=== PATIENT | female | born 1965 | race Caucasian/White ===

== ENCOUNTER → 2016-03-13 | Outpatient (CLI) | payer OTHER ==
[~2016-03-13] MED LIST: AMIT25TA PO; BUTR10DI2 TD; BUTR5DIS2 TD; CLOB-49 EX; CLOT1CRE71 TOP; CYCL5TA PO; DIFL200T PO; DULO30CA PO; GABA-283 PO; GABA300C3 PO; HYDR-3565 PO; HYDR1TAB97 PO; LACT20EL PO; LINZ290C PO; LYRI75CA PO; MIRA3350 PO; MS C15TA2 PO; OMEP40CA2 PO; OXYC15TA76 PO; OXYC1TAB15 PO; PANT40TA2 PO; ROBA750T4 PO; ROPI0.25 PO; ROPI1TAB PO; SOMA350T PO; SUMA100T2 PO; TERB1CRE8 TD; TERB250T57 PO; TOPA100T8 PO; TOPA25TA10 PO; TRAM50TA2 PO; TRAZ150T14 PO; TYLE500T78 PO; VICO7.5T11 PO; VITA1CAP25 PO; [UNRECOGNIZED DRUG - OTHER] TOP
[2016-03-13 10:22] LABS: BASO % 0.6 % (0.0-1.0); EOS # 0.2 K/mm3 (0.0-0.50); EOS % 2.8 % (0.0-3.0); LARGE UNSTAINED CELL # 0.1 K/mm3 (0.0-0.4); LARGE UNSTAINED CELL % 1.3 % (0.0-4.0); LYMPH # 0.9 K/mm3 (1.5-4.5); LYMPH % 17.7 % (24.0-44.0); MEAN CORPUSCULAR HEMOGLOBIN 32.6 pg (27.0-33.0); MEAN CORPUSCULAR VOLUME 95.8 fl (80.0-96.0); MONO # 0.2 K/mm3 (0.0-0.8); MONO % 3.6 % (0.0-5.0); NEUTROPHILS % 74.1 % (36.0-66.0); PLATELET COUNT, AUTOMATED 212 k/mm3 (150-450); RED CELL DISTRIBUTION WIDTH 12.3 % (11.5-14.5); WHITE BLOOD COUNT 5.3 K/mm3 (4.0-10.0)
[2016-03-13 10:44] LABS: ALBUMIN 3.7 GM/DL (3.2-5.2); PERCENT SATURATION 31.3 % (13.2-37.4)
== END ==
LOC: M LAB 09:32
PROVIDERS: ATTEND Orthopaedic Surgery
DX: D64.9 Anemia, unspecified (principal); Z01.818 Encounter for other preprocedural examination

== ENCOUNTER → 2016-03-13 | Outpatient (CLI) | payer OTHER ==
[2016-03-13 10:23] LABS: BASO % 0.4 % (0.0-1.0); EOS # 0.1 K/mm3 (0.0-0.50); EOS % 2.3 % (0.0-3.0); MEAN CORPUSCULAR HEMOGLOBIN 32.7 pg (27.0-33.0); MEAN CORPUSCULAR HGB CONC 34.1 g/dl (32.0-36.5); MEAN CORPUSCULAR VOLUME 95.9 fl (80.0-96.0); MONO # 0.2 K/mm3 (0.0-0.8); MONO % 3.7 % (0.0-5.0); NEUTROPHILS # 3.9 K/mm3 (1.8-7.7); NEUTROPHILS % 72.7 % (36.0-66.0); RED CELL DISTRIBUTION WIDTH 12.3 % (11.5-14.5); WHITE BLOOD COUNT 5.4 K/mm3 (4.0-10.0)
[2016-03-13 10:29] LABS: INR 0.89
--- NOTE | 2016-03-13 10:41 | REP ---
Chest x-ray: Two views. History: Preop testing. Comparison chest x-rays from July 15, 2015. Findings: There is a levoconvex scoliotic curve in the thoracolumbar junction of the spine and there is straightening of the normal thoracic kyphosis. These findings are unchanged. No other bony abnormality is seen. Lungs are well inflated and clear. Heart size is felt to be normal. Pulmonary vasculature is not increased. Pleural angles are sharp. Impression: Thoracolumbar roto scoliotic curve. Otherwise no active disease. Signed by Chris Win MD 03/13/2016 10:32 A
[2016-03-13 10:42] LABS: ALBUMIN 3.7 GM/DL (3.2-5.2); ALBUMIN/GLOBULIN RATIO 1.42 (1.00-1.93); ALKALINE PHOSPHATASE 85 U/L (45-117); ALT/SGPT 16 U/L (12-78); ANION GAP 10 MEQ/L (8-16); AST/SGOT 9 U/L (15-37); BILIRUBIN,TOTAL 0.2 MG/DL (0.2-1.0); BLOOD UREA NITROGEN 12 MG/DL (7-18); CALCIUM LEVEL 8.9 MG/DL (8.5-10.1); CARBON DIOXIDE LEVEL 24 MEQ/L (21-32); CHLORIDE LEVEL 113 MEQ/L (98-107); CREATININE FOR GFR 0.76 MG/DL (0.55-1.02); GLOMERULAR FILTRATION RATE > 60.0 (>51); GLUCOSE, FASTING 94 MG/DL (70-105); SODIUM LEVEL 147 MEQ/L (136-145); TOTAL PROTEIN 6.3 GM/DL (6.4-8.2)
--- NOTE | 2016-03-14 09:16 | ECGEPIP ---
Stationary ECG Study [facility] Test Date: 2016-03-13 Pat Name: NNAMDI ANAND Department: Room: - Gender: F Mobile Marketing Specialist: JEAN : 1965 Requested By: Theresa Borges Order Number: [id number] Reading MD: Orion Hope Measurements Intervals [place] Rate: 62 P: 49 VT: 181 QRS: 83 QRSD: 100 T: 9 QT: 408 QTc: 415 Interpretive Statements SINUS RHYTHM Nonspecific T wave abnormality No significant change when compared to prior tracing of 07-15-15 Electronically Signed On 03-14-2016 9:16:34 EST by Orion Hope
== END ==
LOC: M LAB 09:35
PROVIDERS: ATTEND Nurse Practitioner Adult Health
DX: Z01.818 Encounter for other preprocedural examination (principal)

== ENCOUNTER → 2016-04-02 | Outpatient (REF) | payer OTHER ==
[~2016-04-02] MED LIST changes: -HYDR-3565 PO; +HYDR-3713 PO; +HYDR-3719 PO; -HYDR1TAB97 PO
== END ==
LOC: M LAB REF 16:58
PROVIDERS: ATTEND Physician Assistant Medical
DX: J06.9 Acute upper respiratory infection, unspecified (principal)

== ENCOUNTER → 2016-04-04 | Outpatient (CLI) | payer OTHER ==
--- NOTE | 2016-04-04 23:35 | ECWPNPC ---
PATIENT NAME: NNAMDI ANAND : 1965 GENDER: FEMALE VISIT DATE: 04/04/2016 DISCHARGE DATE: 04/04/16 1333 VISIT LOCKED DATE TIME: PHYSICIAN: NINA ESQUIVEL RESOURCE: NINA ESQUIVEL REASON FOR APPOINTMENT 1. BACK HISTORY OF PRESENT ILLNESS HISTORY OF PRESENT ILLNESS: HERE FOR F/U. WILL BE HAVING RIGHT HIP SURGERY ON RATING PAIN VAS 8/10. WORSE AREA OF PAIN IS LOW BACK. PAIN IS AGGREVATED BY WALKING. RELIEVED BY LAYING DOWN AND PROPPING W PILLOWS.CURRENT PAIN MEDICATION:ROBAXIN 750MG TID,[id number] DAILY,CELEBREX 200MG BID AND OXYCODONE 15MG Q8H PRN MDD3 .FINDS MEDICATION HELPFUL AT REDUCING PAIN AND KEEPING HER SOMEWHAT FUNCTIONAL.DOES HAVE NAUSEA THAT IS RELIEVED WITH ANTI NAUSEA MEDICATION. HAVING SEVERE RIGHT NECK PAIN.FOLLOWING AUDIOLOGY FOR LEFT VESTIBULAR NERVE DYSFUNCTION. PAIN THE PATIENT DESCRIBES THE PAIN... THE PATIENT DESCRIBES THE PAIN... THE PATIENT DESCRIBES THE PAIN... FALL RISK SCREENING: SCREENING :NO FALLS IN THE PAST YEAR CURRENT MEDICATIONS TAKING ZOFRAN 4 MG TABLET 3 TABLETS ORALLY PRE MEDICATION TAKING VITAMIN D3 09953 UNIT CAPSULE ORALLY EVERY 2 WEEKS TAKING ROPINIROLE HCL 1 MG TABLET ORALLY AT BEDTIME TAKING SUMATRIPTAN SUCCINATE 100 MG TABLET 1 TABLET NEEDED ONE TIME ORALLY DIRECTED TAKING TOPIRAMATE 100 MG TABLET 1 TABLET ORALLY TWICE A DAY TAKING LINZESS 290 MCG CAPSULE 1 CAPSULE ORALLY ONCE A DAY TAKING PANTOPRAZOLE SODIUM 40 MG TABLET DELAYED RELEASE 1 TABLET ORALLY TWICE A DAY TAKING SIMVASTATIN 20 MG TABLET 1 TABLET IN THE EVENING ORALLY IN EVENING TAKING CELEBREX 200 MG CAPSULE 1 CAPSULE ORALLY BID TAKING TERBINAFINE HCL 250 MG TABLET 1 TABLET ORALLY ONCE A DAY TAKING METHOCARBAMOL 750 MG TABLET 1 TABLET ORALLY TID PRN TAKING CYMBALTA 60 MG CAPSULE DELAYED RELEASE PARTICLES 1 CAPSULE ORALLY DAILY TAKING GABAPENTIN 600 MG TABLET 1 TABLET ORALLY THREE TIMES A DAY TAKING OXYCODONE HCL 15 MG TABLET 1 TABLET ORALLY EVERY 8 HRS PRN PAIN MDD=3 NOT-TAKING TRIAMCINOLONE ACETONIDE 0.1 % CREAM 1 APPLICATION TO AFFECTED AREA EXTERNALLY TWICE A DAY, NOTES: 12/05/151999 NOT-TAKING VALIUM 10 MG TABLET 1 ORALLY 1 TAB 1HR PRE PROC. MDD1 NOT-TAKING MELATONIN 5 MG TABLET 1 TABLET AT BEDTIME NEEDED WITH FOOD ORALLY ONCE A DAY NOT-TAKING CYCLOBENZAPRINE HCL 5 MG TABLET 1 TABLET ORALLY 2 TIMES A DAY NEEDED NOT-TAKING MELOXICAM 15 MG TABLET 1 TABLET ORALLY ONCE A DAY UNKNOWN GABAPENTIN 300 600 MG TABLET 1 TAB(S) ORAL THREE TIMES A DAY MEDICATION LIST REVIEWED AND RECONCILED WITH THE PATIENT PAST MEDICAL HISTORY ACID REFLUX IBS PINCHED NERVES IN BACK SCOLIOSIS ARTHRITIS DDD ENDOMETRIOSIS CONGENITAL RIGHT HIP ABNORMALITY ALLERGIES NAPROXEN SODIUM: TONGUE SWELLS/FACE SWELLING: ALLERGY ASPIRIN: SORES IN MOUTH: ALLERGY ADHESIVE TAPE/BANDAIDS: BLISTERS: ALLERGY TEGADERM: SKIN BECOMES RAW, REDNESS, HEAT: ALLERGY SOCIAL HISTORY GENERAL: TOBACCO USE ARE YOU A:NONSMOKER LEARNING BARRIERS / SPECIAL NEEDS ORIENTED TO PLAN OF CARE: PATIENT, PAIN MANAGEMENT PATIENT, ORIENTED TO PLAN OF CARE: PATIENT, PAIN MANAGEMENT PATIENT. NEW PATIENT PAIN DIARY TODAY'S VISITNOTES FROM 0-10, WHAT LEVEL IS YOUR PAIN TODAY?0 PAIN CLINIC PFS, CLERGY, PUBLIC HEALTH REFERRALS PFS REFERRAL NEEDED?NO CLERGY REFERRAL NEEDED?NO PUBLIC HEALTH REFERRAL NEEDED?NO WAS THE PROVIDER NOTIFIED OF ANY PERTINENT INFO?NO PFS REFERRAL NEEDED?NO CLERGY REFERRAL NEEDED?NO PUBLIC HEALTH REFERRAL NEEDED?NO WAS THE PROVIDER NOTIFIED OF ANY PERTINENT INFO?NO REVIEW OF SYSTEMS CONSTITUTIONAL: ANY CHANGE IN YOUR MEDICAL CONDITION? NO . CHILLS NO . FEVER NO . INFECTION: DO YOU HAVE NEW INFECTIONS? NO . DO YOU HAVE HISTORY OF MRSA? NO . MUSCULOSKELETAL: ANY NEW PATTERNS OF PAIN OR NUMBNESS? NO . GASTROENTEROLOGY: ANY NEW CHANGE IN BOWEL CONTROL? NO . GENITOURINARY: ANY NEW CHANGE IN BLADDER CONTROL? NO . IS THERE A CHANCE YOU COULD BE ? NO . HEMATOLOGY/LYMPH: DO YOU TAKE ANY BLOOD THINNERS? (FOR EXAMPLE- COUMADIN, PLAVIX, AGGRENOX, PLATEL, PRADAXA, OR XARELTO) NO . WHEN WAS YOUR LAST DOSE? DATE: TIME: . NEUROLOGY: HAVE YOU FALLEN IN THE PAST 6 MONTHS? YES FELL 3 DAYS AGO ON STEPS.RECOVERED . ANY NEW EXTREMITY NUMBNESS OR WEAKNESS? NO . CARDIOLOGY: DO YOU HAVE A PACEMAKER OR DEFIBRILLATOR? NO . RESPIRATORY: HAVE YOU BEEN SICK IN THE PAST WEEK? NO . FEVER NO . FLU LIKE SYMPTOMS? NO . COUGH NO . INTEGUMENTARY: DO YOU HAVE ANY RASHES OR OPEN SORES? NO . ALLERGIC/IMMUNO: ARE YOU ALLERGIC TO SHELLFISH OR IV DYE? NO . ANY NEW ALLERGIES? NO . PSYCHIATRIC: DO YOU HAVE THOUGHTS OF HURTING YOURSELF OR SOMEONE ELSE? NO . ARE YOU ABUSED, NEGLECTED, OR IN AN UNSAFE ENVIRONMENT? NO . ENDOCRINOLOGY: ARE YOU DIABETIC? NO . OTHER: DO YOU NEED ANY PRESCRIPTIONS? DULOXETINE 60 MG AND WILL NEED OXY ON THE . IF YES, PLEASE LIST: ____ . ANY NEW PROBLEMS WITH YOUR MEDICATIONS? NO . WHEN DID YOU LAST EAT? ____ . WHEN DID YOU LAST DRINK? ____ . WHAT DID YOU LAST DRINK? ____ . NAME OF PERSON DRIVING YOU HOME? ____ . DO YOU HAVE ANY OTHER QUESTIONS OR CONCERNS NO . REVIEWED BY: PROVIDER: NINA BANEGAS . VITAL SIGNS WT 163 LBS, HT 61 IN, BMI 30.80 INDEX, BP 127/63 MM HG, HR 82 /MIN, RR 18 /MIN, TEMP 98.2 F, OXYGEN SAT % 97, SAFE IN ENV? (Y/N) Y, REVIEWED BY: KG. EXAMINATION GENERAL EXAMINATION: LUNGS:LUNG SOUNDS ARE CLEAR. HEART:HEART RATE REGULAR. MUSCULOSKELETAL:*, MUSCLE STRENGTH TESTING 5/5 LEFT AND 3/5RIGHT, PALPATION: POSITIVE FOR PAIN OVER L/S SPINE. POSITIVE FOR PAIN OVER L/S PARSPINALS.SPECIFIC POINT TENDERNESS OVER SIJ AREA BILAT.TRIGGER POINT ELICITED IN LUMBAR PARASPINALS.PAIN IN THIS AREA IS AGGREVATED BY BOTH FLEXION AND EXTENSION OF SPINE.. DIAGNOSTIC: . ASSESSMENTS RIGHT HIP PAIN - M25.551 (PRIMARY) CHRONIC BILATERAL LOW BACK PAIN WITH RIGHT-SIDED SCIATICA - M54.41 CHRONIC PRESCRIPTION OPIATE USE - Z79.899 MYOFASCIAL PAIN - M79.1 TREATMENT RIGHT HIP PAIN CONTINUE METHOCARBAMOL TABLET, 750 MG, 1 TABLET, ORALLY, TID PRN REFILL CYMBALTA CAPSULE DELAYED RELEASE PARTICLES, 60 MG, 1 CAPSULE, ORALLY, DAILY, 30 DAY(S), 30 CAPSULE, REFILLS 5 CONTINUE GABAPENTIN TABLET, 600 MG, 1 TABLET, ORALLY, THREE TIMES A DAY CONTINUE OXYCODONE HCL TABLET, 15 MG, 1 TABLET, ORALLY, EVERY 8 HRS PRN PAIN MDD=3 PROCEDURE CODES FA211 ESTABILISHED PATIENT [facility] CHARGE FOLLOW UP 2 MONTHS ELECTRONICALLY SIGNED BY BASSAM SANTANA ON 04/04/2016 AT 11:08 AM EST DISCLAIMER : THIS IS A VISIT SUMMARY EXTRACTED FROM THE [employer] CHART. IT IS NOT A COPY OF THE [employer] PROGRESS NOTE. MARIKA
== END ==
LOC: M PAIN 09:20
PROVIDERS: ATTEND Nurse Practitioner Family
DX: M25.551 Pain in right hip (principal); M54.41 Lumbago with sciatica, right side; M79.1 Myalgia; G89.29 Other chronic pain; Z79.891 Long term (current) use of opiate analgesic; Z79.899 Other long term (current) drug therapy

== ENCOUNTER → 2016-04-25 | Outpatient (REF) | payer OTHER ==
[2016-04-25 20:41] LABS: INR 1.12
== END ==
LOC: M LABDRWAD 20:09
PROVIDERS: ATTEND Orthopaedic Surgery
DX: Z79.01 Long term (current) use of anticoagulants (principal); M25.559 Pain in unspecified hip; M16.11 Unilateral primary osteoarthritis, right hip

== ENCOUNTER → 2016-05-01 | Outpatient (CLI) | payer OTHER ==
[2016-05-01 20:27] LABS: INR 0.99
== END ==
LOC: M ADAMS 15:51
PROVIDERS: ATTEND Orthopaedic Surgery
DX: Z79.01 Long term (current) use of anticoagulants (principal); M24.151 Other articular cartilage disorders, right hip; M16.11 Unilateral primary osteoarthritis, right hip

== ENCOUNTER → 2016-05-04 | Outpatient (REF) | payer OTHER ==
[2016-05-04 20:19] LABS: CALCIUM OXALATE CRYSTALS MODERATE
== END ==
LOC: M LABDRWAD 19:27
PROVIDERS: ATTEND Physician Assistant Surgical
DX: Z79.899 Other long term (current) drug therapy (principal); Z48.89 Encounter for other specified surgical aftercare; M24.132 Other articular cartilage disorders, left wrist; M25.559 Pain in unspecified hip; M24.151 Other articular cartilage disorders, right hip

== ENCOUNTER → 2016-05-23 | Outpatient (CLI) | payer OTHER ==
--- NOTE | 2016-05-23 13:01 | REP ---
LUMBAR SPINE, SEVEN VIEWS: HISTORY: Spondylosis. COMPARISON: 09/25/2014. There is no acute fracture. The intervertebral discs are decreased in height consistent with disc degeneration. Osteophytes are present on T12-L2. There is narrowing of the right L3-4 through L5-S1 and left L5-S1 facet joints. There are 2 mm of retrolisthesis of L1 on 2 and L3 on 4. This is unchanged with flexion and extension. There is scoliosis convex to the left. IMPRESSION: Degenerative change as described above. Signed by Pradeep Peck MD 05/23/2016 01:04 P
--- NOTE | 2016-05-23 13:05 | REP ---
CERVICAL SPINE, SEVEN VIEWS: HISTORY: Spondylosis. COMPARISON: 09/25/2014 There is no acute fracture. The C5-6 and C6-7 intervertebral discs are decreased in height consistent with disc degeneration. Osteophytes are present on C5 through C7. There is narrowing of the C5 neural foramina secondary to uncinate process hypertrophy. There are 2 mm of anterior subluxation of C4 on C5 with flexion. There are 2 mm of retrolisthesis of C4 on C5 with extension. IMPRESSION: Degenerative change, as described above. Signed by Pradeep Peck MD 05/23/2016 01:36 P
== END ==
LOC: M RAD 11:08
PROVIDERS: ATTEND Neurological Surgery
DX: M47.892 Other spondylosis, cervical region (principal); M47.896 Other spondylosis, lumbar region

== ENCOUNTER → 2016-06-02 | Outpatient (CLI) | payer OTHER ==
[~2016-06-02] MED LIST changes: +GABA-282 PO; -GABA300C3 PO
--- NOTE | 2016-06-03 01:43 | ECWPNPC ---
PATIENT NAME: NNAMDI ANAND : 1965 GENDER: FEMALE VISIT DATE: 06/02/2016 DISCHARGE DATE: 06/02/16 1146 VISIT LOCKED DATE TIME: PHYSICIAN: NINA ESQUIVEL RESOURCE: NINA ESQUIVEL REASON FOR APPOINTMENT 1. BACK HISTORY OF PRESENT ILLNESS HISTORY OF PRESENT ILLNESS: HERE FOR F/U. HAD RIGHT HIP SURGERY ON .WAS DOING WELL UNTIL ONE MONTH AGO.NOW HAVING INCREASED PAIN IN RIGHT HIP AND IS BEING EVALUATED FOR POSSIBLE INFECTION RIGHT HIP. WILL BE HAVING ULTRASOUND RIGHT HIP TODAY.FOLLOWING WITH DR. HUTSON FOR NECK AND LOW BACK.COMPLAINING OF INCREASE IN LBP LATELY.RATING PAIN VAS 8/10. WORSE AREA OF PAIN IS LOW BACK. PAIN IS AGGREVATED BY WALKING. RELIEVED BY LAYING DOWN AND PROPPING W PILLOWS.CURRENT PAIN MEDICATION:ROBAXIN 750MG TID,[id number] DAILY,CELEBREX 200MG BID AND OXYCODONE 15MG Q8H PRN MDD3 .DOESNT FEEL MEDICATION IS HELPING PAIN.DOES HAVE NAUSEA THAT IS RELIEVED WITH ANTI NAUSEA MEDICATION. HAVING SEVERE RIGHT NECK PAIN.FOLLOWING AUDIOLOGY FOR LEFT VESTIBULAR NERVE DYSFUNCTION. PAIN THE PATIENT DESCRIBES THE PAIN... THE PATIENT DESCRIBES THE PAIN... THE PATIENT DESCRIBES THE PAIN... THE PATIENT DESCRIBES THE PAIN... FALL RISK SCREENING: SCREENING :NO FALLS IN THE PAST YEAR CURRENT MEDICATIONS TAKING ZOFRAN 4 MG TABLET 3 TABLETS ORALLY PRE MEDICATION TAKING VITAMIN D3 61007 UNIT CAPSULE ORALLY EVERY 2 WEEKS TAKING ROPINIROLE HCL 1 MG TABLET ORALLY AT BEDTIME TAKING SUMATRIPTAN SUCCINATE 100 MG TABLET 1 TABLET NEEDED ONE TIME ORALLY DIRECTED TAKING TOPIRAMATE 100 MG TABLET 1 TABLET ORALLY TWICE A DAY TAKING LINZESS 290 MCG CAPSULE 1 CAPSULE ORALLY ONCE A DAY TAKING PANTOPRAZOLE SODIUM 40 MG TABLET DELAYED RELEASE 1 TABLET ORALLY TWICE A DAY TAKING SIMVASTATIN 20 MG TABLET 1 TABLET IN THE EVENING ORALLY IN EVENING TAKING TERBINAFINE HCL 250 MG TABLET 1 TABLET ORALLY ONCE A DAY TAKING METHOCARBAMOL 750 MG TABLET 1 TABLET ORALLY TID PRN TAKING CYMBALTA 60 MG CAPSULE DELAYED RELEASE PARTICLES 1 CAPSULE ORALLY DAILY TAKING GABAPENTIN 600 MG TABLET 1 TABLET ORALLY THREE TIMES A DAY TAKING OXYCODONE HCL 15 MG TABLET 1 TABLET ORALLY EVERY 8 HRS PRN PAIN MDD=3 TAKING DOXYCYCLINE MONOHYDRATE 100 MG CAPSULE 1 CAPSULE ORALLY BID X 10 DAYS NOT-TAKING TRIAMCINOLONE ACETONIDE 0.1 % CREAM 1 APPLICATION TO AFFECTED AREA EXTERNALLY TWICE A DAY, NOTES: 12/05/151999 NOT-TAKING VALIUM 10 MG TABLET 1 ORALLY 1 TAB 1HR PRE PROC. MDD1 NOT-TAKING MELATONIN 5 MG TABLET 1 TABLET AT BEDTIME NEEDED WITH FOOD ORALLY ONCE A DAY NOT-TAKING CYCLOBENZAPRINE HCL 5 MG TABLET 1 TABLET ORALLY 2 TIMES A DAY NEEDED NOT-TAKING MELOXICAM 15 MG TABLET 1 TABLET ORALLY ONCE A DAY DISCONTINUED CELEBREX 200 MG CAPSULE 1 CAPSULE ORALLY BID UNKNOWN GABAPENTIN 300 600 MG TABLET 1 TAB(S) ORAL THREE TIMES A DAY MEDICATION LIST REVIEWED AND RECONCILED WITH THE PATIENT PAST MEDICAL HISTORY ACID REFLUX IBS PINCHED NERVES IN BACK SCOLIOSIS ARTHRITIS DDD ENDOMETRIOSIS CONGENITAL RIGHT HIP ABNORMALITY ALLERGIES NAPROXEN SODIUM: TONGUE SWELLS/FACE SWELLING: ALLERGY ASPIRIN: SORES IN MOUTH: ALLERGY ADHESIVE TAPE/BANDAIDS: BLISTERS: ALLERGY TEGADERM: SKIN BECOMES RAW, REDNESS, HEAT: ALLERGY SURGICAL HISTORY WRIST SURGERY RIGHT.TORN LIGAMENT 2004 BILATERAL SALPINGO SURGERY DUE TO DEFECT 1989 SURGERY LEFT WRIST 2016 RIGHT HIP SURGERY 2015 RIGHT FOOT SURGERY- NERVE RELEASE 09/27/15 TOTAL RIGHT HIP 04/05/2016 SOCIAL HISTORY GENERAL: PAIN CLINIC PFS, CLERGY, PUBLIC HEALTH REFERRALS CLERGY REFERRAL NEEDED?NO WAS THE PROVIDER NOTIFIED OF ANY PERTINENT INFO?NO PFS REFERRAL NEEDED?NO PUBLIC HEALTH REFERRAL NEEDED?NO PATIENT: ____. HOSPITALIZATION/MAJOR DIAGNOSTIC PROCEDURE SURGERY RELATED REVIEW OF SYSTEMS CONSTITUTIONAL: ANY CHANGE IN YOUR MEDICAL CONDITION? YES[facility] HAVING INCREASED PAIN IN IT AND STARTED ON DOXYCYCLINE AND IS HAVING US OF THIS AFTER APPOINTMENT TODAY. SEEING DR LANGSTON FOR BALANCE ISSUES AND WILL BE STARTING PT FOR THIS AFTER HIP PT IS DONE . CHILLS NO . FEVER NO . INFECTION: DO YOU HAVE NEW INFECTIONS? NO . DO YOU HAVE HISTORY OF MRSA? NO . MUSCULOSKELETAL: ANY NEW PATTERNS OF PAIN OR NUMBNESS? YES, PAIN RIGHT HIP(POST TOTAL HIP) THAT HAS GOTTEN WORSE OVER THE PAST MONTH . GASTROENTEROLOGY: ANY NEW CHANGE IN BOWEL CONTROL? NO . GENITOURINARY: ANY NEW CHANGE IN BLADDER CONTROL? NO . IS THERE A CHANCE YOU COULD BE ? NO . HEMATOLOGY/LYMPH: DO YOU TAKE ANY BLOOD THINNERS? (FOR EXAMPLE- COUMADIN, PLAVIX, AGGRENOX, PLATEL, PRADAXA, OR XARELTO) NO . WHEN WAS YOUR LAST DOSE? DATE: TIME: . NEUROLOGY: HAVE YOU FALLEN IN THE PAST 6 MONTHS? YES, HAS FALLEN SEVERAL TIMES. THIS IS SOMEWHAT DUE TO BALANCE ISSUES . ANY NEW EXTREMITY NUMBNESS OR WEAKNESS? NO . CARDIOLOGY: DO YOU HAVE A PACEMAKER OR DEFIBRILLATOR? NO . RESPIRATORY: HAVE YOU BEEN SICK IN THE PAST WEEK? NO . FEVER NO . FLU LIKE SYMPTOMS? NO . COUGH NO . INTEGUMENTARY: DO YOU HAVE ANY RASHES OR OPEN SORES? NO . ALLERGIC/IMMUNO: ARE YOU ALLERGIC TO SHELLFISH OR IV DYE? NO . ANY NEW ALLERGIES? NO . PSYCHIATRIC: DO YOU HAVE THOUGHTS OF HURTING YOURSELF OR SOMEONE ELSE? NO . ARE YOU ABUSED, NEGLECTED, OR IN AN UNSAFE ENVIRONMENT? NO . ENDOCRINOLOGY: ARE YOU DIABETIC? NO . OTHER: DO YOU NEED ANY PRESCRIPTIONS? NO . IF YES, PLEASE LIST: ____ . ANY NEW PROBLEMS WITH YOUR MEDICATIONS? NO . WHEN DID YOU LAST EAT? ____ . WHEN DID YOU LAST DRINK? ____ . WHAT DID YOU LAST DRINK? ____ . NAME OF PERSON DRIVING YOU HOME? ____ . DO YOU HAVE ANY OTHER QUESTIONS OR CONCERNS YES, WOULD LIKE TO DISCUSS HER MEDS. SAW DR HUTSON APPROX 2 WEEKS AGO AND GOT INJECTIONS IN HEAD, NECK AND BACK. HAD CERVICAL AND LUMBAR MRI WITH XRAYS OF THESE AREAS DONE APPROX. 1 WEEK AGO. . REVIEWED BY: PROVIDER: NINA BANEGAS . VITAL SIGNS WT 166 LBS, HT 61 IN, BMI 31.36 INDEX, BP 135/69 MM HG, HR 74 /MIN, RR 18 /MIN, TEMP 99.3 F, OXYGEN SAT % 92%, NA INITIALS AW 10:51, REVIEWED BY: AD. EXAMINATION GENERAL EXAMINATION: LUNGS:LUNG SOUNDS ARE CLEAR. HEART:HEART RATE REGULAR. MUSCULOSKELETAL:*, MUSCLE STRENGTH TESTING 5/5 LEFT AND 3/5RIGHT, PALPATION: POSITIVE FOR PAIN OVER L/S SPINE. POSITIVE FOR PAIN OVER L/S PARSPINALS.SPECIFIC POINT TENDERNESS OVER SIJ AREA BILAT.TRIGGER POINT ELICITED IN LUMBAR PARASPINALS.PAIN IN THIS AREA IS AGGREVATED BY BOTH FLEXION AND EXTENSION OF SPINE.. DIAGNOSTIC: . ASSESSMENTS RIGHT HIP PAIN - M25.551 (PRIMARY) LUMBAGO WITH SCIATICA, UNSPECIFIED SIDE - M54.40 CERVICALGIA - M54.2 CHRONIC PRESCRIPTION OPIATE USE - Z79.891 TREATMENT RIGHT HIP PAIN CONTINUE CYMBALTA CAPSULE DELAYED RELEASE PARTICLES, 60 MG, 1 CAPSULE, ORALLY, DAILY CONTINUE GABAPENTIN TABLET, 600 MG, 1 TABLET, ORALLY, THREE TIMES A DAY REFILL OXYCODONE HCL TABLET, 15 MG, 1 TABLET, ORALLY, EVERY 8 HRS PRN PAIN MDD=3, 30 DAY(S), 90, REFILLS 0 START MS CONTIN TABLET EXTENDED RELEASE, 15 MG, 1 TABLET, ORALLY, EVERY 12 HRS MDD2, 30 DAY(S), 60, REFILLS 0 NOTES: ISTOP REGISTRY REVIEWED AND DEMNOSTRATES COMPLLIANCE. BRINGS IN MEDICATIONS WHICH IS APPROPRIATE FOR WHAT WAS DISPENSED. RECENT URINE TOXICOLOGY REVIEWED. NO UNAUTHORIZED MEDICATIONS. NO ILLICIT SUBSTANCES AND PRESCRIBED MEDICATIONS WERE PRESENT. , RISKS AND BENEFITS OF NARCOTIC/OPIOD MEDICATIONS WERE REVIEWED WITH PATIENT - THIS INCLUDES BUT IS NOT LIMITED TO RISK OF DEPENDANCE/DEVELOPMENT OF ADDICTION, MOOD DISTURBANCE AND DEPRESSION, OSTEOPOROSIS, HORMONAL AND LABIDAL CHANGES, RESPIRATORY DEPRESSION AND . PATIENT IS ADVISED NOT TO DRIVE WHILE ON THESE MEDICATIONS.URINE FOR TOX. TODAY. PREVENTIVE MEDICINE PAIN CLINIC TEACHING: MEDICATIONS PRINTED INFORMATION ON MS CONTIN GIVEN TO AND REVIEWED WITH PATIENT AND SHE VERBALIZED UNDERSTANDING.. PROCEDURE CODES FA211 ESTABILISHED PATIENT [facility] CHARGE DISPOSITION & COMMUNICATION FOLLOW UP 2 WEEKS ELECTRONICALLY SIGNED BY BASSAM SANTANA ON 06/02/2016 AT 04:00 PM EDT DISCLAIMER : THIS IS A VISIT SUMMARY EXTRACTED FROM THE [employer] CHART. IT IS NOT A COPY OF THE [employer] PROGRESS NOTE. MTDD
== END | disposition home or self-care (01) ==
LOC: M PAIN 10:20
PROVIDERS: ATTEND Nurse Practitioner Family
DX: Z09 Encounter for follow-up examination after completed treatment for conditions other than malignant neoplasm (principal); G89.29 Other chronic pain; M25.551 Pain in right hip; M54.40 Lumbago with sciatica, unspecified side; M54.2 Cervicalgia; K21.9 Gastro-esophageal reflux disease without esophagitis; K58.9 Irritable bowel syndrome, unspecified; N80.9 Endometriosis, unspecified; Z79.899 Other long term (current) drug therapy; Z88.8 Allergy status to other drugs, medicaments and biological substances; L23.1 Allergic contact dermatitis due to adhesives

== ENCOUNTER → 2016-06-02 | Outpatient (CLI) | payer OTHER ==
[~2016-06-02] MED LIST changes: -GABA-282 PO; +GABA300C3 PO
--- NOTE | 2016-06-02 14:24 | REP ---
SOFT-TISSUE ULTRASOUND, RIGHT HIP: 06/02/2016. Clinical history: Swelling and pain distal end of the right hip incision. Status post right total hip replacement 04/05/2016. Scanning at the site of the hip incision shows the incision extending into the soft tissues with adjacent edema but no fluid collection or abscess identified there. In the anterior region there is some fluid noted anterior to the femoral head at the level of the joint. This certainly could be joint effusion or a periarticular fluid collection. That fluid measures 2.5 x 0.7 x 0.6 cm. Impression: 1. There is no evidence of seroma or abscess at the level of the incision over the hip but anterior to the hip is a curvilinear fluid collection adjacent to the joint and either representing hip joint effusion or periarticular fluid collection at 2.5 x 0.7 x 0.6 cm diameter. Correlation with laboratory values, clinical examination and in conjunction with consultation with her orthopedic surgeon recommended. These three component factors will determine need for potential fluid sampling/aspiration procedure. Signed by Gustavo Pryor MD 06/02/2016 08:13 P
== END ==
LOC: M RAD 11:55
PROVIDERS: ATTEND Nurse Practitioner Adult Health
DX: T85.79XA Infection and inflammatory reaction due to other internal prosthetic devices, implants and grafts, initial encounter (principal); Z96.641 Presence of right artificial hip joint

== ENCOUNTER → 2016-07-19 | Outpatient (REF) | payer OTHER ==
[~2016-07-19] MED LIST changes: +GABA-282 PO; -GABA300C3 PO
== END ==
LOC: M LABDRWAD 12:14
PROVIDERS: ATTEND Physician Assistant Surgical
DX: M25.559 Pain in unspecified hip (principal); Z96.641 Presence of right artificial hip joint

== ENCOUNTER → 2016-07-26 | Outpatient (CLI) | payer OTHER ==
--- NOTE | 2016-08-17 01:55 | ECWPNPC ---
PATIENT NAME: NNAMDI ANAND : 1965 GENDER: FEMALE VISIT DATE: 07/26/2016 DISCHARGE DATE: 07/26/16 1201 VISIT LOCKED DATE TIME: PHYSICIAN: NINA ESQUIVEL RESOURCE: NINA ESQUIVEL REASON FOR APPOINTMENT 1. MEDS HISTORY OF PRESENT ILLNESS HISTORY OF PRESENT ILLNESS: HERE FOR F/U. HAD RIGHT HIP SURGERY ON .WAS DOING WELL UNTIL 3 MONTH AGO.NOW HAVING INCREASED PAIN IN RIGHT HIP AND IS BEING TREATED FOR FLUID POCKETS RIGHT HIP. WILL BE HAVING ULTRASOUND RIGHT HIP TODAY.FOLLOWING WITH DR. HUTSON FOR NECK AND LOW BACK.COMPLAINING OF RIGHT KNEE PAIN AND BRUISING LATELY.RATING PAIN VAS 8/10. WORSE AREA OF PAIN IS LOW BACK. PAIN IS AGGREVATED BY WALKING. RELIEVED BY LAYING DOWN AND PROPPING W PILLOWS.CURRENT PAIN MEDICATION:ROBAXIN 750MG TID,[id number] DAILY,CELEBREX 200MG BID AND OXYCODONE 15MG Q8H PRN MDD3 .DOESNT FEEL MEDICATION IS HELPING PAIN.DOES HAVE NAUSEA THAT IS RELIEVED WITH ANTI NAUSEA MEDICATION. HAVING SEVERE RIGHT NECK PAIN.FOLLOWING AUDIOLOGY FOR LEFT VESTIBULAR NERVE DYSFUNCTION. PAIN THE PATIENT DESCRIBES THE PAIN... THE PATIENT DESCRIBES THE PAIN... THE PATIENT DESCRIBES THE PAIN... THE PATIENT DESCRIBES THE PAIN... THE PATIENT DESCRIBES THE PAIN... FALL RISK SCREENING: SCREENING :NO FALLS IN THE PAST YEAR CURRENT MEDICATIONS TAKING ZOFRAN 4 MG TABLET 3 TABLETS ORALLY PRE MEDICATION TAKING VITAMIN D3 96731 UNIT CAPSULE ORALLY EVERY 2 WEEKS TAKING ROPINIROLE HCL 1 MG TABLET ORALLY AT BEDTIME TAKING SUMATRIPTAN SUCCINATE 100 MG TABLET 1 TABLET NEEDED ONE TIME ORALLY DIRECTED TAKING TOPIRAMATE 100 MG TABLET 1 TABLET ORALLY TWICE A DAY TAKING LINZESS 290 MCG CAPSULE 1 CAPSULE ORALLY ONCE A DAY TAKING PANTOPRAZOLE SODIUM 40 MG TABLET DELAYED RELEASE 1 TABLET ORALLY TWICE A DAY TAKING SIMVASTATIN 20 MG TABLET 1 TABLET IN THE EVENING ORALLY IN EVENING TAKING TERBINAFINE HCL 250 MG TABLET 1 TABLET ORALLY ONCE A DAY TAKING METHOCARBAMOL 750 MG TABLET 1 TABLET ORALLY TID PRN TAKING DOXYCYCLINE MONOHYDRATE 100 MG CAPSULE 1 CAPSULE ORALLY BID X 10 DAYS TAKING CYMBALTA 60 MG CAPSULE DELAYED RELEASE PARTICLES 1 CAPSULE ORALLY DAILY TAKING GABAPENTIN 600 MG TABLET 1 TABLET ORALLY THREE TIMES A DAY TAKING MS CONTIN 15 MG TABLET EXTENDED RELEASE 1 TABLET ORALLY EVERY 12 HRS MDD2 TAKING OXYCODONE HCL 15 MG TABLET 1 TABLET ORALLY EVERY 8 HRS PRN PAIN MDD=3 NOT-TAKING TRIAMCINOLONE ACETONIDE 0.1 % CREAM 1 APPLICATION TO AFFECTED AREA EXTERNALLY TWICE A DAY, NOTES: 12/05/151999 NOT-TAKING VALIUM 10 MG TABLET 1 ORALLY 1 TAB 1HR PRE PROC. MDD1 NOT-TAKING MELATONIN 5 MG TABLET 1 TABLET AT BEDTIME NEEDED WITH FOOD ORALLY ONCE A DAY NOT-TAKING CYCLOBENZAPRINE HCL 5 MG TABLET 1 TABLET ORALLY 2 TIMES A DAY NEEDED NOT-TAKING MELOXICAM 15 MG TABLET 1 TABLET ORALLY ONCE A DAY UNKNOWN GABAPENTIN 300 600 MG TABLET 1 TAB(S) ORAL THREE TIMES A DAY MEDICATION LIST REVIEWED AND RECONCILED WITH THE PATIENT PAST MEDICAL HISTORY ACID REFLUX IBS PINCHED NERVES IN BACK SCOLIOSIS ARTHRITIS DDD ENDOMETRIOSIS CONGENITAL RIGHT HIP ABNORMALITY ALLERGIES NAPROXEN SODIUM: TONGUE SWELLS/FACE SWELLING: ALLERGY ASPIRIN: SORES IN MOUTH: ALLERGY ADHESIVE TAPE/BANDAIDS: BLISTERS: ALLERGY TEGADERM: SKIN BECOMES RAW, REDNESS, HEAT: ALLERGY SURGICAL HISTORY WRIST SURGERY RIGHT.TORN LIGAMENT 2004 BILATERAL SALPINGO SURGERY DUE TO DEFECT 1989 SURGERY LEFT WRIST 2016 RIGHT HIP SURGERY 2016 RIGHT FOOT SURGERY- NERVE RELEASE 09/27/15 TOTAL RIGHT HIP 04/05/2016 HOSPITALIZATION/MAJOR DIAGNOSTIC PROCEDURE SURGERY RELATED REVIEW OF SYSTEMS CONSTITUTIONAL: ANY CHANGE IN YOUR MEDICAL CONDITION? NO. PT STATES HER PAIN IS SOMEWHAT CONTROLLED WITH REGIMEN. PT RATES BACK PAIN 7.5/10. PT STATES SHE NEVER STARTED MS CONTIN THE INSURANCE WOULD NOT COVER. . CHILLS NO . FEVER NO . INFECTION: DO YOU HAVE NEW INFECTIONS? NO . DO YOU HAVE HISTORY OF MRSA? NO . MUSCULOSKELETAL: ANY NEW PATTERNS OF PAIN OR NUMBNESS? YES. PT STATES SHE HAD RIGHT HIP SURGERY 04/2016. PT STATES HIP SURGERY DID NOT HELP SO MUCH, LOTS OF PROBLEMS POST OP. . GASTROENTEROLOGY: ANY NEW CHANGE IN BOWEL CONTROL? NO . GENITOURINARY: ANY NEW CHANGE IN BLADDER CONTROL? NO . IS THERE A CHANCE YOU COULD BE ? NO . HEMATOLOGY/LYMPH: DO YOU TAKE ANY BLOOD THINNERS? (FOR EXAMPLE- COUMADIN, PLAVIX, AGGRENOX, PLATEL, PRADAXA, OR XARELTO) NO . WHEN WAS YOUR LAST DOSE? DATE: TIME: . NEUROLOGY: HAVE YOU FALLEN IN THE PAST 6 MONTHS? YES. PT REPORTS FREQUENT FALLS FOR LOSS OF BALANCE. PT DENIES MAJOR INJURIES POST FALLING, PT TX'S MINOR INJURIES WITH ICE PACKS.&NBSP;. ANY NEW EXTREMITY NUMBNESS OR WEAKNESS? &NBSP;&NBSP; NO&NBSP;. CARDIOLOGY: DO YOU HAVE A PACEMAKER OR DEFIBRILLATOR? NO . RESPIRATORY: HAVE YOU BEEN SICK IN THE PAST WEEK? NO . FEVER NO . FLU LIKE SYMPTOMS? NO . COUGH NO . INTEGUMENTARY: DO YOU HAVE ANY RASHES OR OPEN SORES? NO . ALLERGIC/IMMUNO: ARE YOU ALLERGIC TO SHELLFISH OR IV DYE? NO . ANY NEW ALLERGIES? NO . PSYCHIATRIC: DO YOU HAVE THOUGHTS OF HURTING YOURSELF OR SOMEONE ELSE? NO . ARE YOU ABUSED, NEGLECTED, OR IN AN UNSAFE ENVIRONMENT? NO . ENDOCRINOLOGY: ARE YOU DIABETIC? NO . OTHER: DO YOU NEED ANY PRESCRIPTIONS? YES, GABAPENTIN, METHOCARBIMOL, OXY, . IF YES, PLEASE LIST: ____ . ANY NEW PROBLEMS WITH YOUR MEDICATIONS? NO . WHEN DID YOU LAST EAT? ____ . WHEN DID YOU LAST DRINK? ____ . WHAT DID YOU LAST DRINK? ____ . NAME OF PERSON DRIVING YOU HOME? ____ . DO YOU HAVE ANY OTHER QUESTIONS OR CONCERNS NO . REVIEWED BY: PROVIDER: NINA BANEGAS . VITAL SIGNS WT 168.0 LBS, HT 61 IN, BMI 31.74 INDEX, BP 132/66 MM HG, HR 93 /MIN, RR 16 /MIN, TEMP 99.2 F, OXYGEN SAT % 98%, SAFE IN ENV? (Y/N) Y, NA INITIALS TL 1128, REVIEWED BY: EM. EXAMINATION GENERAL EXAMINATION: LUNGS:LUNG SOUNDS ARE CLEAR. HEART:HEART RATE REGULAR. MUSCULOSKELETAL:*, MUSCLE STRENGTH TESTING 5/5 LEFT AND 3/5RIGHT, PALPATION: POSITIVE FOR PAIN OVER L/S SPINE. POSITIVE FOR PAIN OVER L/S PARSPINALS.SPECIFIC POINT TENDERNESS OVER SIJ AREA BILAT.TRIGGER POINT ELICITED IN LUMBAR PARASPINALS.PAIN IN THIS AREA IS AGGREVATED BY BOTH FLEXION AND EXTENSION OF SPINE.. DIAGNOSTIC: . ASSESSMENTS RIGHT HIP PAIN - M25.551 (PRIMARY) LUMBAGO WITH SCIATICA, UNSPECIFIED SIDE - M54.40 CERVICALGIA - M54.2 CHRONIC PRESCRIPTION OPIATE USE - Z79.891 TREATMENT RIGHT HIP PAIN START AMITRIPTYLINE HCL TABLET, 50 MG, 1 TABLET, ORALLY, ONCE A DAY, 30 DAY(S), 30, REFILLS 1 CONTINUE CYMBALTA CAPSULE DELAYED RELEASE PARTICLES, 60 MG, 1 CAPSULE, ORALLY, DAILY REFILL METHOCARBAMOL TABLET, 750 MG, 1 TABLET, ORALLY, TID PRN, 30 DAY(S), 90, REFILLS 2 REFILL OXYCODONE HCL TABLET, 15 MG, 1 TABLET, ORALLY, EVERY 8 HRS PRN PAIN MDD=3, 30 DAY(S), 90, REFILLS 0 CONTINUE GABAPENTIN TABLET, 600 MG, 1 TABLET, ORALLY, THREE TIMES A DAY PROCEDURE CODES FA211 ESTABILISHED PATIENT [facility] CHARGE DISPOSITION & COMMUNICATION FOLLOW UP 2 MONTHS ELECTRONICALLY SIGNED BY BASSAM SANTANA ON 08/16/2016 AT 01:56 PM EDT DISCLAIMER : THIS IS A VISIT SUMMARY EXTRACTED FROM THE [employer] CHART. IT IS NOT A COPY OF THE [employer] PROGRESS NOTE. MTDD
== END ==
LOC: M PAIN 11:00
PROVIDERS: ATTEND Nurse Practitioner Family
DX: M25.551 Pain in right hip (principal); M54.40 Lumbago with sciatica, unspecified side; M54.2 Cervicalgia; M79.1 Myalgia; Z79.891 Long term (current) use of opiate analgesic; Z79.899 Other long term (current) drug therapy; Z88.6 Allergy status to analgesic agent; Z88.8 Allergy status to other drugs, medicaments and biological substances; Z91.048 Other nonmedicinal substance allergy status

== ENCOUNTER → 2016-09-11 | Outpatient (REF) | payer OTHER ==
[~2016-09-11] MED LIST changes: +BUTR10DI TD; -BUTR10DI2 TD; +BUTR5DIS TD; -BUTR5DIS2 TD; -MS C15TA2 PO; +MS C15TA8 PO; +TERB1CRE12 TD; -TERB1CRE8 TD; +TERB250T12 PO; -TERB250T57 PO; +TOPA100T12 PO; -TOPA100T8 PO; +TOPA1TAB PO; -TOPA25TA10 PO; -TRAZ150T14 PO; +TRAZ1TAB14 PO
[2016-09-11 21:57] LABS: BASO % 0.9 % (0.0-1.0); EOS # 0.1 K/mm3 (0.0-0.50); LARGE UNSTAINED CELL # 0.1 K/mm3 (0.0-0.4); LARGE UNSTAINED CELL % 2.3 % (0.0-4.0); LYMPH # 1.5 K/mm3 (1.5-4.5); LYMPH % 23.4 % (24.0-44.0); MEAN CORPUSCULAR HEMOGLOBIN 33.1 pg (27.0-33.0); MEAN CORPUSCULAR HGB CONC 33.8 g/dl (32.0-36.5); MEAN CORPUSCULAR VOLUME 97.7 fl (80.0-96.0); MONO # 0.4 K/mm3 (0.0-0.8); MONO % 6.2 % (0.0-5.0); NEUTROPHILS # 3.8 K/mm3 (1.8-7.7); NEUTROPHILS % 65.2 % (36.0-66.0); PLATELET COUNT, AUTOMATED 251 k/mm3 (150-450); RED CELL DISTRIBUTION WIDTH 12.6 % (11.5-14.5); WHITE BLOOD COUNT 5.8 K/mm3 (4.0-10.0)
[2016-09-11 22:15] LABS: ALBUMIN 3.7 GM/DL (3.2-5.2); ALBUMIN/GLOBULIN RATIO 1.23 (1.00-1.93); ALKALINE PHOSPHATASE 84 U/L (45-117); ALT/SGPT 25 U/L (12-78); ANION GAP 4 MEQ/L (8-16); AST/SGOT 13 U/L (15-37); BILIRUBIN,TOTAL 0.3 MG/DL (0.2-1.0); BLOOD UREA NITROGEN 10 MG/DL (7-18); CALCIUM LEVEL 8.9 MG/DL (8.5-10.1); CARBON DIOXIDE LEVEL 29 MEQ/L (21-32); CHLORIDE LEVEL 109 MEQ/L (98-107); CHOLESTEROL LEVEL 214 MG/DL (<200); CREATININE FOR GFR 0.76 MG/DL (0.55-1.02); GLOMERULAR FILTRATION RATE > 60.0 (>51); GLUCOSE, FASTING 97 MG/DL (70-105); SODIUM LEVEL 142 MEQ/L (136-145); TOTAL PROTEIN 6.7 GM/DL (6.4-8.2); TRIGLYCERIDES LEVEL 94 MG/DL (<150)
[2016-09-15 00:06] LABS: Lyme Disease IgG Ab 18 kDa Ban Absent (.); Lyme Disease IgG Ab 23 kDa Ban Absent (.); Lyme Disease IgG Ab 28 kDa Ban Absent (.); Lyme Disease IgG Ab 30 kDa Ban Absent (.); Lyme Disease IgG Ab 39 kDa Ban Absent (.); Lyme Disease IgG Ab 41 kDa Ban Present (.); Lyme Disease IgG Ab 45 kDa Ban Absent (.); Lyme Disease IgG Ab 58 kDa Ban Absent (.); Lyme Disease IgG Ab 66 kDa Ban Absent (.); Lyme Disease IgG Ab 93 kDa Ban Absent (.); Lyme Disease IgG West Blot Int Negative (.); Lyme Disease IgG/IgM Antibodie <0.91 ISR (0.00-0.90); Lyme Disease IgM Ab 23 kDa Ban Present (.); Lyme Disease IgM Ab 39 kDa Ban Absent (.); Lyme Disease IgM Ab 41 kDa Ban Present (.); Lyme Disease IgM Ab Quantitati 1.13 index (0.00-0.79); Lyme Disease IgM West Blot Int Positive (.)
== END ==
LOC: M LABDRWAD 21:06
PROVIDERS: ATTEND Nurse Practitioner Adult Health
DX: L03.90 Cellulitis, unspecified (principal); Z79.899 Other long term (current) drug therapy; E55.9 Vitamin D deficiency, unspecified; E78.4 Other hyperlipidemia; R59.9 Enlarged lymph nodes, unspecified; D64.9 Anemia, unspecified; S30.860D Insect bite (nonvenomous) of lower back and pelvis, subsequent encounter

== ENCOUNTER → 2016-09-25 | Outpatient (CLI) | payer OTHER ==
--- NOTE | 2016-10-18 01:57 | ECWPNPC ---
PATIENT NAME: NNAMDI ANAND : 1965 GENDER: FEMALE VISIT DATE: 09/25/2016 DISCHARGE DATE: 09/25/16 1134 VISIT LOCKED DATE TIME: PHYSICIAN: NINA ESQUIVEL RESOURCE: NINA ESQUIVEL REASON FOR APPOINTMENT 1. FOLLOWUP HISTORY OF PRESENT ILLNESS HISTORY OF PRESENT ILLNESS: HERE FOR F/U. HAD RIGHT HIP SURGERY FIVE MONTHS AGO.WAS DOING WELL UNTIL 3 MONTH AGO.WAS TREATED FOR FLUID POCKETS RIGHT HIP. FOLLOWING WITH DR. HUTSON FOR NECK AND LOW BACK.COMPLAINING OF RIGHT KNEE PAIN AND BRUISING LATELY.RATING PAIN VAS 8/10. 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 PAIN IS AGGREVATED BY WALKING. RELIEVED BY LAYING DOWN AND PROPPING W PILLOWS.CURRENT PAIN MEDICATION:ROBAXIN 750MG TID,[id number] DAILY,CELEBREX 200MG BID AND OXYCODONE 15MG Q8H PRN MDD3 .DOESNT FEEL MEDICATION IS HELPING PAIN.DOES HAVE NAUSEA THAT IS RELIEVED WITH ANTI NAUSEA MEDICATION. HAVING SEVERE RIGHT NECK PAIN.FOLLOWING AUDIOLOGY FOR LEFT VESTIBULAR NERVE DYSFUNCTION. PAIN THE PATIENT DESCRIBES THE PAIN... THE PATIENT DESCRIBES THE PAIN... THE PATIENT DESCRIBES THE PAIN... THE PATIENT DESCRIBES THE PAIN... THE PATIENT DESCRIBES THE PAIN... THE PATIENT DESCRIBES THE PAIN... FALL RISK SCREENING: SCREENING :NO FALLS IN THE PAST YEAR CURRENT MEDICATIONS TAKING ZOFRAN 4 MG TABLET 3 TABLETS ORALLY PRE MEDICATION TAKING ROPINIROLE HCL 1 MG TABLET ORALLY AT BEDTIME TAKING SUMATRIPTAN SUCCINATE 100 MG TABLET 1 TABLET NEEDED ONE TIME ORALLY DIRECTED TAKING TOPIRAMATE 100 MG TABLET 1 TABLET ORALLY TWICE A DAY TAKING LINZESS 290 MCG CAPSULE 1 CAPSULE ORALLY ONCE A DAY TAKING PANTOPRAZOLE SODIUM 40 MG TABLET DELAYED RELEASE 1 TABLET ORALLY TWICE A DAY TAKING SIMVASTATIN 20 MG TABLET 1 TABLET IN THE EVENING ORALLY IN EVENING TAKING DOXYCYCLINE MONOHYDRATE 100 MG CAPSULE 1 CAPSULE ORALLY BID X 10 DAYS TAKING AMITRIPTYLINE HCL 50 MG TABLET 1 TABLET ORALLY ONCE A DAY TAKING CYMBALTA 60 MG CAPSULE DELAYED RELEASE PARTICLES 1 CAPSULE ORALLY DAILY TAKING METHOCARBAMOL 750 MG TABLET 1 TABLET ORALLY TID PRN TAKING GABAPENTIN 600 MG TABLET 1 TABLET ORALLY THREE TIMES A DAY TAKING OXYCODONE HCL 15 MG TABLET 1 TABLET ORALLY EVERY 8 HRS PRN PAIN MDD=3 NOT-TAKING VITAMIN D3 60010 UNIT CAPSULE ORALLY EVERY 2 WEEKS NOT-TAKING TERBINAFINE HCL 250 MG TABLET 1 TABLET ORALLY ONCE A DAY NOT-TAKING MS CONTIN 15 MG TABLET EXTENDED RELEASE 1 TABLET ORALLY EVERY 12 HRS MDD2 NOT-TAKING TRIAMCINOLONE ACETONIDE 0.1 % CREAM 1 APPLICATION TO AFFECTED AREA EXTERNALLY TWICE A DAY, NOTES: 12/05/151999 NOT-TAKING VALIUM 10 MG TABLET 1 ORALLY 1 TAB 1HR PRE PROC. MDD1 NOT-TAKING MELATONIN 5 MG TABLET 1 TABLET AT BEDTIME NEEDED WITH FOOD ORALLY ONCE A DAY NOT-TAKING CYCLOBENZAPRINE HCL 5 MG TABLET 1 TABLET ORALLY 2 TIMES A DAY NEEDED NOT-TAKING MELOXICAM 15 MG TABLET 1 TABLET ORALLY ONCE A DAY UNKNOWN GABAPENTIN 300 600 MG TABLET 1 TAB(S) ORAL THREE TIMES A DAY MEDICATION LIST REVIEWED AND RECONCILED WITH THE PATIENT PAST MEDICAL HISTORY ACID REFLUX IBS PINCHED NERVES IN BACK SCOLIOSIS ARTHRITIS DDD ENDOMETRIOSIS CONGENITAL RIGHT HIP ABNORMALITY ALLERGIES NAPROXEN SODIUM: TONGUE SWELLS/FACE SWELLING: ALLERGY ASPIRIN: SORES IN MOUTH: ALLERGY ADHESIVE TAPE/BANDAIDS: BLISTERS: ALLERGY TEGADERM: SKIN BECOMES RAW, REDNESS, HEAT: ALLERGY SOCIAL HISTORY GENERAL: PAIN CLINIC PFS, CLERGY, PUBLIC HEALTH REFERRALS PFS REFERRAL NEEDED?NO CLERGY REFERRAL NEEDED?NO PUBLIC HEALTH REFERRAL NEEDED?NO WAS THE PROVIDER NOTIFIED OF ANY PERTINENT INFO?NO HAS THE PATIENT BEEN EDUCATED REGARDING HIS/HER PLAN OF CARE?YES HAS THE PATIENT BEEN EDUCATED REGARDING PAIN, THE RISK FOR PAIN, THE IMPORTANCE OF EFFECTIVE PAIN MANAGEMENT, AND THE PAIN ASSESSMENT PROCESS?YES PATIENT: ____. REVIEW OF SYSTEMS REVIEWED BY: PROVIDER: NINA BANEGAS . CONSTITUTIONAL: ANY CHANGE IN YOUR MEDICAL CONDITION? YES, BEEN TO [facility] AND HAD MRI OF RIGHT KNEE AND SURGERY ON RIGHT HIP 11/02/16. TESTED POSITIVE FOR LYME'S DISEASE.&NBSP;. CHILLS &NBSP;&NBSP; NO&NBSP;. FEVER &NBSP;&NBSP; NO&NBSP;. INFECTION: DO YOU HAVE NEW INFECTIONS? NO . DO YOU HAVE HISTORY OF MRSA? NO . MUSCULOSKELETAL: ANY NEW PATTERNS OF PAIN OR NUMBNESS? YES, PAIN IN RIGHT UNDERARM AND UNDER RIGHT ARM AND HAND . GASTROENTEROLOGY: ANY NEW CHANGE IN BOWEL CONTROL? NO . GENITOURINARY: ANY NEW CHANGE IN BLADDER CONTROL? NO . IS THERE A CHANCE YOU COULD BE ? NO . HEMATOLOGY/LYMPH: DO YOU TAKE ANY BLOOD THINNERS? (FOR EXAMPLE- COUMADIN, PLAVIX, AGGRENOX, PLATEL, PRADAXA, OR XARELTO) NO . WHEN WAS YOUR LAST DOSE? DATE: TIME: . NEUROLOGY: HAVE YOU FALLEN IN THE PAST 6 MONTHS? YES . ANY NEW EXTREMITY NUMBNESS OR WEAKNESS? NO . CARDIOLOGY: DO YOU HAVE A PACEMAKER OR DEFIBRILLATOR? NO . RESPIRATORY: HAVE YOU BEEN SICK IN THE PAST WEEK? NO . FEVER NO . FLU LIKE SYMPTOMS? NO . COUGH NO . INTEGUMENTARY: DO YOU HAVE ANY RASHES OR OPEN SORES? YES, LEFT FOOT . ALLERGIC/IMMUNO: ARE YOU ALLERGIC TO SHELLFISH OR IV DYE? NO . ANY NEW ALLERGIES? NO . PSYCHIATRIC: DO YOU HAVE THOUGHTS OF HURTING YOURSELF OR SOMEONE ELSE? NO . ARE YOU ABUSED, NEGLECTED, OR IN AN UNSAFE ENVIRONMENT? NO . ENDOCRINOLOGY: ARE YOU DIABETIC? NO . OTHER: DO YOU NEED ANY PRESCRIPTIONS? YES . IF YES, PLEASE LIST: AMITRITYLINE, OXYCODONE, CYMBALTA . ANY NEW PROBLEMS WITH YOUR MEDICATIONS? NO . WHEN DID YOU LAST EAT? ____ . WHEN DID YOU LAST DRINK? ____ . WHAT DID YOU LAST DRINK? ____ . NAME OF PERSON DRIVING YOU HOME? ____ . DO YOU HAVE ANY OTHER QUESTIONS OR CONCERNS YES, PAIN IN NECK AND RIGTH ARM, UNDER RIGHT ARM, MAKES RIGHT HAND HURT, RIGHT KNEE PAIN, RIGHT HIP PAIN . VITAL SIGNS WT 164.6 LBS, HT 61 IN, BMI 31.10 INDEX, BP 135/78 MM HG, HR 80 /MIN, RR 16 /MIN, TEMP 97.2 F, OXYGEN SAT % 99%, NA INITIALS SC 10:44, REVIEWED BY: CS. EXAMINATION GENERAL EXAMINATION: LUNGS:LUNG SOUNDS ARE CLEAR. HEART:HEART RATE REGULAR. MUSCULOSKELETAL:*, MUSCLE STRENGTH TESTING 5/5 LEFT AND 3/5RIGHT, PALPATION: POSITIVE FOR PAIN OVER L/S SPINE. POSITIVE FOR PAIN OVER L/S PARSPINALS.SPECIFIC POINT TENDERNESS OVER SIJ AREA BILAT.TRIGGER POINT ELICITED IN LUMBAR PARASPINALS.PAIN IN THIS AREA IS AGGREVATED BY BOTH FLEXION AND EXTENSION OF SPINE.. DIAGNOSTIC: . ASSESSMENTS RIGHT HIP PAIN - M25.551 (PRIMARY) LUMBAGO WITH SCIATICA, UNSPECIFIED SIDE - M54.40 CERVICALGIA - M54.2 CHRONIC PRESCRIPTION OPIATE USE - Z79.891 TREATMENT RIGHT HIP PAIN CONTINUE AMITRIPTYLINE HCL TABLET, 50 MG, 1 TABLET, ORALLY, ONCE A DAY, 30 DAY(S), 30 TABLET, REFILLS 2 CONTINUE CYMBALTA CAPSULE DELAYED RELEASE PARTICLES, 60 MG, 1 CAPSULE, ORALLY, DAILY, 30 DAY(S), 30 CAPSULE, REFILLS 2 CONTINUE METHOCARBAMOL TABLET, 750 MG, 1 TABLET, ORALLY, TID PRN CONTINUE GABAPENTIN TABLET, 600 MG, 1 TABLET, ORALLY, THREE TIMES A DAY CONTINUE OXYCODONE HCL TABLET, 15 MG, 1 TABLET, ORALLY, EVERY 8 HRS PRN PAIN MDD=3, 30 DAY(S), 90, REFILLS 0 PROCEDURE CODES FA211 ESTABILISHED PATIENT [facility] CHARGE DISPOSITION & COMMUNICATION FOLLOW UP 2 MONTHS ELECTRONICALLY SIGNED BY BASSAM SANTANA ON 10/17/2016 AT 11:19 AM EDT DISCLAIMER : THIS IS A VISIT SUMMARY EXTRACTED FROM THE [employer] CHART. IT IS NOT A COPY OF THE [employer] PROGRESS NOTE. MTDD
== END ==
LOC: M PAIN 10:20
PROVIDERS: ATTEND Nurse Practitioner Family
DX: G89.29 Other chronic pain (principal); M25.551 Pain in right hip; M54.40 Lumbago with sciatica, unspecified side; M54.2 Cervicalgia; K21.9 Gastro-esophageal reflux disease without esophagitis; M19.90 Unspecified osteoarthritis, unspecified site; Z88.8 Allergy status to other drugs, medicaments and biological substances; Z88.6 Allergy status to analgesic agent; L23.1 Allergic contact dermatitis due to adhesives; Z79.891 Long term (current) use of opiate analgesic; Z79.899 Other long term (current) drug therapy

== ENCOUNTER → 2016-11-27 | Outpatient (CLI) | payer OTHER ==
--- NOTE | 2016-11-28 02:22 | ECWPNPC ---
PATIENT NAME: NNAMDI ANAND : 1965 GENDER: FEMALE VISIT DATE: 11/27/2016 DISCHARGE DATE: 11/27/16 1141 VISIT LOCKED DATE TIME: PHYSICIAN: NINA ESQUIVEL RESOURCE: NINA ESQUIVEL REASON FOR APPOINTMENT 1. FOLLOWUP HISTORY OF PRESENT ILLNESS HISTORY OF PRESENT ILLNESS: HERE FOR F/U AND MANAGEMENT OF CHRONIC LOW BACK PAIN,RIGHT HIP PAIN AND GENERALIZED BODY PAIN.HAD RIGHT HIP REVISION IN SEPTEMBER.SUFFERING FROM SEVERE HEADACHE OF WHICH SHE SAYS ARE DAILY.FOLLOWING WITH DR. Nguyễn/[facility].THEY ARE PLANNING CERVICAL SURGERY.CURRENTLY USING OXYCODONE 15MG Q8H,GABAPENTIN 600MG TID,AND AMITRIPTYLINE 50MG AT HS.REPORTS SHE IS NOT SLEEPING.SHE IS VERY RESTLESS AND COMPLAINING OF HEADACHE.RATING PAIN VAS8/10.HAD A DISCUSSION REGARDING OPIOD INDUCED HYPERALGESIA.SHE IS FEELING THAT OXYCODONE IS HELPFUL BUT DOESNT FEEL GABAPENTIN OR AMITRIPTYLINE ARE HELPFUL AND HAVE MADE THINGS WORSE.COMPLAINING OF INCREASED FATIGUE.ALSO DISCUSSED BEHAVIORAL HEALTH DUE TO HER HIGH ANXIETY AND PAIN LEVEL. PAIN THE PATIENT DESCRIBES THE PAIN... FALL RISK SCREENING: SCREENING :NO FALLS IN THE PAST YEAR CURRENT MEDICATIONS TAKING ROPINIROLE HCL 1 MG TABLET ORALLY AT BEDTIME TAKING SUMATRIPTAN SUCCINATE 100 MG TABLET 1 TABLET NEEDED ONE TIME ORALLY DIRECTED TAKING TOPIRAMATE 100 MG TABLET 1 TABLET ORALLY TWICE A DAY TAKING LINZESS 290 MCG CAPSULE 1 CAPSULE ORALLY ONCE A DAY TAKING PANTOPRAZOLE SODIUM 40 MG TABLET DELAYED RELEASE 1 TABLET ORALLY TWICE A DAY TAKING SIMVASTATIN 20 MG TABLET 1 TABLET IN THE EVENING ORALLY IN EVENING TAKING CYMBALTA 60 MG CAPSULE DELAYED RELEASE PARTICLES 1 CAPSULE ORALLY DAILY TAKING AMITRIPTYLINE HCL 50 MG TABLET 1 TABLET ORALLY ONCE A DAY TAKING OXYCODONE HCL 15 MG TABLET 1 TABLET ORALLY EVERY 8 HRS PRN PAIN MDD=3 TAKING GABAPENTIN 600 MG TABLET 1 TABLET ORALLY THREE TIMES A DAY TAKING METHOCARBAMOL 750 MG TABLET 1 TABLET ORALLY TID PRN NOT-TAKING ZOFRAN 4 MG TABLET 3 TABLETS ORALLY PRE MEDICATION NOT-TAKING DOXYCYCLINE MONOHYDRATE 100 MG CAPSULE 1 CAPSULE ORALLY BID X 10 DAYS NOT-TAKING VITAMIN D3 96052 UNIT CAPSULE ORALLY EVERY 2 WEEKS NOT-TAKING TERBINAFINE HCL 250 MG TABLET 1 TABLET ORALLY ONCE A DAY NOT-TAKING MS CONTIN 15 MG TABLET EXTENDED RELEASE 1 TABLET ORALLY EVERY 12 HRS MDD2 NOT-TAKING TRIAMCINOLONE ACETONIDE 0.1 % CREAM 1 APPLICATION TO AFFECTED AREA EXTERNALLY TWICE A DAY, NOTES: 12/05/151999 NOT-TAKING VALIUM 10 MG TABLET 1 ORALLY 1 TAB 1HR PRE PROC. MDD1 NOT-TAKING MELATONIN 5 MG TABLET 1 TABLET AT BEDTIME NEEDED WITH FOOD ORALLY ONCE A DAY NOT-TAKING CYCLOBENZAPRINE HCL 5 MG TABLET 1 TABLET ORALLY 2 TIMES A DAY NEEDED NOT-TAKING MELOXICAM 15 MG TABLET 1 TABLET ORALLY ONCE A DAY UNKNOWN GABAPENTIN 300 600 MG TABLET 1 TAB(S) ORAL THREE TIMES A DAY MEDICATION LIST REVIEWED AND RECONCILED WITH THE PATIENT PAST MEDICAL HISTORY ACID REFLUX IBS PINCHED NERVES IN BACK SCOLIOSIS ARTHRITIS DDD ENDOMETRIOSIS CONGENITAL RIGHT HIP ABNORMALITY ALLERGIES NAPROXEN SODIUM: TONGUE SWELLS/FACE SWELLING: ALLERGY ASPIRIN: SORES IN MOUTH: ALLERGY ADHESIVE TAPE/BANDAIDS: BLISTERS: ALLERGY TEGADERM: SKIN BECOMES RAW, REDNESS, HEAT: ALLERGY REVIEW OF SYSTEMS REVIEWED BY: PROVIDER: NINA BANEGAS . CONSTITUTIONAL: ANY CHANGE IN YOUR MEDICAL CONDITION? NO . CHILLS NO . FEVER NO . INFECTION: DO YOU HAVE NEW INFECTIONS? NO . DO YOU HAVE HISTORY OF MRSA? NO . MUSCULOSKELETAL: ANY NEW PATTERNS OF PAIN OR NUMBNESS? YES RIGHT HIP AREA IS NEW AND INCREASED...MORE AT NIGHT . GASTROENTEROLOGY: ANY NEW CHANGE IN BOWEL CONTROL? NO . GENITOURINARY: ANY NEW CHANGE IN BLADDER CONTROL? NO . IS THERE A CHANCE YOU COULD BE ? NO . HEMATOLOGY/LYMPH: DO YOU TAKE ANY BLOOD THINNERS? (FOR EXAMPLE- COUMADIN, PLAVIX, AGGRENOX, PLATEL, PRADAXA, OR XARELTO) NO . WHEN WAS YOUR LAST DOSE? DATE: TIME: . NEUROLOGY: HAVE YOU FALLEN IN THE PAST 6 MONTHS? NO . ANY NEW EXTREMITY NUMBNESS OR WEAKNESS? NO . CARDIOLOGY: DO YOU HAVE A PACEMAKER OR DEFIBRILLATOR? NO . RESPIRATORY: HAVE YOU BEEN SICK IN THE PAST WEEK? NO . FEVER NO . FLU LIKE SYMPTOMS? NO . COUGH NO . INTEGUMENTARY: DO YOU HAVE ANY RASHES OR OPEN SORES? NO . ALLERGIC/IMMUNO: ARE YOU ALLERGIC TO SHELLFISH OR IV DYE? NO . ANY NEW ALLERGIES? NO . PSYCHIATRIC: DO YOU HAVE THOUGHTS OF HURTING YOURSELF OR SOMEONE ELSE? NO . ARE YOU ABUSED, NEGLECTED, OR IN AN UNSAFE ENVIRONMENT? NO . ENDOCRINOLOGY: ARE YOU DIABETIC? NO . OTHER: DO YOU NEED ANY PRESCRIPTIONS? YES . IF YES, PLEASE LIST: ____OXY 15 MG DULOXETINE, AMITRIPTYLINE . ANY NEW PROBLEMS WITH YOUR MEDICATIONS? NO . WHEN DID YOU LAST EAT? ____ . WHEN DID YOU LAST DRINK? ____ . WHAT DID YOU LAST DRINK? ____ . NAME OF PERSON DRIVING YOU HOME? ____ . DO YOU HAVE ANY OTHER QUESTIONS OR CONCERNS NO . VITAL SIGNS WT 167.4 LBS, HT 61 IN, BMI 31.63 INDEX, BP 153/83 MM HG, HR 102 /MIN, RR 18 /MIN, TEMP 98.1 F, OXYGEN SAT % 95%, NA INITIALS SC 10:59, REVIEWED BY: KG. EXAMINATION GENERAL EXAMINATION: LUNGS:LUNG SOUNDS ARE CLEAR. HEART:HEART RATE REGULAR. MUSCULOSKELETAL:*, MUSCLE STRENGTH TESTING 5/5 LEFT AND 3/5RIGHT, PALPATION: POSITIVE FOR PAIN OVER L/S SPINE. POSITIVE FOR PAIN OVER L/S PARSPINALS.SPECIFIC POINT TENDERNESS OVER SIJ AREA BILAT.TRIGGER POINT ELICITED IN LUMBAR PARASPINALS.PAIN IN THIS AREA IS AGGREVATED BY BOTH FLEXION AND EXTENSION OF SPINE.. DIAGNOSTIC: . ASSESSMENTS RIGHT HIP PAIN - M25.551 (PRIMARY) CHRONIC PRESCRIPTION OPIATE USE - Z79.891 PAIN SYNDROME, CHRONIC - G89.4 TREATMENT RIGHT HIP PAIN CONTINUE CYMBALTA CAPSULE DELAYED RELEASE PARTICLES, 60 MG, 1 CAPSULE, ORALLY, DAILY STOP AMITRIPTYLINE HCL TABLET, 50 MG, 1 TABLET, ORALLY, ONCE A DAY CONTINUE OXYCODONE HCL TABLET, 15 MG, 1 TABLET, ORALLY, EVERY 8 HRS PRN PAIN MDD=3, 30 DAY(S), 90, REFILLS 0 REFILL GABAPENTIN CAPSULE, 300 MG, 1 TABLET, ORALLY, THREE TIMES A DAY, 10 DAYS, 30 TABLET, REFILLS 0 CONTINUE METHOCARBAMOL TABLET, 750 MG, 1 TABLET, ORALLY, TID PRN START LYRICA CAPSULE, 100 MG, 1 CAPSULE, ORALLY, TWICE A DAY MDD2, 30 DAY(S), 60, REFILLS 2 NOTES: ISTOP REGISTRY REVIEWED [id number] AND DEMNOSTRATES COMPLLIANCE. BRINGS IN MEDICATIONS WHICH IS APPROPRIATE FOR WHAT WAS DISPENSED. RECENT URINE TOXICOLOGY REVIEWED. NO UNAUTHORIZED MEDICATIONS. NO ILLICIT SUBSTANCES AND PRESCRIBED MEDICATIONS WERE PRESENT. , RISKS AND BENEFITS OF NARCOTIC/OPIOD MEDICATIONS WERE REVIEWED WITH PATIENT - THIS INCLUDES BUT IS NOT LIMITED TO RISK OF DEPENDANCE/DEVELOPMENT OF ADDICTION, MOOD DISTURBANCE AND DEPRESSION, OSTEOPOROSIS, HORMONAL AND LABIDAL CHANGES, RESPIRATORY DEPRESSION AND . PATIENT IS ADVISED NOT TO DRIVE WHILE ON THESE MEDICATIONS. PROCEDURE CODES FA211 ESTABILISHED PATIENT [facility] CHARGE DISPOSITION & COMMUNICATION FOLLOW UP 4 WEEKS ELECTRONICALLY SIGNED BY BASSAM SANTANA ON 11/27/2016 AT 01:54 PM EDT DISCLAIMER : THIS IS A VISIT SUMMARY EXTRACTED FROM THE [employer] CHART. IT IS NOT A COPY OF THE [employer] PROGRESS NOTE. MARIKA
== END ==
LOC: M PAIN 10:45
PROVIDERS: ATTEND Nurse Practitioner Family
DX: M25.551 Pain in right hip (principal); G89.4 Chronic pain syndrome; M54.5 Low back pain; Z79.891 Long term (current) use of opiate analgesic; Z79.899 Other long term (current) drug therapy; Z88.6 Allergy status to analgesic agent; Z91.09 Other allergy status, other than to drugs and biological substances; Z88.8 Allergy status to other drugs, medicaments and biological substances

== ENCOUNTER → 2016-12-25 | Outpatient (CLI) | payer OTHER ==
--- NOTE | 2017-01-18 01:23 | ECWPNPC ---
PATIENT NAME: NNAMDI ANAND : 1965 GENDER: FEMALE VISIT DATE: 12/25/2016 DISCHARGE DATE: 12/25/16 1252 VISIT LOCKED DATE TIME: PHYSICIAN: NINA ESQUIVEL RESOURCE: NINA ESQUIVEL REASON FOR APPOINTMENT 1. NEW BODY PART, NECK HISTORY OF PRESENT ILLNESS HISTORY OF PRESENT ILLNESS: HERE FOR CONSULT ON NEW BODY PART PAIN.REFERRED BY FOR CHRONIC NECK PAIN.NECK PAIN BEGAN OVER TEN YEARS AGO.DENIES PRECIPITATING EVENT.RATING PAIN VAS 8/10.DESCRIBES PAIN SEVERE SHOOTING PAIN RIGHT OCCIPITAL AND RIGHT UPPER BACK REGION.PAIN IS AGGREVTED BY MOVEMENT OF HEAD.CONTINUES WITH CHRONIC RIGHT LOW BACK AND HIP PAIN.SUFFERS FROM GENERALIZED BODY PAIN.IS WEEPY DURING VISIT.RECENT IN FAMILY. PAIN THE PATIENT DESCRIBES THE PAIN... FALL RISK SCREENING: SCREENING :NO FALLS IN THE PAST YEAR CURRENT MEDICATIONS TAKING ZOFRAN 4 MG TABLET 3 TABLETS ORALLY PRE MEDICATION TAKING VITAMIN D3 71168 UNIT CAPSULE ORALLY EVERY 2 WEEKS TAKING MELOXICAM 15 MG TABLET 1 TABLET ORALLY ONCE A DAY TAKING MIRTAZAPINE 30 MG TABLET 1 TABLET AT BEDTIME ORALLY ONCE A DAY TAKING ROPINIROLE HCL 1 MG TABLET ORALLY AT BEDTIME TAKING SUMATRIPTAN SUCCINATE 100 MG TABLET 1 TABLET NEEDED ONE TIME ORALLY DIRECTED TAKING TOPIRAMATE 100 MG TABLET 1 TABLET ORALLY TWICE A DAY TAKING LINZESS 290 MCG CAPSULE 1 CAPSULE ORALLY ONCE A DAY TAKING PANTOPRAZOLE SODIUM 40 MG TABLET DELAYED RELEASE 1 TABLET ORALLY TWICE A DAY TAKING SIMVASTATIN 20 MG TABLET 1 TABLET IN THE EVENING ORALLY IN EVENING TAKING CYMBALTA 60 MG CAPSULE DELAYED RELEASE PARTICLES 1 CAPSULE ORALLY DAILY TAKING OXYCODONE HCL 15 MG TABLET 1 TABLET ORALLY EVERY 8 HRS PRN PAIN MDD=3 TAKING METHOCARBAMOL 750 MG TABLET 1 TABLET ORALLY TID PRN NOT-TAKING DOXYCYCLINE MONOHYDRATE 100 MG CAPSULE 1 CAPSULE ORALLY BID X 10 DAYS NOT-TAKING TERBINAFINE HCL 250 MG TABLET 1 TABLET ORALLY ONCE A DAY NOT-TAKING MS CONTIN 15 MG TABLET EXTENDED RELEASE 1 TABLET ORALLY EVERY 12 HRS MDD2 NOT-TAKING TRIAMCINOLONE ACETONIDE 0.1 % CREAM 1 APPLICATION TO AFFECTED AREA EXTERNALLY TWICE A DAY, NOTES: 12/05/151999 NOT-TAKING VALIUM 10 MG TABLET 1 ORALLY 1 TAB 1HR PRE PROC. MDD1 NOT-TAKING MELATONIN 5 MG TABLET 1 TABLET AT BEDTIME NEEDED WITH FOOD ORALLY ONCE A DAY NOT-TAKING CYCLOBENZAPRINE HCL 5 MG TABLET 1 TABLET ORALLY 2 TIMES A DAY NEEDED NOT-TAKING GABAPENTIN 300 MG CAPSULE 1 TABLET ORALLY THREE TIMES A DAY UNKNOWN LYRICA 100 MG CAPSULE 1 CAPSULE ORALLY TWICE A DAY MDD2 UNKNOWN GABAPENTIN 300 600 MG TABLET 1 TAB(S) ORAL THREE TIMES A DAY MEDICATION LIST REVIEWED AND RECONCILED WITH THE PATIENT PAST MEDICAL HISTORY ACID REFLUX IBS PINCHED NERVES IN BACK SCOLIOSIS ARTHRITIS DDD ENDOMETRIOSIS CONGENITAL RIGHT HIP ABNORMALITY ALLERGIES NAPROXEN SODIUM: TONGUE SWELLS/FACE SWELLING: ALLERGY ASPIRIN: SORES IN MOUTH: ALLERGY ADHESIVE TAPE/BANDAIDS: BLISTERS: ALLERGY TEGADERM: SKIN BECOMES RAW, REDNESS, HEAT: ALLERGY PEPTO BISMAL: VOMITING SURGICAL HISTORY WRIST SURGERY RIGHT.TORN LIGAMENT 2004 BILATERAL SALPINGO SURGERY DUE TO DEFECT 1989 SURGERY LEFT WRIST 2015 RIGHT HIP SURGERY 2015 RIGHT FOOT SURGERY- NERVE RELEASE 09/27/15 TOTAL RIGHT HIP 04/05/2016 FALLOPIAN TUBE RECONSTRUCTION 1994 FAMILY HISTORY FATHER: , DIAGNOSED WITH DIABETES, HEART DISEASE MOTHER: , DIAGNOSED WITH DIABETES, HEART DISEASE SOCIAL HISTORY GENERAL: TOBACCO USE ARE YOU A:CURRENT SMOKER ARE YOU INTERESTED IN QUITTING?NOT READY TO QUIT COUNSELED THE PATIENT ON SMOKING EFFECTS, EDUCATION [id number]/23/2017 HOW MANY CIGARETTES A DAY DO YOU SMOKE?6-10 HOW OFTEN DO YOU SMOKE CIGARETTES?EVERY DAY PATIENT COUNSELED ON THE DANGERS OF TOBACCO USE AND URGED TO QUIT:12/25/2016 ALCOHOL SCREENING POINTS0 INTERPRETATIONNEGATIVE CAFFEINE CAFFEINE USE?NO LATTER DAY [id number] NONE NO BAHAI BELIEFS THAT WOULD IMPACT HEALTH CARE. LEARNING BARRIERS / SPECIAL NEEDS BARRIERS TO LEARNING?NO HEARING IMPAIRED?YES :HEARING AIDES VISION IMPAIRED?YES :CORRECTIVE LENSES COGNITIVELY IMPAIRED?NO READINESS TO LEARN?YES LEARNING PREFERENCES?NO LEARNING CAPABILITIES PRESENT?YES SPECIAL DEVICES?YES :[facility] PFS, CLERGY, PUBLIC HEALTH REFERRALS PFS REFERRAL NEEDED?NO CLERGY REFERRAL NEEDED?NO PUBLIC HEALTH REFERRAL NEEDED?NO WAS THE PROVIDER NOTIFIED OF ANY PERTINENT INFO?NO HAS THE PATIENT BEEN EDUCATED REGARDING HIS/HER PLAN OF CARE?YES HAS THE PATIENT BEEN EDUCATED REGARDING PAIN, THE RISK FOR PAIN, THE IMPORTANCE OF EFFECTIVE PAIN MANAGEMENT, AND THE PAIN ASSESSMENT PROCESS?YES PATIENT: ____. ADVANCE DIRECTIVES HEALTH CARE PROXY?NO WOULD YOU LIKE MORE INFORMATION?NO LIVING WILL?NO WOULD YOU LIKE MORE INFORMATION?NO HOSPITALIZATION/MAJOR DIAGNOSTIC PROCEDURE SURGERY RELATED REVIEW OF SYSTEMS REVIEWED BY: PROVIDER: NINA BANEGAS . CONSTITUTIONAL: ANY CHANGE IN YOUR MEDICAL CONDITION? JAN 24 HAVING NECK OR WHICH WILL HELP HER RIGHT ARM . CHILLS NO . FEVER NO . INFECTION: DO YOU HAVE NEW INFECTIONS? NO . DO YOU HAVE HISTORY OF MRSA? NO . MUSCULOSKELETAL: ANY NEW PATTERNS OF PAIN OR NUMBNESS? NECK . GASTROENTEROLOGY: ANY NEW CHANGE IN BOWEL CONTROL? NO . GENITOURINARY: ANY NEW CHANGE IN BLADDER CONTROL? NO . IS THERE A CHANCE YOU COULD BE ? NO . HEMATOLOGY/LYMPH: DO YOU TAKE ANY BLOOD THINNERS? (FOR EXAMPLE- COUMADIN, PLAVIX, AGGRENOX, PLATEL, PRADAXA, OR XARELTO) NO . WHEN WAS YOUR LAST DOSE? DATE: TIME: . NEUROLOGY: HAVE YOU FALLEN IN THE PAST 6 MONTHS? YES WITH IN PAST WEEK / BRUISE ON LEFT KNEE . ANY NEW EXTREMITY NUMBNESS OR WEAKNESS? NECK IMPINGING ON RIGHT ARM NERVE/ SURGERY PLANNED . CARDIOLOGY: DO YOU HAVE A PACEMAKER OR DEFIBRILLATOR? NO . RESPIRATORY: HAVE YOU BEEN SICK IN THE PAST WEEK? NO . FEVER NO . FLU LIKE SYMPTOMS? NO . COUGH NO . INTEGUMENTARY: DO YOU HAVE ANY RASHES OR OPEN SORES? NO . ALLERGIC/IMMUNO: ARE YOU ALLERGIC TO SHELLFISH OR IV DYE? NO . ANY NEW ALLERGIES? NO . PSYCHIATRIC: DO YOU HAVE THOUGHTS OF HURTING YOURSELF OR SOMEONE ELSE? NO . ARE YOU ABUSED, NEGLECTED, OR IN AN UNSAFE ENVIRONMENT? NO . ENDOCRINOLOGY: ARE YOU DIABETIC? NO . OTHER: DO YOU NEED ANY PRESCRIPTIONS? YES . IF YES, PLEASE LIST: METHOCARBIMAL, CYMBALTA, OXYCODONE . ANY NEW PROBLEMS WITH YOUR MEDICATIONS? NO . WHEN DID YOU LAST EAT? ____ . WHEN DID YOU LAST DRINK? ____ . WHAT DID YOU LAST DRINK? ____ . NAME OF PERSON DRIVING YOU HOME? ____ . DO YOU HAVE ANY OTHER QUESTIONS OR CONCERNS NO . VITAL SIGNS WT 164.2 LBS, HT 61 IN, BMI 31.02 INDEX, BP 156/75 MM HG, HR 85 /MIN, RR 18 /MIN, TEMP 99.4 F, OXYGEN SAT % 100%, NA INITIALS AW 1144, REVIEWED BY: NL. EXAMINATION GENERAL EXAMINATION: GENERAL APPEARANCE:WEEPY,DEPRESSED . PSYCHALERT , ORIENTED X 3 . NECK:SPECIFIC POINT TENDERNESS OVER RIGHT OCCIPITAL NERVE ROUTE.TRIGGER POINTS NOTED OVER RIGHT TRAPEZIUS . LUNGS:LUNG BETH ARE CLEAR TO AUSCULTATION BILATERALLY. GOOD MOVEMENT OF AIR . HEART:S1, S2 IN A REGULAR RATE AND RHYTHM. NO SIGNIFICANT MURMURS, RUBS OR GALLOPS NOTED . DIAGNOSTIC TESTS REVIEWEDMRI CERVICAL [id number]. 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 BRINGS IN MEDICATIONS WHICH IS APPROPRIATE FOR WHAT WAS DISPENSED. RECENT URINE TOXICOLOGY REVIEWED. NO UNAUTHORIZED MEDICATIONS. NO ILLICIT SUBSTANCES AND PRESCRIBED MEDICATIONS WERE PRESENT. [id number], RISKS AND BENEFITS OF NARCOTIC/OPIOD MEDICATIONS WERE REVIEWED WITH PATIENT - THIS INCLUDES BUT IS NOT LIMITED TO RISK OF DEPENDANCE/DEVELOPMENT OF ADDICTION, MOOD DISTURBANCE AND DEPRESSION, OSTEOPOROSIS, HORMONAL AND LABIDAL CHANGES, RESPIRATORY DEPRESSION AND . PATIENT IS ADVISED NOT TO DRIVE WHILE ON THESE MEDICATIONS,TRIGGER POINT INJECTION MATERIAL WAS PRINTED. PREVENTIVE MEDICINE DISCUSSED TPI PRE PROCEDURE CARE WITH UNDERSTANDING EXPRESSED BY PT. PROCEDURE CODES FA211 ESTABILISHED PATIENT [facility] CHARGE DISPOSITION & COMMUNICATION FOLLOW UP 2WK POST (REASON: TPI RIGHT NECK) ELECTRONICALLY SIGNED BY BASSAM SANTANA ON 01/17/2017 AT 05:24 PM EST DISCLAIMER : THIS IS A VISIT SUMMARY EXTRACTED FROM THE [employer] CHART. IT IS NOT A COPY OF THE [employer] PROGRESS NOTE. MARIKA
== END ==
LOC: M PAIN 10:30
PROVIDERS: ATTEND Nurse Practitioner Family
DX: M47.22 Other spondylosis with radiculopathy, cervical region (principal); M79.1 Myalgia; G89.29 Other chronic pain; F17.210 Nicotine dependence, cigarettes, uncomplicated; Z79.891 Long term (current) use of opiate analgesic; Z79.899 Other long term (current) drug therapy; Z88.6 Allergy status to analgesic agent; Z88.2 Allergy status to sulfonamides; Z91.048 Other nonmedicinal substance allergy status

== ENCOUNTER → 2017-01-09 | Outpatient (CLI) | payer OTHER ==
[~2017-01-09] MED LIST changes: +BUPIVACAINE HCL 0.25% 10 ML VIAL As Ordered ONE; +BUPIVACAINE HCL 0.25% 30 ML VIAL As Ordered ONE; +TRIAMCINOLONE ACETONIDE SUSP 40 MG/ML VIAL (J3301) As Ordered ONE
--- NOTE | 2017-01-14 23:46 | ECWPNPC ---
PATIENT NAME: NNAMDI ANAND : 1965 GENDER: FEMALE VISIT DATE: 01/09/2017 DISCHARGE DATE: 01/09/17 1546 VISIT LOCKED DATE TIME: PHYSICIAN: DAYLIN MINER RESOURCE: DAYLIN MINER REASON FOR APPOINTMENT 1. NECK HISTORY OF PRESENT ILLNESS HISTORY OF PRESENT ILLNESS: PAIN THE PATIENT DESCRIBES THE PAIN... FALL RISK SCREENING: SCREENING :NO FALLS IN THE PAST YEAR CURRENT MEDICATIONS TAKING ZOFRAN 4 MG TABLET 3 TABLETS ORALLY PRE MEDICATION, NOTES: 01/08/17 TAKING MIRTAZAPINE 30 MG TABLET 1 TABLET AT BEDTIME ORALLY ONCE A DAY, NOTES: 01/08/17 TAKING ROPINIROLE HCL 1 MG TABLET ORALLY AT BEDTIME, NOTES: 01/08/17 TAKING SUMATRIPTAN SUCCINATE 100 MG TABLET 1 TABLET NEEDED ONE TIME ORALLY DIRECTED, NOTES: 01/08/17 TAKING TOPIRAMATE 100 MG TABLET 1 TABLET ORALLY TWICE A DAY, NOTES: 01/08/17 TAKING LINZESS 290 MCG CAPSULE 1 CAPSULE ORALLY ONCE A DAY, NOTES: 01/08/17 TAKING PANTOPRAZOLE SODIUM 40 MG TABLET DELAYED RELEASE 1 TABLET ORALLY TWICE A DAY, NOTES: 01/08/17 TAKING SIMVASTATIN 20 MG TABLET 1 TABLET IN THE EVENING ORALLY IN EVENING, NOTES: 01/08/17 TAKING MELOXICAM 15 MG TABLET 1 TABLET ORALLY ONCE A DAY, NOTES: 01/08/17 TAKING CYMBALTA 60 MG CAPSULE DELAYED RELEASE PARTICLES 1 CAPSULE ORALLY DAILY, NOTES: 01/08/17 TAKING OXYCODONE HCL 15 MG TABLET 1 TABLET ORALLY EVERY 8 HRS PRN PAIN MDD=3, NOTES: 01/08/17 TAKING METHOCARBAMOL 750 MG TABLET 1 TABLET ORALLY TID PRN, NOTES: 01/08/17 NOT-TAKING VITAMIN D3 27297 UNIT CAPSULE ORALLY EVERY 2 WEEKS NOT-TAKING DOXYCYCLINE MONOHYDRATE 100 MG CAPSULE 1 CAPSULE ORALLY BID X 10 DAYS NOT-TAKING TERBINAFINE HCL 250 MG TABLET 1 TABLET ORALLY ONCE A DAY NOT-TAKING MS CONTIN 15 MG TABLET EXTENDED RELEASE 1 TABLET ORALLY EVERY 12 HRS MDD2 NOT-TAKING TRIAMCINOLONE ACETONIDE 0.1 % CREAM 1 APPLICATION TO AFFECTED AREA EXTERNALLY TWICE A DAY, NOTES: 12/05/151999 NOT-TAKING VALIUM 10 MG TABLET 1 ORALLY 1 TAB 1HR PRE PROC. MDD1 NOT-TAKING MELATONIN 5 MG TABLET 1 TABLET AT BEDTIME NEEDED WITH FOOD ORALLY ONCE A DAY NOT-TAKING CYCLOBENZAPRINE HCL 5 MG TABLET 1 TABLET ORALLY 2 TIMES A DAY NEEDED NOT-TAKING GABAPENTIN 300 MG CAPSULE 1 TABLET ORALLY THREE TIMES A DAY NOT-TAKING LYRICA 100 MG CAPSULE 1 CAPSULE ORALLY TWICE A DAY MDD2 NOT-TAKING GABAPENTIN 300 600 MG TABLET 1 TAB(S) ORAL THREE TIMES A DAY MEDICATION LIST REVIEWED AND RECONCILED WITH THE PATIENT PAST MEDICAL HISTORY ACID REFLUX IBS PINCHED NERVES IN BACK SCOLIOSIS ARTHRITIS DDD ENDOMETRIOSIS CONGENITAL RIGHT HIP ABNORMALITY ALLERGIES NAPROXEN SODIUM: TONGUE SWELLS/FACE SWELLING: ALLERGY ASPIRIN: SORES IN MOUTH: ALLERGY ADHESIVE TAPE/BANDAIDS: BLISTERS: ALLERGY TEGADERM: SKIN BECOMES RAW, REDNESS, HEAT: ALLERGY PEPTO BISMAL: VOMITING SURGICAL HISTORY WRIST SURGERY RIGHT.TORN LIGAMENT 2004 BILATERAL SALPINGO SURGERY DUE TO DEFECT 1989 SURGERY LEFT WRIST 2016 RIGHT HIP SURGERY 2015 RIGHT FOOT SURGERY- NERVE RELEASE 09/27/15 TOTAL RIGHT HIP 04/05/2016 FALLOPIAN TUBE RECONSTRUCTION 1994 SOCIAL HISTORY GENERAL: TOBACCO USE ARE YOU A:CURRENT SMOKER ARE YOU INTERESTED IN QUITTING?NOT READY TO QUIT COUNSELED THE PATIENT ON SMOKING EFFECTS, EDUCATION [id number]/07/2017 HOW MANY CIGARETTES A DAY DO YOU SMOKE?6-10 HOW OFTEN DO YOU SMOKE CIGARETTES?EVERY DAY PATIENT COUNSELED ON THE DANGERS OF TOBACCO USE AND URGED TO QUIT:01/09/2017 LUNG CANCER SCREENING SMOKING STATUS:CURRENT SMOKER ALCOHOL SCREENING POINTS0 INTERPRETATIONNEGATIVE CAFFEINE CAFFEINE USE?NO MARITAL STATUS: .. YARSANI [id number] NONE NO ROMAN CATHOLIC BELIEFS THAT WOULD IMPACT HEALTH CARE. LANGUAGE LANGUAGES SPOKEN:CHILEAN LEARNING BARRIERS / SPECIAL NEEDS BARRIERS TO LEARNING?NO HEARING IMPAIRED?YES :HEARING AIDES VISION IMPAIRED?YES :CORRECTIVE LENSES COGNITIVELY IMPAIRED?NO READINESS TO LEARN?YES LEARNING PREFERENCES?NO LEARNING CAPABILITIES PRESENT?YES SPECIAL DEVICES?YES :[facility] PFS, CLERGY, PUBLIC HEALTH REFERRALS PFS REFERRAL NEEDED?NO CLERGY REFERRAL NEEDED?NO PUBLIC HEALTH REFERRAL NEEDED?NO WAS THE PROVIDER NOTIFIED OF ANY PERTINENT INFO?NO HAS THE PATIENT BEEN EDUCATED REGARDING HIS/HER PLAN OF CARE?YES HAS THE PATIENT BEEN EDUCATED REGARDING PAIN, THE RISK FOR PAIN, THE IMPORTANCE OF EFFECTIVE PAIN MANAGEMENT, AND THE PAIN ASSESSMENT PROCESS?YES PATIENT: ____. ADVANCE DIRECTIVES HEALTH CARE PROXY?NO WOULD YOU LIKE MORE INFORMATION?NO LIVING WILL?NO WOULD YOU LIKE MORE INFORMATION?NO HOSPITALIZATION/MAJOR DIAGNOSTIC PROCEDURE SURGERY RELATED REVIEW OF SYSTEMS REVIEWED BY: PROVIDER: . CONSTITUTIONAL: ANY CHANGE IN YOUR MEDICAL CONDITION? NO . CHILLS NO . FEVER NO . INFECTION: DO YOU HAVE NEW INFECTIONS? NO . DO YOU HAVE HISTORY OF MRSA? NO . MUSCULOSKELETAL: ANY NEW PATTERNS OF PAIN OR NUMBNESS? NO . GASTROENTEROLOGY: ANY NEW CHANGE IN BOWEL CONTROL? NO . GENITOURINARY: ANY NEW CHANGE IN BLADDER CONTROL? NO . IS THERE A CHANCE YOU COULD BE ? NO . HEMATOLOGY/LYMPH: DO YOU TAKE ANY BLOOD THINNERS? (FOR EXAMPLE- COUMADIN, PLAVIX, AGGRENOX, PLATEL, PRADAXA, OR XARELTO) NO . WHEN WAS YOUR LAST DOSE? DATE: TIME: . NEUROLOGY: HAVE YOU FALLEN IN THE PAST 6 MONTHS? YES . ANY NEW EXTREMITY NUMBNESS OR WEAKNESS? NO . CARDIOLOGY: DO YOU HAVE A PACEMAKER OR DEFIBRILLATOR? NO . RESPIRATORY: HAVE YOU BEEN SICK IN THE PAST WEEK? NO . FEVER NO . FLU LIKE SYMPTOMS? NO . COUGH NO . INTEGUMENTARY: DO YOU HAVE ANY RASHES OR OPEN SORES? NO . ALLERGIC/IMMUNO: ARE YOU ALLERGIC TO SHELLFISH OR IV DYE? NO . ANY NEW ALLERGIES? NO . PSYCHIATRIC: DO YOU HAVE THOUGHTS OF HURTING YOURSELF OR SOMEONE ELSE? NO . ARE YOU ABUSED, NEGLECTED, OR IN AN UNSAFE ENVIRONMENT? NO . ENDOCRINOLOGY: ARE YOU DIABETIC? NO . OTHER: DO YOU NEED ANY PRESCRIPTIONS? NO . IF YES, PLEASE LIST: ____ . ANY NEW PROBLEMS WITH YOUR MEDICATIONS? NO . WHEN DID YOU LAST EAT? 01/08/17 1900 . WHEN DID YOU LAST DRINK? 01/09/17 0800 . WHAT DID YOU LAST DRINK? WATER . NAME OF PERSON DRIVING YOU HOME? LINDA TRAYLOR . DO YOU HAVE ANY OTHER QUESTIONS OR CONCERNS NO . VITAL SIGNS WT 163 LBS, HT 61 IN, BMI 30.80 INDEX, BP 110/64 MM HG, HR 68 /MIN, RR 16 /MIN, TEMP 98.2 F, OXYGEN SAT % 97%, NA INITIALS SC 14:04. ASSESSMENTS MYALGIA - M79.1 (PRIMARY) PROCEDURES PN TRIGGER POINT INJECTION WITH STEROIDS PRE PROCEDURE DIAGNOSIS 1. MYALGIA 2. PAIN AT BILATERAL NECK AREA AND BILATERAL SHOULDER AREA POST PROCEDURE DIAGNOSIS 1. MYALGIA 2. PAIN AT BILATERAL NECK AREA AND BILATERAL SHOULDER AREA PROCEDURE TRIGGER POINT INJECTION AT BILATERAL NECK AREA AND BILATERAL SHOULDER AREA SURGEON DR. DAYLIN MINER ESCALATOR OPERATOR NONE ANESTHESIA LOCAL PRE PROCEDURE NOTE THE PATIENT HAS A HISTORY OF CHRONIC PAIN AT THE RIGHT AND LEFT NECK AREA AND RIGHT AND LEFT SHOULDER AREA. I EVALUATE THE PATIENT AND REVIEWED THE CHART. THERE IS EVIDENCE OF BANDS OF TISSUE WITH RESTRICTION OF MOVEMENT AND PRESENCE OF TRIGGER POINT AT THE AFFECTED AREA. I WENT OVER THE RISKS, ALTERNATIVES, AND BENEFITS ASSOCIATED WITH THIS PROCEDURE. THE PATIENT WOULD LIKE TO PROCEED AND GIVE CONSENT TO PERFORMED THE PROCEDURE. THE PATIENT DENIES UNEXPLAINABLE WEIGHT LOSS, FEVER, CHILLS, OR NEW CHANGES IN URINARY OR BOWEL CONTROL DESCRIPTION OF PROCEDURE THE PATIENT WAS BROUGHT TO THE PROCEDURE ROOM AND PLACED IN THE SITTING POSITION. THE AREA WAS CLEANED WITH ALCOHOL. THE PROCEDURE WAS DONE USING ASEPTIC STERILE TECHNIQUE. I CHECKED LATERALITY AND THE LEVEL WHERE THE PROCEDURE WAS GOING TO BE PERFORMED WITH THE PATIENT AND THE SUPPORTING STAFF AT THE MOMENT OF THE TIME OUT IN THE PROCEDURE ROOM. USING A 25-GAUGE NEEDLE, TRIGGER POINTS WERE INJECTED AT THE RIGHT AND LEFT NECK AREA AND RIGHT AND LEFT SHOULDER AREA WITH A TOTAL OF 40 ML OF BUPIVACAINE 0.25% AND KENALOG 40 MG. THERE WAS NO EVIDENCE OF BLOOD, PARESTHESIA OR CEREBROSPINAL FLUID DURING THE PROCEDURE. THE PATIENT WAS SENT TO THE RECOVERY ROOM. THE PATIENT WAS MOVING THE EXTREMITIES AND DOING WELL. THERE WAS NO COMPLICATION DURING THE PROCEDURE POST PROCEDURE NOTE THE PATIENT WILL BE SEEN IN A FOLLOW UP IN THE NEXT FEW WEEKS. INSTRUCTIONS WERE GIVEN, QUESTIONS WERE ANSWERED, AND THE PATIENT EXPRESSED UNDERSTANDING AND AGREES WITH THE PLAN. I, LENNY SALCEDO, DOCUMENTED THE ABOVE INFORMATION ACTING A SCRIBE FOR DR. MINER. I HAVE REVIEWED THE ABOVE DOCUMENT, WRITTEN BY LENNY CANTU AND I VERIFY THAT IT IS ACCURATE PROCEDURE CODES 55759 INJECT TRIGGER POINTS 3/> DISPOSITION & COMMUNICATION FOLLOW UP 3 WEEKS ELECTRONICALLY SIGNED BY DAYLIN MINER MD ON 01/14/2017 AT 08:41 PM EST DISCLAIMER : THIS IS A VISIT SUMMARY EXTRACTED FROM THE [employer] CHART. IT IS NOT A COPY OF THE [employer] PROGRESS NOTE. MARIKA
== END ==
LOC: M PAIN 13:45
PROVIDERS: ATTEND Anesthesiology
DX: G89.29 Other chronic pain (principal); M54.2 Cervicalgia; M25.511 Pain in right shoulder; M25.512 Pain in left shoulder; M79.1 Myalgia; F17.210 Nicotine dependence, cigarettes, uncomplicated; Z88.6 Allergy status to analgesic agent; L23.1 Allergic contact dermatitis due to adhesives; Z88.8 Allergy status to other drugs, medicaments and biological substances; Z79.891 Long term (current) use of opiate analgesic; Z79.899 Other long term (current) drug therapy
CPT/HCPCS: 20553; J3301

== ENCOUNTER → 2017-01-31 | Outpatient (CLI) | payer OTHER ==
[~2017-01-31] MED LIST changes: -BUPIVACAINE HCL 0.25% 10 ML VIAL As Ordered ONE; -BUPIVACAINE HCL 0.25% 30 ML VIAL As Ordered ONE; -TRIAMCINOLONE ACETONIDE SUSP 40 MG/ML VIAL (J3301) As Ordered ONE
--- NOTE | 2017-02-10 01:10 | ECWPNPC ---
PATIENT NAME: NNAMDI ANAND : 1965 GENDER: FEMALE VISIT DATE: 01/31/2017 DISCHARGE DATE: 01/31/17 0942 VISIT LOCKED DATE TIME: PHYSICIAN: NINA ESQUIVEL RESOURCE: NINA ESQUIVEL REASON FOR APPOINTMENT 1. POST PROCEDURE HISTORY OF PRESENT ILLNESS GENERAL: HERE FOR POST PROCEDURE F/U.HAD TPI NECK ON 01-09-17.REPORTS SIGNIFICANT REUCTION IN MID SCAPULAR PAIN SINCE INJECTION THAT CONTINUES TODAY.CHIEF AREA OF PAIN IS NECK AND RIGHT ARM.C/O HEADACHE TODAY.HAS FALLEN RECENTLY AT HOME AND THIS AGGREVATED LOW BACK PAIN.RATING PAIN VAS 6/10. HISTORY OF PRESENT ILLNESS: PAIN THE PATIENT DESCRIBES THE PAIN... FALL RISK SCREENING: SCREENING :NO FALLS IN THE PAST YEAR CURRENT MEDICATIONS TAKING ZOFRAN 4 MG TABLET 3 TABLETS ORALLY PRE MEDICATION TAKING MIRTAZAPINE 30 MG TABLET 1 TABLET AT BEDTIME ORALLY ONCE A DAY TAKING ROPINIROLE HCL 1 MG TABLET ORALLY AT BEDTIME TAKING SUMATRIPTAN SUCCINATE 100 MG TABLET 1 TABLET NEEDED ONE TIME ORALLY DIRECTED TAKING TOPIRAMATE 100 MG TABLET 1 TABLET ORALLY TWICE A DAY TAKING LINZESS 290 MCG CAPSULE 1 CAPSULE ORALLY ONCE A DAY TAKING PANTOPRAZOLE SODIUM 40 MG TABLET DELAYED RELEASE 1 TABLET ORALLY TWICE A DAY TAKING SIMVASTATIN 20 MG TABLET 1 TABLET IN THE EVENING ORALLY IN EVENING TAKING CYMBALTA 60 MG CAPSULE DELAYED RELEASE PARTICLES 1 CAPSULE ORALLY DAILY TAKING METHOCARBAMOL 750 MG TABLET 1 TABLET ORALLY TID PRN TAKING OXYCODONE HCL 15 MG TABLET 1 TABLET ORALLY EVERY 8 HRS PRN PAIN MDD=3 NOT-TAKING TRIAMCINOLONE ACETONIDE 0.1 % CREAM 1 APPLICATION TO AFFECTED AREA EXTERNALLY TWICE A DAY, NOTES: 12/05/151999 DISCONTINUED MELOXICAM 15 MG TABLET 1 TABLET ORALLY ONCE A DAY DISCONTINUED VITAMIN D3 29837 UNIT CAPSULE ORALLY EVERY 2 WEEKS DISCONTINUED DOXYCYCLINE MONOHYDRATE 100 MG CAPSULE 1 CAPSULE ORALLY BID X 10 DAYS DISCONTINUED TERBINAFINE HCL 250 MG TABLET 1 TABLET ORALLY ONCE A DAY DISCONTINUED MS CONTIN 15 MG TABLET EXTENDED RELEASE 1 TABLET ORALLY EVERY 12 HRS MDD2 DISCONTINUED VALIUM 10 MG TABLET 1 ORALLY 1 TAB 1HR PRE PROC. MDD1 DISCONTINUED MELATONIN 5 MG TABLET 1 TABLET AT BEDTIME NEEDED WITH FOOD ORALLY ONCE A DAY DISCONTINUED CYCLOBENZAPRINE HCL 5 MG TABLET 1 TABLET ORALLY 2 TIMES A DAY NEEDED DISCONTINUED GABAPENTIN 300 MG CAPSULE 1 TABLET ORALLY THREE TIMES A DAY DISCONTINUED LYRICA 100 MG CAPSULE 1 CAPSULE ORALLY TWICE A DAY MDD2 DISCONTINUED GABAPENTIN 300 600 MG TABLET 1 TAB(S) ORAL THREE TIMES A DAY MEDICATION LIST REVIEWED AND RECONCILED WITH THE PATIENT PAST MEDICAL HISTORY ACID REFLUX IBS PINCHED NERVES IN BACK SCOLIOSIS ARTHRITIS DDD ENDOMETRIOSIS CONGENITAL RIGHT HIP ABNORMALITY ALLERGIES NAPROXEN SODIUM: TONGUE SWELLS/FACE SWELLING: ALLERGY ASPIRIN: SORES IN MOUTH: ALLERGY ADHESIVE TAPE/BANDAIDS: BLISTERS: ALLERGY TEGADERM: SKIN BECOMES RAW, REDNESS, HEAT: ALLERGY PEPTO BISMAL: VOMITING SOCIAL HISTORY GENERAL: TOBACCO USE ARE YOU A:CURRENT SMOKER ARE YOU INTERESTED IN QUITTING?NOT READY TO QUIT COUNSELED THE PATIENT ON SMOKING EFFECTS, EDUCATION [id number]/07/2017 HOW MANY CIGARETTES A DAY DO YOU SMOKE?6-10 HOW OFTEN DO YOU SMOKE CIGARETTES?EVERY DAY PATIENT COUNSELED ON THE DANGERS OF TOBACCO USE AND URGED TO QUIT:01/09/2017 LUNG CANCER SCREENING SMOKING STATUS:CURRENT SMOKER ALCOHOL SCREENING DID YOU HAVE A DRINK CONTAINING ALCOHOL IN THE PAST YEAR?NO POINTS0 INTERPRETATIONNEGATIVE CAFFEINE CAFFEINE USE?NO MARITAL STATUS: .. RASTAFARIAN [id number] NONE NO CONGREGATIONAL BELIEFS THAT WOULD IMPACT HEALTH CARE. LANGUAGE LANGUAGES SPOKEN:HUNGARIAN LEARNING BARRIERS / SPECIAL NEEDS BARRIERS TO LEARNING?NO HEARING IMPAIRED?YES :HEARING AIDES VISION IMPAIRED?YES :CORRECTIVE LENSES COGNITIVELY IMPAIRED?NO READINESS TO LEARN?YES LEARNING PREFERENCES?NO LEARNING CAPABILITIES PRESENT?YES SPECIAL DEVICES?YES :[facility] PFS, CLERGY, PUBLIC HEALTH REFERRALS PFS REFERRAL NEEDED?NO CLERGY REFERRAL NEEDED?NO PUBLIC HEALTH REFERRAL NEEDED?NO WAS THE PROVIDER NOTIFIED OF ANY PERTINENT INFO?NO HAS THE PATIENT BEEN EDUCATED REGARDING HIS/HER PLAN OF CARE?YES HAS THE PATIENT BEEN EDUCATED REGARDING PAIN, THE RISK FOR PAIN, THE IMPORTANCE OF EFFECTIVE PAIN MANAGEMENT, AND THE PAIN ASSESSMENT PROCESS?YES PATIENT: ____. ADVANCE DIRECTIVES HEALTH CARE PROXY?NO WOULD YOU LIKE MORE INFORMATION?NO LIVING WILL?NO WOULD YOU LIKE MORE INFORMATION?NO REVIEW OF SYSTEMS REVIEWED BY: PROVIDER: NINA BANEGAS . CONSTITUTIONAL: ANY CHANGE IN YOUR MEDICAL CONDITION? NO . CHILLS NO . FEVER NO . INFECTION: DO YOU HAVE NEW INFECTIONS? NO . DO YOU HAVE HISTORY OF MRSA? NO . MUSCULOSKELETAL: ANY NEW PATTERNS OF PAIN OR NUMBNESS? NO . GASTROENTEROLOGY: ANY NEW CHANGE IN BOWEL CONTROL? NO . GENITOURINARY: ANY NEW CHANGE IN BLADDER CONTROL? NO . IS THERE A CHANCE YOU COULD BE ? NO . HEMATOLOGY/LYMPH: DO YOU TAKE ANY BLOOD THINNERS? (FOR EXAMPLE- COUMADIN, PLAVIX, AGGRENOX, PLATEL, PRADAXA, OR XARELTO) NO . WHEN WAS YOUR LAST DOSE? DATE: TIME: . NEUROLOGY: HAVE YOU FALLEN IN THE PAST 6 MONTHS? YES A WEEK AGO . ANY NEW EXTREMITY NUMBNESS OR WEAKNESS? NO . CARDIOLOGY: DO YOU HAVE A PACEMAKER OR DEFIBRILLATOR? NO . RESPIRATORY: HAVE YOU BEEN SICK IN THE PAST WEEK? NO . FEVER NO . FLU LIKE SYMPTOMS? NO . COUGH NO . INTEGUMENTARY: DO YOU HAVE ANY RASHES OR OPEN SORES? NO . ALLERGIC/IMMUNO: ARE YOU ALLERGIC TO SHELLFISH OR IV DYE? NO . ANY NEW ALLERGIES? NO . PSYCHIATRIC: DO YOU HAVE THOUGHTS OF HURTING YOURSELF OR SOMEONE ELSE? NO . ARE YOU ABUSED, NEGLECTED, OR IN AN UNSAFE ENVIRONMENT? NO . ENDOCRINOLOGY: ARE YOU DIABETIC? NO . OTHER: DO YOU NEED ANY PRESCRIPTIONS? NO . IF YES, PLEASE LIST: ____ . ANY NEW PROBLEMS WITH YOUR MEDICATIONS? NO . WHEN DID YOU LAST EAT? ____ . WHEN DID YOU LAST DRINK? ____ . WHAT DID YOU LAST DRINK? ____ . NAME OF PERSON DRIVING YOU HOME? ____ . DO YOU HAVE ANY OTHER QUESTIONS OR CONCERNS NO . VITAL SIGNS WT 161.2 LBS, HT 61 IN, BMI 30.46 INDEX, BP 127/70 MM HG, HR 72 /MIN, RR 16 /MIN, TEMP 98.2 F, OXYGEN SAT % 100%, NA INITIALS VT 09:08, REVIEWED BY: ONDINA. EXAMINATION GENERAL EXAMINATION: GENERAL APPEARANCE:WEEPY,DEPRESSED . PSYCHALERT , ORIENTED X 3 . NECK:SPECIFIC POINT TENDERNESS OVER RIGHT OCCIPITAL NERVE ROUTE.TRIGGER POINTS NOTED OVER RIGHT TRAPEZIUS . LUNGS:LUNG BETH ARE CLEAR TO AUSCULTATION BILATERALLY. GOOD MOVEMENT OF AIR . HEART:S1, S2 IN A REGULAR RATE AND RHYTHM. NO SIGNIFICANT MURMURS, RUBS OR GALLOPS NOTED . BACK:MULTIPLE AREAS OF TENDER SPOTS UPPER AND LOWER TORSO BILAT. INDICATIVE OF FIBROMYALGIA. DIAGNOSTIC TESTS REVIEWEDMRI CERVICAL [id number]-REVIEWED . 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 PREVENTIVE MEDICINE PAIN CLINIC TEACHING: PROCEDURE TEACHING REVIEWED CERVICAL EPIDURAL PROCEDURE. PROCEDURE CODES FA211 ESTABILISHED PATIENT [facility] CHARGE DISPOSITION & COMMUNICATION FOLLOW UP 2WK POST (REASON: GUERA C4/5) ELECTRONICALLY SIGNED BY BASSAM SANTANA ON 02/09/2017 AT 05:04 PM EST DISCLAIMER : THIS IS A VISIT SUMMARY EXTRACTED FROM THE [employer] CHART. IT IS NOT A COPY OF THE [employer] PROGRESS NOTE. MTDD
== END ==
LOC: M PAIN 08:45
PROVIDERS: ATTEND Nurse Practitioner Family
DX: M47.22 Other spondylosis with radiculopathy, cervical region (principal); M79.7 Fibromyalgia; Z79.899 Other long term (current) drug therapy; Z79.891 Long term (current) use of opiate analgesic; Z88.6 Allergy status to analgesic agent; Z88.8 Allergy status to other drugs, medicaments and biological substances; Z91.048 Other nonmedicinal substance allergy status

== ENCOUNTER → 2017-03-14 | Outpatient (CLI) | payer OTHER ==
[~2017-03-14] MED LIST changes: -AMIT25TA PO; -BUTR10DI TD; -BUTR5DIS TD; -CLOB-49 EX; -CLOT1CRE71 TOP; -CYCL5TA PO; -DIFL200T PO; -DULO30CA PO; -GABA-282 PO; -GABA-283 PO; -HYDR-3713 PO; -HYDR-3719 PO; +ISOVUE-M 300 61% 15ML VIAL (Q9967) As Ordered; -LACT20EL PO; +LIDOCAINE 1% SDV INJ 30 ML VIAL As Ordered; -LINZ290C PO; -LYRI75CA PO; -MIRA3350 PO; -MS C15TA8 PO; -OMEP40CA2 PO; -OXYC15TA76 PO; -OXYC1TAB15 PO; -PANT40TA2 PO; -ROBA750T4 PO; -ROPI0.25 PO; -ROPI1TAB PO; -SOMA350T PO; -SUMA100T2 PO; -TERB1CRE12 TD; -TERB250T12 PO; -TOPA100T12 PO; -TOPA1TAB PO; -TRAM50TA2 PO; -TRAZ1TAB14 PO; -TYLE500T78 PO; -VICO7.5T11 PO; -VITA1CAP25 PO; -[UNRECOGNIZED DRUG - OTHER] TOP; +diazePAM 5 MG TAB As Ordered; +methylPREDNISolone SUSP 40 MG/ML (DEPO-medrol) VIAL (J1030) As Ordered; +oxyCODONE 5MG TAB As Ordered
== END ==
LOC: M PAIN 11:30
DX: G89.29 Other chronic pain (principal); M50.13 Cervical disc disorder with radiculopathy, cervicothoracic region; K21.9 Gastro-esophageal reflux disease without esophagitis; M41.9 Scoliosis, unspecified; M19.90 Unspecified osteoarthritis, unspecified site; Z88.8 Allergy status to other drugs, medicaments and biological substances; Z88.6 Allergy status to analgesic agent; Z91.048 Other nonmedicinal substance allergy status; Z79.891 Long term (current) use of opiate analgesic; Z79.899 Other long term (current) drug therapy
CPT/HCPCS: J1030

== ENCOUNTER → 2017-04-04 | Outpatient (CLI) | payer OTHER | LOC: M PAIN 11:30 | DX: M53.3 Sacrococcygeal disorders, not elsewhere classified (principal); K21.9 Gastro-esophageal reflux disease without esophagitis; M41.9 Scoliosis, unspecified; M19.90 Unspecified osteoarthritis, unspecified site; Q65.89 Other specified congenital deformities of hip; F17.210 Nicotine dependence, cigarettes, uncomplicated; Z79.899 Other long term (current) drug therapy; Z88.6 Allergy status to analgesic agent; Z88.8 Allergy status to other drugs, medicaments and biological substances; Z91.048 Other nonmedicinal substance allergy status | CPT/HCPCS: G0463 ==

== ENCOUNTER → 2017-04-23 | Outpatient (CLI) | payer OTHER ==
[~2017-04-23] MED LIST changes: +BUPIVACAINE HCL 0.25% 30 ML VIAL As Ordered; +TRIAMCINOLONE ACETONIDE SUSP 40 MG/ML VIAL (J3301) As Ordered; -diazePAM 5 MG TAB As Ordered; -methylPREDNISolone SUSP 40 MG/ML (DEPO-medrol) VIAL (J1030) As Ordered
== END ==
LOC: M PAIN 11:15
DX: G89.29 Other chronic pain (principal); M46.1 Sacroiliitis, not elsewhere classified; M53.88 Other specified dorsopathies, sacral and sacrococcygeal region; K21.9 Gastro-esophageal reflux disease without esophagitis; M41.9 Scoliosis, unspecified; Q65.89 Other specified congenital deformities of hip; F17.210 Nicotine dependence, cigarettes, uncomplicated; Z79.891 Long term (current) use of opiate analgesic; Z79.899 Other long term (current) drug therapy; Z88.6 Allergy status to analgesic agent; Z88.8 Allergy status to other drugs, medicaments and biological substances; Z91.09 Other allergy status, other than to drugs and biological substances
CPT/HCPCS: J3301

== ENCOUNTER → 2017-04-26 | Outpatient (REF) | payer OTHER ==
[2017-04-26 12:48] LABS: BASO % 0.2 % (0.0-1.0); EOS % 0.2 % (0.0-3.0); HEMATOCRIT 41.6 % (36.0-47.0); HEMOGLOBIN 14.3 g/dl (12.0-16.0); IMMATURE GRANULOCYTE % 0.3 % (0-3.0); LYMPH # 1.1 10^3/uL (1.5-4.5); LYMPH % 17.2 % (24.0-44.0); MEAN CORPUSCULAR HEMOGLOBIN 31.6 pg (27.0-33.0); MEAN CORPUSCULAR HGB CONC 34.4 g/dl (32.0-36.5); MONO # 0.5 10^3/uL (0.0-0.8); NEUTROPHILS # 4.7 10^3/uL (1.8-7.7); NEUTROPHILS % 74.1 % (36.0-66.0); PLATELET COUNT, AUTOMATED 239 10^3/uL (150-450); RED BLOOD COUNT 4.52 10^6/uL (4.00-5.40); RED CELL DISTRIBUTION WIDTH 12.4 % (11.5-14.5); WHITE BLOOD COUNT 6.4 10^3/uL (4.0-10.0)
[2017-04-26 13:05] LABS: TOTAL 25(OH) VITAMIN D 24.7 NG/ML (30.0-100.0)
[2017-04-26 13:10] LABS: ALBUMIN 4.1 GM/DL (3.2-5.2); ALBUMIN/GLOBULIN RATIO 1.41 (1.00-1.93); ALKALINE PHOSPHATASE 83 U/L (45-117); ALT/SGPT 21 U/L (12-78); ANION GAP 9 MEQ/L (8-16); AST/SGOT 10 U/L (7-37); BILIRUBIN,TOTAL 0.4 MG/DL (0.2-1.0); BLOOD UREA NITROGEN 13 MG/DL (7-18); CALCIUM LEVEL 9.1 MG/DL (8.5-10.1); CARBON DIOXIDE LEVEL 26 MEQ/L (21-32); CHLORIDE LEVEL 108 MEQ/L (98-107); CHOLESTEROL LEVEL 214 MG/DL (<200); CHOLESTEROL RISK RATIO 3.754 (<5); CREATININE FOR GFR 0.78 MG/DL (0.55-1.30); FREE T4 0.78 NG/DL (0.76-1.46); GLOMERULAR FILTRATION RATE > 60.0 (>51); GLUCOSE, FASTING 107 MG/DL (70-100); HDL CHOLESTEROL 57 MG/DL (>40); LDL CHOLESTEROL 134.2 MG/DL (<100); NON-HDL-C 157 MG/DL; POTASSIUM SERUM 3.8 MEQ/L (3.5-5.1); SODIUM LEVEL 143 MEQ/L (136-145); THYROID STIMULATING HORMONE 0.865 uIU/ML (0.358-3.740); TRIGLYCERIDES LEVEL 114 MG/DL (<150)
[2017-04-26 13:14] LABS: ESTIMATED AVERAGE GLUCOSE 114 MG/DL (60-110); HEMOGLOBIN A1c 5.6 %
== END ==
LOC: M LABDRWAD 12:19
DX: D64.9 Anemia, unspecified (principal); M10.9 Gout, unspecified; E78.5 Hyperlipidemia, unspecified; E55.9 Vitamin D deficiency, unspecified
CPT/HCPCS: 84443

== ENCOUNTER → 2017-05-01 | Outpatient (CLI) | payer OTHER | LOC: M WHC 09:50 | DX: M81.0 Age-related osteoporosis without current pathological fracture (principal); M85.9 Disorder of bone density and structure, unspecified | CPT/HCPCS: 77080 ==

== ENCOUNTER → 2017-05-01 | Outpatient (CLI) | payer OTHER | LOC: M RAD 13:48 | DX: N60.01 Solitary cyst of right breast (principal); N63.0 Unspecified lump in unspecified breast | CPT/HCPCS: 77066 ==

== ENCOUNTER → 2017-05-07 | Outpatient (CLI) | payer OTHER | LOC: M PAIN 10:15 | DX: M53.3 Sacrococcygeal disorders, not elsewhere classified (principal); M47.27 Other spondylosis with radiculopathy, lumbosacral region; F17.210 Nicotine dependence, cigarettes, uncomplicated; Z79.891 Long term (current) use of opiate analgesic; Z79.899 Other long term (current) drug therapy; Z88.8 Allergy status to other drugs, medicaments and biological substances; Z91.048 Other nonmedicinal substance allergy status | CPT/HCPCS: G0463 ==

== ENCOUNTER → 2017-05-08 | Outpatient (CLI) | payer OTHER | LOC: M RAD 09:29 | DX: K31.84 Gastroparesis (principal) ==

== ENCOUNTER 2017-05-18 10:09 | Day surgery (SDC) | payer OTHER ==
[2017-05-18] MEDS: NS 1,000 ML IV (10:00)
[2017-05-18] MEDS ORDERED: PROPOFOL 200 MG/20 ML VIAL As Ordered (11:29)
[2017-05-18] MEDS ORDERED: LIDOCAINE 2% INJ 100 MG/5 ML SYRINGE As Ordered ×4 (11:29→11:30)
[2017-05-18] MEDS ORDERED: fentaNYL 100 MCG/2 ML INJECTION (J3010) As Ordered (11:29)
== END 2017-05-18 12:38 | disposition home or self-care (01) ==
LOC: M OPP 10:09
DX: R12 Heartburn (principal); M54.9 Dorsalgia, unspecified; F17.210 Nicotine dependence, cigarettes, uncomplicated; F32.9 Major depressive disorder, single episode, unspecified; F41.9 Anxiety disorder, unspecified; M79.7 Fibromyalgia; Z86.19 Personal history of other infectious and parasitic diseases; R06.83 Snoring; K58.9 Irritable bowel syndrome, unspecified; M48.061 Spinal stenosis, lumbar region without neurogenic claudication; M41.9 Scoliosis, unspecified; R01.1 Cardiac murmur, unspecified; K44.9 Diaphragmatic hernia without obstruction or gangrene; Z78.0 Asymptomatic menopausal state; Z79.899 Other long term (current) drug therapy; Z80.3 Family history of malignant neoplasm of breast; Z80.41 Family history of malignant neoplasm of ovary; Z83.3 Family history of diabetes mellitus; Z82.49 Family history of ischemic heart disease and other diseases of the circulatory system; Z91.048 Other nonmedicinal substance allergy status; Z88.8 Allergy status to other drugs, medicaments and biological substances
CPT/HCPCS: 43235

== ENCOUNTER → 2017-05-24 | Outpatient (CLI) | payer OTHER ==
[~2017-05-24] MED LIST changes: -TRIAMCINOLONE ACETONIDE SUSP 40 MG/ML VIAL (J3301) As Ordered; -oxyCODONE 5MG TAB As Ordered
== END ==
LOC: M PAIN 09:00
DX: G89.29 Other chronic pain (principal); M47.816 Spondylosis without myelopathy or radiculopathy, lumbar region; M47.817 Spondylosis without myelopathy or radiculopathy, lumbosacral region; K21.9 Gastro-esophageal reflux disease without esophagitis; Z79.891 Long term (current) use of opiate analgesic; Z79.899 Other long term (current) drug therapy; Z88.8 Allergy status to other drugs, medicaments and biological substances; Z91.048 Other nonmedicinal substance allergy status
CPT/HCPCS: Q9967

== ENCOUNTER → 2017-06-07 | Outpatient (CLI) | payer OTHER | LOC: M PAIN 09:45 | DX: G89.29 Other chronic pain (principal); M53.3 Sacrococcygeal disorders, not elsewhere classified; M47.27 Other spondylosis with radiculopathy, lumbosacral region; K21.9 Gastro-esophageal reflux disease without esophagitis; K58.9 Irritable bowel syndrome, unspecified; F17.210 Nicotine dependence, cigarettes, uncomplicated; M41.9 Scoliosis, unspecified; Z88.6 Allergy status to analgesic agent; Z79.891 Long term (current) use of opiate analgesic; Z79.899 Other long term (current) drug therapy; Z96.641 Presence of right artificial hip joint; Z88.8 Allergy status to other drugs, medicaments and biological substances; Z91.048 Other nonmedicinal substance allergy status | CPT/HCPCS: G0463 ==

== ENCOUNTER → 2017-06-25 | Outpatient (CLI) | payer OTHER ==
[~2017-06-25] MED LIST changes: +TRIAMCINOLONE ACETONIDE SUSP 40 MG/ML VIAL (J3301) As Ordered
== END ==
LOC: M PAIN 10:00
DX: G89.29 Other chronic pain (principal); M46.1 Sacroiliitis, not elsewhere classified; K21.9 Gastro-esophageal reflux disease without esophagitis; K58.9 Irritable bowel syndrome, unspecified; M41.9 Scoliosis, unspecified; F17.210 Nicotine dependence, cigarettes, uncomplicated; Z96.641 Presence of right artificial hip joint; Z79.891 Long term (current) use of opiate analgesic; Z79.899 Other long term (current) drug therapy; Z88.6 Allergy status to analgesic agent; Z88.8 Allergy status to other drugs, medicaments and biological substances; Z91.048 Other nonmedicinal substance allergy status
CPT/HCPCS: J3301

== ENCOUNTER → 2017-08-27 | Outpatient (REF) | payer OTHER ==
[2017-08-27 19:44] LABS: BASO % 0.6 % (0.0-1.0); EOS # 0.1 10^3/uL (0.0-0.50); EOS % 2.4 % (0.0-3.0); HEMATOCRIT 41.1 % (36.0-47.0); IMMATURE GRANULOCYTE % 0.2 % (0-3.0); LYMPH # 1.2 10^3/uL (1.5-4.5); MEAN CORPUSCULAR HEMOGLOBIN 33.3 pg (27.0-33.0); MEAN CORPUSCULAR HGB CONC 34.1 g/dl (32.0-36.5); MEAN CORPUSCULAR VOLUME 97.6 fl (80.0-96.0); MONO # 0.4 10^3/uL (0.0-0.8); MONO % 6.9 % (0.0-5.0); NEUTROPHILS # 3.7 10^3/uL (1.8-7.7); NEUTROPHILS % 67.9 % (36.0-66.0); PLATELET COUNT, AUTOMATED 247 10^3/uL (150-450); RED BLOOD COUNT 4.21 10^6/uL (4.00-5.40); RED CELL DISTRIBUTION WIDTH 12.9 % (11.5-14.5); WHITE BLOOD COUNT 5.4 10^3/uL (4.0-10.0)
[2017-08-27 20:01] LABS: ESTIMATED AVERAGE GLUCOSE 111 MG/DL (60-110); HEMOGLOBIN A1c 5.5 %; TOTAL 25(OH) VITAMIN D 23.6 NG/ML (30.0-100.0)
[2017-08-27 20:08] LABS: ALBUMIN 3.9 GM/DL (3.2-5.2); ALBUMIN/GLOBULIN RATIO 1.26 (1.00-1.93); ALKALINE PHOSPHATASE 83 U/L (45-117); ALT/SGPT 19 U/L (12-78); ANION GAP 8 MEQ/L (8-16); AST/SGOT 13 U/L (7-37); BILIRUBIN,TOTAL 0.4 MG/DL (0.2-1.0); BLOOD UREA NITROGEN 10 MG/DL (7-18); CALCIUM LEVEL 8.6 MG/DL (8.5-10.1); CARBON DIOXIDE LEVEL 28 MEQ/L (21-32); CHLORIDE LEVEL 108 MEQ/L (98-107); CHOLESTEROL LEVEL 188 MG/DL (<200); CHOLESTEROL RISK RATIO 3.298 (<5); CREATININE FOR GFR 0.72 MG/DL (0.55-1.30); FREE T4 0.84 NG/DL (0.76-1.46); GLOMERULAR FILTRATION RATE > 60.0 (>51); GLUCOSE, FASTING 96 MG/DL (70-100); HDL CHOLESTEROL 57 MG/DL (>40); LDL CHOLESTEROL 109.8 MG/DL (<100); NON-HDL-C 131 MG/DL; SODIUM LEVEL 144 MEQ/L (136-145); TRIGLYCERIDES LEVEL 106 MG/DL (<150)
== END ==
LOC: M LABDRWAD 19:18
DX: E55.9 Vitamin D deficiency, unspecified (principal); Z79.899 Other long term (current) drug therapy; E78.4 Other hyperlipidemia; D64.9 Anemia, unspecified

== ENCOUNTER 2017-08-30 11:53 | Emergency (ER) | payer OTHER ==
[2017-08-30] MEDS: ACETAMINOPHEN 325 MG TAB PO (13:04)
== END 2017-08-30 14:19 | disposition home or self-care (01) ==
LOC: M ED 11:53
DX: S80.12XA Contusion of left lower leg, initial encounter (principal); S40.022A Contusion of left upper arm, initial encounter; S40.812A Abrasion of left upper arm, initial encounter; S80.812A Abrasion, left lower leg, initial encounter; W10.9XXA Fall (on) (from) unspecified stairs and steps, initial encounter; Y92.099 Unspecified place in other non-institutional residence as the place of occurrence of the external cause; Y93.9 Activity, unspecified; Y99.9 Unspecified external cause status; K21.9 Gastro-esophageal reflux disease without esophagitis; K52.9 Noninfective gastroenteritis and colitis, unspecified; G89.29 Other chronic pain; M54.9 Dorsalgia, unspecified; Z72.0 Tobacco use; Z79.899 Other long term (current) drug therapy; Z88.5 Allergy status to narcotic agent; Z88.8 Allergy status to other drugs, medicaments and biological substances; Z91.89 Other specified personal risk factors, not elsewhere classified
CPT/HCPCS: 73030

== ENCOUNTER → 2017-08-30 | Outpatient (CLI) | payer OTHER | LOC: M PAIN 10:45 | DX: M53.3 Sacrococcygeal disorders, not elsewhere classified (principal); R52 Pain, unspecified; M19.90 Unspecified osteoarthritis, unspecified site; Q65.9 Congenital deformity of hip, unspecified; F17.210 Nicotine dependence, cigarettes, uncomplicated; Z79.891 Long term (current) use of opiate analgesic; Z79.899 Other long term (current) drug therapy; Z88.6 Allergy status to analgesic agent; Z88.8 Allergy status to other drugs, medicaments and biological substances; Z91.09 Other allergy status, other than to drugs and biological substances; Z91.018 Allergy to other foods; Z96.641 Presence of right artificial hip joint | CPT/HCPCS: G0463 ==

== ENCOUNTER → 2017-09-13 | Outpatient (CLI) | payer OTHER | LOC: M PAIN 11:30 | DX: G89.29 Other chronic pain (principal); M79.1 Myalgia; M25.551 Pain in right hip; Z79.891 Long term (current) use of opiate analgesic; K21.9 Gastro-esophageal reflux disease without esophagitis; K58.9 Irritable bowel syndrome, unspecified; M41.9 Scoliosis, unspecified; M19.90 Unspecified osteoarthritis, unspecified site; F17.210 Nicotine dependence, cigarettes, uncomplicated; Z79.899 Other long term (current) drug therapy; Z96.641 Presence of right artificial hip joint; Z88.6 Allergy status to analgesic agent; Z91.048 Other nonmedicinal substance allergy status; Z91.018 Allergy to other foods | CPT/HCPCS: G0463 ==

== ENCOUNTER → 2017-09-24 | Outpatient (CLI) | payer OTHER | LOC: M RAD 09:58 | DX: M75.02 Adhesive capsulitis of left shoulder (principal); M19.012 Primary osteoarthritis, left shoulder | CPT/HCPCS: 73221 ==

== ENCOUNTER → 2017-10-05 | Outpatient (CLI) | payer OTHER ==
[~2017-10-05] MED LIST changes: +BUPIVACAINE HCL 0.25% 10 ML VIAL As Ordered; -ISOVUE-M 300 61% 15ML VIAL (Q9967) As Ordered; -LIDOCAINE 1% SDV INJ 30 ML VIAL As Ordered
== END ==
LOC: M PAIN 09:15
DX: G89.29 Other chronic pain (principal); M79.1 Myalgia; M54.2 Cervicalgia; M54.6 Pain in thoracic spine; F17.210 Nicotine dependence, cigarettes, uncomplicated; Z79.891 Long term (current) use of opiate analgesic; Z79.899 Other long term (current) drug therapy; Z88.6 Allergy status to analgesic agent; Z88.8 Allergy status to other drugs, medicaments and biological substances; Z91.09 Other allergy status, other than to drugs and biological substances; Z91.018 Allergy to other foods; Z96.641 Presence of right artificial hip joint
CPT/HCPCS: J3301

== ENCOUNTER → 2017-12-24 | Outpatient (CLI) | payer OTHER | LOC: M PAIN 10:30 | DX: G57.02 Lesion of sciatic nerve, left lower limb (principal); M79.18 Myalgia, other site; M19.90 Unspecified osteoarthritis, unspecified site; F17.210 Nicotine dependence, cigarettes, uncomplicated; Z79.899 Other long term (current) drug therapy; Z88.6 Allergy status to analgesic agent; Z88.8 Allergy status to other drugs, medicaments and biological substances; Z91.09 Other allergy status, other than to drugs and biological substances; Z91.018 Allergy to other foods | CPT/HCPCS: G0463 ==

== ENCOUNTER → 2018-03-19 | Outpatient (CLI) | payer OTHER ==
[~2018-03-19] MED LIST changes: +AMIT25TA PO; -BUPIVACAINE HCL 0.25% 10 ML VIAL As Ordered; -BUPIVACAINE HCL 0.25% 30 ML VIAL As Ordered; +BUPIVACAINE HCL 0.25% 30 ML VIAL As Ordered ONE; +BUTR10DI TD; +BUTR5DIS TD; +CLOB-49 EX; +CLOT1CRE71 TOP; +CYCL5TA PO; +DIFL200T PO; +DULO1CAP3 PO; +DULO30CA PO; +GABA-843 PO; +GABA-845 PO; +HYDR-3713 PO; +HYDR-3719 PO; +ISOVUE-M 300 61% 15ML VIAL (Q9967) As Ordered ONE; +LACT20EL PO; +LIDOCAINE 1% SDV INJ 30 ML VIAL As Ordered ONE; +LINZ290C PO; +LYRI200C PO; +LYRI75CA PO; +MIRA3350 PO; +MS C15TA8 PO; +OMEP40CA2 PO; +OXYC15TA76 PO; +OXYC1TAB15 PO; +PANT40TA3 PO; +PREV1CAP PO; +RALO1TAB PO; +ROBA750T4 PO; +ROPI0.253 PO; +ROPI1TAB PO; +RULOSUS PO; +SIMV40TA2 PO; +SOMA350T PO; +SUMA100T2 PO; +TERB1CRE12 TD; +TERB250T12 PO; +TIZA-208 PO; +TOPA100T12 PO; +TOPA1TAB PO; +TRAM50TA2 PO; +TRAZ1TAB14 PO; -TRIAMCINOLONE ACETONIDE SUSP 40 MG/ML VIAL (J3301) As Ordered; +TRIAMCINOLONE ACETONIDE SUSP 40 MG/ML VIAL (J3301) As Ordered ONE; +TYLE500T78 PO; +VICO7.5T11 PO; +VITA1CAP25 PO; +[UNRECOGNIZED DRUG - OTHER] TOP; +oxyCODONE 5MG TAB As Ordered ONE
--- NOTE | 2018-03-19 15:42 | REP ---
SI joint series: Six views: History: Bilateral SI joint injection for pain. 17 seconds of fluoroscopy time is reported. Findings: A sequence of six last image hold fluoroscopically obtained spot radiographs of the SI joints document various needle positions and contrast injections associated with injection procedure. Electronically Signed by Chris Win MD 03/19/2018 06:14 P
--- NOTE | 2018-04-02 01:35 | ECWPNPC ---
PATIENT NAME: NNAMDI ANAND : 1965 GENDER: FEMALE VISIT DATE: 03/19/2018 DISCHARGE DATE: 03/19/18 1256 VISIT LOCKED DATE TIME: PHYSICIAN: DAYLIN MINER MD RESOURCE: DAYLIN MINER MD REASON FOR APPOINTMENT 1. BILAT. SIJ HISTORY OF PRESENT ILLNESS HISTORY OF PRESENT ILLNESS: PAIN THE PATIENT DESCRIBES THE PAIN... FALL RISK SCREENING: SCREENING :NO FALLS IN THE PAST YEAR CURRENT MEDICATIONS TAKING ZOFRAN 4 MG TABLET 3 TABLETS ORALLY PRE MEDICATION, NOTES: 03/18 1999 TAKING ROPINIROLE HCL 1 MG TABLET ORALLY AT BEDTIME, NOTES: 03/18 2099 TAKING SUMATRIPTAN SUCCINATE 100 MG TABLET 1 TABLET NEEDED ONE TIME ORALLY DIRECTED, NOTES: 03/17 TAKING TOPIRAMATE 100 MG TABLET 1 TABLET ORALLY TWICE A DAY, NOTES: 03/18 2099 TAKING LINZESS 290 MCG CAPSULE 1 CAPSULE ORALLY ONCE A DAY, NOTES: 03/18 2099 TAKING DEXILANT 60 MG CAPSULE DELAYED RELEASE 1 CAPSULE ORALLY ONCE A DAY, NOTES: 03/19 0600 TAKING RALOXIFENE HCL 60 MG TABLET 1 TABLET ORALLY ONCE A DAY, NOTES: 03/18 2099 TAKING SIMVASTATIN 40 MG TABLET 1 TABLET IN THE EVENING ORALLY IN EVENING, NOTES: 03/18 2099 TAKING LYRICA 200 MG CAPSULE 1 CAPSULE ORALLY Q8H MDD3, NOTES: 03/18 2099 TAKING TIZANIDINE HCL 4 MG TABLET 1 TABLET NEEDED ORALLY THREE TIMES A DAY, NOTES: 03/18 2099 TAKING OXYCODONE HCL 5 MG TABLET 2 ORALLY Q8H PRN MDD6, NOTES: 03/18 2099 DISCONTINUED CYMBALTA 60 MG CAPSULE DELAYED RELEASE PARTICLES 1 CAPSULE ORALLY DAILY DISCONTINUED BELBUCA 150 MCG FILM 1 FILM TO THE GUM BUCALLY EVERY 12 HRS MDD2 MEDICATION LIST REVIEWED AND RECONCILED WITH THE PATIENT PAST MEDICAL HISTORY ACID REFLUX IBS PINCHED NERVES IN BACK SCOLIOSIS ARTHRITIS DDD ENDOMETRIOSIS CONGENITAL RIGHT HIP ABNORMALITY GASTROPARYSIS ALLERGIES NAPROXEN SODIUM: TONGUE SWELLS/FACE SWELLING: ALLERGY ASPIRIN: SORES IN MOUTH: ALLERGY ADHESIVE TAPE/BANDAIDS: BLISTERS: ALLERGY TEGADERM: SKIN BECOMES RAW, REDNESS, HEAT: ALLERGY PEPTO BISMAL: VOMITING WHEAT: RASH: ALLERGY BELBUCA: VOMITING: SIDE EFFECTS SURGICAL HISTORY WRIST SURGERY RIGHT.TORN LIGAMENT 2004 BILATERAL SALPINGO SURGERY DUE TO DEFECT 1989 SURGERY LEFT WRIST 2016 RIGHT HIP SURGERY X 2 2016, 09/2016 RIGHT FOOT SURGERY- NERVE RELEASE 09/27/15 TOTAL RIGHT HIP 04/05/2016 FALLOPIAN TUBE RECONSTRUCTION 1994 CERVICAL DISCESTOMY WITH HARDWARE 11/06/17 FAMILY HISTORY FATHER: , DIAGNOSED WITH DIABETES, HEART DISEASE MOTHER: , DIAGNOSED WITH DIABETES, HEART DISEASE SOCIAL HISTORY GENERAL: TOBACCO USE ARE YOU A:CURRENT SMOKER ARE YOU INTERESTED IN QUITTING?NOT READY TO QUIT COUNSELED THE PATIENT ON SMOKING EFFECTS, EDUCATION [id number]/15/2019 HOW MANY CIGARETTES A DAY DO YOU SMOKE?6-10 HOW OFTEN DO YOU SMOKE CIGARETTES?EVERY DAY PATIENT COUNSELED ON THE DANGERS OF TOBACCO USE AND URGED TO QUIT:03/19/2018 PT IS CUTTING DOWN TO HAVING A PACK LAST 3 DAYS AND HAS SET GOAL FOR SELF TO CONTINUE THIS POSITVIE BEHAVIOR LUNG CANCER SCREENING SMOKING STATUS:CURRENT SMOKER ALCOHOL SCREENING DID YOU HAVE A DRINK CONTAINING ALCOHOL IN THE PAST YEAR?NO POINTS0 INTERPRETATIONNEGATIVE RECREATIONAL DRUG USE DRUG USE?NO CAFFEINE CAFFEINE USE?NO BUDDHISM [id number] NONE NO CONFUCIANIST BELIEFS THAT WOULD IMPACT HEALTH CARE. LANGUAGE LANGUAGES SPOKEN:PRYDEINIG LEARNING BARRIERS / SPECIAL NEEDS BARRIERS TO LEARNING?NO HEARING IMPAIRED?YES VISION IMPAIRED?YES COGNITIVELY IMPAIRED?NO :HEARING AIDES :CORRECTIVE LENSES READINESS TO LEARN?YES LEARNING PREFERENCES?NO LEARNING CAPABILITIES PRESENT?YES EMOTIONAL BARRIERS?NO SPECIAL DEVICES?YES :CANE, WALKER WELDING MACHINE FEEDER NEEDED?NO DOMESTIC VIOLENCE DO YOU FEEL SAFE IN YOUR ENVIRONMENT?YES MARITAL STATUS: .. PAIN CLINIC PFS, CLERGY, PUBLIC HEALTH REFERRALS PFS REFERRAL NEEDED?NO CLERGY REFERRAL NEEDED?NO PUBLIC HEALTH REFERRAL NEEDED?NO WAS THE PROVIDER NOTIFIED OF ANY PERTINENT INFO? N/A HAS THE PATIENT BEEN EDUCATED REGARDING HIS/HER PLAN OF CARE?YES HAS THE PATIENT BEEN EDUCATED REGARDING PAIN, THE RISK FOR PAIN, THE IMPORTANCE OF EFFECTIVE PAIN MANAGEMENT, AND THE PAIN ASSESSMENT PROCESS?YES ADVANCE DIRECTIVE ADVANCE DIRECTIVE DISCUSSED WITH PATIENT:YES 03/19/18 PT DOES NOT HAVE ANY ADVANCED DIRECRTIVES AND SHE DECLINED INFORMATION ON HCP AT THIS TIME. AD REVIEWED 12/24/17 1106 BV 1150 REVIEWED WITH PT. AD. HOSPITALIZATION/MAJOR DIAGNOSTIC PROCEDURE SURGERY RELATED REVIEW OF SYSTEMS REVIEWED BY: PROVIDER: . CONSTITUTIONAL: ANY CHANGE IN YOUR MEDICAL CONDITION? NO . CHILLS NO . FEVER NO . INFECTION: DO YOU HAVE NEW INFECTIONS? NO . DO YOU HAVE HISTORY OF MRSA? NO . MUSCULOSKELETAL: ANY NEW PATTERNS OF PAIN OR NUMBNESS? NO . GASTROENTEROLOGY: ANY NEW CHANGE IN BOWEL CONTROL? NO . GENITOURINARY: ANY NEW CHANGE IN BLADDER CONTROL? NO . IS THERE A CHANCE YOU COULD BE ? NO . HEMATOLOGY/LYMPH: DO YOU TAKE ANY BLOOD THINNERS? (FOR EXAMPLE- COUMADIN, PLAVIX, AGGRENOX, PLATEL, PRADAXA, OR XARELTO) NO . WHEN WAS YOUR LAST DOSE? DATE: TIME: . NEUROLOGY: HAVE YOU FALLEN IN THE PAST 6 MONTHS? YES, SEVERAL TIMES--NOT SEEN FOR ANY. LAST TIME 02/2018 JUST BRUISES . ANY NEW EXTREMITY NUMBNESS OR WEAKNESS? NO . CARDIOLOGY: DO YOU HAVE A PACEMAKER OR DEFIBRILLATOR? NO . RESPIRATORY: HAVE YOU BEEN SICK IN THE PAST WEEK? NO . FEVER NO . FLU LIKE SYMPTOMS? NO . COUGH NO . INTEGUMENTARY: DO YOU HAVE ANY RASHES OR OPEN SORES? NO . ALLERGIC/IMMUNO: ARE YOU ALLERGIC TO SHELLFISH OR IV DYE? NO . ANY NEW ALLERGIES? NO . PSYCHIATRIC: DO YOU HAVE THOUGHTS OF HURTING YOURSELF OR SOMEONE ELSE? NO . ARE YOU ABUSED, NEGLECTED, OR IN AN UNSAFE ENVIRONMENT? NO . ENDOCRINOLOGY: ARE YOU DIABETIC? NO . OTHER: DO YOU NEED ANY PRESCRIPTIONS? NO . IF YES, PLEASE LIST: ____ . ANY NEW PROBLEMS WITH YOUR MEDICATIONS? NO . WHEN DID YOU LAST EAT? ____ . WHEN DID YOU LAST DRINK? ____ . WHAT DID YOU LAST DRINK? ____ . NAME OF PERSON DRIVING YOU HOME? ____ . DO YOU HAVE ANY OTHER QUESTIONS OR CONCERNS NO PT HAS NOT HAD ANY VACCINES IN THE PAST 30 DAYS. . VITAL SIGNS WT 147.6 LBS, HT 61 IN, BMI 27.89 INDEX, BP 114/66 MM HG, HR 77 /MIN, RR 16 /MIN, TEMP 99.0 F, OXYGEN SAT % 99%, SAFE IN ENV? (Y/N) Y, NA INITIALS MA 11:12, REVIEWED BY: ERMY. ASSESSMENTS SACROILIITIS, NOT ELSEWHERE CLASSIFIED - M46.1 (PRIMARY) PROCEDURES PN SI PRE PROCEDURE DIAGNOSIS SACROILIITIS, SACROILIAC JOINT DYSFUNCTION POST PROCEDURE DIAGNOSIS SACROILIITIS, SACROILIAC JOINT DYSFUNCTION PROCEDURE BILATERAL SACROILIAC JOINT BLOCK SURGEON DR. DAYLIN MINER PANTOGRAPH SETTER NONE ANESTHESIA LOCAL PRE PROCEDURE NOTE PATIENT WITH HISTORY OF CHRONIC LOW BACK PAIN. I EVALUATED THE PATIENT AND REVIEWED THE CHART. I WENT OVER THE RISKS, ALTERNATIVES, AND BENEFITS ASSOCIATED WITH THIS PROCEDURE. THE PATIENT WOULD LIKE TO PROCEED AND GAVE CONSENT TO PERFORM THE PROCEDURE. THE PATIENT DENIES UNEXPLAINABLE WEIGHT LOSS, FEVER, CHILLS, OR NEW CHANGES IN URINARY OR BOWEL CONTROL DESCRIPTION OF PROCEDURE THE PATIENT WAS BROUGHT TO THE PROCEDURE ROOM AND PLACED IN THE PRONE POSITION. THE LUMBOSACRAL AREA WAS CLEANED WITH CHLORAPREP SOLUTION AND DRAPED ASEPTICALLY. THE PROCEDURE WAS DONE UNDER STERILE CONDITIONS. I CHECKED LATERALITY AND THE LEVEL WHERE THE PROCEDURE WAS GOING TO BE PERFORMED WITH THE PATIENT AND THE SUPPORTING STAFF AT THE MOMENT OF THE TIME OUT IN THE PROCEDURE ROOM. UNDER FLUOROSCOPIC GUIDANCE, TARGET POINT WAS SELECTED AT THE LOWER BORDER OF THE RIGHT AND LEFT SACROILIAC JOINT. TARGET POINT WAS SELECTED AFTER MEDIAL ROTATION AND TILT OF THE MAGNIFIER OF THE C-ARM. LIDOCAINE WAS USED TO NUMB THE SKIN AND SUBCUTANEOUS TISSUE BELOW IT. A SPINAL NEEDLE, 22-GAUGE, WAS ADVANCED UNDER FLUOROSCOPIC GUIDANCE AND FOLLOWING PATIENT FEEDBACK UNTIL THE TARGET AREA WAS TOUCHED. THE POSITION OF THE NEEDLE WAS VERIFIED WITH AP AND LATERAL VIEWS. AFTER PROPER POSITION OF THE NEEDLE WAS ACHIEVED, ISOVUE M DYE 30%, 0.25 ML, WAS INJECTED SHOWING SPREAD OF THE DYE. THEN, A SOLUTION OF 20 MG OF KENALOG WAS INJECTED IN RIGHT AND LEFT JOINT WITH 3 ML OF BUPIVACAINE 0.125%. THERE WAS NO EVIDENCE OF BLOOD, PARESTHESIA OR CEREBROSPINAL FLUID DURING THE PROCEDURE. THE PATIENT WAS SENT TO THE RECOVERY ROOM. THE PATIENT WAS MOVING THE EXTREMITIES AND DOING WELL. THERE WAS NO COMPLICATION DURING THE PROCEDURE. FLUOROSCOPY TIME WAS 17 SECONDS POST PROCEDURE NOTE THE PATIENT WILL BE SEEN IN A FOLLOW UP IN THE NEXT FEW WEEKS. INSTRUCTIONS WERE GIVEN, QUESTIONS WERE ANSWERED, AND THE PATIENT EXPRESSED UNDERSTANDING AND AGREED WITH THE PLAN. I, WALDEMAR REEDER, DOCUMENTED THE ABOVE INFORMATION ACTING A SCRIBE FOR DR. MINER. I HAVE REVIEWED THE ABOVE DOCUMENT, WRITTEN BY WALDEMAR NEALIBBen AND I VERIFY THAT IT IS ACCURATE. DIAGNOSTIC IMAGING [facility] FLUORO GUIDANCE (PAIN)[id number] PROCEDURE CODES 6045F RADXPS IN END [id number] PXD [id number] INJECT SACROILIAC JOINT, MODIFIERS: 50 DISPOSITION & COMMUNICATION FOLLOW UP 3 WEEKS ELECTRONICALLY SIGNED BY DAYLIN MNIER MD, MD ON 04/01/2018 AT 01:24 PM EST DISCLAIMER : THIS IS A VISIT SUMMARY EXTRACTED FROM THE [employer] CHART. IT IS NOT A COPY OF THE [employer] PROGRESS NOTE. MARIKA
== END ==
LOC: M PAIN 11:00
PROVIDERS: ATTEND Anesthesiology
DX: M46.1 Sacroiliitis, not elsewhere classified (principal); K21.9 Gastro-esophageal reflux disease without esophagitis; F17.210 Nicotine dependence, cigarettes, uncomplicated; M41.9 Scoliosis, unspecified; M19.90 Unspecified osteoarthritis, unspecified site; K31.84 Gastroparesis; N80.9 Endometriosis, unspecified; K58.9 Irritable bowel syndrome, unspecified; Z96.641 Presence of right artificial hip joint; Z79.899 Other long term (current) drug therapy; Z88.6 Allergy status to analgesic agent; Z88.8 Allergy status to other drugs, medicaments and biological substances; Z91.048 Other nonmedicinal substance allergy status
CPT/HCPCS: 27096; J3301; Q9967

== ENCOUNTER → 2018-07-05 | Outpatient (CLI) | payer OTHER ==
[~2018-07-05] MED LIST changes: -BUPIVACAINE HCL 0.25% 30 ML VIAL As Ordered ONE; -CYCL5TA PO; +CYCL5TAB5 PO; -DULO30CA PO; +DULO30CA9 PO; -ISOVUE-M 300 61% 15ML VIAL (Q9967) As Ordered ONE; +LACT15SO PO; -LACT20EL PO; -LIDOCAINE 1% SDV INJ 30 ML VIAL As Ordered ONE; -TIZA-208 PO; +TIZA4TAB4 PO; -TRIAMCINOLONE ACETONIDE SUSP 40 MG/ML VIAL (J3301) As Ordered ONE; -oxyCODONE 5MG TAB As Ordered ONE
--- NOTE | 2018-07-31 01:31 | ECWPNPC ---
PATIENT NAME: NNAMDI ANAND : 1965 GENDER: FEMALE VISIT DATE: 07/05/2018 DISCHARGE DATE: 07/05/18 1157 VISIT LOCKED DATE TIME: PHYSICIAN: NINA ESQUIVEL RESOURCE: NINA ESQUIVEL REASON FOR APPOINTMENT 1. POST SIJ HISTORY OF PRESENT ILLNESS HISTORY OF PRESENT ILLNESS: HERE FOR POST PROCEDURE F/U.HAD BILAT. SIJ ON 03/19/18.REPORTING APPROXIMATLEY 1 MONTH IMPROVEMENT THEN PAIN GRADUALLY RETURNED TO BASELINE.REPORTING NEW ONSET OF R>L ARM NUMBNESS AND PAIN.REPORTS SLIPPING OF LADDER AND LANDING ON FEET 5 DAYS AGO.RATING PAIN VAS 7/10. PAIN THE PATIENT DESCRIBES THE PAIN... FALL RISK SCREENING: SCREENING :NO FALLS REPORTED IN THE LAST YEAR CURRENT MEDICATIONS TAKING ZOFRAN 4 MG TABLET 3 TABLETS ORALLY PRE MEDICATION TAKING ROPINIROLE HCL 1 MG TABLET ORALLY AT BEDTIME TAKING SUMATRIPTAN SUCCINATE 100 MG TABLET 1 TABLET NEEDED ONE TIME ORALLY DIRECTED TAKING DEXILANT 60 MG CAPSULE DELAYED RELEASE 1 CAPSULE ORALLY ONCE A DAY TAKING RALOXIFENE HCL 60 MG TABLET 1 TABLET ORALLY ONCE A DAY TAKING SIMVASTATIN 40 MG TABLET 1 TABLET IN THE EVENING ORALLY IN EVENING TAKING TIZANIDINE HCL 4 MG TABLET 1 TABLET NEEDED ORALLY THREE TIMES A DAY TAKING LYRICA 200 MG CAPSULE 1 CAPSULE ORALLY Q8H MDD3 TAKING OXYCODONE HCL 5 MG TABLET 2 ORALLY Q8H PRN MDD6 NOT-TAKING TOPIRAMATE 100 MG TABLET 1 TABLET ORALLY TWICE A DAY NOT-TAKING LINZESS 290 MCG CAPSULE 1 CAPSULE ORALLY ONCE A DAY MEDICATION LIST REVIEWED AND RECONCILED WITH THE PATIENT PAST MEDICAL HISTORY ACID REFLUX IBS PINCHED NERVES IN BACK SCOLIOSIS ARTHRITIS DDD ENDOMETRIOSIS CONGENITAL RIGHT HIP ABNORMALITY GASTROPARYSIS ALLERGIES NAPROXEN SODIUM: TONGUE SWELLS/FACE SWELLING - ALLERGY ASPIRIN: SORES IN MOUTH - ALLERGY ADHESIVE TAPE/BANDAIDS: BLISTERS - ALLERGY TEGADERM: SKIN BECOMES RAW, REDNESS, HEAT - ALLERGY PEPTO BISMAL: VOMITING WHEAT: RASH - ALLERGY BELBUCA: VOMITING - SIDE EFFECTS SURGICAL HISTORY WRIST SURGERY RIGHT.TORN LIGAMENT 2004 BILATERAL SALPINGO SURGERY DUE TO DEFECT 1989 SURGERY LEFT WRIST 2015 RIGHT HIP SURGERY X 2 2015, 09/2016 RIGHT FOOT SURGERY- NERVE RELEASE 09/27/15 TOTAL RIGHT HIP 04/05/2016 FALLOPIAN TUBE RECONSTRUCTION 1994 CERVICAL DISCESTOMY WITH HARDWARE 11/06/17 FAMILY HISTORY FATHER: , DIAGNOSED WITH DIABETES, HEART DISEASE MOTHER: , DIABETES, HEART DISEASE SOCIAL HISTORY GENERAL: TOBACCO USE ARE YOU A:FORMER SMOKER HOW LONG HAS IT BEEN SINCE YOU LAST SMOKED?1-3 MONTHS SMOKING CESSATION INFORMATION GIVEN07/05/2018 ADDITIONAL FINDINGS: TOBACCO NON-USERCURRENT NON-SMOKER LANGUAGE LANGUAGES SPOKEN:LIBERIAN DOMESTIC VIOLENCE DO YOU FEEL SAFE IN YOUR ENVIRONMENT?YES RECREATIONAL DRUG USE DRUG USE?NO LEARNING BARRIERS / SPECIAL NEEDS BARRIERS TO LEARNING?NO HEARING IMPAIRED?YES :HEARING AIDES VISION IMPAIRED?YES :CORRECTIVE LENSES COGNITIVELY IMPAIRED?NO READINESS TO LEARN?YES LEARNING PREFERENCES?NO LEARNING CAPABILITIES PRESENT?YES EMOTIONAL BARRIERS?NO SPECIAL DEVICES?YES :CANE, 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 NEEDED?NO LUNG CANCER SCREENING SMOKING STATUS:CURRENT SMOKER PAIN CLINIC PFS, CLERGY, PUBLIC HEALTH REFERRALS PFS REFERRAL NEEDED?NO CLERGY REFERRAL NEEDED?NO PUBLIC HEALTH REFERRAL NEEDED?NO WAS THE PROVIDER NOTIFIED OF ANY PERTINENT INFO?YES N/A HAS THE PATIENT BEEN EDUCATED REGARDING HIS/HER PLAN OF CARE?YES HAS THE PATIENT BEEN EDUCATED REGARDING PAIN, THE RISK FOR PAIN, THE IMPORTANCE OF EFFECTIVE PAIN MANAGEMENT, AND THE PAIN ASSESSMENT PROCESS?YES LATEX QUESTIONNAIRE LATEX ALLERGY : HAVE YOU EVER DEVELOPED ANY TYPE OF REACTION AFTER HANDLING LATEX PRODUCTS SUCH RUBBER GLOVES, CONDOMS, DIAPHRAGMS, BALLOONS, SOCKS, OR UNDERWEAR?NO LATEX ALLERGY : HAVE YOU EVER DEVELOPED ANY TYPE OF REACTION DURING OR AFTER DENTAL APPOINTMENT, VAGINAL/RECTAL EXAMINATION, SURGICAL PROCEDURE, OR ANY OTHER EXPOSURE?NO LATEX RISK : HAVE YOU EVER HAD ANY DIFFICULTY BREATHING OR HIVES AFTER EATING OR HANDLING ANY FRUITS, OR VEGETABLES; SUCH KIWI, BANANAS, STONE FRUITS, OR CHESTNUTSNO LATEX RISK : DO YOU HAVE A PREVIOUS PERSONAL HISTORY OF MORE THAN NINE SURGERIES, SPINA BIFIDA, OR REPEATED CATHERTIZATIONS? NO LATEX RISK : ARE YOU FREQUENTLY EXPOSED TO LATEX PRODUCTS IN YOUR OCCUPATION?NO DATE ASKED : 07/05/2018 CAFFEINE CAFFEINE USE?NO ADVANCE DIRECTIVE ADVANCE DIRECTIVE DISCUSSED WITH PATIENT:YES PT DOES NOT HAVE ANY ADVANCED DIRECRTIVES AND SHE DECLINED INFORMATION ON HCP AT THIS TIME. HOAHAOISM [id number] NONE NO YARSANI BELIEFS THAT WOULD IMPACT HEALTH CARE. MARITAL STATUS: .. ALCOHOL SCREENING DID YOU HAVE A DRINK CONTAINING ALCOHOL IN THE PAST YEAR?NO POINTS0 INTERPRETATIONNEGATIVE REVIEWED 12/24/17 1106 BV 1150 REVIEWED WITH PT. AD. HOSPITALIZATION/MAJOR DIAGNOSTIC PROCEDURE SURGERY RELATED REVIEW OF SYSTEMS REVIEWED BY: PROVIDER: NINA BANEGAS . CONSTITUTIONAL: ANY CHANGE IN YOUR MEDICAL CONDITION? YES, LUMPS IN [place] . CHILLS NO . FEVER NO . INFECTION: DO YOU HAVE NEW INFECTIONS? NO . DO YOU HAVE HISTORY OF MRSA? NO . MUSCULOSKELETAL: ANY NEW PATTERNS OF PAIN OR NUMBNESS? YES . GASTROENTEROLOGY: ANY NEW CHANGE IN BOWEL CONTROL? YES, CONSTIPATION . GENITOURINARY: ANY NEW CHANGE IN BLADDER CONTROL? NO . IS THERE A CHANCE YOU COULD BE ? NO . HEMATOLOGY/LYMPH: DO YOU TAKE ANY BLOOD THINNERS? (FOR EXAMPLE- COUMADIN, PLAVIX, AGGRENOX, PLATEL, PRADAXA, OR XARELTO) NO . WHEN WAS YOUR LAST DOSE? DATE: TIME: . NEUROLOGY: HAVE YOU FALLEN IN THE PAST 12 MONTHS? YES, PT STATES THAT SHE WAS COMING OFF LADDER AND FELL 5 DAYS AGO, LANDED ON FEET BUT FELL IMPACT IN BACK . ANY NEW EXTREMITY NUMBNESS OR WEAKNESS? YES, RIGHT ARM . CARDIOLOGY: DO YOU HAVE A PACEMAKER OR DEFIBRILLATOR? NO . RESPIRATORY: HAVE YOU BEEN SICK IN THE PAST WEEK? NO . FEVER NO . FLU LIKE SYMPTOMS? NO . COUGH NO . INTEGUMENTARY: DO YOU HAVE ANY RASHES OR OPEN SORES? NO . ALLERGIC/IMMUNO: ARE YOU ALLERGIC TO IV DYE? NO . ANY NEW ALLERGIES? NO . PSYCHIATRIC: DO YOU HAVE THOUGHTS OF HURTING YOURSELF OR SOMEONE ELSE? NO . ARE YOU ABUSED, NEGLECTED, OR IN AN UNSAFE ENVIRONMENT? NO . ENDOCRINOLOGY: ARE YOU DIABETIC? NO . OTHER: DO YOU NEED ANY PRESCRIPTIONS? NO . IF YES, PLEASE LIST: ____ . ANY NEW PROBLEMS WITH YOUR MEDICATIONS? NO . WHEN DID YOU LAST EAT? ____ . WHEN DID YOU LAST DRINK? ____ . WHAT DID YOU LAST DRINK? ____ . NAME OF PERSON DRIVING YOU HOME? ____ . DO YOU HAVE ANY OTHER QUESTIONS OR CONCERNS YES, ARM AND FINGERS HURTING . VITAL SIGNS WT 153.6 LBS, HT 61 IN, BMI 29.02 INDEX, BP 143/75 MM HG, HR 59 /MIN, RR 18 /MIN, TEMP 98.5 F, OXYGEN SAT % 99%, SAFE IN ENV? (Y/N) Y, NA INITIALS KS 11:01, REVIEWED BY: YAHAIRA. EXAMINATION GENERAL EXAMINATION: GENERAL APPEARANCE:ANTALGIC GAIT W ASSIST OF WALKER. PSYCHALERT , ORIENTED X 3 . LUNGS:LUNG BETH ARE CLEAR TO AUSCULTATION BILATERALLY. GOOD MOVEMENT OF AIR . HEART:S1, S2 IN A REGULAR RATE AND RHYTHM. NO SIGNIFICANT MURMURS, RUBS OR GALLOPS NOTED . BACK:MULTIPLE AREAS OF TENDER SPOTS UPPER AND LOWER TORSO BILAT. INDICATIVE OF FIBROMYALGIA .SPECIFIC POINT TENDERNESS OVER BILAT. SIJ. LUMBAR SACRAL SPINEMUSCLE STRENGTH TESTING 3/5 RIGHT/5/5 LEFT . DIAGNOSTIC TESTS REVIEWED MRI L/S [id number] . ASSESSMENTS SACROILIITIS - M46.1 (PRIMARY) TREATMENT SACROILIITIS CONTINUE TIZANIDINE HCL TABLET, 4 MG, 1 TABLET NEEDED, ORALLY, THREE TIMES A DAY CONTINUE LYRICA CAPSULE, 200 MG, 1 CAPSULE, ORALLY, Q8H MDD3 CONTINUE OXYCODONE HCL TABLET, 5 MG, 2, ORALLY, Q8H PRN MDD6 [facility] MRI SPINE, L.S. WITHOUT [id number] NOTES: BILAT. SIJ, ISTOP REGISTRY REVIEWED AND DEMONSTRATES COMPLLIANCE. BRINGS IN MEDICATIONS WHICH IS APPROPRIATE FOR WHAT WAS DISPENSED. RECENT URINE TOXICOLOGY REVIEWED. NO UNAUTHORIZED MEDICATIONS. NO ILLICIT SUBSTANCES AND PRESCRIBED MEDICATIONS WERE PRESENT. URINE TOX TODAY, RISKS AND BENEFITS OF NARCOTIC/OPIOD MEDICATIONS WERE REVIEWED WITH PATIENT - THIS INCLUDES BUT IS NOT LIMITED TO RISK OF DEPENDANCE/DEVELOPMENT OF ADDICTION, MOOD DISTURBANCE AND DEPRESSION, OSTEOPOROSIS, HORMONAL AND LABIDAL CHANGES, RESPIRATORY DEPRESSION AND . PATIENT IS ADVISED NOT TO DRIVE OR DRINK ALCOHOL WHILE ON THESE MEDICATIONS. [facility] REASON:NUMBNESS /PAIN RIGHT RING AND MIDDLE FINGER OTHERS [facility] REASON:NUMBNESS /PAIN RIGHT RING AND MIDDLE FINGER PROCEDURE CODES FA211 ESTABILISHED PATIENT [facility] FACILITY CHARGE DISPOSITION & COMMUNICATION FOLLOW UP POST (REASON: BILAT. SIJ) ELECTRONICALLY SIGNED BY BASSAM DOMINGUEZ ON 07/30/2018 AT 08:51 AM EDT DISCLAIMER : THIS IS A VISIT SUMMARY EXTRACTED FROM THE [employer] CHART. IT IS NOT A COPY OF THE [employer] PROGRESS NOTE. MARIKA
== END ==
LOC: M PAIN 10:45
PROVIDERS: ATTEND Nurse Practitioner Family
DX: M46.1 Sacroiliitis, not elsewhere classified (principal); M19.90 Unspecified osteoarthritis, unspecified site; Z87.891 Personal history of nicotine dependence; Z88.5 Allergy status to narcotic agent; Z88.6 Allergy status to analgesic agent; Z88.8 Allergy status to other drugs, medicaments and biological substances; Z91.018 Allergy to other foods; Z91.09 Other allergy status, other than to drugs and biological substances; Z79.891 Long term (current) use of opiate analgesic; Z79.899 Other long term (current) drug therapy

== ENCOUNTER → 2018-09-24 | Outpatient (CLI) | payer MEDICARE ==
[~2018-09-24] MED LIST changes: +BUPIVACAINE HCL 0.25% 30 ML VIAL As Ordered ONE; -DULO1CAP3 PO; +DULO1CAP6 PO; +ISOVUE-M 200 41% 20ML VIAL (Q9966) As Ordered ONE; +LIDOCAINE 1% SDV INJ 30 ML VIAL As Ordered ONE; +ONDANSETRON 4 MG ORAL DISINTEGRATING TAB (Q0162 PER 1MG) As Ordered ONE; +TRIAMCINOLONE ACETONIDE SUSP 40 MG/ML VIAL (J3301) As Ordered ONE; +oxyCODONE 5MG TAB As Ordered ONE
--- NOTE | 2018-09-24 16:51 | REP ---
C-ARM VIEWS SACROILIAC JOINTS: Clinical history: Pain. C-Arm views of bilateral sacroiliac joints performed with six total views obtained. Needle is seen along each sacroiliac joint during injection by Dr. Donovan. 16 seconds fluoroscopy time utilized. Electronically Signed by Eduar Estes MD 09/25/2018 10:08 A
--- NOTE | 2018-10-05 00:51 | ECWPNPC ---
PATIENT NAME: NNAMDI ANAND : 1965 GENDER: FEMALE VISIT DATE: 09/24/2018 DISCHARGE DATE: 09/24/18 1321 VISIT LOCKED DATE TIME: PHYSICIAN: DAYLIN MINER MD RESOURCE: DAYLIN MINER MD REASON FOR APPOINTMENT 1. BILAT. SIJ HISTORY OF PRESENT ILLNESS HISTORY OF PRESENT ILLNESS: PAIN THE PATIENT DESCRIBES THE PAIN... FALL RISK SCREENING: SCREENING :NO FALLS REPORTED IN THE LAST YEAR CURRENT MEDICATIONS TAKING ZOFRAN 4 MG TABLET 3 TABLETS ORALLY PRE MEDICATION, NOTES: 09/23/182099 TAKING ROPINIROLE HCL 1 MG TABLET ORALLY AT BEDTIME, NOTES: 09/23/182099 TAKING SUMATRIPTAN SUCCINATE 100 MG TABLET 1 TABLET NEEDED ONE TIME ORALLY DIRECTED, NOTES: 09/22/181199 TAKING DEXILANT 60 MG CAPSULE DELAYED RELEASE 1 CAPSULE ORALLY ONCE A DAY, NOTES: 09/24/18729 TAKING RALOXIFENE HCL 60 MG TABLET 1 TABLET ORALLY ONCE A DAY, NOTES: 09/23/182099 TAKING SIMVASTATIN 40 MG TABLET 1 TABLET IN THE EVENING ORALLY IN EVENING, NOTES: 09/23/182099 TAKING TIZANIDINE HCL 4 MG TABLET 1 TABLET NEEDED ORALLY THREE TIMES A DAY, NOTES: 09/23/182099 TAKING LYRICA 200 MG CAPSULE 1 CAPSULE ORALLY Q8H MDD3, NOTES: 09/22/182099 TAKING OXYCODONE HCL 5 MG TABLET 2 ORALLY Q8H PRN MDD6, NOTES: 09/22/182099 TAKING DIVALPROEX SODIUM 250 MG TABLET DELAYED RELEASE 1 TABLET ORALLY TWICE A DAY, NOTES: 09/24/18729 TAKING LINZESS 145 MCG CAPSULES 1 CAPSUL P.O. DAILY, NOTES: 09/23/182099 NOT-TAKING TOPIRAMATE 100 MG TABLET 1 TABLET ORALLY TWICE A DAY NOT-TAKING LINZESS 290 MCG CAPSULE 1 CAPSULE ORALLY ONCE A DAY MEDICATION LIST REVIEWED AND RECONCILED WITH THE PATIENT PAST MEDICAL HISTORY ACID REFLUX IBS PINCHED NERVES IN BACK SCOLIOSIS ARTHRITIS DDD ENDOMETRIOSIS CONGENITAL RIGHT HIP ABNORMALITY GASTROPARYSIS ALLERGIES NAPROXEN SODIUM: TONGUE SWELLS/FACE SWELLING - ALLERGY ASPIRIN: SORES IN MOUTH - ALLERGY ADHESIVE TAPE/BANDAIDS: BLISTERS - ALLERGY TEGADERM: SKIN BECOMES RAW, REDNESS, HEAT - ALLERGY PEPTO BISMAL: VOMITING WHEAT: RASH - ALLERGY BELBUCA: VOMITING - SIDE EFFECTS SURGICAL HISTORY WRIST SURGERY RIGHT.TORN LIGAMENT 2005 BILATERAL SALPINGO SURGERY DUE TO DEFECT 1989 SURGERY LEFT WRIST 2016 RIGHT HIP SURGERY X 2 2015, 09/2016 RIGHT FOOT SURGERY- NERVE RELEASE 09/27/15 TOTAL RIGHT HIP 04/05/2016 FALLOPIAN TUBE RECONSTRUCTION 1994 CERVICAL DISCESTOMY WITH HARDWARE 11/06/17 FAMILY HISTORY FATHER: , DIAGNOSED WITH DIABETES, HEART DISEASE MOTHER: , DIABETES, HEART DISEASE SOCIAL HISTORY GENERAL: TOBACCO USE ARE YOU A:FORMER SMOKER HOW LONG HAS IT BEEN SINCE YOU LAST SMOKED?6-12 MONTHS SMOKING CESSATION INFORMATION GIVEN07/05/2018 ADDITIONAL FINDINGS: TOBACCO NON-USERCURRENT NON-SMOKER LANGUAGE LANGUAGES SPOKEN:MONGOLIAN DOMESTIC VIOLENCE DO YOU FEEL SAFE IN YOUR ENVIRONMENT?YES RECREATIONAL DRUG USE DRUG USE?NO LEARNING BARRIERS / SPECIAL NEEDS BARRIERS TO LEARNING?NO HEARING IMPAIRED?YES :HEARING AIDES VISION IMPAIRED?YES :CORRECTIVE LENSES COGNITIVELY IMPAIRED?NO READINESS TO LEARN?YES LEARNING PREFERENCES?NO LEARNING CAPABILITIES PRESENT?YES EMOTIONAL BARRIERS?NO SPECIAL DEVICES?YES :CANE, WALKER MEDICAL RECEPTION NEEDED?NO LUNG CANCER SCREENING SMOKING STATUS:CURRENT SMOKER PAIN CLINIC PFS, CLERGY, PUBLIC HEALTH REFERRALS PFS REFERRAL NEEDED?NO CLERGY REFERRAL NEEDED?NO PUBLIC HEALTH REFERRAL NEEDED?NO WAS THE PROVIDER NOTIFIED OF ANY PERTINENT INFO?YES N/A HAS THE PATIENT BEEN EDUCATED REGARDING HIS/HER PLAN OF CARE?YES HAS THE PATIENT BEEN EDUCATED REGARDING PAIN, THE RISK FOR PAIN, THE IMPORTANCE OF EFFECTIVE PAIN MANAGEMENT, AND THE PAIN ASSESSMENT PROCESS?YES LATEX QUESTIONNAIRE LATEX ALLERGY : HAVE YOU EVER DEVELOPED ANY TYPE OF REACTION AFTER HANDLING LATEX PRODUCTS SUCH RUBBER GLOVES, CONDOMS, DIAPHRAGMS, BALLOONS, SOCKS, OR UNDERWEAR?NO LATEX ALLERGY : HAVE YOU EVER DEVELOPED ANY TYPE OF REACTION DURING OR AFTER DENTAL APPOINTMENT, VAGINAL/RECTAL EXAMINATION, SURGICAL PROCEDURE, OR ANY OTHER EXPOSURE?NO LATEX RISK : HAVE YOU EVER HAD ANY DIFFICULTY BREATHING OR HIVES AFTER EATING OR HANDLING ANY FRUITS, OR VEGETABLES; SUCH KIWI, BANANAS, STONE FRUITS, OR CHESTNUTSNO LATEX RISK : DO YOU HAVE A PREVIOUS PERSONAL HISTORY OF MORE THAN NINE SURGERIES, SPINA BIFIDA, OR REPEATED CATHERIZATIONS? NO LATEX RISK : ARE YOU FREQUENTLY EXPOSED TO LATEX PRODUCTS IN YOUR OCCUPATION?NO DATE ASKED : 07/05/2018 CAFFEINE CAFFEINE USE?NO ADVANCE DIRECTIVE ADVANCE DIRECTIVE DISCUSSED WITH PATIENT:YES PT DOES NOT HAVE ANY ADVANCED DIRECRTIVES AND SHE DECLINED INFORMATION ON HCP AT THIS TIME. GNOSTICISM [id number] NONE NO ALEVISM BELIEFS THAT WOULD IMPACT HEALTH CARE. MARITAL STATUS: .. ALCOHOL SCREENING DID YOU HAVE A DRINK CONTAINING ALCOHOL IN THE PAST YEAR?NO POINTS0 INTERPRETATIONNEGATIVE REVIEWED 12/24/17 1106 BV 1150 REVIEWED WITH PT. ADREVIEWED WITH PT 09/24/18 1155 LAS. HOSPITALIZATION/MAJOR DIAGNOSTIC PROCEDURE SURGERY RELATED REVIEW OF SYSTEMS REVIEWED BY: PROVIDER: . CONSTITUTIONAL: ANY CHANGE IN YOUR MEDICAL CONDITION? PT TO SEE STOMACH SPECIALIST IN (IN [place]) FOR LUMPS . CHILLS NO . FEVER NO . INFECTION: DO YOU HAVE NEW INFECTIONS? NO . DO YOU HAVE HISTORY OF MRSA? NO . MUSCULOSKELETAL: ANY NEW PATTERNS OF PAIN OR NUMBNESS? YES PT REPORTS PINS AND NEEDLES IN LEFT THIGH WHICH IS NEW . GASTROENTEROLOGY: ANY NEW CHANGE IN BOWEL CONTROL? NO . GENITOURINARY: ANY NEW CHANGE IN BLADDER CONTROL? NO . IS THERE A CHANCE YOU COULD BE ? NO . HEMATOLOGY/LYMPH: DO YOU TAKE ANY BLOOD THINNERS? (FOR EXAMPLE- COUMADIN, PLAVIX, AGGRENOX, PLATEL, PRADAXA, OR XARELTO) NO . WHEN WAS YOUR LAST DOSE? DATE: TIME: . NEUROLOGY: HAVE YOU FALLEN IN THE PAST 12 MONTHS? PT REPORTS FREQUENT FALLS . ANY NEW EXTREMITY NUMBNESS OR WEAKNESS? NO . CARDIOLOGY: DO YOU HAVE A PACEMAKER OR DEFIBRILLATOR? NO . RESPIRATORY: HAVE YOU BEEN SICK IN THE PAST WEEK? NO . FEVER NO . FLU LIKE SYMPTOMS? NO . COUGH NO . INTEGUMENTARY: DO YOU HAVE ANY RASHES OR OPEN SORES? NO . ALLERGIC/IMMUNO: ARE YOU ALLERGIC TO IV DYE? NO . ANY NEW ALLERGIES? NO . PSYCHIATRIC: DO YOU HAVE THOUGHTS OF HURTING YOURSELF OR SOMEONE ELSE? NO . ARE YOU ABUSED, NEGLECTED, OR IN AN UNSAFE ENVIRONMENT? NO . ENDOCRINOLOGY: ARE YOU DIABETIC? NO . OTHER: DO YOU NEED ANY PRESCRIPTIONS? NO . IF YES, PLEASE LIST: ____ . ANY NEW PROBLEMS WITH YOUR MEDICATIONS? NO . WHEN DID YOU LAST EAT? ____ . WHEN DID YOU LAST DRINK? ____ . WHAT DID YOU LAST DRINK? ____ . NAME OF PERSON DRIVING YOU HOME? ____ . DO YOU HAVE ANY OTHER QUESTIONS OR CONCERNS NO . VITAL SIGNS WT 156.8 LBS, HT 61 IN, BMI 29.62 INDEX, BP 128/63 MM HG, HR 61 /MIN, RR 18 /MIN, TEMP 97.0 F, OXYGEN SAT % 98%, SAFE IN ENV? (Y/N) YES, NA INITIALS AW 1104, REVIEWED BY: LAS. [place] SACROILIITIS - M46.1 (PRIMARY) TREATMENT SACROILIITIS [facility] FLUORO GUIDANCE (PAIN)[id number] PROCEDURES PN SI PRE PROCEDURE DIAGNOSIS SACROILIITIS, SACROILIAC JOINT DYSFUNCTION POST PROCEDURE DIAGNOSIS SACROILIITIS, SACROILIAC JOINT DYSFUNCTION PROCEDURE BILATERAL SACROILIAC JOINT BLOCK SURGEON DR. DAYLIN MINER TERRAZZO TILE MAKER NONE ANESTHESIA LOCAL PRE PROCEDURE NOTE PATIENT WITH HISTORY OF CHRONIC LOW BACK PAIN. I EVALUATED THE PATIENT AND REVIEWED THE CHART. I WENT OVER THE RISKS, ALTERNATIVES, AND BENEFITS ASSOCIATED WITH THIS PROCEDURE. THE PATIENT WOULD LIKE TO PROCEED AND GAVE CONSENT TO PERFORM THE PROCEDURE. THE PATIENT DENIES UNEXPLAINABLE WEIGHT LOSS, FEVER, CHILLS, OR NEW CHANGES IN URINARY OR BOWEL CONTROL DESCRIPTION OF PROCEDURE THE PATIENT WAS BROUGHT TO THE PROCEDURE ROOM AND PLACED IN THE PRONE POSITION. THE LUMBOSACRAL AREA WAS CLEANED WITH CHLORAPREP SOLUTION AND DRAPED ASEPTICALLY. THE PROCEDURE WAS DONE UNDER STERILE CONDITIONS. I CHECKED LATERALITY AND THE LEVEL WHERE THE PROCEDURE WAS GOING TO BE PERFORMED WITH THE PATIENT AND THE SUPPORTING STAFF AT THE MOMENT OF THE TIME OUT IN THE PROCEDURE ROOM. UNDER FLUOROSCOPIC GUIDANCE, TARGET POINT WAS SELECTED AT THE LOWER BORDER OF THE RIGHT AND LEFT SACROILIAC JOINT. TARGET POINT WAS SELECTED AFTER MEDIAL ROTATION AND TILT OF THE MAGNIFIER OF THE C-ARM. LIDOCAINE WAS USED TO NUMB THE SKIN AND SUBCUTANEOUS TISSUE BELOW IT. A SPINAL NEEDLE, 22-GAUGE, WAS ADVANCED UNDER FLUOROSCOPIC GUIDANCE AND FOLLOWING PATIENT FEEDBACK UNTIL THE TARGET AREA WAS TOUCHED. THE POSITION OF THE NEEDLE WAS VERIFIED WITH AP AND LATERAL VIEWS. AFTER PROPER POSITION OF THE NEEDLE WAS ACHIEVED, ISOVUE M-200 DYE WAS INJECTED SHOWING SPREAD OF THE DYE. THEN, A SOLUTION OF 30 MG OF KENALOG WAS INJECTED IN RIGHT AND LEFT JOINT WITH 3 ML OF BUPIVACAINE 0.125%. THERE WAS NO EVIDENCE OF BLOOD, PARESTHESIA OR CEREBROSPINAL FLUID DURING THE PROCEDURE. THE PATIENT WAS SENT TO THE RECOVERY ROOM. THE PATIENT WAS MOVING THE EXTREMITIES AND DOING WELL. THERE WAS NO COMPLICATION DURING THE PROCEDURE. FLUOROSCOPY TIME WAS 16 SECONDS POST PROCEDURE NOTE THE PATIENT WILL BE SEEN IN A FOLLOW UP IN THE NEXT FEW WEEKS. INSTRUCTIONS WERE GIVEN, QUESTIONS WERE ANSWERED, AND THE PATIENT EXPRESSED UNDERSTANDING AND AGREED WITH THE PLAN. I, WALDEMAR REEDER, DOCUMENTED THE ABOVE INFORMATION ACTING A SCRIBE FOR DR. MINER. I HAVE REVIEWED THE ABOVE DOCUMENT, WRITTEN BY WALDEMAR NEALIBBen AND I VERIFY THAT IT IS ACCURATE. PROCEDURE CODES 6045F RADXPS IN END [id number] PXD [id number] INJECT SACROILIAC JOINT, MODIFIERS: 50 DISPOSITION & COMMUNICATION FOLLOW UP 3 WEEKS ELECTRONICALLY SIGNED BY DAYLIN MINER MD, MD ON 10/04/2018 AT 01:25 PM EDT DISCLAIMER : THIS IS A VISIT SUMMARY EXTRACTED FROM THE [employer] CHART. IT IS NOT A COPY OF THE [employer] PROGRESS NOTE. MTDD
== END ==
LOC: M PAIN 10:45
PROVIDERS: ATTEND Anesthesiology
DX: M46.1 Sacroiliitis, not elsewhere classified (principal); K21.9 Gastro-esophageal reflux disease without esophagitis; K58.9 Irritable bowel syndrome, unspecified; M41.9 Scoliosis, unspecified; K31.84 Gastroparesis; Z96.641 Presence of right artificial hip joint; Z87.891 Personal history of nicotine dependence; Z79.891 Long term (current) use of opiate analgesic; Z79.899 Other long term (current) drug therapy; Z88.6 Allergy status to analgesic agent; Z88.8 Allergy status to other drugs, medicaments and biological substances; Z91.048 Other nonmedicinal substance allergy status
CPT/HCPCS: G0260; J3301; Q0162; Q9966

== ENCOUNTER → 2018-11-05 | Outpatient (CLI) | payer MEDICARE ==
[~2018-11-05] MED LIST changes: -BUPIVACAINE HCL 0.25% 30 ML VIAL As Ordered ONE; -ISOVUE-M 200 41% 20ML VIAL (Q9966) As Ordered ONE; -LIDOCAINE 1% SDV INJ 30 ML VIAL As Ordered ONE; -ONDANSETRON 4 MG ORAL DISINTEGRATING TAB (Q0162 PER 1MG) As Ordered ONE; -TRIAMCINOLONE ACETONIDE SUSP 40 MG/ML VIAL (J3301) As Ordered ONE; -VICO7.5T11 PO; +VICO7.5T12 PO; -oxyCODONE 5MG TAB As Ordered ONE
--- NOTE | 2018-11-21 01:50 | ECWPNPC ---
PATIENT NAME: NNAMDI ANAND : 1965 GENDER: FEMALE VISIT DATE: 11/05/2018 DISCHARGE DATE: 11/05/18 1115 VISIT LOCKED DATE TIME: PHYSICIAN: NINA ESQUIVEL RESOURCE: NINA ESQUIVEL REASON FOR APPOINTMENT 1. POST SIJ HISTORY OF PRESENT ILLNESS HISTORY OF PRESENT ILLNESS: HERE FOR F/UOF CHRONIC LBP AND GENERALIZED JOINT PAIN.RATING PAIN VAS 7/10.CHIEF AREA OF PAIN IS RIGHT LOW BACK AND RIGHT HIP.REPORTS POPPING NOISE WITH ANY MOVEMENT OVER RIGHT HIP.HAS RIGHT LEG BEE STING LIKE PAIN.REVIEWED MRI AND DISCUSSED TREATMENT OPTIONS. PAIN THE PATIENT DESCRIBES THE PAIN... FALL RISK SCREENING: SCREENING :NO FALLS REPORTED IN THE LAST YEAR CURRENT MEDICATIONS TAKING ZOFRAN 4 MG TABLET 3 TABLETS ORALLY PRE MEDICATION, NOTES: 09/23/182099 TAKING ROPINIROLE HCL 1 MG TABLET ORALLY AT BEDTIME, NOTES: 09/23/182099 TAKING SUMATRIPTAN SUCCINATE 100 MG TABLET 1 TABLET NEEDED ONE TIME ORALLY DIRECTED, NOTES: 09/22/181199 TAKING DEXILANT 60 MG CAPSULE DELAYED RELEASE 1 CAPSULE ORALLY ONCE A DAY, NOTES: 09/24/18729 TAKING RALOXIFENE HCL 60 MG TABLET 1 TABLET ORALLY ONCE A DAY, NOTES: 09/23/182099 TAKING SIMVASTATIN 40 MG TABLET 1 TABLET IN THE EVENING ORALLY IN EVENING, NOTES: 09/23/182099 TAKING DIVALPROEX SODIUM 250 MG TABLET DELAYED RELEASE 1 TABLET ORALLY TWICE A DAY, NOTES: 09/24/18729 TAKING LINZESS 145 MCG CAPSULES 1 CAPSUL P.O. DAILY, NOTES: 09/23/182099 TAKING TIZANIDINE HCL 4 MG TABLET 1 TABLET NEEDED ORALLY THREE TIMES A DAY, NOTES: 09/23/182099 TAKING LYRICA 200 MG CAPSULE 1 CAPSULE ORALLY Q8H MDD3, NOTES: 09/22/182099 TAKING OXYCODONE HCL 5 MG TABLET 2 ORALLY Q8H PRN MDD6, NOTES: 09/22/182099 UNKNOWN TOPIRAMATE 100 MG TABLET 1 TABLET ORALLY TWICE A DAY UNKNOWN LINZESS 290 MCG CAPSULE 1 CAPSULE ORALLY ONCE A DAY MEDICATION LIST REVIEWED AND RECONCILED WITH THE PATIENT PAST MEDICAL HISTORY ACID REFLUX IBS PINCHED NERVES IN BACK SCOLIOSIS ARTHRITIS DDD ENDOMETRIOSIS CONGENITAL RIGHT HIP ABNORMALITY GASTROPARYSIS ALLERGIES NAPROXEN SODIUM: TONGUE SWELLS/FACE SWELLING - ALLERGY ASPIRIN: SORES IN MOUTH - ALLERGY ADHESIVE TAPE/BANDAIDS: BLISTERS - ALLERGY TEGADERM: SKIN BECOMES RAW, REDNESS, HEAT - ALLERGY PEPTO BISMAL: VOMITING WHEAT: RASH - ALLERGY BELBUCA: VOMITING - SIDE EFFECTS SURGICAL HISTORY WRIST SURGERY RIGHT.TORN LIGAMENT 2005 BILATERAL SALPINGO SURGERY DUE TO DEFECT 1989 SURGERY LEFT WRIST 2015 RIGHT HIP SURGERY X 2 2015, 09/2016 RIGHT FOOT SURGERY- NERVE RELEASE 09/27/15 TOTAL RIGHT HIP 04/05/2016 FALLOPIAN TUBE RECONSTRUCTION 1994 CERVICAL DISCESTOMY WITH HARDWARE 11/06/17 FAMILY HISTORY FATHER: , DIAGNOSED WITH DIABETES, UNSPECIFIED HEART DISEASE MOTHER: , DIABETES, UNSPECIFIED HEART DISEASE SOCIAL HISTORY GENERAL: TOBACCO USE ARE YOU A:FORMER SMOKER HOW LONG HAS IT BEEN SINCE YOU LAST SMOKED?6-12 MONTHS ADDITIONAL FINDINGS: TOBACCO NON-USERCURRENT NON-SMOKER SMOKING CESSATION INFORMATION GIVEN07/05/2018 LANGUAGE LANGUAGES SPOKEN:DANISH DOMESTIC VIOLENCE DO YOU FEEL SAFE IN YOUR ENVIRONMENT?YES RECREATIONAL DRUG USE DRUG USE?NO LEARNING BARRIERS / SPECIAL NEEDS BARRIERS TO LEARNING?NO HEARING IMPAIRED?YES VISION IMPAIRED?YES COGNITIVELY IMPAIRED?NO :HEARING AIDES :CORRECTIVE LENSES READINESS TO LEARN?YES LEARNING PREFERENCES?NO LEARNING CAPABILITIES PRESENT?YES EMOTIONAL BARRIERS?NO SPECIAL DEVICES?YES :CANE, WALKER 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 NEEDED?NO LUNG CANCER SCREENING SMOKING STATUS:CURRENT SMOKER PAIN CLINIC PFS, CLERGY, PUBLIC HEALTH REFERRALS PFS REFERRAL NEEDED?NO CLERGY REFERRAL NEEDED?NO PUBLIC HEALTH REFERRAL NEEDED?NO WAS THE PROVIDER NOTIFIED OF ANY PERTINENT INFO?YES N/A HAS THE PATIENT BEEN EDUCATED REGARDING HIS/HER PLAN OF CARE?YES HAS THE PATIENT BEEN EDUCATED REGARDING PAIN, THE RISK FOR PAIN, THE IMPORTANCE OF EFFECTIVE PAIN MANAGEMENT, AND THE PAIN ASSESSMENT PROCESS?YES LATEX QUESTIONNAIRE LATEX ALLERGY : HAVE YOU EVER DEVELOPED ANY TYPE OF REACTION AFTER HANDLING LATEX PRODUCTS SUCH RUBBER GLOVES, CONDOMS, DIAPHRAGMS, BALLOONS, SOCKS, OR UNDERWEAR?NO LATEX ALLERGY : HAVE YOU EVER DEVELOPED ANY TYPE OF REACTION DURING OR AFTER DENTAL APPOINTMENT, VAGINAL/RECTAL EXAMINATION, SURGICAL PROCEDURE, OR ANY OTHER EXPOSURE?NO DATE ASKED : 07/05/2018 LATEX RISK : HAVE YOU EVER HAD ANY DIFFICULTY BREATHING OR HIVES AFTER EATING OR HANDLING ANY FRUITS, OR VEGETABLES; SUCH KIWI, BANANAS, STONE FRUITS, OR CHESTNUTSNO LATEX RISK : DO YOU HAVE A PREVIOUS PERSONAL HISTORY OF MORE THAN NINE SURGERIES, SPINA BIFIDA, OR REPEATED CATHERIZATIONS? NO LATEX RISK : ARE YOU FREQUENTLY EXPOSED TO LATEX PRODUCTS IN YOUR OCCUPATION?NO CAFFEINE CAFFEINE USE?NO ADVANCE DIRECTIVE ADVANCE DIRECTIVE DISCUSSED WITH PATIENT:YES PT DOES NOT HAVE ANY ADVANCED DIRECRTIVES AND SHE DECLINED INFORMATION ON HCP AT THIS TIME. YAZIDISM [id number] NONE NO SABIANISM BELIEFS THAT WOULD IMPACT HEALTH CARE. MARITAL STATUS: .. ALCOHOL SCREENING DID YOU HAVE A DRINK CONTAINING ALCOHOL IN THE PAST YEAR?NO POINTS0 INTERPRETATIONNEGATIVE REVIEWED 12/24/17 1106 BV 1150 REVIEWED WITH PT. ADREVIEWED WITH PT 09/24/18 1155 LAS. HOSPITALIZATION/MAJOR DIAGNOSTIC PROCEDURE SURGERY RELATED REVIEW OF SYSTEMS REVIEWED BY: PROVIDER: NINA BANEGAS . CONSTITUTIONAL: ANY CHANGE IN YOUR MEDICAL CONDITION? NO . CHILLS NO . FEVER NO . INFECTION: DO YOU HAVE NEW INFECTIONS? NO . DO YOU HAVE HISTORY OF MRSA? NO . MUSCULOSKELETAL: ANY NEW PATTERNS OF PAIN OR NUMBNESS? INCREASED DOWN RIGHT LEG . GASTROENTEROLOGY: ANY NEW CHANGE IN BOWEL CONTROL? NO . GENITOURINARY: ANY NEW CHANGE IN BLADDER CONTROL? NO . IS THERE A CHANCE YOU COULD BE ? NO . HEMATOLOGY/LYMPH: DO YOU TAKE ANY BLOOD THINNERS? (FOR EXAMPLE- COUMADIN, PLAVIX, AGGRENOX, PLATEL, PRADAXA, OR XARELTO) NO . WHEN WAS YOUR LAST DOSE? DATE: TIME: . NEUROLOGY: HAVE YOU FALLEN IN THE PAST 12 MONTHS? NO . ANY NEW EXTREMITY NUMBNESS OR WEAKNESS? NO . CARDIOLOGY: DO YOU HAVE A PACEMAKER OR DEFIBRILLATOR? NO . RESPIRATORY: HAVE YOU BEEN SICK IN THE PAST WEEK? NO . FEVER NO . FLU LIKE SYMPTOMS? NO . COUGH NO . INTEGUMENTARY: DO YOU HAVE ANY RASHES OR OPEN SORES? NO . ALLERGIC/IMMUNO: ARE YOU ALLERGIC TO IV DYE? NO . ANY NEW ALLERGIES? NO . PSYCHIATRIC: DO YOU HAVE THOUGHTS OF HURTING YOURSELF OR SOMEONE ELSE? NO . ARE YOU ABUSED, NEGLECTED, OR IN AN UNSAFE ENVIRONMENT? NO . ENDOCRINOLOGY: ARE YOU DIABETIC? NO . OTHER: DO YOU NEED ANY PRESCRIPTIONS? NO . IF YES, PLEASE LIST: ____ . ANY NEW PROBLEMS WITH YOUR MEDICATIONS? NO . WHEN DID YOU LAST EAT? ____ . WHEN DID YOU LAST DRINK? ____ . WHAT DID YOU LAST DRINK? ____ . NAME OF PERSON DRIVING YOU HOME? ____ . DO YOU HAVE ANY OTHER QUESTIONS OR CONCERNS NO . VITAL SIGNS WT 161 LBS, HT 61 IN, BMI 30.42 INDEX, BP 119/58 MM HG, HR 63 /MIN, RR 18 /MIN, TEMP 97.2 F, OXYGEN SAT % 98%, NA INITIALS SC 10:44, REVIEWED BY: KG. EXAMINATION GENERAL EXAMINATION: GENERALANTALGIC GAIT W ASSIST OF WALKER. PSYCHALERT , ORIENTED X 3 . LUNGS:LUNG BETH ARE CLEAR TO AUSCULTATION BILATERALLY. GOOD MOVEMENT OF AIR . HEART:S1, S2 IN A REGULAR RATE AND RHYTHM. NO SIGNIFICANT MURMURS, RUBS OR GALLOPS NOTED . BACK:MULTIPLE AREAS OF TENDER SPOTS UPPER AND LOWER TORSO BILAT. INDICATIVE OF FIBROMYALGIA .SPECIFIC POINT TENDERNESS OVER RIGHT TROCHANTERIC BURSAL AREA AND RIGHT LUMBAR FACET/SIJ REGION. LUMBAR SACRAL SPINEMUSCLE STRENGTH TESTING 3/5 RIGHT/5/5 LEFT . DIAGNOSTIC TESTS REVIEWED MRI L/S [id number] . ASSESSMENTS TROCHANTERIC BURSITIS OF RIGHT HIP - M70.61 (PRIMARY) TREATMENT TROCHANTERIC BURSITIS OF RIGHT HIP NOTES: RIGHT TROCHANTERIC BURSAL INJECTION . PROCEDURE CODES FA211 ESTABILISHED PATIENT [facility] CHARGE DISPOSITION & COMMUNICATION FOLLOW UP POST (REASON: RIGHT TROCHANTERIC BURSAL INJECTION) ELECTRONICALLY SIGNED BY BASSAM DOMINGUEZ ON 11/19/2018 AT 03:38 PM EDT DISCLAIMER : THIS IS A VISIT SUMMARY EXTRACTED FROM THE [facility] CHART. IT IS NOT A COPY OF THE [facility] PROGRESS NOTE. MARIKA
== END ==
LOC: M PAIN 10:15
PROVIDERS: ATTEND Nurse Practitioner Family
DX: M70.61 Trochanteric bursitis, right hip (principal); G89.29 Other chronic pain; M19.90 Unspecified osteoarthritis, unspecified site; Z96.641 Presence of right artificial hip joint; Z87.891 Personal history of nicotine dependence; Z88.5 Allergy status to narcotic agent; Z88.6 Allergy status to analgesic agent; Z91.018 Allergy to other foods; Z91.09 Other allergy status, other than to drugs and biological substances; Z79.891 Long term (current) use of opiate analgesic; Z79.899 Other long term (current) drug therapy

== ENCOUNTER → 2018-12-11 | Outpatient (CLI) | payer MEDICARE, MEDICAID ==
[~2018-12-11] MED LIST changes: +BUPIVACAINE HCL 0.25% 30 ML VIAL As Ordered ONE; +ISOVUE-M 300 61% 15ML VIAL (Q9967) As Ordered ONE; +LIDOCAINE 1% SDV INJ 30 ML VIAL As Ordered ONE; -OMEP40CA2 PO; +OMEP40CA97 PO; +TRIAMCINOLONE ACETONIDE SUSP 40 MG/ML VIAL (J3301) As Ordered ONE
--- NOTE | 2018-12-17 11:10 | REP ---
C-ARM VIEWS RIGHT HIP: CLINICAL HISTORY: Pain. Multiple C-arm views of the right hip region performed during injection of greater trochanter region of proximal right femur by Dr. Donovan. Total hip prosthesis is noted. Needle is seen overlying the region of the proximal right femur. 11 seconds fluoroscopy time utilized. Electronically Signed by Eduar Estes MD 12/24/2018 05:25 P
--- NOTE | 2018-12-25 01:19 | ECWPNPC ---
PATIENT NAME: NNAMDI ANAND : 1965 GENDER: FEMALE VISIT DATE: 12/11/2018 DISCHARGE DATE: 12/11/18 1251 VISIT LOCKED DATE TIME: PHYSICIAN: DAYLIN MINER MD RESOURCE: DAYLIN MINER MD REASON FOR APPOINTMENT 1. RIGHT TROCHANTERIC BURSAL INJECTION HISTORY OF PRESENT ILLNESS HISTORY OF PRESENT ILLNESS: PAIN THE PATIENT DESCRIBES THE PAIN... FALL RISK SCREENING: SCREENING :NO FALLS REPORTED IN THE LAST YEAR CURRENT MEDICATIONS TAKING ZOFRAN 4 MG TABLET 3 TABLETS ORALLY PRE MEDICATION, NOTES: 12/11 1999 TAKING ROPINIROLE HCL 1 MG TABLET ORALLY AT BEDTIME, NOTES: 12/11 1999 TAKING SUMATRIPTAN SUCCINATE 100 MG TABLET 1 TABLET NEEDED ONE TIME ORALLY DIRECTED, NOTES: 12/11 1199 TAKING DEXILANT 60 MG CAPSULE DELAYED RELEASE 1 CAPSULE ORALLY ONCE A DAY, NOTES: 12/10 829 TAKING RALOXIFENE HCL 60 MG TABLET 1 TABLET ORALLY ONCE A DAY, NOTES: 12/10 1929 TAKING SIMVASTATIN 40 MG TABLET 1 TABLET IN THE EVENING ORALLY IN EVENING, NOTES: 12/10 2029 TAKING DIVALPROEX SODIUM 250 MG TABLET DELAYED RELEASE 1 TABLET ORALLY TWICE A DAY, NOTES: 12/10 1929 TAKING TIZANIDINE HCL 4 MG TABLET 1 TABLET NEEDED ORALLY THREE TIMES A DAY, NOTES: 12/10 2029 TAKING LYRICA 200 MG CAPSULE 1 CAPSULE ORALLY Q8H MDD3, NOTES: 12/10 2029 TAKING OXYCODONE HCL 5 MG TABLET 2 ORALLY Q8H PRN MDD6, NOTES: 2029 TAKING LINZESS 290 MCG CAPSULE 1 CAPSULE ORALLY ONCE A DAY, NOTES: 12/10 829 NOT-TAKING TOPIRAMATE 100 MG TABLET 1 TABLET ORALLY TWICE A DAY DISCONTINUED LINZESS 145 MCG CAPSULES 1 CAPSUL P.O. DAILY MEDICATION LIST REVIEWED AND RECONCILED WITH THE PATIENT PAST MEDICAL HISTORY ACID REFLUX IBS PINCHED NERVES IN BACK SCOLIOSIS ARTHRITIS DDD ENDOMETRIOSIS CONGENITAL RIGHT HIP ABNORMALITY GASTROPARYSIS 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 PAIN ALLERGIES NAPROXEN SODIUM: TONGUE SWELLS/FACE SWELLING - ALLERGY ASPIRIN: SORES IN MOUTH - ALLERGY ADHESIVE TAPE/BANDAIDS: BLISTERS - ALLERGY TEGADERM: SKIN BECOMES RAW, REDNESS, HEAT - ALLERGY PEPTO BISMAL: VOMITING WHEAT: RASH - ALLERGY BELBUCA: VOMITING - SIDE EFFECTS SURGICAL HISTORY WRIST SURGERY RIGHT.TORN LIGAMENT 2005 BILATERAL SALPINGO SURGERY DUE TO DEFECT 1989 SURGERY LEFT WRIST 2016 RIGHT HIP SURGERY X 3 2015, 04/2016,09/2016 RIGHT FOOT SURGERY- NERVE RELEASE 09/27/15 TOTAL RIGHT HIP 04/05/2016 FALLOPIAN TUBE RECONSTRUCTION 1994 CERVICAL DISCESTOMY WITH HARDWARE 11/06/17 FAMILY HISTORY FATHER: , DIAGNOSED WITH UNSPECIFIED HEART DISEASE, DIABETES MOTHER: , DIABETES, UNSPECIFIED HEART DISEASE SOCIAL HISTORY GENERAL: TOBACCO USE ARE YOU A:FORMER SMOKER HOW LONG HAS IT BEEN SINCE YOU LAST SMOKED?6-12 MONTHS ADDITIONAL FINDINGS: TOBACCO NON-USERCURRENT NON-SMOKER SMOKING CESSATION INFORMATION GIVEN07/05/2018 LANGUAGE LANGUAGES SPOKEN:YI DOMESTIC VIOLENCE DO YOU FEEL SAFE IN YOUR ENVIRONMENT?YES RECREATIONAL DRUG USE DRUG USE?NO LEARNING BARRIERS / SPECIAL NEEDS BARRIERS TO LEARNING?NO HEARING IMPAIRED?YES :HEARING AIDES VISION IMPAIRED?YES :CORRECTIVE LENSES COGNITIVELY IMPAIRED?NO READINESS TO LEARN?YES LEARNING PREFERENCES?NO LEARNING CAPABILITIES PRESENT?YES EMOTIONAL BARRIERS?NO SPECIAL DEVICES?YES :CANE, WALKER 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 N/A HAS THE PATIENT BEEN EDUCATED REGARDING HIS/HER PLAN OF CARE?YES HAS THE PATIENT BEEN EDUCATED REGARDING PAIN, THE RISK FOR PAIN, THE IMPORTANCE OF EFFECTIVE PAIN MANAGEMENT, AND THE PAIN ASSESSMENT PROCESS?YES LATEX QUESTIONNAIRE LATEX ALLERGY : HAVE YOU EVER DEVELOPED ANY TYPE OF REACTION AFTER HANDLING LATEX PRODUCTS SUCH RUBBER GLOVES, CONDOMS, DIAPHRAGMS, BALLOONS, SOCKS, OR UNDERWEAR?NO LATEX ALLERGY : HAVE YOU EVER DEVELOPED ANY TYPE OF REACTION DURING OR AFTER DENTAL APPOINTMENT, VAGINAL/RECTAL EXAMINATION, SURGICAL PROCEDURE, OR ANY OTHER EXPOSURE?NO LATEX RISK : HAVE YOU EVER HAD ANY DIFFICULTY BREATHING OR HIVES AFTER EATING OR HANDLING ANY FRUITS, OR VEGETABLES; SUCH KIWI, BANANAS, STONE FRUITS, OR CHESTNUTSNO LATEX RISK : DO YOU HAVE A PREVIOUS PERSONAL HISTORY OF MORE THAN NINE SURGERIES, SPINA BIFIDA, OR REPEATED CATHERIZATIONS? YES - PLEASE INDICATE : > 9 SURGERIES LATEX RISK : ARE YOU FREQUENTLY EXPOSED TO LATEX PRODUCTS IN YOUR OCCUPATION?NO DATE ASKED : 12/11/2018 CAFFEINE CAFFEINE USE?NO ADVANCE DIRECTIVE ADVANCE DIRECTIVE DISCUSSED WITH PATIENT:YES 12/11/18 PT DOES NOT HAVE ANY ADVANCED DIRECRTIVES AND SHE DECLINED INFORMATION ON HCP AT THIS TIME. AD ORTHODOX [id number] NONE NO MORMONISM BELIEFS THAT WOULD IMPACT HEALTH CARE. MARITAL STATUS: .. ALCOHOL SCREENING DID YOU HAVE A DRINK CONTAINING ALCOHOL IN THE PAST YEAR?NO POINTS0 INTERPRETATIONNEGATIVE REVIEWED 12/24/17 1106 BV 1150 REVIEWED WITH PT. ADREVIEWED WITH PT 09/24/18 1155 LAS. HOSPITALIZATION/MAJOR DIAGNOSTIC PROCEDURE SURGERY RELATED REVIEW OF SYSTEMS REVIEWED BY: PROVIDER: . CONSTITUTIONAL: ANY CHANGE IN YOUR MEDICAL CONDITION? NO . CHILLS NO . FEVER NO . INFECTION: DO YOU HAVE NEW INFECTIONS? NO . DO YOU HAVE HISTORY OF MRSA? NO . MUSCULOSKELETAL: ANY NEW PATTERNS OF PAIN OR NUMBNESS? YES, WHEN SHE LIES DOWN FLAT HER CALF MUSCLES HURT ON BOTH SIDES . GASTROENTEROLOGY: ANY NEW CHANGE IN BOWEL CONTROL? NO . GENITOURINARY: ANY NEW CHANGE IN BLADDER CONTROL? NO . IS THERE A CHANCE YOU COULD BE ? NO . HEMATOLOGY/LYMPH: DO YOU TAKE ANY BLOOD THINNERS? (FOR EXAMPLE- COUMADIN, PLAVIX, AGGRENOX, PLATEL, PRADAXA, OR XARELTO) NO . WHEN WAS YOUR LAST DOSE? DATE: TIME: . NEUROLOGY: HAVE YOU FALLEN IN THE PAST 12 MONTHS? YES, STATES SHE FALLS OFTEN NO MAJOR INJURY, JUST BRUISES . ANY NEW EXTREMITY NUMBNESS OR WEAKNESS? NO . CARDIOLOGY: DO YOU HAVE A PACEMAKER OR DEFIBRILLATOR? NO . RESPIRATORY: HAVE YOU BEEN SICK IN THE PAST WEEK? NO . FEVER NO . FLU LIKE SYMPTOMS? NO . COUGH NO . INTEGUMENTARY: DO YOU HAVE ANY RASHES OR OPEN SORES? YES, POISON ASHLY ALL OVER- AWARE, OKAY TO PROCEED . ALLERGIC/IMMUNO: ARE YOU ALLERGIC TO IV DYE? NO . ANY NEW ALLERGIES? NO . PSYCHIATRIC: DO YOU HAVE THOUGHTS OF HURTING YOURSELF OR SOMEONE ELSE? NO . ARE YOU ABUSED, NEGLECTED, OR IN AN UNSAFE ENVIRONMENT? NO . ENDOCRINOLOGY: ARE YOU DIABETIC? NO . OTHER: DO YOU NEED ANY PRESCRIPTIONS? NO . IF YES, PLEASE LIST: ____ . ANY NEW PROBLEMS WITH YOUR MEDICATIONS? NO . WHEN DID YOU LAST EAT? 12/10 2029 . WHEN DID YOU LAST DRINK? 12/10 2099 . WHAT DID YOU LAST DRINK? DIET FRESCA . NAME OF PERSON DRIVING YOU HOME? LINDA B. . DO YOU HAVE ANY OTHER QUESTIONS OR CONCERNS NO . VITAL SIGNS WT 160.0 LBS, HT 61 IN, BMI 30.23 INDEX, BP 140/67 MM HG, HR 73 /MIN, RR 18 /MIN, TEMP 98.7 F, OXYGEN SAT % 94%, SAFE IN ENV? (Y/N) Y, NA INITIALS AW 1011, REVIEWED BY: AD. ASSESSMENTS TROCHANTERIC BURSITIS, RIGHT HIP - M70.61 (PRIMARY) RIGHT HIP PAIN - M25.551 TREATMENT RIGHT HIP PAIN [facility] FLUORO GUIDANCE (PAIN)[id number] PROCEDURES PREPROCEDURE DIAGNOSIS: BURSITIS AT THE RIGHT GREATER TROCHANTER OF THE FEMUR. POSTPROCEDURE DIAGNOSIS: BURSITIS AT THE RIGHT GREATER TROCHANTER OF THE FEMUR. PROCEDURE: INJECTION AT THE BURSA OF THE RIGHT GREATER TROCHANTER OF THE FEMUR UNDER FLUOROSCOPIC GUIDANCE. SURGEON: DR. DAYLIN MINER PLANT UTILITIES ENGINEER: NONEANESTHESIA: LOCAL. PREOPERATIVE NOTE: THE PATIENT HAS A HISTORY OF RIGHT HIP PAIN. I EVALUATED THE PATIENT AND REVIEWED THE CHART. WE BOTH AGREE ON INJECTING OVER THE BURSA OF THE RIGHT GREATER TROCHANTER OF THE FEMUR. I WENT THROUGH THE RISKS, ALTERNATIVES, AND BENEFITS ASSOCIATED WITH THIS PROCEDURE. THE PATIENT WOULD LIKE TO PROCEED AND GIVE CONSENT TO PERFORMED THE PROCEDURE. THE PATIENT DENIES UNEXPLAINABLE WEIGHT LOSS, FEVERS, CHILLS, OR CHANGES IN HIS URINARY OR BOWEL CONTROL. DESCRIPTION OF PROCEDURE: AFTER CONSENT WAS TAKEN, THE PATIENT WAS BROUGHT TO THE PROCEDURE ROOM AND PLACED IN THE LEFT LATERAL DECUBITUS POSITION. THE RIGHT HIP AREA WAS CLEANED WITH CHLORAPREP SOLUTION AND DRAPED ASEPTICALLY. THE PROCEDURE WAS DONE UNDER STERILE CONDITIONS. I CHECKED LATERALITY WITH THE PATIENT AND THE STAFF IN THE PROCEDURE ROOM AT THE MOMENT OF THE TIME OUT. UNDER FLUOROSCOPIC GUIDANCE, TARGET WAS SELECTED AT THE RIGHT GREATER TROCHANTER OF THE FEMUR. LIDOCAINE WAS USED TO NUMB THE SKIN AND THE SUBCUTANEOUS TISSUE BELOW IT. SPINAL NEEDLE, 22-GAUGE WAS ADVANCED UNDER FLUOROSCOPIC GUIDANCE AND FOLLOWING PATIENT FEEDBACK UNTIL THE TARGET WAS TOUCHED. POSITION OF THE NEEDLE WAS VERIFIED WITH AP AND LATERAL VIEWS. AFTER PROPER POSITION OF THE NEEDLE WAS ACHIEVED, ISOVUE M DYE, 30%, 0.25 ML WAS INJECTED SHOWING ADEQUATE SPREAD OF THE DYE. THEN A SOLUTION OF 20 ML OF BUPIVACAINE 0.25% AND KENALOG 40 MG WAS INJECTED. THERE WAS NO EVIDENCE OF BLOOD, PARESTHESIA, OR CEREBROSPINAL FLUID. THE PATIENT WAS SENT TO THE RECOVERY ROOM. THE PATIENT WAS MOVING THE EXTREMITIES AND DOING WELL. THERE WERE NO COMPLICATIONS DURING THE PROCEDURE. FLUOROSCOPIC TIME WAS 11 SECONDS.POSTOPERATIVE NOTE: I DISCUSSED ALTERNATIVES WITH THE PATIENT. WE WILL SEE THE PATIENT BACK IN SEVERAL WEEKS FOR REEVALUATION OF THE CASE. I AM LOOKING FOR LONG-LASTING PAIN RELIEF WITH THIS INTERVENTION. FURTHER RECOMMENDATIONS WILL BE DONE DEPENDING ON HOW THE PATIENT DOES. THERE WERE NO COMPLICATIONS. I, AARON HOLLIS, DOCUMENTED THE ABOVE INFORMATION ACTING A SCRIBE FOR DR. MINER. I HAVE REVIEWED THE ABOVE DOCUMENT, WRITTEN BY AARON HOLLIS SCRIBBen AND I VERIFY THAT IT IS ACCURATE. PROCEDURE CODES 6045F RADXPS IN END [id number] PXD [id number] DRAIN/INJ JOINT/BURSA W/O US, MODIFIERS: RT [id number] NEEDLE LOCALIZATION BY XRAY, MODIFIERS: 26 DISPOSITION & COMMUNICATION FOLLOW UP 3 WEEKS ELECTRONICALLY SIGNED BY DAYLIN MINER MD, MD ON 12/24/2018 AT 05:37 PM EDT DISCLAIMER : THIS IS A VISIT SUMMARY EXTRACTED FROM THE [facility] CHART. IT IS NOT A COPY OF THE [facility] PROGRESS NOTE. MARIKA
== END ==
LOC: M PAIN 09:45
PROVIDERS: ATTEND Anesthesiology
DX: M70.61 Trochanteric bursitis, right hip (principal); M25.551 Pain in right hip; K21.9 Gastro-esophageal reflux disease without esophagitis; K58.9 Irritable bowel syndrome, unspecified; M47.12 Other spondylosis with myelopathy, cervical region; M41.9 Scoliosis, unspecified; M19.90 Unspecified osteoarthritis, unspecified site; K31.84 Gastroparesis; Q74.2 Other congenital malformations of lower limb(s), including pelvic girdle; Z96.641 Presence of right artificial hip joint; N80.9 Endometriosis, unspecified; Z87.891 Personal history of nicotine dependence; Z79.891 Long term (current) use of opiate analgesic; Z79.899 Other long term (current) drug therapy; Z88.6 Allergy status to analgesic agent; Z88.8 Allergy status to other drugs, medicaments and biological substances; Z91.048 Other nonmedicinal substance allergy status; Z91.018 Allergy to other foods
CPT/HCPCS: 20610; 77002; J3301; Q9967

== ENCOUNTER → 2018-12-24 | Outpatient (CLI) | payer MEDICARE, MEDICAID ==
[~2018-12-24] MED LIST changes: -BUPIVACAINE HCL 0.25% 30 ML VIAL As Ordered ONE; -ISOVUE-M 300 61% 15ML VIAL (Q9967) As Ordered ONE; -LIDOCAINE 1% SDV INJ 30 ML VIAL As Ordered ONE; -TRIAMCINOLONE ACETONIDE SUSP 40 MG/ML VIAL (J3301) As Ordered ONE
--- NOTE | 2019-01-07 02:36 | ECWPNPC ---
PATIENT NAME: NNAMDI ANAND : 1965 GENDER: FEMALE VISIT DATE: 12/24/2018 DISCHARGE DATE: 12/24/18 1212 VISIT LOCKED DATE TIME: PHYSICIAN: NINA ESQUIVEL RESOURCE: NINA ESQUIVEL REASON FOR APPOINTMENT 1. POST PROC HISTORY OF PRESENT ILLNESS HISTORY OF PRESENT ILLNESS: HERE FOR POST PROCEDURE F/U.HAD RIGHT GREATER TROCHANTERIC BURSAL INJECTION ON 12/11/18.SHE IS PLEASED WITH RESULTS WITH LESS INTENSE PAIN SINCE PROCEDURE.CHIEF AREA OF PAIN IS LEFT THORACIC AND SCAPULAR PAIN.THIS IS AGGREVATED WITH WALKING.RATING UPPER BACK /THORACIC PAIN 10/10.PAIN IS AGGREVATED IN THIS REGION WITH USE OF ARMS. PAIN THE PATIENT DESCRIBES THE PAIN... FALL RISK SCREENING: SCREENING :NO FALLS REPORTED IN THE LAST YEAR CURRENT MEDICATIONS TAKING ZOFRAN 4 MG TABLET 3 TABLETS ORALLY PRE MEDICATION TAKING ROPINIROLE HCL 1 MG TABLET ORALLY AT BEDTIME TAKING SUMATRIPTAN SUCCINATE 100 MG TABLET 1 TABLET NEEDED ONE TIME ORALLY DIRECTED TAKING DEXILANT 60 MG CAPSULE DELAYED RELEASE 1 CAPSULE ORALLY ONCE A DAY TAKING RALOXIFENE HCL 60 MG TABLET 1 TABLET ORALLY ONCE A DAY TAKING SIMVASTATIN 40 MG TABLET 1 TABLET IN THE EVENING ORALLY IN EVENING TAKING DIVALPROEX SODIUM 250 MG TABLET DELAYED RELEASE 1 TABLET ORALLY TWICE A DAY TAKING TIZANIDINE HCL 4 MG TABLET 1 TABLET NEEDED ORALLY THREE TIMES A DAY TAKING LYRICA 200 MG CAPSULE 1 CAPSULE ORALLY Q8H MDD3 TAKING OXYCODONE HCL 5 MG TABLET 2 ORALLY Q8H PRN MDD6 TAKING LINZESS 290 MCG CAPSULE 1 CAPSULE ORALLY ONCE A DAY NOT-TAKING TOPIRAMATE 100 MG TABLET 1 TABLET ORALLY TWICE A DAY MEDICATION LIST REVIEWED AND RECONCILED WITH THE PATIENT PAST MEDICAL HISTORY ACID REFLUX IBS PINCHED NERVES IN BACK SCOLIOSIS ARTHRITIS DDD ENDOMETRIOSIS CONGENITAL RIGHT HIP ABNORMALITY GASTROPARYSIS 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 PAIN ALLERGIES NAPROXEN SODIUM: TONGUE SWELLS/FACE SWELLING - ALLERGY ASPIRIN: SORES IN MOUTH - ALLERGY ADHESIVE TAPE/BANDAIDS: BLISTERS - ALLERGY TEGADERM: SKIN BECOMES RAW, REDNESS, HEAT - ALLERGY PEPTO BISMAL: VOMITING WHEAT: RASH - ALLERGY BELBUCA: VOMITING - SIDE EFFECTS SURGICAL HISTORY WRIST SURGERY RIGHT.TORN LIGAMENT 2004 BILATERAL SALPINGO SURGERY DUE TO DEFECT 1990 SURGERY LEFT WRIST 2016 RIGHT HIP SURGERY X 3 2015, 04/2016,09/2016 RIGHT FOOT SURGERY- NERVE RELEASE 09/27/15 TOTAL RIGHT HIP 04/05/2016 FALLOPIAN TUBE RECONSTRUCTION 1994 CERVICAL DISCESTOMY WITH HARDWARE 11/06/17 FAMILY HISTORY FATHER: , DIAGNOSED WITH DIABETES, UNSPECIFIED HEART DISEASE MOTHER: , DIABETES, UNSPECIFIED HEART DISEASE SOCIAL HISTORY GENERAL: TOBACCO USE ARE YOU A:FORMER SMOKER HOW LONG HAS IT BEEN SINCE YOU LAST SMOKED?6-12 MONTHS SMOKING CESSATION INFORMATION GIVEN07/05/2018 ADDITIONAL FINDINGS: TOBACCO NON-USERCURRENT NON-SMOKER LANGUAGE LANGUAGES SPOKEN:MOZAMBICAN DOMESTIC VIOLENCE DO YOU FEEL SAFE IN YOUR ENVIRONMENT?YES RECREATIONAL DRUG USE DRUG USE?NO LEARNING BARRIERS / SPECIAL NEEDS BARRIERS TO LEARNING?NO HEARING IMPAIRED?YES VISION IMPAIRED?YES COGNITIVELY IMPAIRED?NO :HEARING AIDES :CORRECTIVE LENSES READINESS TO LEARN?YES LEARNING PREFERENCES?NO LEARNING CAPABILITIES PRESENT?YES EMOTIONAL BARRIERS?NO SPECIAL DEVICES?YES :CANE, WALKER KEY HOLDER NEEDED?NO LUNG CANCER SCREENING SMOKING STATUS:FORMER SMOKER PAIN CLINIC PFS, CLERGY, PUBLIC HEALTH REFERRALS PFS REFERRAL NEEDED?NO CLERGY REFERRAL NEEDED?NO PUBLIC HEALTH REFERRAL NEEDED?NO WAS THE PROVIDER NOTIFIED OF ANY PERTINENT INFO? N/A HAS THE PATIENT BEEN EDUCATED REGARDING HIS/HER PLAN OF CARE?YES HAS THE PATIENT BEEN EDUCATED REGARDING PAIN, THE RISK FOR PAIN, THE IMPORTANCE OF EFFECTIVE PAIN MANAGEMENT, AND THE PAIN ASSESSMENT PROCESS?YES LATEX QUESTIONNAIRE LATEX ALLERGY : HAVE YOU EVER DEVELOPED ANY TYPE OF REACTION AFTER HANDLING LATEX PRODUCTS SUCH RUBBER GLOVES, CONDOMS, DIAPHRAGMS, BALLOONS, SOCKS, OR UNDERWEAR?NO LATEX ALLERGY : HAVE YOU EVER DEVELOPED ANY TYPE OF REACTION DURING OR AFTER DENTAL APPOINTMENT, VAGINAL/RECTAL EXAMINATION, SURGICAL PROCEDURE, OR ANY OTHER EXPOSURE?NO LATEX RISK : HAVE YOU EVER HAD ANY DIFFICULTY BREATHING OR HIVES AFTER EATING OR HANDLING ANY FRUITS, OR VEGETABLES; SUCH KIWI, BANANAS, STONE FRUITS, OR CHESTNUTSNO LATEX RISK : DO YOU HAVE A PREVIOUS PERSONAL HISTORY OF MORE THAN NINE SURGERIES, SPINA BIFIDA, OR REPEATED CATHERIZATIONS? YES - PLEASE INDICATE : > 9 SURGERIES LATEX RISK : ARE YOU FREQUENTLY EXPOSED TO LATEX PRODUCTS IN YOUR OCCUPATION?NO DATE ASKED : 12/11/2018 CAFFEINE CAFFEINE USE?NO ADVANCE DIRECTIVE ADVANCE DIRECTIVE DISCUSSED WITH PATIENT:YES 12/24/18 PT DOES NOT HAVE ANY ADVANCED DIRECRTIVES AND SHE DECLINED INFORMATION ON HCP AT THIS TIME. ILAN EPISCOPALIAN [id number] NONE NO MOSQUE BELIEFS THAT WOULD IMPACT HEALTH CARE. MARITAL STATUS: .. ALCOHOL SCREENING DID YOU HAVE A DRINK CONTAINING ALCOHOL IN THE PAST YEAR?NO POINTS0 INTERPRETATIONNEGATIVE REVIEWED 12/24/17 1106 BV 1150 REVIEWED WITH PT. ADREVIEWED WITH PT 09/24/18 1155 LASREVIEWED WITH PATIENT 12/24/18 1133 JS. HOSPITALIZATION/MAJOR DIAGNOSTIC PROCEDURE SURGERY RELATED REVIEW OF SYSTEMS REVIEWED BY: PROVIDER: NINA BANEGAS . CONSTITUTIONAL: ANY CHANGE IN YOUR MEDICAL CONDITION? NO . CHILLS NO . FEVER NO . INFECTION: DO YOU HAVE NEW INFECTIONS? NO . DO YOU HAVE HISTORY OF MRSA? NO . MUSCULOSKELETAL: ANY NEW PATTERNS OF PAIN OR NUMBNESS? YES, NEW PAIN TO BILATERAL CALVES, FEET, AND BUTTOCKS FOR THE PAST FEW MONTHS . GASTROENTEROLOGY: ANY NEW CHANGE IN BOWEL CONTROL? NO . GENITOURINARY: ANY NEW CHANGE IN BLADDER CONTROL? NO . IS THERE A CHANCE YOU COULD BE ? NO . HEMATOLOGY/LYMPH: DO YOU TAKE ANY BLOOD THINNERS? (FOR EXAMPLE- COUMADIN, PLAVIX, AGGRENOX, PLATEL, PRADAXA, OR XARELTO) NO . WHEN WAS YOUR LAST DOSE? DATE: TIME: . NEUROLOGY: HAVE YOU FALLEN IN THE PAST 12 MONTHS? YES, STATES FALL YESTERDAY OFF OF STEP LADDER ONTO A TABLE. STATES NO INJURIES AND DID NOT HIT HER HEAD. NO ED VISIT, NO IMAGING . ANY NEW EXTREMITY NUMBNESS OR WEAKNESS? YES, WORSENING WEAKNESS TO RIGHT LEG . CARDIOLOGY: DO YOU HAVE A PACEMAKER OR DEFIBRILLATOR? NO . RESPIRATORY: HAVE YOU BEEN SICK IN THE PAST WEEK? NO . FEVER NO . FLU LIKE SYMPTOMS? NO . COUGH NO . INTEGUMENTARY: DO YOU HAVE ANY RASHES OR OPEN SORES? NO . ALLERGIC/IMMUNO: ARE YOU ALLERGIC TO IV DYE? NO . ANY NEW ALLERGIES? NO . PSYCHIATRIC: DO YOU HAVE THOUGHTS OF HURTING YOURSELF OR SOMEONE ELSE? NO . ARE YOU ABUSED, NEGLECTED, OR IN AN UNSAFE ENVIRONMENT? NO . ENDOCRINOLOGY: ARE YOU DIABETIC? NO . OTHER: DO YOU NEED ANY PRESCRIPTIONS? NO . IF YES, PLEASE LIST: ____ . ANY NEW PROBLEMS WITH YOUR MEDICATIONS? NO . WHEN DID YOU LAST EAT? ____ . WHEN DID YOU LAST DRINK? ____ . WHAT DID YOU LAST DRINK? ____ . NAME OF PERSON DRIVING YOU HOME? ____ . DO YOU HAVE ANY OTHER QUESTIONS OR CONCERNS YES, WORSENING CALF PAIN - BECOMING MORE INTENSE . VITAL SIGNS WT 165.4 LBS, HT 61 IN, BMI 31.25 INDEX, BP 132/73 MM HG, HR 76 /MIN, RR 18 /MIN, TEMP 98.6 F, OXYGEN SAT % 97%, SAFE IN ENV? (Y/N) YES, NA INITIALS SSC 11:05, REVIEWED BY: ILAN. EXAMINATION GENERAL EXAMINATION: GENERAL AWAKE,ALERT ,PLEAASANT . PSYCH AFFECT NORMAL . LUNGS: LUNG BETH ARE CLEAR TO AUSCULTATION BILATERALLY. GOOD MOVEMENT OF AIR . HEART: S1, S2 IN A REGULAR RATE AND RHYTHM. NO SIGNIFICANT MURMURS, RUBS OR GALLOPS NOTED . THORACIC SPINE TRIGGER POINTS ELICITED OVER LEFT SCAPULAR AND MID THORACIC PARASPINAL. ASSESSMENTS MYALGIA, OTHER SITE - M79.18 (PRIMARY) TROCHANTERIC BURSITIS, RIGHT HIP - M70.61 TREATMENT MYALGIA, OTHER SITE CONTINUE TIZANIDINE HCL TABLET, 4 MG, 1 TABLET NEEDED, ORALLY, THREE TIMES A DAY CONTINUE LYRICA CAPSULE, 200 MG, 1 CAPSULE, ORALLY, Q8H MDD3 REFILL OXYCODONE HCL TABLET, 5 MG, 2, ORALLY, Q8H PRN MDD6, 30 DAY(S), 180, REFILLS 0 NOTES: TPI LEFT MID THORACIC/SCAPULAR, ISTOP REGISTRY REVIEWED AND DEMONSTRATES COMPLLIANCE. BRINGS IN MEDICATIONS WHICH IS APPROPRIATE FOR WHAT WAS DISPENSED. RECENT URINE TOXICOLOGY REVIEWED. NO UNAUTHORIZED MEDICATIONS. NO ILLICIT SUBSTANCES AND PRESCRIBED MEDICATIONS WERE PRESENT. PREVENTIVE MEDICINE PAIN CLINIC TEACHING: PROCEDURE TEACHING REVIEWED INFORMATION ON TRIGGER POINT INJECTIONS WITH PATIENT. ALSO REVIEWED PRE-PROCEDURE INSTRUCTIONS. PATIENT VERBALIZED AN UNDERSTANDING. ROSAURA YU 12/24/2018 12:10:49 PM > . PROCEDURE CODES FA211 ESTABILISHED PATIENT [facility] FACILITY CHARGE DISPOSITION & COMMUNICATION FOLLOW UP POST (REASON: TPI LEFT MID THORACIC/SCAPULAR) ELECTRONICALLY SIGNED BY BASSAM DOMINGUEZ ON 01/06/2019 AT 10:27 AM EST DISCLAIMER : THIS IS A VISIT SUMMARY EXTRACTED FROM THE [employer] CHART. IT IS NOT A COPY OF THE [employer] PROGRESS NOTE. MTDD
== END ==
LOC: M PAIN 11:00
PROVIDERS: ATTEND Nurse Practitioner Family
DX: M79.18 Myalgia, other site (principal); M70.61 Trochanteric bursitis, right hip; K21.9 Gastro-esophageal reflux disease without esophagitis; Z96.641 Presence of right artificial hip joint; Z87.891 Personal history of nicotine dependence; Z88.5 Allergy status to narcotic agent; Z88.6 Allergy status to analgesic agent; Z88.8 Allergy status to other drugs, medicaments and biological substances; Z91.018 Allergy to other foods; Z91.09 Other allergy status, other than to drugs and biological substances; Z79.891 Long term (current) use of opiate analgesic; Z79.899 Other long term (current) drug therapy

== ENCOUNTER → 2018-12-26 | Outpatient (CLI) | payer MEDICARE, MEDICAID ==
[2018-12-26 12:55] LABS: HEMATOCRIT 40.7 % (36.0-47.0); HEMOGLOBIN 13.9 g/dl (12.0-15.5); MEAN CORPUSCULAR HEMOGLOBIN 33.4 pg (27.0-33.0); MEAN CORPUSCULAR HGB CONC 34.2 g/dl (32.0-36.5); MEAN CORPUSCULAR VOLUME 97.8 fl (80.0-96.0); PLATELET COUNT, AUTOMATED 219 10^3/uL (150-450); RED BLOOD COUNT 4.16 10^6/uL (4.00-5.40); WHITE BLOOD COUNT 6.3 10^3/uL (4.0-10.0)
[2018-12-26 13:46] LABS: ERYTHROCYTE SEDIMENTATION RATE 8 mm/hr (0-30)
[2018-12-26 13:55] LABS: ALBUMIN 3.5 GM/DL (3.2-5.2); ALT/SGPT 18 U/L (12-78); BILIRUBIN,TOTAL 0.6 MG/DL (0.2-1.0); BLOOD UREA NITROGEN 14 MG/DL (7-18); C REACTIVE PROTEIN QUANTITATIV < 0.30 MG/DL (0.00-0.30); CALCIUM LEVEL 8.9 MG/DL (8.5-10.1); CARBON DIOXIDE LEVEL 27 MEQ/L (21-32); CHLORIDE LEVEL 110 MEQ/L (98-107); CREATININE FOR GFR 0.72 MG/DL (0.55-1.30); GLOMERULAR FILTRATION RATE > 60.0 (>51); GLUCOSE, FASTING 91 MG/DL (70-100); POTASSIUM SERUM 4.3 MEQ/L (3.5-5.1); SODIUM LEVEL 142 MEQ/L (136-145); TOTAL PROTEIN 6.2 GM/DL (6.4-8.2)
[2018-12-31 00:06] LABS: ANCA-ATYPICAL <1:20 titer (Neg:<1:20); ANTI-SACCHAROMYCES CEREV. IgA <20.0 Units (0.0-24.9); ANTI-SACCHAROMYCES CEREV. IgG <20.0 Units (0.0-24.9); CYTOPLASMIC NEUTROP AB ANCA-C <1:20 titer (Neg:<1:20); ENDOMYSIAL ABY IgA Negative (Negative); PERINUCLEAR AB ANCA-P <1:20 titer (Neg:<1:20); TISSUE TRANSGLUTAMINASE IgA <2 U/mL (0-3); TISSUE TRANSGLUTAMINASE IgG <2 U/mL (0-5)
== END ==
LOC: M LABDRWAD 11:20
PROVIDERS: ATTEND Nurse Practitioner Family
DX: K59.00 Constipation, unspecified (principal); K21.9 Gastro-esophageal reflux disease without esophagitis; K31.84 Gastroparesis

== ENCOUNTER → 2019-02-21 | Outpatient (CLI) | payer MEDICARE, MEDICAID ==
[~2019-02-21] MED LIST changes: +BUPIVACAINE HCL 0.25% 10 ML VIAL As Ordered ONE; +BUPIVACAINE HCL 0.25% 30 ML VIAL As Ordered ONE; -SIMV40TA2 PO; +SIMV40TA20 PO; +TRIAMCINOLONE ACETONIDE SUSP 40 MG/ML VIAL (J3301) As Ordered ONE
--- NOTE | 2019-03-07 03:25 | ECWPNPC ---
PATIENT NAME: NNAMDI ANAND : 1965 GENDER: FEMALE VISIT DATE: 02/21/2019 DISCHARGE DATE: 02/21/19 1116 VISIT LOCKED DATE TIME: PHYSICIAN: DAYLIN MINER MD RESOURCE: DAYLIN MINER MD REASON FOR APPOINTMENT 1. TPI LEFT MID THORACIC/SCAPULAR. HISTORY OF PRESENT ILLNESS HISTORY OF PRESENT ILLNESS: PAIN THE PATIENT DESCRIBES THE PAIN... FALL RISK SCREENING: SCREENING :NO FALLS REPORTED IN THE LAST YEAR CURRENT MEDICATIONS TAKING ZOFRAN 4 MG TABLET 3 TABLETS ORALLY PRE MEDICATION, NOTES: 02/20/192029 TAKING ROPINIROLE HCL 1 MG TABLET ORALLY AT BEDTIME, NOTES: 02/20/192099 TAKING SUMATRIPTAN SUCCINATE 100 MG TABLET 1 TABLET NEEDED ONE TIME ORALLY DIRECTED, NOTES: 02/20/192029 TAKING DEXILANT 60 MG CAPSULE DELAYED RELEASE 1 CAPSULE ORALLY ONCE A DAY, NOTES: 02/20/192029 TAKING RALOXIFENE HCL 60 MG TABLET 1 TABLET ORALLY ONCE A DAY, NOTES: 02/20/192029 TAKING SIMVASTATIN 40 MG TABLET 1 TABLET IN THE EVENING ORALLY IN EVENING, NOTES: 02/20/192029 TAKING DIVALPROEX SODIUM 250 MG TABLET DELAYED RELEASE 1 TABLET ORALLY TWICE A DAY, NOTES: 02/20/192029 TAKING LINZESS 290 MCG CAPSULE 1 CAPSULE ORALLY ONCE A DAY, NOTES: 02/20/192029 TAKING TIZANIDINE HCL 4 MG TABLET 1 TABLET NEEDED ORALLY THREE TIMES A DAY, NOTES: 02/20/192029 TAKING LYRICA 200 MG CAPSULE 1 CAPSULE ORALLY Q8H MDD3, NOTES: 02/20/192029 TAKING OXYCODONE HCL 5 MG TABLET 2 ORALLY Q8H PRN MDD6, NOTES: 02/20/192029 NOT-TAKING TOPIRAMATE 100 MG TABLET 1 TABLET ORALLY TWICE A DAY MEDICATION LIST REVIEWED AND RECONCILED WITH THE PATIENT PAST MEDICAL HISTORY ACID REFLUX IBS PINCHED NERVES IN BACK SCOLIOSIS ARTHRITIS DDD ENDOMETRIOSIS CONGENITAL RIGHT HIP ABNORMALITY GASTROPARYSIS 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 PAIN ALLERGIES NAPROXEN SODIUM: TONGUE SWELLS/FACE SWELLING - ALLERGY ASPIRIN: SORES IN MOUTH - ALLERGY ADHESIVE TAPE/BANDAIDS: BLISTERS - ALLERGY TEGADERM: SKIN BECOMES RAW, REDNESS, HEAT - ALLERGY PEPTO BISMAL: VOMITING WHEAT: RASH - ALLERGY BELBUCA: VOMITING - SIDE EFFECTS SURGICAL HISTORY WRIST SURGERY RIGHT.TORN LIGAMENT 2005 BILATERAL SALPINGO SURGERY DUE TO DEFECT 1989 SURGERY LEFT WRIST 2016 RIGHT HIP SURGERY X 3 2015, 04/2016,09/2016 RIGHT FOOT SURGERY- NERVE RELEASE 09/27/15 TOTAL RIGHT HIP 04/05/2016 FALLOPIAN TUBE RECONSTRUCTION 1994 CERVICAL DISCESTOMY WITH HARDWARE 11/06/17 FAMILY HISTORY FATHER: , DIAGNOSED WITH DIABETES, UNSPECIFIED HEART DISEASE MOTHER: , DIABETES, UNSPECIFIED HEART DISEASE SOCIAL HISTORY GENERAL: TOBACCO USE ARE YOU A:FORMER SMOKER HOW LONG HAS IT BEEN SINCE YOU LAST SMOKED?6-12 MONTHS SMOKING CESSATION INFORMATION GIVEN07/05/2018 ADDITIONAL FINDINGS: TOBACCO NON-USERCURRENT NON-SMOKER LANGUAGE LANGUAGES SPOKEN:ALBANIAN DOMESTIC VIOLENCE DO YOU FEEL SAFE IN YOUR ENVIRONMENT?YES RECREATIONAL DRUG USE DRUG USE?NO LEARNING BARRIERS / SPECIAL NEEDS BARRIERS TO LEARNING?NO HEARING IMPAIRED?YES VISION IMPAIRED?YES COGNITIVELY IMPAIRED?NO :HEARING AIDES :CORRECTIVE LENSES READINESS TO LEARN?YES LEARNING PREFERENCES?NO LEARNING CAPABILITIES PRESENT?YES EMOTIONAL BARRIERS?NO SPECIAL DEVICES?YES :CANE, WALKER ELECTRIC SHAVER MECHANIC NEEDED?NO LUNG CANCER SCREENING SMOKING STATUS:FORMER SMOKER PAIN CLINIC PFS, CLERGY, PUBLIC HEALTH REFERRALS PFS REFERRAL NEEDED?NO CLERGY REFERRAL NEEDED?NO PUBLIC HEALTH REFERRAL NEEDED?NO WAS THE PROVIDER NOTIFIED OF ANY PERTINENT INFO? N/A HAS THE PATIENT BEEN EDUCATED REGARDING HIS/HER PLAN OF CARE?YES HAS THE PATIENT BEEN EDUCATED REGARDING PAIN, THE RISK FOR PAIN, THE IMPORTANCE OF EFFECTIVE PAIN MANAGEMENT, AND THE PAIN ASSESSMENT PROCESS?YES LATEX QUESTIONNAIRE LATEX ALLERGY : HAVE YOU EVER DEVELOPED ANY TYPE OF REACTION AFTER HANDLING LATEX PRODUCTS SUCH RUBBER GLOVES, CONDOMS, DIAPHRAGMS, BALLOONS, SOCKS, OR UNDERWEAR?NO LATEX ALLERGY : HAVE YOU EVER DEVELOPED ANY TYPE OF REACTION DURING OR AFTER DENTAL APPOINTMENT, VAGINAL/RECTAL EXAMINATION, SURGICAL PROCEDURE, OR ANY OTHER EXPOSURE?NO LATEX RISK : HAVE YOU EVER HAD ANY DIFFICULTY BREATHING OR HIVES AFTER EATING OR HANDLING ANY FRUITS, OR VEGETABLES; SUCH KIWI, BANANAS, STONE FRUITS, OR CHESTNUTSNO LATEX RISK : DO YOU HAVE A PREVIOUS PERSONAL HISTORY OF MORE THAN NINE SURGERIES, SPINA BIFIDA, OR REPEATED CATHERIZATIONS? YES - PLEASE INDICATE : > 9 SURGERIES LATEX RISK : ARE YOU FREQUENTLY EXPOSED TO LATEX PRODUCTS IN YOUR OCCUPATION?NO DATE ASKED : 12/11/2018 CAFFEINE CAFFEINE USE?NO ADVANCE DIRECTIVE ADVANCE DIRECTIVE DISCUSSED WITH PATIENT:YES 02/14/19 PT DOES NOT HAVE ANY ADVANCED DIRECRTIVES AND SHE DECLINED INFORMATION ON HCP AT THIS TIME. JS ORTHODOXY [id number] NONE NO CONGREGATION BELIEFS THAT WOULD IMPACT HEALTH CARE. MARITAL STATUS: .. ALCOHOL SCREENING DID YOU HAVE A DRINK CONTAINING ALCOHOL IN THE PAST YEAR?NO POINTS0 INTERPRETATIONNEGATIVE REVIEWED 12/24/17 1106 BV 1150 REVIEWED WITH PT. ADREVIEWED WITH PT 09/24/18 1155 LASREVIEWED WITH PATIENT 12/24/18 1133 JSPRE-SCREENING COMPLETED 02/14/19 1205 JS. HOSPITALIZATION/MAJOR DIAGNOSTIC PROCEDURE SURGERY RELATED REVIEW OF SYSTEMS REVIEWED BY: PROVIDER: . CONSTITUTIONAL: ANY CHANGE IN YOUR MEDICAL CONDITION? NO . CHILLS NO . FEVER NO . INFECTION: DO YOU HAVE NEW INFECTIONS? NO . DO YOU HAVE HISTORY OF MRSA? NO . MUSCULOSKELETAL: ANY NEW PATTERNS OF PAIN OR NUMBNESS? NO . GASTROENTEROLOGY: ANY NEW CHANGE IN BOWEL CONTROL? NO . GENITOURINARY: ANY NEW CHANGE IN BLADDER CONTROL? NO . IS THERE A CHANCE YOU COULD BE ? NO . HEMATOLOGY/LYMPH: DO YOU TAKE ANY BLOOD THINNERS? (FOR EXAMPLE- COUMADIN, PLAVIX, AGGRENOX, PLATEL, PRADAXA, OR XARELTO) NO . WHEN WAS YOUR LAST DOSE? DATE: TIME: . NEUROLOGY: HAVE YOU FALLEN IN THE PAST 12 MONTHS? NO . ANY NEW EXTREMITY NUMBNESS OR WEAKNESS? NO . CARDIOLOGY: DO YOU HAVE A PACEMAKER OR DEFIBRILLATOR? NO . RESPIRATORY: HAVE YOU BEEN SICK IN THE PAST WEEK? NO . FEVER NO . FLU LIKE SYMPTOMS? NO . COUGH NO . INTEGUMENTARY: DO YOU HAVE ANY RASHES OR OPEN SORES? NO . ALLERGIC/IMMUNO: ARE YOU ALLERGIC TO IV DYE? NO . ANY NEW ALLERGIES? NO . PSYCHIATRIC: DO YOU HAVE THOUGHTS OF HURTING YOURSELF OR SOMEONE ELSE? NO . ARE YOU ABUSED, NEGLECTED, OR IN AN UNSAFE ENVIRONMENT? NO . ENDOCRINOLOGY: ARE YOU DIABETIC? NO . OTHER: DO YOU NEED ANY PRESCRIPTIONS? NO . IF YES, PLEASE LIST: ____ . ANY NEW PROBLEMS WITH YOUR MEDICATIONS? NO . WHEN DID YOU LAST EAT? 02/20/192029 . WHEN DID YOU LAST DRINK? 02/20/192199 . WHAT DID YOU LAST DRINK? WATER . NAME OF PERSON DRIVING YOU HOME? LINDA . DO YOU HAVE ANY OTHER QUESTIONS OR CONCERNS NO . VITAL SIGNS WT 166.8 LBS, HT 61 IN, BMI 31.51 INDEX, BP 116/55 MM HG, HR 63 /MIN, RR 18 /MIN, TEMP 96.0 F, OXYGEN SAT % 99%, SAFE IN ENV? (Y/N) YES, NA INITIALS AW 1020, REVIEWED BY: NLJ. ASSESSMENTS MYALGIA, OTHER SITE - M79.18 (PRIMARY) PROCEDURES PN TRIGGER POINT INJECTION WITH STEROIDS PRE PROCEDURE DIAGNOSIS 1. MYALGIA 2. PAIN AT BILATERAL THORACIC AREA. POST PROCEDURE DIAGNOSIS 1. MYALGIA 2. PAIN AT BILATERAL THORACIC AREA. PROCEDURE TRIGGER POINT INJECTION AT RIGHT AND LEFT THORACIC AREA. SURGEON DR. DAYLIN MINER THERMOSTAT MECHANIC NONE ANESTHESIA LOCAL PRE PROCEDURE NOTE THE PATIENT HAS A HISTORY OF CHRONIC PAIN AT THE RIGHT AND LEFT THORACIC AREA. I EVALUATED THE PATIENT AND REVIEWED THE CHART. THERE IS EVIDENCE OF BANDS OF TISSUE WITH RESTRICTION OF MOVEMENT AND PRESENCE OF TRIGGER POINT AT THE AFFECTED AREA. I WENT OVER THE RISKS, ALTERNATIVES, AND BENEFITS ASSOCIATED WITH THIS PROCEDURE. THE PATIENT WOULD LIKE TO PROCEED AND GIVES CONSENT TO PERFORM THE PROCEDURE. THE PATIENT DENIES UNEXPLAINABLE WEIGHT LOSS, FEVER, CHILLS, OR NEW CHANGES IN URINARY OR BOWEL CONTROL DESCRIPTION OF PROCEDURE THE PATIENT WAS BROUGHT TO THE PROCEDURE ROOM AND PLACED IN THE SITTING POSITION. THE AREA WAS CLEANED WITH ALCOHOL. THE PROCEDURE WAS DONE USING ASEPTIC STERILE TECHNIQUE. I CHECKED LATERALITY AND THE LEVEL WHERE THE PROCEDURE WAS GOING TO BE PERFORMED WITH THE PATIENT AND THE SUPPORTING STAFF AT THE MOMENT OF THE TIME OUT IN THE PROCEDURE ROOM. USING A 25-GAUGE NEEDLE, TRIGGER POINTS WERE INJECTED AT THE RIGHT AND LEFT THORACIC AREA WITH A TOTAL OF 40 ML OF BUPIVACAINE 0.25% AND KENALOG 40 MG. THERE WAS NO EVIDENCE OF BLOOD, PARESTHESIA OR CEREBROSPINAL FLUID DURING THE PROCEDURE. THE PATIENT WAS SENT TO THE RECOVERY ROOM. THE PATIENT WAS MOVING THE EXTREMITIES AND DOING WELL. THERE WAS NO COMPLICATION DURING THE PROCEDURE POST PROCEDURE NOTE I AM LOOKING FOR LONG LASTING PAIN RELIEF WITH THIS INJECTION. THE PATIENT WILL BE SEEN IN A FOLLOW UP IN THE NEXT FEW WEEKS. INSTRUCTIONS WERE GIVEN, QUESTIONS WERE ANSWERED, AND THE PATIENT EXPRESSED UNDERSTANDING AND AGREES WITH THE PLAN. I, AARON HOLLIS, DOCUMENTED THE ABOVE INFORMATION ACTING A SCRIBE FOR DR. MINER. I HAVE REVIEWED THE ABOVE DOCUMENT, WRITTEN BY AARON HOLLIS SCRIBBen AND I VERIFY THAT IT IS ACCURATE. PROCEDURE CODES 95308 INJ TRIGGER POINT / MUSCL DISPOSITION & COMMUNICATION FOLLOW UP 3 WEEKS ELECTRONICALLY SIGNED BY DAYLIN MINER MD, MD ON 03/06/2019 AT 01:56 PM EST DISCLAIMER : THIS IS A VISIT SUMMARY EXTRACTED FROM THE [employer] CHART. IT IS NOT A COPY OF THE [employer] PROGRESS NOTE. MARIKA
== END ==
LOC: M PAIN 09:45
PROVIDERS: ATTEND Anesthesiology
DX: M79.18 Myalgia, other site (principal)
CPT/HCPCS: 20552; J3301

== ENCOUNTER → 2019-03-07 | Outpatient (CLI) | payer MEDICARE, MEDICAID ==
[~2019-03-07] MED LIST changes: -BUPIVACAINE HCL 0.25% 10 ML VIAL As Ordered ONE; -BUPIVACAINE HCL 0.25% 30 ML VIAL As Ordered ONE; -TRIAMCINOLONE ACETONIDE SUSP 40 MG/ML VIAL (J3301) As Ordered ONE
--- NOTE | 2019-03-25 05:12 | ECWPNPC ---
PATIENT NAME: NNAMDI ANAND : 1965 GENDER: FEMALE VISIT DATE: 03/07/2019 DISCHARGE DATE: 03/07/19 1214 VISIT LOCKED DATE TIME: PHYSICIAN: NINA ESQUIVEL RESOURCE: NINA ESQUIVEL REASON FOR APPOINTMENT 1. POST TPI HISTORY OF PRESENT ILLNESS HISTORY OF PRESENT ILLNESS: HERE FOR POST PROCEDURE F/U.HAD TPI MID SCAPULAR AREA ON 02/21/19.SHE IS PLEASED WITH RESULTS WITH LESS INTENSE PAIN SINCE PROCEDURE.CHIEF AREA OF PAIN IS LOW BACK L>R.THIS IS AGGREVATED WITH WALKING.RATING UPPER BACK /THORACIC PAIN 10/10.PAIN IS AGGREVATED IN THIS REGION WITH USE OF ARMS. PAIN THE PATIENT DESCRIBES THE PAIN... FALL RISK SCREENING: SCREENING :NO FALLS REPORTED IN THE LAST YEAR CURRENT MEDICATIONS TAKING ZOFRAN 4 MG TABLET 3 TABLETS ORALLY PRE MEDICATION TAKING ROPINIROLE HCL 1 MG TABLET ORALLY AT BEDTIME TAKING SUMATRIPTAN SUCCINATE 100 MG TABLET 1 TABLET NEEDED ONE TIME ORALLY DIRECTED TAKING DEXILANT 60 MG CAPSULE DELAYED RELEASE 1 CAPSULE ORALLY ONCE A DAY TAKING RALOXIFENE HCL 60 MG TABLET 1 TABLET ORALLY ONCE A DAY TAKING SIMVASTATIN 40 MG TABLET 1 TABLET IN THE EVENING ORALLY IN EVENING TAKING DIVALPROEX SODIUM 250 MG TABLET DELAYED RELEASE 1 TABLET ORALLY TWICE A DAY TAKING LINZESS 290 MCG CAPSULE 1 CAPSULE ORALLY ONCE A DAY TAKING TIZANIDINE HCL 4 MG TABLET 1 TABLET NEEDED ORALLY THREE TIMES A DAY TAKING LYRICA 200 MG CAPSULE 1 CAPSULE ORALLY Q8H MDD3 TAKING OXYCODONE HCL 5 MG TABLET 2 ORALLY Q8H PRN MDD6 TAKING VITAMIN D (ERGOCALCIFEROL) 1.25 MG (74949 UT) CAPSULE 1 CAPSULE ORALLY WEEKLY NOT-TAKING TOPIRAMATE 100 MG TABLET 1 TABLET ORALLY TWICE A DAY MEDICATION LIST REVIEWED AND RECONCILED WITH THE PATIENT PAST MEDICAL HISTORY ACID REFLUX IBS PINCHED NERVES IN BACK SCOLIOSIS ARTHRITIS DDD ENDOMETRIOSIS CONGENITAL RIGHT HIP ABNORMALITY GASTROPARYSIS 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 PAIN ALLERGIES NAPROXEN SODIUM: TONGUE SWELLS/FACE SWELLING - ALLERGY ASPIRIN: SORES IN MOUTH - ALLERGY ADHESIVE TAPE/BANDAIDS: BLISTERS - ALLERGY TEGADERM: SKIN BECOMES RAW, REDNESS, HEAT - ALLERGY PEPTO BISMAL: VOMITING WHEAT: RASH - ALLERGY BELBUCA: VOMITING - SIDE EFFECTS SURGICAL HISTORY WRIST SURGERY RIGHT.TORN LIGAMENT 2005 BILATERAL SALPINGO SURGERY DUE TO DEFECT 1989 SURGERY LEFT WRIST 2016 RIGHT HIP SURGERY X 3 2015, 04/2016,09/2016 RIGHT FOOT SURGERY- NERVE RELEASE 09/27/15 TOTAL RIGHT HIP 04/05/2016 FALLOPIAN TUBE RECONSTRUCTION 1994 CERVICAL DISCESTOMY WITH HARDWARE 11/06/17 FAMILY HISTORY FATHER: , DIAGNOSED WITH DIABETES, UNSPECIFIED HEART DISEASE MOTHER: , DIABETES, UNSPECIFIED HEART DISEASE SOCIAL HISTORY GENERAL: TOBACCO USE ARE YOU A:FORMER SMOKER HOW LONG HAS IT BEEN SINCE YOU LAST SMOKED?6-12 MONTHS SMOKING CESSATION INFORMATION GIVEN07/05/2018 ADDITIONAL FINDINGS: TOBACCO NON-USERCURRENT NON-SMOKER LANGUAGE LANGUAGES SPOKEN:BURKINAN DOMESTIC VIOLENCE DO YOU FEEL SAFE IN YOUR ENVIRONMENT?YES RECREATIONAL DRUG USE DRUG USE?NO LEARNING BARRIERS / SPECIAL NEEDS BARRIERS TO LEARNING?NO HEARING IMPAIRED?YES VISION IMPAIRED?YES COGNITIVELY IMPAIRED?NO :HEARING AIDES :CORRECTIVE LENSES READINESS TO LEARN?YES LEARNING PREFERENCES?NO LEARNING CAPABILITIES PRESENT?YES EMOTIONAL BARRIERS?NO SPECIAL DEVICES?YES :CANE, 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 N/A HAS THE PATIENT BEEN EDUCATED REGARDING HIS/HER PLAN OF CARE?YES HAS THE PATIENT BEEN EDUCATED REGARDING PAIN, THE RISK FOR PAIN, THE IMPORTANCE OF EFFECTIVE PAIN MANAGEMENT, AND THE PAIN ASSESSMENT PROCESS?YES LATEX QUESTIONNAIRE LATEX ALLERGY : HAVE YOU EVER DEVELOPED ANY TYPE OF REACTION AFTER HANDLING LATEX PRODUCTS SUCH RUBBER GLOVES, CONDOMS, DIAPHRAGMS, BALLOONS, SOCKS, OR UNDERWEAR?NO LATEX ALLERGY : HAVE YOU EVER DEVELOPED ANY TYPE OF REACTION DURING OR AFTER DENTAL APPOINTMENT, VAGINAL/RECTAL EXAMINATION, SURGICAL PROCEDURE, OR ANY OTHER EXPOSURE?NO LATEX RISK : HAVE YOU EVER HAD ANY DIFFICULTY BREATHING OR HIVES AFTER EATING OR HANDLING ANY FRUITS, OR VEGETABLES; SUCH KIWI, BANANAS, STONE FRUITS, OR CHESTNUTSNO LATEX RISK : DO YOU HAVE A PREVIOUS PERSONAL HISTORY OF MORE THAN NINE SURGERIES, SPINA BIFIDA, OR REPEATED CATHERIZATIONS? YES - PLEASE INDICATE : > 9 SURGERIES LATEX RISK : ARE YOU FREQUENTLY EXPOSED TO LATEX PRODUCTS IN YOUR OCCUPATION?NO DATE ASKED : 12/11/2018 CAFFEINE CAFFEINE USE?NO ADVANCE DIRECTIVE ADVANCE DIRECTIVE DISCUSSED WITH PATIENT:YES 03/07/2019 PT DOES NOT HAVE ANY ADVANCED DIRECRTIVES AND SHE DECLINED INFORMATION ON HCP AT THIS TIME. JS VOODOO [id number] NONE NO HOLINESS BELIEFS THAT WOULD IMPACT HEALTH CARE. MARITAL STATUS: .. ALCOHOL SCREENING DID YOU HAVE A DRINK CONTAINING ALCOHOL IN THE PAST YEAR?NO POINTS0 INTERPRETATIONNEGATIVE REVIEWED 12/24/17 1106 BV/ 1150 REVIEWED WITH PT. ADREVIEWED WITH PT 09/24/18 1155 LASREVIEWED WITH PATIENT 12/24/18 1133 JSPRE-SCREENING COMPLETED 02/14/19 1205 JSREVIEWED WITH PATIENT 03/07/2019 1125 JS. HOSPITALIZATION/MAJOR DIAGNOSTIC PROCEDURE SURGERY RELATED REVIEW OF SYSTEMS REVIEWED BY: PROVIDER: NINA BANEGAS . CONSTITUTIONAL: ANY CHANGE IN YOUR MEDICAL CONDITION? NO . CHILLS NO . FEVER NO . INFECTION: DO YOU HAVE NEW INFECTIONS? NO . DO YOU HAVE HISTORY OF MRSA? NO . MUSCULOSKELETAL: ANY NEW PATTERNS OF PAIN OR NUMBNESS? YES, STATES LEFT LEG VIBRATES - STARTED ABOUT A MONTH AGO . GASTROENTEROLOGY: ANY NEW CHANGE IN BOWEL CONTROL? NO . GENITOURINARY: ANY NEW CHANGE IN BLADDER CONTROL? NO . IS THERE A CHANCE YOU COULD BE ? NO . HEMATOLOGY/LYMPH: DO YOU TAKE ANY BLOOD THINNERS? (FOR EXAMPLE- COUMADIN, PLAVIX, AGGRENOX, PLATEL, PRADAXA, OR XARELTO) NO . WHEN WAS YOUR LAST DOSE? DATE: TIME: . NEUROLOGY: HAVE YOU FALLEN IN THE PAST 12 MONTHS? YES, FELL TRYING TO USE TREADMILL A WEEK AND A HALF AGO, LOST BALANCE. STATES NO MAJOR INJURIES, NO ED VISIT . ANY NEW EXTREMITY NUMBNESS OR WEAKNESS? YES, NUMBNESS AND WEAKNESS TO ALL EXTREMITIES, RIGHT >LEFT . CARDIOLOGY: DO YOU HAVE A PACEMAKER OR DEFIBRILLATOR? NO . RESPIRATORY: HAVE YOU BEEN SICK IN THE PAST WEEK? YES, STATES A COLD - FEELING BETTER NOW . FEVER NO . FLU LIKE SYMPTOMS? NO . COUGH YES . INTEGUMENTARY: DO YOU HAVE ANY RASHES OR OPEN SORES? NO . ALLERGIC/IMMUNO: ARE YOU ALLERGIC TO IV DYE? NO . ANY NEW ALLERGIES? NO . PSYCHIATRIC: DO YOU HAVE THOUGHTS OF HURTING YOURSELF OR SOMEONE ELSE? NO . ARE YOU ABUSED, NEGLECTED, OR IN AN UNSAFE ENVIRONMENT? NO . ENDOCRINOLOGY: ARE YOU DIABETIC? NO . OTHER: DO YOU NEED ANY PRESCRIPTIONS? YES . IF YES, PLEASE LIST: ____LYRICA, OXYCODONE, TIZANIDINE . ANY NEW PROBLEMS WITH YOUR MEDICATIONS? NO . WHEN DID YOU LAST EAT? ____ . WHEN DID YOU LAST DRINK? ____ . WHAT DID YOU LAST DRINK? ____ . NAME OF PERSON DRIVING YOU HOME? ____ . DO YOU HAVE ANY OTHER QUESTIONS OR CONCERNS YES, STATES SOME CONCERNS ABOUT THE VIBRATION IN HER LEFT LEG . VITAL SIGNS WT 162.6 LBS, HT 61 IN, BMI 30.72 INDEX, BP 110/58 MM HG, HR 82 /MIN, RR 18 /MIN, TEMP 98.3 F, OXYGEN SAT % 97%, SAFE IN ENV? (Y/N) YES, NA INITIALS AK 11:22, REVIEWED BY: ILAN. EXAMINATION GENERAL EXAMINATION: GENERALANTALGIC GAIT W ASSIST OF WALKER. PSYCHALERT , ORIENTED X 3 . LUNGS:LUNG BETH ARE CLEAR TO AUSCULTATION BILATERALLY. GOOD MOVEMENT OF AIR . HEART:S1, S2 IN A REGULAR RATE AND RHYTHM. NO SIGNIFICANT MURMURS, RUBS OR GALLOPS NOTED . BACK:MULTIPLE AREAS OF TENDER SPOTS UPPER AND LOWER TORSO BILAT. INDICATIVE OF FIBROMYALGIA .SPECIFIC POINT TENDERNESS OVER BILAT.SIJ REGION. FOR BILAT. SIJ MUSCLE STRENGTH TESTING 3/5 RIGHT/5/5 LEFT . DIAGNOSTIC TESTS REVIEWED MRI L/S [id number] . 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 PREVENTIVE MEDICINE PAIN CLINIC TEACHING: PROCEDURE TEACHING REVIEWED INFORMATION ON SACROILIAC JOINT INJECTION PROCEDURE WITH PATIENT. ALSO REVIEWED PRE-PROCEDURE INSTRUCTIONS. PATIENT VERBALIZED AN UNDERSTANDING. ROSAURA YU 03/07/2019 1:11:10 PM > . PROCEDURE CODES FA211 ESTABILISHED PATIENT [facility] CHARGE DISPOSITION & COMMUNICATION FOLLOW UP POST (REASON: BILAT SIJ) ELECTRONICALLY SIGNED BY BASSAM DOMINGUEZ ON 03/24/2019 AT 01:31 PM EST DISCLAIMER : THIS IS A VISIT SUMMARY EXTRACTED FROM THE [employer] CHART. IT IS NOT A COPY OF THE [employer] PROGRESS NOTE. MARIKA
== END ==
LOC: M PAIN 10:45
PROVIDERS: ATTEND Nurse Practitioner Family
DX: M53.3 Sacrococcygeal disorders, not elsewhere classified (principal)

== ENCOUNTER → 2019-04-09 | Outpatient (CLI) | payer MEDICARE, MEDICAID ==
[~2019-04-09] MED LIST changes: +BUPIVACAINE HCL 0.25% 30 ML VIAL As Ordered ONE; +ISOVUE-M 300 61% 15ML VIAL (Q9967) As Ordered ONE; +LIDOCAINE 1% SDV INJ 30 ML VIAL As Ordered ONE; -ROPI1TAB PO; +ROPI1TAB3 PO; +TRIAMCINOLONE ACETONIDE SUSP 40 MG/ML VIAL (J3301) As Ordered ONE
--- NOTE | 2019-04-09 14:08 | REP ---
Sacroiliac joint series: Five views. History: Injection procedure for pain. 31 seconds of fluoroscopy time is reported. Findings: A sequence of five last image hold fluoroscopically obtained spot radiographs of the SI joints document needle positions associated with SI joint injection procedure. Electronically Signed by Chris Win MD 04/09/2019 02:39 P
--- NOTE | 2019-04-18 04:57 | ECWPNPC ---
PATIENT NAME: NNAMDI ANAND : 1965 GENDER: FEMALE VISIT DATE: 04/09/2019 DISCHARGE DATE: 04/09/19 1237 VISIT LOCKED DATE TIME: PHYSICIAN: DAYLIN MINER MD RESOURCE: DAYLIN MINER MD REASON FOR APPOINTMENT 1. BILAT SIJ HISTORY OF PRESENT ILLNESS HISTORY OF PRESENT ILLNESS: PAIN THE PATIENT DESCRIBES THE PAIN... FALL RISK SCREENING: SCREENING :NO FALLS REPORTED IN THE LAST YEAR CURRENT MEDICATIONS TAKING ZOFRAN 4 MG TABLET 3 TABLETS ORALLY PRE MEDICATION, NOTES: 04/08 2199 TAKING ROPINIROLE HCL 1 MG TABLET ORALLY AT BEDTIME, NOTES: 04/08 2199 TAKING SUMATRIPTAN SUCCINATE 100 MG TABLET 1 TABLET NEEDED ONE TIME ORALLY DIRECTED, NOTES: 04/08 1399 TAKING DEXILANT 60 MG CAPSULE DELAYED RELEASE 1 CAPSULE ORALLY ONCE A DAY, NOTES: 04/08 2199 TAKING RALOXIFENE HCL 60 MG TABLET 1 TABLET ORALLY ONCE A DAY, NOTES: 04/08 2199 TAKING SIMVASTATIN 40 MG TABLET 1 TABLET IN THE EVENING ORALLY IN EVENING, NOTES: 04/08 2199 TAKING DIVALPROEX SODIUM 250 MG TABLET DELAYED RELEASE 1 TABLET ORALLY TWICE A DAY, NOTES: 04/08 2199 TAKING LINZESS 290 MCG CAPSULE 1 CAPSULE ORALLY ONCE A DAY, NOTES: 04/08 2199 TAKING VITAMIN D (ERGOCALCIFEROL) 1.25 MG (76279 UT) CAPSULE 1 CAPSULE ORALLY WEEKLY, NOTES: 04/06 TAKING LYRICA 100 MG CAPSULE 1 CAPSULE ORALLY ONCE A DAY AT BEDTIME, NOTES: 04/08 2199 TAKING TIZANIDINE HCL 4 MG TABLET 1 TABLET NEEDED ORALLY THREE TIMES A DAY, NOTES: 04/08 2199 TAKING LYRICA 200 MG CAPSULE 1 CAPSULE ORALLY BID MDD2, NOTES: 04/08 1400 TAKING OXYCODONE HCL 5 MG TABLET 2 ORALLY Q8H PRN MDD6, NOTES: 04/09 0800 NOT-TAKING TOPIRAMATE 100 MG TABLET 1 TABLET ORALLY TWICE A DAY MEDICATION LIST REVIEWED AND RECONCILED WITH THE PATIENT PAST MEDICAL HISTORY ACID REFLUX IBS PINCHED NERVES IN BACK SCOLIOSIS ARTHRITIS DDD ENDOMETRIOSIS CONGENITAL RIGHT HIP ABNORMALITY GASTROPARYSIS 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 PAIN LOW BACK PAIN HEART MURMUR ALLERGIES NAPROXEN SODIUM: TONGUE SWELLS/FACE SWELLING - ALLERGY ASPIRIN: SORES IN MOUTH - ALLERGY ADHESIVE TAPE/BANDAIDS: BLISTERS - ALLERGY TEGADERM: SKIN BECOMES RAW, REDNESS, HEAT - ALLERGY PEPTO BISMAL: VOMITING WHEAT: RASH - ALLERGY BELBUCA: VOMITING - SIDE EFFECTS SURGICAL HISTORY WRIST SURGERY RIGHT.TORN LIGAMENT 2004 BILATERAL SALPINGO SURGERY DUE TO DEFECT 1989 SURGERY LEFT WRIST 2016 RIGHT HIP SURGERY X 3 2015, 04/2016,09/2016 RIGHT FOOT SURGERY- NERVE RELEASE 09/27/15 TOTAL RIGHT HIP 04/05/2016 FALLOPIAN TUBE RECONSTRUCTION 1994 CERVICAL DISCESTOMY WITH HARDWARE 11/06/17 FAMILY HISTORY FATHER: , DIAGNOSED WITH DIABETES, UNSPECIFIED HEART DISEASE MOTHER: , DIABETES, UNSPECIFIED HEART DISEASE SOCIAL HISTORY GENERAL: TOBACCO USE ARE YOU A:FORMER SMOKER HOW LONG HAS IT BEEN SINCE YOU LAST SMOKED?6-12 MONTHS SMOKING CESSATION INFORMATION GIVEN07/05/2018 ADDITIONAL FINDINGS: TOBACCO NON-USERCURRENT NON-SMOKER LANGUAGE LANGUAGES SPOKEN:KITTITIAN DOMESTIC VIOLENCE DO YOU FEEL SAFE IN YOUR ENVIRONMENT?YES RECREATIONAL DRUG USE DRUG USE?NO LEARNING BARRIERS / SPECIAL NEEDS BARRIERS TO LEARNING?NO HEARING IMPAIRED?YES :HEARING AIDES VISION IMPAIRED?YES :CORRECTIVE LENSES COGNITIVELY IMPAIRED?NO READINESS TO LEARN?YES LEARNING PREFERENCES?NO LEARNING CAPABILITIES PRESENT?YES EMOTIONAL BARRIERS?NO SPECIAL DEVICES?YES :CANE, WALKER BAG BUNDLER NEEDED?NO LUNG CANCER SCREENING SMOKING STATUS:FORMER SMOKER PAIN CLINIC PFS, CLERGY, PUBLIC HEALTH REFERRALS PFS REFERRAL NEEDED?NO CLERGY REFERRAL NEEDED?NO PUBLIC HEALTH REFERRAL NEEDED?NO WAS THE PROVIDER NOTIFIED OF ANY PERTINENT INFO? N/A HAS THE PATIENT BEEN EDUCATED REGARDING HIS/HER PLAN OF CARE?YES HAS THE PATIENT BEEN EDUCATED REGARDING PAIN, THE RISK FOR PAIN, THE IMPORTANCE OF EFFECTIVE PAIN MANAGEMENT, AND THE PAIN ASSESSMENT PROCESS?YES LATEX QUESTIONNAIRE LATEX ALLERGY : HAVE YOU EVER DEVELOPED ANY TYPE OF REACTION AFTER HANDLING LATEX PRODUCTS SUCH RUBBER GLOVES, CONDOMS, DIAPHRAGMS, BALLOONS, SOCKS, OR UNDERWEAR?NO LATEX ALLERGY : HAVE YOU EVER DEVELOPED ANY TYPE OF REACTION DURING OR AFTER DENTAL APPOINTMENT, VAGINAL/RECTAL EXAMINATION, SURGICAL PROCEDURE, OR ANY OTHER EXPOSURE?NO LATEX RISK : HAVE YOU EVER HAD ANY DIFFICULTY BREATHING OR HIVES AFTER EATING OR HANDLING ANY FRUITS, OR VEGETABLES; SUCH KIWI, BANANAS, STONE FRUITS, OR CHESTNUTSNO LATEX RISK : DO YOU HAVE A PREVIOUS PERSONAL HISTORY OF MORE THAN NINE SURGERIES, SPINA BIFIDA, OR REPEATED CATHERIZATIONS? YES - PLEASE INDICATE : > 9 SURGERIES LATEX RISK : ARE YOU FREQUENTLY EXPOSED TO LATEX PRODUCTS IN YOUR OCCUPATION?NO DATE ASKED : 04/09/2019 CAFFEINE CAFFEINE USE?NO ADVANCE DIRECTIVE ADVANCE DIRECTIVE DISCUSSED WITH PATIENT:YES 04/09/2019 PT DOES NOT HAVE ANY ADVANCED DIRECRTIVES AND SHE DECLINED INFORMATION ON HCP AT THIS TIME. AD JAIN [id number] NONE NO ANABAPTISM BELIEFS THAT WOULD IMPACT HEALTH CARE. MARITAL STATUS: .. ALCOHOL SCREENING DID YOU HAVE A DRINK CONTAINING ALCOHOL IN THE PAST YEAR?NO POINTS0 INTERPRETATIONNEGATIVE REVIEWED 12/24/17 1106 BV 1150 REVIEWED WITH PT. ADREVIEWED WITH PT 09/24/18 1155 LASREVIEWED WITH PATIENT 12/24/18 1133 JSPRE-SCREENING COMPLETED 02/14/19 1205 JSREVIEWED WITH PATIENT 03/07/2019 1125 JS. HOSPITALIZATION/MAJOR DIAGNOSTIC PROCEDURE SURGERY RELATED REVIEW OF SYSTEMS REVIEWED BY: PROVIDER: . CONSTITUTIONAL: ANY CHANGE IN YOUR MEDICAL CONDITION? NO . CHILLS NO . FEVER NO . INFECTION: DO YOU HAVE NEW INFECTIONS? NO . DO YOU HAVE HISTORY OF MRSA? NO . MUSCULOSKELETAL: ANY NEW PATTERNS OF PAIN OR NUMBNESS? YES, LEFT HAND FEELS LIKE BUGS ARE CRAWLING IN IT, LEFT LEG HAS A "VIBRATION" IN IT. THESE HAVE BEEN OCCURING FOR THE PAST COUPLE OF MONTHS . GASTROENTEROLOGY: ANY NEW CHANGE IN BOWEL CONTROL? NO . GENITOURINARY: ANY NEW CHANGE IN BLADDER CONTROL? NO . IS THERE A CHANCE YOU COULD BE ? NO . HEMATOLOGY/LYMPH: DO YOU TAKE ANY BLOOD THINNERS? (FOR EXAMPLE- COUMADIN, PLAVIX, AGGRENOX, PLATEL, PRADAXA, OR XARELTO) NO . WHEN WAS YOUR LAST DOSE? DATE: TIME: . NEUROLOGY: HAVE YOU FALLEN IN THE PAST 12 MONTHS? YES, STATES SHE FALLS OFTEN. LEGS JUST GIVE OUT ON HER. NO MAJOR INJURY. . ANY NEW EXTREMITY NUMBNESS OR WEAKNESS? YES, NUMBNESS MORE IN LEFT LEG AND OUTER RIGHT THIGH AND KNEE . CARDIOLOGY: DO YOU HAVE A PACEMAKER OR DEFIBRILLATOR? NO . RESPIRATORY: HAVE YOU BEEN SICK IN THE PAST WEEK? NO . FEVER NO . FLU LIKE SYMPTOMS? NO . COUGH NO . INTEGUMENTARY: DO YOU HAVE ANY RASHES OR OPEN SORES? NO . ALLERGIC/IMMUNO: ARE YOU ALLERGIC TO IV DYE? NO . ANY NEW ALLERGIES? NO . PSYCHIATRIC: DO YOU HAVE THOUGHTS OF HURTING YOURSELF OR SOMEONE ELSE? NO . ARE YOU ABUSED, NEGLECTED, OR IN AN UNSAFE ENVIRONMENT? NO . ENDOCRINOLOGY: ARE YOU DIABETIC? NO . OTHER: DO YOU NEED ANY PRESCRIPTIONS? NO . IF YES, PLEASE LIST: ____ . ANY NEW PROBLEMS WITH YOUR MEDICATIONS? NO . WHEN DID YOU LAST EAT? 04/08 1999 . WHEN DID YOU LAST DRINK? 04/08 2299 . WHAT DID YOU LAST DRINK? WATER . NAME OF PERSON DRIVING YOU HOME? LINDA . DO YOU HAVE ANY OTHER QUESTIONS OR CONCERNS NO PT HAS NOT HAD ANY VACCINES IN THE PAST 30 DAYS . VITAL SIGNS WT 162.0 LBS, HT 61 IN, BMI 30.61 INDEX, BP 139/72 MM HG, HR 64 /MIN, RR 18 /MIN, TEMP 97.0 F, OXYGEN SAT % 98%, SAFE IN ENV? (Y/N) Y, NA INITIALS AW 1021, REVIEWED BY: AD. ASSESSMENTS SACROILIITIS, NOT ELSEWHERE CLASSIFIED - M46.1 (PRIMARY) PROCEDURES PN SI PRE PROCEDURE DIAGNOSIS SACROILIITIS, SACROILIAC JOINT DYSFUNCTION POST PROCEDURE DIAGNOSIS SACROILIITIS, SACROILIAC JOINT DYSFUNCTION PROCEDURE BILATERAL SACROILIAC JOINT BLOCK SURGEON DR. DAYLIN MINER CODING COMPLIANCE AUDITOR NONE ANESTHESIA LOCAL PRE PROCEDURE NOTE PATIENT WITH HISTORY OF CHRONIC LOW BACK PAIN. I EVALUATED THE PATIENT AND REVIEWED THE CHART. I WENT OVER THE RISKS, ALTERNATIVES, AND BENEFITS ASSOCIATED WITH THIS PROCEDURE. THE PATIENT WOULD LIKE TO PROCEED AND GAVE CONSENT TO PERFORM THE PROCEDURE. THE PATIENT DENIES UNEXPLAINABLE WEIGHT LOSS, FEVER, CHILLS, OR NEW CHANGES IN URINARY OR BOWEL CONTROL DESCRIPTION OF PROCEDURE THE PATIENT WAS BROUGHT TO THE PROCEDURE ROOM AND PLACED IN THE PRONE POSITION. THE LUMBOSACRAL AREA WAS CLEANED WITH CHLORAPREP SOLUTION AND DRAPED ASEPTICALLY. THE PROCEDURE WAS DONE UNDER STERILE CONDITIONS. I CHECKED LATERALITY AND THE LEVEL WHERE THE PROCEDURE WAS GOING TO BE PERFORMED WITH THE PATIENT AND THE SUPPORTING STAFF AT THE MOMENT OF THE TIME OUT IN THE PROCEDURE ROOM. UNDER FLUOROSCOPIC GUIDANCE, TARGET POINT WAS SELECTED AT THE LOWER BORDER OF THE RIGHT AND LEFT SACROILIAC JOINT. TARGET POINT WAS SELECTED AFTER MEDIAL ROTATION AND TILT OF THE MAGNIFIER OF THE C-ARM. LIDOCAINE WAS USED TO NUMB THE SKIN AND SUBCUTANEOUS TISSUE BELOW IT. A SPINAL NEEDLE, 22-GAUGE, WAS ADVANCED UNDER FLUOROSCOPIC GUIDANCE AND FOLLOWING PATIENT FEEDBACK UNTIL THE TARGET AREA WAS TOUCHED. THE POSITION OF THE NEEDLE WAS VERIFIED WITH AP AND LATERAL VIEWS. AFTER PROPER POSITION OF THE NEEDLE WAS ACHIEVED, ISOVUE M DYE 30%, 0.25 ML, WAS INJECTED SHOWING SPREAD OF THE DYE. THEN, A SOLUTION OF 30 MG OF KENALOG WAS INJECTED IN RIGHT AND LEFT JOINT WITH 3 ML OF BUPIVACAINE 0.125%. THERE WAS NO EVIDENCE OF BLOOD, PARESTHESIA OR CEREBROSPINAL FLUID DURING THE PROCEDURE. THE PATIENT WAS SENT TO THE RECOVERY ROOM. THE PATIENT WAS MOVING THE EXTREMITIES AND DOING WELL. THERE WAS NO COMPLICATION DURING THE PROCEDURE. FLUOROSCOPY TIME WAS 31 SECONDS POST PROCEDURE NOTE THE PATIENT WILL BE SEEN IN A FOLLOW UP IN THE NEXT FEW WEEKS. I AM LOOKING FOR LONG LASTING PAIN RELIEF WITH THIS INJECTION. DEPENDING ON THE RESULTS, I MAY CONSIDER PERFORMING A BILATERAL THERAPEUTIC FACET BLOCK IN THE FUTURE FOR THE PATIENT. INSTRUCTIONS WERE GIVEN, QUESTIONS WERE ANSWERED, AND THE PATIENT EXPRESSED UNDERSTANDING AND AGREED WITH THE PLAN. I, AARON HOLLIS, DOCUMENTED THE ABOVE INFORMATION ACTING A SCRIBE FOR DR. MINER. I HAVE REVIEWED THE ABOVE DOCUMENT, WRITTEN BY AARON HOLLIS SCRIBE AND I VERIFY THAT IT IS ACCURATE. DIAGNOSTIC IMAG[facility] FLUORO GUIDANCE (PAIN)[id number] PROCEDURE CODES 95105 INJECT SACROILIAC JOINT, MODIFIERS: 50 [id number] RADXPS IN END [id number] PXD DISPOSITION & COMMUNICATION FOLLOW UP 3 WEEKS ELECTRONICALLY SIGNED BY DAYLIN MINER MD, MD ON 04/17/2019 AT 01:46 PM EST DISCLAIMER : THIS IS A VISIT SUMMARY EXTRACTED FROM THE [employer] CHART. IT IS NOT A COPY OF THE [employer] PROGRESS NOTE. MTDD
== END ==
LOC: M PAIN 10:00
PROVIDERS: ATTEND Anesthesiology
DX: M46.1 Sacroiliitis, not elsewhere classified (principal); K21.9 Gastro-esophageal reflux disease without esophagitis; Z96.641 Presence of right artificial hip joint; Z87.891 Personal history of nicotine dependence; Z88.5 Allergy status to narcotic agent; Z88.6 Allergy status to analgesic agent; Z88.8 Allergy status to other drugs, medicaments and biological substances; Z91.018 Allergy to other foods; Z91.09 Other allergy status, other than to drugs and biological substances; Z79.891 Long term (current) use of opiate analgesic; Z79.899 Other long term (current) drug therapy
CPT/HCPCS: G0260; J3301; Q9967

== ENCOUNTER → 2019-05-07 | Outpatient (CLI) | payer MEDICARE, MEDICAID ==
[~2019-05-07] MED LIST changes: -BUPIVACAINE HCL 0.25% 30 ML VIAL As Ordered ONE; -ISOVUE-M 300 61% 15ML VIAL (Q9967) As Ordered ONE; -LIDOCAINE 1% SDV INJ 30 ML VIAL As Ordered ONE; -TRIAMCINOLONE ACETONIDE SUSP 40 MG/ML VIAL (J3301) As Ordered ONE
--- NOTE | 2019-05-08 04:03 | ECWPNPC ---
PATIENT NAME: NNAMDI ANAND : 1965 GENDER: FEMALE VISIT DATE: 05/07/2019 DISCHARGE DATE: 05/07/19 1052 VISIT LOCKED DATE TIME: PHYSICIAN: NINA ESQUIVEL RESOURCE: NINA ESQUIVEL REASON FOR APPOINTMENT 1. POST SIJ HISTORY OF PRESENT ILLNESS HISTORY OF PRESENT ILLNESS: HERE FOR POST PROCEDURE F/U.HAD BILATERAL SIJ ON 02/21/19.SHE IS PLEASED WITH RESULTS WITH LESS INTENSE PAIN SINCE PROCEDURE.CHIEF AREA OF PAIN IS LOW BACK R>L.THIS IS AGGREVATED WITH WALKING. STATES SHE IS TRYING TO BE MORE ACTIVE. IS ACTIVELY LOSING WEIGHT. RATING PAIN LEVEL A 6/10 VAS. FINDS CURRENT CHRONIC PAIN MEDICATION HELPFUL AT REDUCING PAIN AND KEEPING HER FUNCTIONAL. DENIES SIDE EFFECTS. REVIEWED MRI AND DISCUSSED TREATMENT PLAN. PAIN THE PATIENT DESCRIBES THE PAIN... FALL RISK SCREENING: SCREENING :NO FALLS REPORTED IN THE LAST YEAR CURRENT MEDICATIONS TAKING ZOFRAN 4 MG TABLET 3 TABLETS ORALLY PRE MEDICATION TAKING ROPINIROLE HCL 1 MG TABLET ORALLY AT BEDTIME TAKING SUMATRIPTAN SUCCINATE 100 MG TABLET 1 TABLET NEEDED ONE TIME ORALLY DIRECTED TAKING DEXILANT 60 MG CAPSULE DELAYED RELEASE 1 CAPSULE ORALLY ONCE A DAY TAKING RALOXIFENE HCL 60 MG TABLET 1 TABLET ORALLY ONCE A DAY TAKING SIMVASTATIN 40 MG TABLET 1 TABLET IN THE EVENING ORALLY IN EVENING TAKING DIVALPROEX SODIUM 250 MG TABLET DELAYED RELEASE 1 TABLET ORALLY TWICE A DAY TAKING LINZESS 290 MCG CAPSULE 1 CAPSULE ORALLY ONCE A DAY TAKING VITAMIN D (ERGOCALCIFEROL) 1.25 MG (56276 UT) CAPSULE 1 CAPSULE ORALLY WEEKLY TAKING LYRICA 100 MG CAPSULE 1 CAPSULE ORALLY ONCE A DAY AT BEDTIME TAKING TIZANIDINE HCL 4 MG TABLET 1 TABLET NEEDED ORALLY THREE TIMES A DAY TAKING LYRICA 200 MG CAPSULE 1 CAPSULE ORALLY BID MDD2 TAKING OXYCODONE HCL 5 MG TABLET 2 ORALLY Q8H PRN MDD6 NOT-TAKING TOPIRAMATE 100 MG TABLET 1 TABLET ORALLY TWICE A DAY MEDICATION LIST REVIEWED AND RECONCILED WITH THE PATIENT PAST MEDICAL HISTORY ACID REFLUX IBS PINCHED NERVES IN BACK SCOLIOSIS ARTHRITIS DDD ENDOMETRIOSIS CONGENITAL RIGHT HIP ABNORMALITY GASTROPARYSIS 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 PAIN LOW BACK PAIN HEART MURMUR ALLERGIES NAPROXEN SODIUM: TONGUE SWELLS/FACE SWELLING - ALLERGY ASPIRIN: SORES IN MOUTH - ALLERGY ADHESIVE TAPE/BANDAIDS: BLISTERS - ALLERGY TEGADERM: SKIN BECOMES RAW, REDNESS, HEAT - ALLERGY PEPTO BISMAL: VOMITING WHEAT: RASH - ALLERGY BELBUCA: VOMITING - SIDE EFFECTS SURGICAL HISTORY WRIST SURGERY RIGHT.TORN LIGAMENT 2004 BILATERAL SALPINGO SURGERY DUE TO DEFECT 1989 SURGERY LEFT WRIST 2016 RIGHT HIP SURGERY X 3 2015, 04/2016,09/2016 RIGHT FOOT SURGERY- NERVE RELEASE 09/27/15 TOTAL RIGHT HIP 04/05/2016 FALLOPIAN TUBE RECONSTRUCTION 1994 CERVICAL DISCESTOMY WITH HARDWARE 11/06/17 COLONOSCOPY & EGD 04/2019 FAMILY HISTORY FATHER: , DIAGNOSED WITH UNSPECIFIED HEART DISEASE, DIABETES MOTHER: , DIABETES, UNSPECIFIED HEART DISEASE SOCIAL HISTORY GENERAL: TOBACCO USE ARE YOU A:FORMER SMOKER HOW LONG HAS IT BEEN SINCE YOU LAST SMOKED?6-12 MONTHS SMOKING CESSATION INFORMATION GIVEN07/05/2018 ADDITIONAL FINDINGS: TOBACCO NON-USERCURRENT NON-SMOKER LANGUAGE LANGUAGES SPOKEN:YI DOMESTIC VIOLENCE DO YOU FEEL SAFE IN YOUR ENVIRONMENT?YES RECREATIONAL DRUG USE DRUG USE?NO LEARNING BARRIERS / SPECIAL NEEDS BARRIERS TO LEARNING?NO HEARING IMPAIRED?YES VISION IMPAIRED?YES COGNITIVELY IMPAIRED?NO :HEARING AIDES :CORRECTIVE LENSES READINESS TO LEARN?YES LEARNING PREFERENCES?NO LEARNING CAPABILITIES PRESENT?YES EMOTIONAL BARRIERS?NO SPECIAL DEVICES?YES :CANE, WALKER PERSONAL FINANCIAL COUNSELOR NEEDED?NO LUNG CANCER SCREENING SMOKING STATUS:FORMER SMOKER PAIN CLINIC PFS, CLERGY, PUBLIC HEALTH REFERRALS PFS REFERRAL NEEDED?NO CLERGY REFERRAL NEEDED?NO PUBLIC HEALTH REFERRAL NEEDED?NO WAS THE PROVIDER NOTIFIED OF ANY PERTINENT INFO? N/A HAS THE PATIENT BEEN EDUCATED REGARDING HIS/HER PLAN OF CARE?YES HAS THE PATIENT BEEN EDUCATED REGARDING PAIN, THE RISK FOR PAIN, THE IMPORTANCE OF EFFECTIVE PAIN MANAGEMENT, AND THE PAIN ASSESSMENT PROCESS?YES LATEX QUESTIONNAIRE LATEX ALLERGY : HAVE YOU EVER DEVELOPED ANY TYPE OF REACTION AFTER HANDLING LATEX PRODUCTS SUCH RUBBER GLOVES, CONDOMS, DIAPHRAGMS, BALLOONS, SOCKS, OR UNDERWEAR?NO LATEX ALLERGY : HAVE YOU EVER DEVELOPED ANY TYPE OF REACTION DURING OR AFTER DENTAL APPOINTMENT, VAGINAL/RECTAL EXAMINATION, SURGICAL PROCEDURE, OR ANY OTHER EXPOSURE?NO LATEX RISK : HAVE YOU EVER HAD ANY DIFFICULTY BREATHING OR HIVES AFTER EATING OR HANDLING ANY FRUITS, OR VEGETABLES; SUCH KIWI, BANANAS, STONE FRUITS, OR CHESTNUTSNO LATEX RISK : DO YOU HAVE A PREVIOUS PERSONAL HISTORY OF MORE THAN NINE SURGERIES, SPINA BIFIDA, OR REPEATED CATHERIZATIONS? YES - PLEASE INDICATE : > 9 SURGERIES LATEX RISK : ARE YOU FREQUENTLY EXPOSED TO LATEX PRODUCTS IN YOUR OCCUPATION?NO DATE ASKED : 04/09/2019 CAFFEINE CAFFEINE USE?NO ADVANCE DIRECTIVE ADVANCE DIRECTIVE DISCUSSED WITH PATIENT:YES 04/09/2019 PT DOES NOT HAVE ANY ADVANCED DIRECRTIVES AND SHE DECLINED INFORMATION ON HCP AT THIS TIME. AD ANGLICAN [id number] NONE NO CHURCH BELIEFS THAT WOULD IMPACT HEALTH CARE. MARITAL STATUS: .. ALCOHOL SCREENING DID YOU HAVE A DRINK CONTAINING ALCOHOL IN THE PAST YEAR?NO POINTS0 INTERPRETATIONNEGATIVE HOSPITALIZATION/MAJOR DIAGNOSTIC PROCEDURE SURGERY RELATED REVIEW OF SYSTEMS REVIEWED BY: PROVIDER: NINA BANEGAS . CONSTITUTIONAL: ANY CHANGE IN YOUR MEDICAL CONDITION? NO . CHILLS NO . FEVER NO . INFECTION: DO YOU HAVE NEW INFECTIONS? NO . DO YOU HAVE HISTORY OF MRSA? NO . MUSCULOSKELETAL: ANY NEW PATTERNS OF PAIN OR NUMBNESS? NO . GASTROENTEROLOGY: ANY NEW CHANGE IN BOWEL CONTROL? NO . GENITOURINARY: ANY NEW CHANGE IN BLADDER CONTROL? NO . IS THERE A CHANCE YOU COULD BE ? NO . HEMATOLOGY/LYMPH: DO YOU TAKE ANY BLOOD THINNERS? (FOR EXAMPLE- COUMADIN, PLAVIX, AGGRENOX, PLATEL, PRADAXA, OR XARELTO) NO . WHEN WAS YOUR LAST DOSE? DATE: TIME: . NEUROLOGY: HAVE YOU FALLEN IN THE PAST 12 MONTHS? YES, STATES FALL 3 DAYS AGO, KNEES BUCKLED. STATES SHE DID NOT HIT HER HEAD, NO MAJOR INJURIES, NO ED VISIT . ANY NEW EXTREMITY NUMBNESS OR WEAKNESS? NO . CARDIOLOGY: DO YOU HAVE A PACEMAKER OR DEFIBRILLATOR? NO . RESPIRATORY: HAVE YOU BEEN SICK IN THE PAST WEEK? NO . FEVER NO . FLU LIKE SYMPTOMS? NO . COUGH NO . INTEGUMENTARY: DO YOU HAVE ANY RASHES OR OPEN SORES? NO . ALLERGIC/IMMUNO: ARE YOU ALLERGIC TO IV DYE? NO . ANY NEW ALLERGIES? NO . PSYCHIATRIC: DO YOU HAVE THOUGHTS OF HURTING YOURSELF OR SOMEONE ELSE? NO . ARE YOU ABUSED, NEGLECTED, OR IN AN UNSAFE ENVIRONMENT? NO . ENDOCRINOLOGY: ARE YOU DIABETIC? NO . OTHER: DO YOU NEED ANY PRESCRIPTIONS? YES . IF YES, PLEASE LIST: ____OXYCODONE . ANY NEW PROBLEMS WITH YOUR MEDICATIONS? NO . WHEN DID YOU LAST EAT? ____ . WHEN DID YOU LAST DRINK? ____ . WHAT DID YOU LAST DRINK? ____ . NAME OF PERSON DRIVING YOU HOME? ____ . DO YOU HAVE ANY OTHER QUESTIONS OR CONCERNS NO . VITAL SIGNS WT 162.0 LBS, HT 61 IN, BMI 30.61 INDEX, BP 116/58 MM HG, HR 62 /MIN, RR 18 /MIN, TEMP 97.8 F, OXYGEN SAT % 92%, SAFE IN ENV? (Y/N) YES, NA INITIALS AW 1017, REVIEWED BY: ILAN. EXAMINATION GENERAL EXAMINATION: GENERAL AWAKE,ALERT ,PLEAASANT . PSYCH AFFECT NORMAL . LUNGS: LUNG BETH ARE CLEAR TO AUSCULTATION BILATERALLY. GOOD MOVEMENT OF AIR . HEART: S1, S2 IN A REGULAR RATE AND RHYTHM. NO SIGNIFICANT MURMURS, RUBS OR GALLOPS NOTED . LUMBAR: PALPATION: + FOR PAIN OVER L/S SPINE. + FOR PAIN OVER L/S PARASPINALS .SPECIFIC POINT TENDERNESS OVER BILAT L4/5-L5/S1 LUMBAR FACETS WITH FACET LOADING. NEUROLOGIC EXAM: NORMAL SENSATION LIGHT TOUCH BILAT. LOWER EXTREMITIES . DIAGNOSTIC TESTS REVIEWED MRI L/S SPINE-2019. ASSESSMENTS SPONDYLOSIS OF LUMBAR REGION WITHOUT MYELOPATHY OR RADICULOPATHY - M47.816 (PRIMARY) TREATMENT SPONDYLOSIS OF LUMBAR REGION WITHOUT MYELOPATHY OR RADICULOPATHY CONTINUE LYRICA CAPSULE, 100 MG, 1 CAPSULE, ORALLY, ONCE A DAY AT BEDTIME CONTINUE LYRICA CAPSULE, 200 MG, 1 CAPSULE, ORALLY, BID MDD2 CONTINUE TIZANIDINE HCL TABLET, 4 MG, 1 TABLET NEEDED, ORALLY, THREE TIMES A DAY REFILL OXYCODONE HCL TABLET, 5 MG, 2, ORALLY, Q8H PRN MDD6, 30 DAY(S), 180, REFILLS 0 NOTES: BILAT L4/5-L5/S1 LFBT, ISTOP REGISTRY REVIEWED AND DEMONSTRATES COMPLLIANCE. BRINGS IN MEDICATIONS WHICH IS APPROPRIATE FOR WHAT WAS DISPENSED. RECENT URINE TOXICOLOGY REVIEWED. NO UNAUTHORIZED MEDICATIONS. NO ILLICIT SUBSTANCES AND PRESCRIBED MEDICATIONS WERE PRESENT. , RISKS OF NARCOTIC/OPIOD MEDICATIONS INCLUDES BUT IS NOT LIMITED TO RISK OF DEPENDANCE/DEVELOPMENT OF ADDICTION, MOOD DISTURBANCE AND DEPRESSION, OSTEOPOROSIS, HORMONAL AND LABIDAL CHANGES, RESPIRATORY DEPRESSION AND . PATIENT IS ADVISED NOT TO DRIVE OR DRINK ALCOHOL WHILE ON THESE MEDICATIONS. OTHERS NOTES: FACET JOINT INJECTION MATERIAL WAS PRINTED. PREVENTIVE MEDICINE PAIN CLINIC TEACHING: PROCEDURE TEACHING PRINTED AND REVIEWED INFORMATION ON FACET JOINT INJECTION PROCEDURE WITH PATIENT. ALSO REVIEWED PRE-PROCEDURE INSTRUCTIONS. PATIENT VERBALIZED AN UNDERSTANDING. ROSAURA YU 05/07/2019 12:52:53 PM > . PROCEDURE CODES FA211 ESTABILISHED PATIENT [facility] FACILITY CHARGE DISPOSITION & COMMUNICATION FOLLOW UP POST (REASON: BILAT L4/5-L5/S1 LFBT) ELECTRONICALLY SIGNED BY BASSAM DOMINGUEZ ON 05/07/2019 AT 03:46 PM EST DISCLAIMER : THIS IS A VISIT SUMMARY EXTRACTED FROM THE [employer] CHART. IT IS NOT A COPY OF THE [employer] PROGRESS NOTE. KELLYD
== END ==
LOC: M PAIN 10:00
PROVIDERS: ATTEND Nurse Practitioner Family
DX: M47.816 Spondylosis without myelopathy or radiculopathy, lumbar region (principal); K21.9 Gastro-esophageal reflux disease without esophagitis; Z96.641 Presence of right artificial hip joint; Z87.891 Personal history of nicotine dependence; Z88.5 Allergy status to narcotic agent; Z88.6 Allergy status to analgesic agent; Z88.8 Allergy status to other drugs, medicaments and biological substances; Z91.018 Allergy to other foods; Z91.09 Other allergy status, other than to drugs and biological substances; Z79.891 Long term (current) use of opiate analgesic; Z79.899 Other long term (current) drug therapy

== ENCOUNTER → 2019-06-05 | Outpatient (CLI) | payer MEDICARE, MEDICAID ==
[~2019-06-05] MED LIST changes: +BUPIVACAINE HCL 0.25% 30ML VIAL As Ordered ONE; +EQ A1CRE3 TD; +ISOVUE-M 300 61% 15ML VIAL (Q9967) As Ordered ONE; +LIDOCAINE 1% SDV 30ML VIAL As Ordered ONE; +OXYC-1 PO; -OXYC15TA76 PO; -TERB1CRE12 TD; +TRIAMCINOLONE ACETONIDE SUSP 40 MG/ML VIAL (J3301) As Ordered ONE
--- NOTE | 2019-06-05 12:09 | REP ---
Partial lumbar spine series: Two views . History: Injection procedure for pain. 47 seconds of fluoroscopy time is reported. Findings: A sequence of two fluoroscopically obtained last image hold procedural spot radiographs of the lumbar spine document needle position and contrast injection associated with injection procedure. Electronically Signed by Chris Win MD 06/05/2019 12:00 P
--- NOTE | 2019-06-21 01:52 | ECWPNPC ---
PATIENT NAME: NNAMDI ANAND : 1965 GENDER: FEMALE VISIT DATE: 06/05/2019 DISCHARGE DATE: 06/05/19 1159 VISIT LOCKED DATE TIME: PHYSICIAN: DAYLIN MINER MD RESOURCE: DAYLIN MINER MD REASON FOR APPOINTMENT 1. BILAT L3-L4, L4-L5 LFBT HISTORY OF PRESENT ILLNESS HISTORY OF PRESENT ILLNESS: PAIN THE PATIENT DESCRIBES THE PAIN... FALL RISK SCREENING: SCREENING :NO FALLS REPORTED IN THE LAST YEAR CURRENT MEDICATIONS TAKING ZOFRAN 4 MG TABLET 3 TABLETS ORALLY PRE MEDICATION, NOTES: 19906/04/19 TAKING ROPINIROLE HCL 1 MG TABLET ORALLY AT BEDTIME, NOTES: 199906/04/19 TAKING SUMATRIPTAN SUCCINATE 100 MG TABLET 1 TABLET NEEDED ONE TIME ORALLY DIRECTED, NOTES: 149906/04/19 TAKING DEXILANT 60 MG CAPSULE DELAYED RELEASE 1 CAPSULE ORALLY ONCE A DAY, NOTES: 79906/04/19 TAKING RALOXIFENE HCL 60 MG TABLET 1 TABLET ORALLY ONCE A DAY, NOTES: 79906/04/19 TAKING SIMVASTATIN 40 MG TABLET 1 TABLET IN THE EVENING ORALLY IN EVENING, NOTES: 199906/04/19 TAKING DIVALPROEX SODIUM 250 MG TABLET DELAYED RELEASE 1 TABLET ORALLY TWICE A DAY, NOTES: 199906/04/19 TAKING LINZESS 290 MCG CAPSULE 1 CAPSULE ORALLY ONCE A DAY, NOTES: 06/03/19 TAKING VITAMIN D (ERGOCALCIFEROL) 1.25 MG (37512 UT) CAPSULE 1 CAPSULE ORALLY WEEKLY, NOTES: 06/01/19 TAKING LYRICA 100 MG CAPSULE 1 CAPSULE ORALLY ONCE A DAY AT BEDTIME, NOTES: 199906/04/19 TAKING LYRICA 200 MG CAPSULE 1 CAPSULE ORALLY BID MDD2, NOTES: 119906/04/19 TAKING TIZANIDINE HCL 4 MG TABLET 1 TABLET NEEDED ORALLY THREE TIMES A DAY, NOTES: 199906/04/19 TAKING OXYCODONE HCL 5 MG TABLET 2 ORALLY Q8H PRN MDD6, NOTES: 19906/04/19 NOT-TAKING TOPIRAMATE 100 MG TABLET 1 TABLET ORALLY TWICE A DAY MEDICATION LIST REVIEWED AND RECONCILED WITH THE PATIENT PAST MEDICAL HISTORY ACID REFLUX IBS PINCHED NERVES IN BACK SCOLIOSIS ARTHRITIS DDD ENDOMETRIOSIS CONGENITAL RIGHT HIP ABNORMALITY GASTROPARESIS 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 PAIN LOW BACK PAIN HEART MURMUR DUE TO DEFECT COLON POLYPS ALLERGIES NAPROXEN SODIUM: TONGUE SWELLS/FACE SWELLING - ALLERGY ASPIRIN: SORES IN MOUTH - ALLERGY ADHESIVE TAPE/BANDAIDS: BLISTERS - ALLERGY TEGADERM: SKIN BECOMES RAW, REDNESS, HEAT - ALLERGY PEPTO BISMOL: VOMITING WHEAT: RASH - ALLERGY BELBUCA: VOMITING - SIDE EFFECTS BOTOX: LIPS PEELING - SIDE EFFECTS SURGICAL HISTORY WRIST SURGERY RIGHT.TORN LIGAMENT 2004 BILATERAL SALPINGO SURGERY DUE TO DEFECT 1989 SURGERY LEFT WRIST 2016 RIGHT HIP SURGERY X 3 2015, 04/2016,09/2016 RIGHT FOOT SURGERY- NERVE RELEASE 09/27/15 TOTAL RIGHT HIP 04/05/2016 FALLOPIAN TUBE RECONSTRUCTION 1994 CERVICAL DISCESTOMY WITH HARDWARE 11/06/17 COLONOSCOPY & EGD 04/2019 FAMILY HISTORY FATHER: , DIAGNOSED WITH DIABETES, UNSPECIFIED HEART DISEASE MOTHER: , DIABETES, UNSPECIFIED HEART DISEASE SOCIAL HISTORY GENERAL: TOBACCO USE ARE YOU A:FORMER SMOKER HOW LONG HAS IT BEEN SINCE YOU LAST SMOKED?6-12 MONTHS ADDITIONAL FINDINGS: TOBACCO NON-USERCURRENT NON-SMOKER SMOKING CESSATION INFORMATION GIVEN07/05/2018 LANGUAGE LANGUAGES SPOKEN:SWISS DOMESTIC VIOLENCE DO YOU FEEL SAFE IN YOUR ENVIRONMENT?YES NEW PATIENT PAIN DIARY PATIENT DESCRIBES PAIN :HAVE IT ALL THE TIME, TENDER, SORE, SHOOTING FROM 0-10, WHAT LEVEL IS YOUR PAIN TODAY?9 RECREATIONAL DRUG USE DRUG USE?NO LEARNING BARRIERS / SPECIAL NEEDS BARRIERS TO LEARNING?NO HEARING IMPAIRED?YES VISION IMPAIRED?YES COGNITIVELY IMPAIRED?NO :HEARING AIDES :CORRECTIVE LENSES READINESS TO LEARN?YES LEARNING PREFERENCES?NO LEARNING CAPABILITIES PRESENT?YES EMOTIONAL BARRIERS?NO SPECIAL DEVICES?YES :CANGEOFF Contreras PEN TESTER NEEDED?NO LUNG CANCER SCREENING SMOKING STATUS:FORMER SMOKER PAIN CLINIC PFS, CLERGY, PUBLIC HEALTH REFERRALS PFS REFERRAL NEEDED?NO CLERGY REFERRAL NEEDED?NO PUBLIC HEALTH REFERRAL NEEDED?NO WAS THE PROVIDER NOTIFIED OF ANY PERTINENT INFO? N/A HAS THE PATIENT BEEN EDUCATED REGARDING HIS/HER PLAN OF CARE?YES HAS THE PATIENT BEEN EDUCATED REGARDING PAIN, THE RISK FOR PAIN, THE IMPORTANCE OF EFFECTIVE PAIN MANAGEMENT, AND THE PAIN ASSESSMENT PROCESS?YES LATEX QUESTIONNAIRE LATEX ALLERGY : HAVE YOU EVER DEVELOPED ANY TYPE OF REACTION AFTER HANDLING LATEX PRODUCTS SUCH RUBBER GLOVES, CONDOMS, DIAPHRAGMS, BALLOONS, SOCKS, OR UNDERWEAR?NO LATEX ALLERGY : HAVE YOU EVER DEVELOPED ANY TYPE OF REACTION DURING OR AFTER DENTAL APPOINTMENT, VAGINAL/RECTAL EXAMINATION, SURGICAL PROCEDURE, OR ANY OTHER EXPOSURE?NO DATE ASKED : 04/09/2019 LATEX RISK : HAVE YOU EVER HAD ANY DIFFICULTY BREATHING OR HIVES AFTER EATING OR HANDLING ANY FRUITS, OR VEGETABLES; SUCH KIWI, BANANAS, STONE FRUITS, OR CHESTNUTSNO LATEX RISK : DO YOU HAVE A PREVIOUS PERSONAL HISTORY OF MORE THAN NINE SURGERIES, SPINA BIFIDA, OR REPEATED CATHERIZATIONS? YES - PLEASE INDICATE : > 9 SURGERIES LATEX RISK : ARE YOU FREQUENTLY EXPOSED TO LATEX PRODUCTS IN YOUR OCCUPATION?NO CAFFEINE CAFFEINE USE?NO ADVANCE DIRECTIVE ADVANCE DIRECTIVE DISCUSSED WITH PATIENT:YES 04/09/2019 PT DOES NOT HAVE ANY ADVANCED DIRECRTIVES AND SHE DECLINED INFORMATION ON HCP AT THIS TIME. AD ORIENTAL ORTHODOX [id number] NONE NO HINDU BELIEFS THAT WOULD IMPACT HEALTH CARE. MARITAL STATUS: .. ALCOHOL SCREENING DID YOU HAVE A DRINK CONTAINING ALCOHOL IN THE PAST YEAR?NO POINTS0 INTERPRETATIONNEGATIVE HOSPITALIZATION/MAJOR DIAGNOSTIC PROCEDURE SURGERY RELATED REVIEW OF SYSTEMS REVIEWED BY: PROVIDER: . CONSTITUTIONAL: ANY CHANGE IN YOUR MEDICAL CONDITION? NO . CHILLS NO . FEVER NO . INFECTION: DO YOU HAVE NEW INFECTIONS? NO . DO YOU HAVE HISTORY OF MRSA? NO . MUSCULOSKELETAL: ANY NEW PATTERNS OF PAIN OR NUMBNESS? NO . GASTROENTEROLOGY: ANY NEW CHANGE IN BOWEL CONTROL? NO . GENITOURINARY: ANY NEW CHANGE IN BLADDER CONTROL? NO . IS THERE A CHANCE YOU COULD BE ? NO . HEMATOLOGY/LYMPH: DO YOU TAKE ANY BLOOD THINNERS? (FOR EXAMPLE- COUMADIN, PLAVIX, AGGRENOX, PLATEL, PRADAXA, OR XARELTO) NO . WHEN WAS YOUR LAST DOSE? DATE: TIME: . NEUROLOGY: HAVE YOU FALLEN IN THE PAST 12 MONTHS? YES . ANY NEW EXTREMITY NUMBNESS OR WEAKNESS? YES - RIGHT ARM NUMBNESS AND WEAKNESS . CARDIOLOGY: DO YOU HAVE A PACEMAKER OR DEFIBRILLATOR? NO . RESPIRATORY: HAVE YOU BEEN SICK IN THE PAST WEEK? NO . FEVER NO . FLU LIKE SYMPTOMS? NO . COUGH NO . INTEGUMENTARY: DO YOU HAVE ANY RASHES OR OPEN SORES? NO . ALLERGIC/IMMUNO: ARE YOU ALLERGIC TO IV DYE? NO . ANY NEW ALLERGIES? NO . PSYCHIATRIC: DO YOU HAVE THOUGHTS OF HURTING YOURSELF OR SOMEONE ELSE? NO . ARE YOU ABUSED, NEGLECTED, OR IN AN UNSAFE ENVIRONMENT? NO . ENDOCRINOLOGY: ARE YOU DIABETIC? NO . OTHER: DO YOU NEED ANY PRESCRIPTIONS? NO . IF YES, PLEASE LIST: ____ . ANY NEW PROBLEMS WITH YOUR MEDICATIONS? NO . WHEN DID YOU LAST EAT? 1700 06/04/19 . WHEN DID YOU LAST DRINK? 06/05/19 0200 . WHAT DID YOU LAST DRINK? WATER . NAME OF PERSON DRIVING YOU HOME? NINIALL MCKEON . DO YOU HAVE ANY OTHER QUESTIONS OR CONCERNS NO . VITAL SIGNS WT 152.4 LBS, HT 61 IN, BMI 28.79 INDEX, BP 132/70 MM HG, HR 72 /MIN, RR 18 /MIN, TEMP 97.6 F, OXYGEN SAT % 100%, NA INITIALS AW 0936, REVIEWED BY: SIVA. ASSESSMENTS SPONDYLOSIS OF LUMBAR REGION WITHOUT MYELOPATHY OR RADICULOPATHY - M47.816 (PRIMARY) TREATMENT SPONDYLOSIS OF LUMBAR REGION WITHOUT MYELOPATHY OR RADICULOPATHY START CARISOPRODOL TABLET, 350 MG, 1 TABLET NEEDED, ORALLY, EVERY 8 HOURS NEEDED FOR SPASMS AND PAIN MDD3, 5 DAY(S), 12, REFILLS 0 SMC FACET BLOCK (PAIN)[id number] CLINICAL NOTES: ISTOP NUMBER [id number] REVIEWED. I AM PRESCRIBING THIS MEDICATION FOR POST PROCEDURE PAIN. THE PATIENT WAS VERY UNCOMFORTABLE. . PROCEDURES PN LUMBAR FACET BLOCK THERAPEUTIC PRE PROCEDURE DIAGNOSIS LUMBAR SPONDYLOSIS POST PROCEDURE DIAGNOSIS LUMBAR SPONDYLOSIS PROCEDURE BILATERAL LUMBAR FACET THERAPEUTIC BLOCK L3 - L4 AND BILATERAL LUMBAR FACET THERAPEUTIC BLOCK L4 - L5 SURGEON DR. DAYLIN MINER SHELTER ADVOCATE NONE ANESTHESIA LOCAL PRE PROCEDURE NOTE THE PATIENT HAS A HISTORY OF CHRONIC LOW BACK PAIN. I EVALUATED THE PATIENT AND REVIEWED THE CHART. I WENT OVER THE RISKS, ALTERNATIVES, AND BENEFITS ASSOCIATED WITH THIS PROCEDURE. I DISCUSSED WITH THE PATIENT THAT THE USE OF STEROIDS MAY CONTRIBUTE TO IMMUNOSUPPRESSION OF HIS BODY AGAINST INFECTIONS SUCH THE NEVES VIRUS, COVID-19.SHE IS AWARE OF THE POTENTIAL COMPLICATIONS ASSOCIATED WITH AN INFECTION OF THIS VIRUS INCLUDING . I ALSO DISCUSSED WITH THE PATIENT THE URGENCY OF THIS PROCEDURE. THE PATIENT EXPRESSED THAT SHE CANNOT FUNCTION WITH THE PRESENT PAIN. THE PATIENT UNDERSTANDS THAT I CANNOT GUARANTEE OUTCOMES WITH THIS PROCEDURE. THE PATIENT GIVES CONSENT TO PERFORM THE PROCEDURE. THE PATIENT DENIES UNEXPLAINABLE WEIGHT LOSS, FEVER, CHILLS, OR NEW CHANGES IN URINARY OR BOWEL CONTROL DESCRIPTION OF PROCEDURE THE PATIENT WAS BROUGHT TO THE PROCEDURE ROOM AND PLACED IN THE PRONE POSITION. THE LUMBOSACRAL AREA WAS CLEANED WITH CHLORAPREP SOLUTION AND DRAPED ASEPTICALLY. THE PROCEDURE WAS DONE UNDER STERILE CONDITIONS. I CHECKED LATERALITY AND THE LEVEL WHERE THE PROCEDURE WAS GOING TO BE PERFORMED WITH THE PATIENT AND THE SUPPORTING STAFF AT THE MOMENT OF THE TIME OUT IN THE PROCEDURE ROOM. UNDER FLUOROSCOPIC GUIDANCE, THE TARGET POINT WAS SELECTED AT THE RIGHT AND LEFT L3-L4 AND RIGHT AND LEFT L4-L5 FACET JOINTS. TARGET POINT WAS SELECTED AFTER LATERAL ROTATION AND TILT OF THE MAGNIFIER OF THE C-ARM. LIDOCAINE 0.5% WAS USED TO NUMB THE SKIN AND THE SUBCUTANEOUS TISSUE BELOW IT. SPINAL NEEDLES, 22-GAUGE, WERE ADVANCED UNDER FLUOROSCOPIC GUIDANCE AND FOLLOWING PATIENT FEEDBACK UNTIL THE TARGETS WERE TOUCHED. THE POSITION OF THE NEEDLES WAS VERIFIED WITH AP AND LATERAL VIEWS. AFTER PROPER POSITION OF THE NEEDLES WAS ACHIEVED, ISOVUE-M DYE 30% 0.1 ML WAS INJECTED SHOWING ADEQUATE SPREAD OF THE DYE. THEN A SOLUTION OF 0.5 ML OF BUPIVACAINE 0.125% OF KENALOG 10 MG WAS INJECTED AT EACH SITE. THERE WAS NO EVIDENCE OF BLOOD, PARESTHESIA OR CEREBROSPINAL FLUID DURING THE PROCEDURE. THE PATIENT WAS SENT TO THE RECOVERY ROOM. THE PATIENT WAS MOVING THE EXTREMITIES AND DOING WELL. THERE WAS NO COMPLICATION DURING THE PROCEDURE. FLUOROSCOPY TIME WAS 47 SECONDS POST PROCEDURE NOTE THE PATIENT WILL BE SEEN IN A FOLLOW UP IN THE NEXT FEW WEEKS. I AM LOOKING FOR LONG LASTING PAIN RELIEF FOR THE PATIENT WITH THESE INJECTIONS. INSTRUCTIONS WERE GIVEN, QUESTIONS WERE ANSWERED, AND THE PATIENT EXPRESSED UNDERSTANDING AND AGREES WITH THE PLAN. I, STAN WAHL , DOCUMENTED THE ABOVE INFORMATION ACTING A SCRIBE FOR DR. MINER. I HAVE REVIEWED THE ABOVE DOCUMENT, WRITTEN BY ALONDRA DOE, AND I VERIFY THAT IT IS ACCURATE. PREVENTIVE MEDICINE PAIN CLINIC TEACHING: MEDICATIONS NEW MEDICATION SOMA DISCUSSED WITH PT. PROCEDURE CODES [id number] INJ PARAVERT F JNT L/S 1 LEV, MODIFIERS: 50 [id number] INJ PARAVERT F JNT L/S 2 LEV, MODIFIERS: 50 [id number] RADXPS IN END [id number] PXD DISPOSITION & COMMUNICATION FOLLOW UP 3 WEEKS ELECTRONICALLY SIGNED BY DAYLIN MINER MD, MD ON 06/20/2019 AT 12:13 PM EDT DISCLAIMER : THIS IS A VISIT SUMMARY EXTRACTED FROM THE [employer] CHART. IT IS NOT A COPY OF THE [employer] PROGRESS NOTE. MTDD
== END ==
LOC: M PAIN 09:45
PROVIDERS: ATTEND Anesthesiology
DX: M47.816 Spondylosis without myelopathy or radiculopathy, lumbar region (principal); K21.9 Gastro-esophageal reflux disease without esophagitis; Z87.891 Personal history of nicotine dependence; Z88.5 Allergy status to narcotic agent; Z88.6 Allergy status to analgesic agent; Z88.8 Allergy status to other drugs, medicaments and biological substances; Z91.018 Allergy to other foods; Z91.09 Other allergy status, other than to drugs and biological substances; Z79.891 Long term (current) use of opiate analgesic; Z79.899 Other long term (current) drug therapy
CPT/HCPCS: 64493; 64494; J3301; Q9967

== ENCOUNTER → 2019-06-13 | Outpatient (CLI) | payer MEDICARE, MEDICAID ==
[~2019-06-13] MED LIST changes: -BUPIVACAINE HCL 0.25% 30ML VIAL As Ordered ONE; -ISOVUE-M 300 61% 15ML VIAL (Q9967) As Ordered ONE; -LIDOCAINE 1% SDV 30ML VIAL As Ordered ONE; -TRIAMCINOLONE ACETONIDE SUSP 40 MG/ML VIAL (J3301) As Ordered ONE
--- NOTE | 2019-06-24 01:41 | ECWPNPC ---
PATIENT NAME: NNAMDI ANAND : 1965 GENDER: FEMALE VISIT DATE: 06/13/2019 DISCHARGE DATE: 06/13/19 1315 VISIT LOCKED DATE TIME: PHYSICIAN: DAYLIN MINER MD RESOURCE: DAYLIN MINER MD REASON FOR APPOINTMENT 1. LOW BACK PAIN HISTORY OF PRESENT ILLNESS HISTORY OF PRESENT ILLNESS: PAIN THE PATIENT DESCRIBES THE PAIN... PERMISSION FROM PATIENT WAS RECEIVED TO DO TELEMEDICINE OFFICE VISIT VIA ZOOM. 54-YEAR-OLD FEMALE PATIENT WITH A HISTORY OF CHRONIC LOW BACK PAIN. THE PATIENT DESCRIBES THE PAIN TENDER AND ACHING WITH A PAIN SCORE RANGING FROM 2-5/10 DEPENDING ON PHYSICAL ACTIVITY. THE PATIENT STATES THAT SHE IS ABLE TO MOVE AROUND AND SHE IS HAPPY FOLLOWING HER BILATERAL FACET BLOCKS DONE ON JUNE 05, 2019. PATIENT DENIES UNEXPLAINABLE WEIGHT LOSS, FEVER, CHILLS, NEW CHANGES ON HER URINARY OR BOWEL CONTROL. FALL RISK SCREENING: SCREENING :NO FALLS REPORTED IN THE LAST YEAR CURRENT MEDICATIONS TAKING ZOFRAN 4 MG TABLET 3 TABLETS ORALLY PRE MEDICATION, NOTES: 02006/04/19 TAKING ROPINIROLE HCL 1 MG TABLET ORALLY AT BEDTIME, NOTES: 199906/04/19 TAKING SUMATRIPTAN SUCCINATE 100 MG TABLET 1 TABLET NEEDED ONE TIME ORALLY DIRECTED, NOTES: 1500 06/04/19 TAKING DEXILANT 60 MG CAPSULE DELAYED RELEASE 1 CAPSULE ORALLY ONCE A DAY, NOTES: 0806/04/19 TAKING RALOXIFENE HCL 60 MG TABLET 1 TABLET ORALLY ONCE A DAY, NOTES: 79906/04/19 TAKING SIMVASTATIN 40 MG TABLET 1 TABLET IN THE EVENING ORALLY IN EVENING, NOTES: 199906/04/19 TAKING DIVALPROEX SODIUM 250 MG TABLET DELAYED RELEASE 1 TABLET ORALLY TWICE A DAY, NOTES: 199906/04/19 TAKING LINZESS 290 MCG CAPSULE 1 CAPSULE ORALLY ONCE A DAY, NOTES: 06/03/19 TAKING VITAMIN D (ERGOCALCIFEROL) 1.25 MG (04905 UT) CAPSULE 1 CAPSULE ORALLY WEEKLY, NOTES: 06/01/19 TAKING LYRICA 100 MG CAPSULE 1 CAPSULE ORALLY ONCE A DAY AT BEDTIME, NOTES: 199906/04/19 TAKING LYRICA 200 MG CAPSULE 1 CAPSULE ORALLY BID MDD2, NOTES: 119906/04/19 TAKING TIZANIDINE HCL 4 MG TABLET 1 TABLET NEEDED ORALLY THREE TIMES A DAY, NOTES: 199906/04/19 TAKING OXYCODONE HCL 5 MG TABLET 2 ORALLY Q8H PRN MDD6, NOTES: 19906/04/19 NOT-TAKING CARISOPRODOL 350 MG TABLET 1 TABLET NEEDED ORALLY EVERY 8 HOURS NEEDED FOR SPASMS AND PAIN MDD3 NOT-TAKING TOPIRAMATE 100 MG TABLET 1 TABLET ORALLY TWICE A DAY MEDICATION LIST REVIEWED AND RECONCILED WITH THE PATIENT PAST MEDICAL HISTORY ACID REFLUX IBS PINCHED NERVES IN BACK SCOLIOSIS ARTHRITIS DDD ENDOMETRIOSIS CONGENITAL RIGHT HIP ABNORMALITY GASTROPARESIS 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 PAIN LOW BACK PAIN HEART MURMUR DUE TO DEFECT COLON POLYPS ALLERGIES NAPROXEN SODIUM: TONGUE SWELLS/FACE SWELLING - ALLERGY ASPIRIN: SORES IN MOUTH - ALLERGY ADHESIVE TAPE/BANDAIDS: BLISTERS - ALLERGY TEGADERM: SKIN BECOMES RAW, REDNESS, HEAT - ALLERGY PEPTO BISMOL: VOMITING WHEAT: RASH - ALLERGY BELBUCA: VOMITING - SIDE EFFECTS BOTOX: LIPS PEELING - SIDE EFFECTS SURGICAL HISTORY WRIST SURGERY RIGHT.TORN LIGAMENT 2004 BILATERAL SALPINGO SURGERY DUE TO DEFECT 1989 SURGERY LEFT WRIST 2015 RIGHT HIP SURGERY X 3 2015, 04/2016,09/2016 RIGHT FOOT SURGERY- NERVE RELEASE 09/27/15 TOTAL RIGHT HIP 04/05/2016 FALLOPIAN TUBE RECONSTRUCTION 1994 CERVICAL DISCESTOMY WITH HARDWARE 11/06/17 COLONOSCOPY & EGD 04/2019 FAMILY HISTORY FATHER: , DIAGNOSED WITH DIABETES, UNSPECIFIED HEART DISEASE MOTHER: , DIABETES, UNSPECIFIED HEART DISEASE SOCIAL HISTORY GENERAL: TOBACCO USE ARE YOU A:FORMER SMOKER HOW LONG HAS IT BEEN SINCE YOU LAST SMOKED?6-12 MONTHS ADDITIONAL FINDINGS: TOBACCO NON-USERCURRENT NON-SMOKER SMOKING CESSATION INFORMATION GIVEN07/05/2018 LATEX QUESTIONNAIRE LATEX ALLERGY : HAVE YOU EVER DEVELOPED ANY TYPE OF REACTION AFTER HANDLING LATEX PRODUCTS SUCH RUBBER GLOVES, CONDOMS, DIAPHRAGMS, BALLOONS, SOCKS, OR UNDERWEAR?NO LATEX ALLERGY : HAVE YOU EVER DEVELOPED ANY TYPE OF REACTION DURING OR AFTER DENTAL APPOINTMENT, VAGINAL/RECTAL EXAMINATION, SURGICAL PROCEDURE, OR ANY OTHER EXPOSURE?NO DATE ASKED : 04/09/2019 LATEX RISK : HAVE YOU EVER HAD ANY DIFFICULTY BREATHING OR HIVES AFTER EATING OR HANDLING ANY FRUITS, OR VEGETABLES; SUCH KIWI, BANANAS, STONE FRUITS, OR CHESTNUTSNO LATEX RISK : DO YOU HAVE A PREVIOUS PERSONAL HISTORY OF MORE THAN NINE SURGERIES, SPINA BIFIDA, OR REPEATED CATHERIZATIONS? YES - PLEASE INDICATE : > 9 SURGERIES LATEX RISK : ARE YOU FREQUENTLY EXPOSED TO LATEX PRODUCTS IN YOUR OCCUPATION?NO LUNG CANCER SCREENING SMOKING STATUS:FORMER SMOKER ALCOHOL SCREENING DID YOU HAVE A DRINK CONTAINING ALCOHOL IN THE PAST YEAR?NO POINTS0 INTERPRETATIONNEGATIVE RECREATIONAL DRUG USE DRUG USE?NO CAFFEINE CAFFEINE USE?NO ANABAPTIST [id number] NONE NO ORTHODOXY BELIEFS THAT WOULD IMPACT HEALTH CARE. LANGUAGE LANGUAGES SPOKEN:MONEGASQUE LEARNING BARRIERS / SPECIAL NEEDS BARRIERS TO LEARNING?NO HEARING IMPAIRED?YES VISION IMPAIRED?YES COGNITIVELY IMPAIRED?NO :HEARING AIDES :CORRECTIVE LENSES READINESS TO LEARN?YES LEARNING PREFERENCES?NO LEARNING CAPABILITIES PRESENT?YES EMOTIONAL BARRIERS?NO SPECIAL DEVICES?YES :CANE, WALKER COUNTER HAND NEEDED?NO DOMESTIC VIOLENCE DO YOU FEEL SAFE IN YOUR ENVIRONMENT?YES MARITAL STATUS: .. NEW PATIENT PAIN DIARY TODAY'S VISIT 06/13/2019 PATIENT DESCRIBES PAIN :ACHING, HAVE IT ALL THE TIME, SHARP, SORE, SHOOTING FROM 0-10, WHAT LEVEL IS YOUR PAIN TODAY?5 PAIN CLINIC PFS, CLERGY, PUBLIC HEALTH REFERRALS PFS REFERRAL NEEDED?NO CLERGY REFERRAL NEEDED?NO PUBLIC HEALTH REFERRAL NEEDED?NO WAS THE PROVIDER NOTIFIED OF ANY PERTINENT INFO? N/A HAS THE PATIENT BEEN EDUCATED REGARDING HIS/HER PLAN OF CARE?YES HAS THE PATIENT BEEN EDUCATED REGARDING PAIN, THE RISK FOR PAIN, THE IMPORTANCE OF EFFECTIVE PAIN MANAGEMENT, AND THE PAIN ASSESSMENT PROCESS?YES ADVANCE DIRECTIVE ADVANCE DIRECTIVE DISCUSSED WITH PATIENT:YES 04/09/2019 PT DOES NOT HAVE ANY ADVANCED DIRECRTIVES AND SHE DECLINED INFORMATION ON HCP AT THIS TIME. AD HOSPITALIZATION/MAJOR DIAGNOSTIC PROCEDURE SURGERY RELATED REVIEW OF SYSTEMS REVIEWED BY: PROVIDER: DAYLIN MINER MD . CONSTITUTIONAL: ANY CHANGE IN YOUR MEDICAL CONDITION? NO . CHILLS NO . FEVER NO . INFECTION: DO YOU HAVE NEW INFECTIONS? NO . DO YOU HAVE HISTORY OF MRSA? NO . MUSCULOSKELETAL: ANY NEW PATTERNS OF PAIN OR NUMBNESS? NO . GASTROENTEROLOGY: ANY NEW CHANGE IN BOWEL CONTROL? NO . GENITOURINARY: ANY NEW CHANGE IN BLADDER CONTROL? NO . IS THERE A CHANCE YOU COULD BE ? NO . HEMATOLOGY/LYMPH: DO YOU TAKE ANY BLOOD THINNERS? (FOR EXAMPLE- COUMADIN, PLAVIX, AGGRENOX, PLATEL, PRADAXA, OR XARELTO) NO . WHEN WAS YOUR LAST DOSE? DATE: TIME: . NEUROLOGY: HAVE YOU FALLEN IN THE PAST 12 MONTHS? YES PT REPORTS A FALL 06/05/2019 AFTER SHE GOT HOME FROM HER INJECTION, STATES HER RIGHT LEG GAVE OUT, WHICH IS NORMAL FOR PATIENT. FELL ONTO BUTT, DENIES INJURY. ALSO REPORTS ANOTHER FALL 06/10 OUTSIDE, TRYING TO MOVE HER BBQ GRILL, STATES THE GRILL TIPPED, THEN "SHE TIPPED". REPORTS BUMPS AND BRUISES, BUT DENIES INJURIES. NO ED VISIT, NO XRAYS . ANY NEW EXTREMITY NUMBNESS OR WEAKNESS? NO . CARDIOLOGY: DO YOU HAVE A PACEMAKER OR DEFIBRILLATOR? NO . RESPIRATORY: HAVE YOU BEEN SICK IN THE PAST WEEK? NO . FEVER NO . FLU LIKE SYMPTOMS? NO . COUGH NO . INTEGUMENTARY: DO YOU HAVE ANY RASHES OR OPEN SORES? NO . ALLERGIC/IMMUNO: ARE YOU ALLERGIC TO IV DYE? NO . ANY NEW ALLERGIES? NO . PSYCHIATRIC: DO YOU HAVE THOUGHTS OF HURTING YOURSELF OR SOMEONE ELSE? NO . ARE YOU ABUSED, NEGLECTED, OR IN AN UNSAFE ENVIRONMENT? NO . ENDOCRINOLOGY: ARE YOU DIABETIC? NO . OTHER: DO YOU NEED ANY PRESCRIPTIONS? YES OXYCODONE, ALREADY CALLED . IF YES, PLEASE LIST: ____ . ANY NEW PROBLEMS WITH YOUR MEDICATIONS? NO . WHEN DID YOU LAST EAT? ____ . WHEN DID YOU LAST DRINK? ____ . WHAT DID YOU LAST DRINK? ____ . NAME OF PERSON DRIVING YOU HOME? ____ . DO YOU HAVE ANY OTHER QUESTIONS OR CONCERNS NO . EXAMINATION GENERAL EXAMINATION: TELEMEDICINE VISIT VIA ZOOM. PATIENT IS ALERT, ORIENTED TIMES THREE AND COOPERATIVE. MRI OF THE LUMBAR SPINE SHOWS LUMBAR FACET ARTHROPATHY. ASSESSMENTS SPONDYLOSIS WITHOUT MYELOPATHY OR RADICULOPATHY, LUMBAR REGION - M47.816 (PRIMARY) TREATMENT SPONDYLOSIS WITHOUT MYELOPATHY OR RADICULOPATHY, LUMBAR REGION CLINICAL NOTES: WE DISCUSSED SEVERAL ALTERNATIVES WITH MS. ANAND REGARDING HER TREATMENT OPTIONS AND CARE. THE PATIENT HAS RESPONDED WELL TO HER FACET BLOCK DONE ON JUNE 05, 2019. THE PATIENT KNOWS TO CALL THE OFFICE IF SHE HAS ANY QUESTIONS OR CONCERNS. SHE WILL FOLLOW WITH THE PICTURES EDITOR AT OUR CLINIC. THE PATIENT UNDERSTANDS AND IS IN AGREEMENT WITH THE TREATMENT PLAN. I, STAN WAHL, DOCUMENTED THE ABOVE INFORMATION ACTING A SCRIBE FOR DR. MINER. I HAVE REVIEWED THE ABOVE DOCUMENT, WRITTEN BY STAN WAHL, SPOOL WINDER, AND I VERIFY THAT IT IS ACCURATE. . OTHERS CLINICAL NOTES: UNABLE TO TAKE VITAL SIGNS, THIS IS A TELEPHONE/VIRTUAL VISIT. DISPOSITION & COMMUNICATION FOLLOW UP F/UP WITH NINA ON 06/22 VIA TELEMED (REASON: LOW BACK PAIN) ELECTRONICALLY SIGNED BY DAYLIN MINER MD, ON 06/23/2019 AT 05:10 PM EDT DISCLAIMER : THIS IS A VISIT SUMMARY EXTRACTED FROM THE [employer] CHART. IT IS NOT A COPY OF THE [employer] PROGRESS NOTE. MTDD
== END ==
LOC: M PAIN 13:30
PROVIDERS: ATTEND Anesthesiology
DX: M47.816 Spondylosis without myelopathy or radiculopathy, lumbar region (principal); G89.29 Other chronic pain; K21.9 Gastro-esophageal reflux disease without esophagitis; Z96.641 Presence of right artificial hip joint; Z87.891 Personal history of nicotine dependence; Z88.5 Allergy status to narcotic agent; Z88.6 Allergy status to analgesic agent; Z88.8 Allergy status to other drugs, medicaments and biological substances; Z91.018 Allergy to other foods; Z91.09 Other allergy status, other than to drugs and biological substances; Z79.891 Long term (current) use of opiate analgesic; Z79.899 Other long term (current) drug therapy

== ENCOUNTER → 2019-06-23 | Outpatient (CLI) | payer MEDICARE, MEDICAID ==
--- NOTE | 2019-06-25 03:57 | ECWPNPC ---
PATIENT NAME: NNAMDI ANAND : 1965 GENDER: FEMALE VISIT DATE: 06/23/2019 DISCHARGE DATE: 06/23/19 1117 VISIT LOCKED DATE TIME: PHYSICIAN: NINA ESQUIVEL RESOURCE: NINA ESQUIVEL REASON FOR APPOINTMENT 1. POST FACET HISTORY OF PRESENT ILLNESS HISTORY OF PRESENT ILLNESS: HERE FOR POST PROCEDURE FOLLOW-UP. HAD BILATERAL LUMBAR FACET THERAPEUTIC BLOCK ON 06/05/2019. REPORTING IMPROVEMENT IN HER PAIN THAT CONTINUES TODAY IN THE LOW BACK REGION. CHIEF AREA OF PAIN IS LEFT SHOULDER AND LEFT UPPER BACK. HAS BEEN DOING STRETCHING EXERCISES AT HOME. RATING PAIN IN THIS REGION A 6/10 VAS. HAS RESPONDED WELL TO TRIGGER POINT INJECTIONS IN THE PAST. FINDS CURRENT CHRONIC PAIN MEDICATION HELPFUL AT REDUCING PAIN AND KEEPING HER FUNCTIONAL. DENIES ADVERSE SIDE EFFECTS. PAIN THE PATIENT DESCRIBES THE PAIN... FALL RISK SCREENING: SCREENING :NO FALLS REPORTED IN THE LAST YEAR CURRENT MEDICATIONS TAKING ZOFRAN 4 MG TABLET 3 TABLETS ORALLY PRE MEDICATION TAKING ROPINIROLE HCL 1 MG TABLET ORALLY AT BEDTIME TAKING SUMATRIPTAN SUCCINATE 100 MG TABLET 1 TABLET NEEDED ONE TIME ORALLY DIRECTED TAKING DEXILANT 60 MG CAPSULE DELAYED RELEASE 1 CAPSULE ORALLY ONCE A DAY TAKING RALOXIFENE HCL 60 MG TABLET 1 TABLET ORALLY ONCE A DAY TAKING SIMVASTATIN 40 MG TABLET 1 TABLET IN THE EVENING ORALLY IN EVENING TAKING DIVALPROEX SODIUM 250 MG TABLET DELAYED RELEASE 1 TABLET ORALLY TWICE A DAY TAKING LINZESS 290 MCG CAPSULE 1 CAPSULE ORALLY ONCE A DAY TAKING VITAMIN D (ERGOCALCIFEROL) 1.25 MG (95482 UT) CAPSULE 1 CAPSULE ORALLY WEEKLY TAKING LYRICA 100 MG CAPSULE 1 CAPSULE ORALLY ONCE A DAY AT BEDTIME TAKING LYRICA 200 MG CAPSULE 1 CAPSULE ORALLY BID MDD2 TAKING TIZANIDINE HCL 4 MG TABLET 1 TABLET NEEDED ORALLY THREE TIMES A DAY TAKING OXYCODONE HCL 5 MG TABLET 2 ORALLY Q8H PRN MDD6 NOT-TAKING CARISOPRODOL 350 MG TABLET 1 TABLET NEEDED ORALLY EVERY 8 HOURS NEEDED FOR SPASMS AND PAIN MDD3 NOT-TAKING TOPIRAMATE 100 MG TABLET 1 TABLET ORALLY TWICE A DAY MEDICATION LIST REVIEWED AND RECONCILED WITH THE PATIENT PAST MEDICAL HISTORY ACID REFLUX IBS PINCHED NERVES IN BACK SCOLIOSIS ARTHRITIS DDD ENDOMETRIOSIS CONGENITAL RIGHT HIP ABNORMALITY GASTROPARESIS 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 PAIN LOW BACK PAIN HEART MURMUR DUE TO DEFECT COLON POLYPS ALLERGIES NAPROXEN SODIUM: TONGUE SWELLS/FACE SWELLING - ALLERGY ASPIRIN: SORES IN MOUTH - ALLERGY ADHESIVE TAPE/BANDAIDS: BLISTERS - ALLERGY TEGADERM: SKIN BECOMES RAW, REDNESS, HEAT - ALLERGY PEPTO BISMOL: VOMITING WHEAT: RASH - ALLERGY BELBUCA: VOMITING - SIDE EFFECTS BOTOX: LIPS PEELING - SIDE EFFECTS SURGICAL HISTORY WRIST SURGERY RIGHT.TORN LIGAMENT 2004 BILATERAL SALPINGO SURGERY DUE TO DEFECT 1989 SURGERY LEFT WRIST 2016 RIGHT HIP SURGERY X 3 2015, 04/2016,09/2016 RIGHT FOOT SURGERY- NERVE RELEASE 09/27/15 TOTAL RIGHT HIP 04/05/2016 FALLOPIAN TUBE RECONSTRUCTION 1994 CERVICAL DISCESTOMY WITH HARDWARE 11/06/17 COLONOSCOPY & EGD 04/2019 FAMILY HISTORY FATHER: , DIAGNOSED WITH DIABETES, UNSPECIFIED HEART DISEASE MOTHER: , DIABETES, UNSPECIFIED HEART DISEASE SOCIAL HISTORY GENERAL: TOBACCO USE ARE YOU A:FORMER SMOKER HOW LONG HAS IT BEEN SINCE YOU LAST SMOKED?6-12 MONTHS SMOKING CESSATION INFORMATION GIVEN07/05/2018 ADDITIONAL FINDINGS: TOBACCO NON-USERCURRENT NON-SMOKER LATEX QUESTIONNAIRE LATEX ALLERGY : HAVE YOU EVER DEVELOPED ANY TYPE OF REACTION AFTER HANDLING LATEX PRODUCTS SUCH RUBBER GLOVES, CONDOMS, DIAPHRAGMS, BALLOONS, SOCKS, OR UNDERWEAR?NO LATEX ALLERGY : HAVE YOU EVER DEVELOPED ANY TYPE OF REACTION DURING OR AFTER DENTAL APPOINTMENT, VAGINAL/RECTAL EXAMINATION, SURGICAL PROCEDURE, OR ANY OTHER EXPOSURE?NO LATEX RISK : HAVE YOU EVER HAD ANY DIFFICULTY BREATHING OR HIVES AFTER EATING OR HANDLING ANY FRUITS, OR VEGETABLES; SUCH KIWI, BANANAS, STONE FRUITS, OR CHESTNUTSNO LATEX RISK : DO YOU HAVE A PREVIOUS PERSONAL HISTORY OF MORE THAN NINE SURGERIES, SPINA BIFIDA, OR REPEATED CATHERIZATIONS? YES - PLEASE INDICATE : > 9 SURGERIES LATEX RISK : ARE YOU FREQUENTLY EXPOSED TO LATEX PRODUCTS IN YOUR OCCUPATION?NO DATE ASKED : 06/23/2019 LUNG CANCER SCREENING SMOKING STATUS:FORMER SMOKER ALCOHOL SCREENING DID YOU HAVE A DRINK CONTAINING ALCOHOL IN THE PAST YEAR?NO POINTS0 INTERPRETATIONNEGATIVE RECREATIONAL DRUG USE DRUG USE?NO CAFFEINE CAFFEINE USE?NO PENTECOSTAL [id number] NONE NO ZOROASTRIANISM BELIEFS THAT WOULD IMPACT HEALTH CARE. 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 NEW PATIENT PAIN DIARY TODAY'S VISITNOTES 06/23/2019 PATIENT DESCRIBES PAIN :ACHING, HAVE IT ALL THE TIME, SHARP, SORE, SHOOTING FROM 0-10, WHAT LEVEL IS YOUR PAIN TODAY?6 PAIN CLINIC PFS, CLERGY, PUBLIC HEALTH REFERRALS PFS REFERRAL NEEDED?NO CLERGY REFERRAL NEEDED?NO PUBLIC HEALTH REFERRAL NEEDED?NO WAS THE PROVIDER NOTIFIED OF ANY PERTINENT INFO? N/A HAS THE PATIENT BEEN EDUCATED REGARDING HIS/HER PLAN OF CARE?YES HAS THE PATIENT BEEN EDUCATED REGARDING PAIN, THE RISK FOR PAIN, THE IMPORTANCE OF EFFECTIVE PAIN MANAGEMENT, AND THE PAIN ASSESSMENT PROCESS?YES ADVANCE DIRECTIVE ADVANCE DIRECTIVE DISCUSSED WITH PATIENT:YES 06/23/2019 PT DOES NOT HAVE ANY ADVANCED DIRECRTIVES AND SHE DECLINED INFORMATION ON HCP AT THIS TIME. JS HOSPITALIZATION/MAJOR DIAGNOSTIC PROCEDURE SURGERY RELATED REVIEW OF SYSTEMS REVIEWED BY: PROVIDER: NINA BANEGAS . CONSTITUTIONAL: ANY CHANGE IN YOUR MEDICAL CONDITION? NO . CHILLS NO . FEVER NO . INFECTION: DO YOU HAVE NEW INFECTIONS? NO . DO YOU HAVE HISTORY OF MRSA? NO . MUSCULOSKELETAL: ANY NEW PATTERNS OF PAIN OR NUMBNESS? NO . GASTROENTEROLOGY: ANY NEW CHANGE IN BOWEL CONTROL? NO . GENITOURINARY: ANY NEW CHANGE IN BLADDER CONTROL? NO . IS THERE A CHANCE YOU COULD BE ? NO . HEMATOLOGY/LYMPH: DO YOU TAKE ANY BLOOD THINNERS? (FOR EXAMPLE- COUMADIN, PLAVIX, AGGRENOX, PLATEL, PRADAXA, OR XARELTO) NO . WHEN WAS YOUR LAST DOSE? DATE: TIME: . NEUROLOGY: HAVE YOU FALLEN IN THE PAST 12 MONTHS? YES, STATES FALL BACKWARDS ON STEPS, STATES NO MAJOR INJURIES, NO ED VISIT . ANY NEW EXTREMITY NUMBNESS OR WEAKNESS? NO . CARDIOLOGY: DO YOU HAVE A PACEMAKER OR DEFIBRILLATOR? NO . RESPIRATORY: HAVE YOU BEEN SICK IN THE PAST WEEK? NO . FEVER NO . FLU LIKE SYMPTOMS? NO . COUGH NO . INTEGUMENTARY: DO YOU HAVE ANY RASHES OR OPEN SORES? NO . ALLERGIC/IMMUNO: ARE YOU ALLERGIC TO IV DYE? NO . ANY NEW ALLERGIES? NO . PSYCHIATRIC: DO YOU HAVE THOUGHTS OF HURTING YOURSELF OR SOMEONE ELSE? NO . ARE YOU ABUSED, NEGLECTED, OR IN AN UNSAFE ENVIRONMENT? NO . ENDOCRINOLOGY: ARE YOU DIABETIC? NO . OTHER: DO YOU NEED ANY PRESCRIPTIONS? YES . IF YES, PLEASE LIST: ____LYRICA, OXYCODONE, TIZANIDINE . ANY NEW PROBLEMS WITH YOUR MEDICATIONS? NO . WHEN DID YOU LAST EAT? ____ . WHEN DID YOU LAST DRINK? ____ . WHAT DID YOU LAST DRINK? ____ . NAME OF PERSON DRIVING YOU HOME? ____ . DO YOU HAVE ANY OTHER QUESTIONS OR CONCERNS NO . VITAL SIGNS WT 147.2 LBS, HT 61 IN, BMI 27.81 INDEX, BP 128/70 MM HG, HR 71 /MIN, RR 14 /MIN, TEMP 98.3 F, OXYGEN SAT % 100, SAFE IN ENV? (Y/N) YES, REVIEWED BY: ILAN. EXAMINATION GENERAL EXAMINATION: GENERALNO ACUTE DISTRESS, WELL NOURISHED AND HYDRATED. PSYCHAPPROPRIATE MOOD AND AFFECT . NECK:NO LYMPHADENOPATHY, SUPPLE, NO THYROMEGALLY, NO JVD OR BRUITS. LUNGS:CLEAR TO AUSCULTATION BILATERALLY, NO WHEEZES, RHONCHI, RALES. HEART:NO MURMURS, REGULAR RATE AND RHYTHM. MUSCULOSKELETAL: TRIGGER POINTS: NOTED OVER LEFT SCAPULA AND RHOMBOID REGION. RANGE OF JOINT MOTION OF THE LEFT ARM WITH INCREASED PAIN NOTED IN THIS REGION. ASSESSMENTS MYALGIA, OTHER SITE - M79.18 (PRIMARY) TREATMENT MYALGIA, OTHER SITE REFILL OXYCODONE HCL TABLET, 5 MG, 2, ORALLY, Q8H PRN MDD6, 30 DAY(S), 180, REFILLS 0 REFILL LYRICA CAPSULE, 100 MG, 1 CAPSULE, ORALLY, ONCE A DAY AT BEDTIME, 30 DAYS, 30, REFILLS 5 REFILL LYRICA CAPSULE, 200 MG, 1 CAPSULE, ORALLY, BID MDD2, 30 DAYS, 60, REFILLS 5 REFILL TIZANIDINE HCL TABLET, 4 MG, 1 TABLET NEEDED, ORALLY, THREE TIMES A DAY, 30 DAYS, 90 TABLET, REFILLS 5 NOTES: TRIGGER POINTS LEFT UPPER BACK/SCAPULA TO BE SCHEDULED IN 4-6 WEEKS , ISTOP REGISTRY REVIEWED AND DEMONSTRATES COMPLLIANCE. (REF # ) BRINGS IN MEDICATIONS WHICH IS APPROPRIATE FOR WHAT WAS DISPENSED. RECENT URINE TOXICOLOGY REVIEWED. NO UNAUTHORIZED MEDICATIONS. NO ILLICIT SUBSTANCES AND PRESCRIBED MEDICATIONS WERE PRESENT. , RISKS OF NARCOTIC/OPIOD MEDICATIONS INCLUDES BUT IS NOT LIMITED TO RISK OF DEPENDANCE/DEVELOPMENT OF ADDICTION, MOOD DISTURBANCE AND DEPRESSION, OSTEOPOROSIS, HORMONAL AND LABIDAL CHANGES, RESPIRATORY DEPRESSION AND . PATIENT IS ADVISED NOT TO DRIVE OR DRINK ALCOHOL WHILE ON THESE MEDICATIONS. PREVENTIVE MEDICINE PAIN CLINIC TEACHING: PROCEDURE TEACHING REVIEWED INFORMATION ON TRIGGER POINT INJECTION PROCEDURE WITH PATIENT. ALSO REVIEWED PRE-PROCEDURE INSTRUCTIONS. PATIENT VERBALIZED AN UNDERSTANDING. ROSAURA YU 06/23/2019 2:20:52 PM > . PROCEDURE CODES FA211 ESTABILISHED PATIENT [facility] CHARGE DISPOSITION & COMMUNICATION FOLLOW UP 6 WEEKS/TRIGGER POINT INJECTION, LEFT SCAPULA/POST GARCÍA WOOD (REASON: LEFT SCAPULAR PAIN) ELECTRONICALLY SIGNED BY BASSAM DOMINGUEZ ON 06/24/2019 AT 08:36 AM EDT DISCLAIMER : THIS IS A VISIT SUMMARY EXTRACTED FROM THE [employer] CHART. IT IS NOT A COPY OF THE [employer] PROGRESS NOTE. MARIKA
== END ==
LOC: M PAIN 10:00
PROVIDERS: ATTEND Nurse Practitioner Family
DX: M79.18 Myalgia, other site (principal); K21.9 Gastro-esophageal reflux disease without esophagitis; Z96.641 Presence of right artificial hip joint; Z87.891 Personal history of nicotine dependence; Z88.5 Allergy status to narcotic agent; Z88.6 Allergy status to analgesic agent; Z88.8 Allergy status to other drugs, medicaments and biological substances; Z91.018 Allergy to other foods; Z91.09 Other allergy status, other than to drugs and biological substances; Z79.891 Long term (current) use of opiate analgesic; Z79.899 Other long term (current) drug therapy

== ENCOUNTER → 2019-08-04 | Outpatient (CLI) | payer MEDICARE, MEDICAID ==
[~2019-08-04] MED LIST changes: +BUPIVACAINE HCL 0.25% 10ML VIAL As Ordered ONE; +BUPIVACAINE HCL 0.25% 30ML VIAL As Ordered ONE
--- NOTE | 2019-08-06 02:46 | ECWPNPC ---
PATIENT NAME: NNAMDI ANAND : 1965 GENDER: FEMALE VISIT DATE: 08/04/2019 DISCHARGE DATE: 08/04/19 1137 VISIT LOCKED DATE TIME: PHYSICIAN: DAYLIN MINER MD RESOURCE: DAYLIN MINER MD REASON FOR APPOINTMENT 1. LEFT SCAPULAR PAIN- W/O STEROIDS PAT DONE HISTORY OF PRESENT ILLNESS GENERAL: -. FALL RISK SCREENING: SCREENING :TWO OR MORE FALLS WITHOUT INJURY IN THE PAST YEAR PAIN SCREENING: PATIENT HAS A COMPLAINT OF ACUTE OR CHRONIC PAIN :YES LOCATION OF PAIN:LEFT SHOULDER INTENSITY OF PAIN (SCALE OF 1 TO 10):8 WHAT DOES YOUR PAIN FEEL LIKE:BURNING, CONTINOUS, SHARP, STABBING, TENDER, SHOOTING DURATION:MAINLY DURING THE DAY PAIN IS INCREASED BY:ACTIVITIES PAIN IS DECREASED BY:SITTING, OTHERS LAYING DOWN NURSING NOTE: -. PAIN CENTER INTAKE QUESTIONS: DO YOU HAVE A HISTORY OF MRSA? :NO DO YOU TAKE A BLOOD THINNERS? :NO DO YOU HAVE ANY BLEEDING DISORDERS? :NO ANY NEW NUMBNESS OR WEAKNESS IN YOUR LEGS OR ARMS? :NO ANY PACEMAKER,DEFIBRILLATOR, OR DORSAL COLUMN STIMULATOR? :NO DO YOU HAVE ANY RASHES OR OPEN SORES? :NO ARE YOU ALLERGIC TO IV DYE? :NO ARE YOU DIABETIC? :NO ANY NEW PROBLEMS WITH YOUR MEDICATIONS? :NO HAVE YOU RECEIVED A VACCINE IN THE PAST 30 DAYS? :NO DO YOU PLAN TO RECEIVE A VACCINE IN THE NEXT 21 DAYS? :NO ANY HISTORY OF SEIZURES? :NO ANY HISTORY OF CARDIAC ISSUES OR EVENTS? :NO DO YOU HAVE SLEEP APNEA? :NO ANY RECENT HEAD INJURY? :NO DO YOU HAVE ANY NEW INFECTIONS? :NO WHEN DID YOU LAST EAT? : -08/02 7PM WHEN DID YOU LAST DRINK? : -08/02 WHAT DID YOU LAST DRINK? : -WATER NAME OF PERSON DRIVING YOU HOME? : -VALERIE MCKEON DO YOU HAVE ANY OTHER QUESTIONS OR CONCERNS? : - CURRENT MEDICATIONS TAKING ZOFRAN 4 MG TABLET 3 TABLETS ORALLY PRE MEDICATION, NOTES: 08/02 7P TAKING ROPINIROLE HCL 1 MG TABLET ORALLY AT BEDTIME, NOTES: 08/02 10 TAKING SUMATRIPTAN SUCCINATE 100 MG TABLET 1 TABLET NEEDED ONE TIME ORALLY DIRECTED, NOTES: 08/02 7A TAKING DEXILANT 60 MG CAPSULE DELAYED RELEASE 1 CAPSULE ORALLY ONCE A DAY, NOTES: 08/02 7P TAKING RALOXIFENE HCL 60 MG TABLET 1 TABLET ORALLY ONCE A DAY, NOTES: 08/02 7P TAKING SIMVASTATIN 40 MG TABLET 1 TABLET IN THE EVENING ORALLY IN EVENING, NOTES: 08/02 7P TAKING DIVALPROEX SODIUM 250 MG TABLET DELAYED RELEASE 1 TABLET ORALLY TWICE A DAY, NOTES: 08/02 7P TAKING LINZESS 290 MCG CAPSULE 1 CAPSULE ORALLY ONCE A DAY, NOTES: 08/02 7P TAKING VITAMIN D (ERGOCALCIFEROL) 1.25 MG (24382 UT) CAPSULE 1 CAPSULE ORALLY WEEKLY, NOTES: 08/02 7A TAKING OXYCODONE HCL 5 MG TABLET 2 ORALLY Q8H PRN MDD6, NOTES: 08/02 7P TAKING LYRICA 100 MG CAPSULE 1 CAPSULE ORALLY ONCE A DAY AT BEDTIME, NOTES: 08/02P TAKING LYRICA 200 MG CAPSULE 1 CAPSULE ORALLY BID MDD2, NOTES: 08/02 1200NOON TAKING TIZANIDINE HCL 4 MG TABLET 1 TABLET NEEDED ORALLY THREE TIMES A DAY, NOTES: 08/02 NOT-TAKING CARISOPRODOL 350 MG TABLET 1 TABLET NEEDED ORALLY EVERY 8 HOURS NEEDED FOR SPASMS AND PAIN MDD3 NOT-TAKING TOPIRAMATE 100 MG TABLET 1 TABLET ORALLY TWICE A DAY MEDICATION LIST REVIEWED AND RECONCILED WITH THE PATIENT PAST MEDICAL HISTORY ACID REFLUX IBS PINCHED NERVES IN BACK SCOLIOSIS ARTHRITIS DDD ENDOMETRIOSIS CONGENITAL RIGHT HIP ABNORMALITY GASTROPARESIS 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 PAIN LOW BACK PAIN HEART MURMUR DUE TO DEFECT COLON POLYPS ALLERGIES NAPROXEN SODIUM: TONGUE SWELLS/FACE SWELLING - ALLERGY ASPIRIN: SORES IN MOUTH - ALLERGY ADHESIVE TAPE/BANDAIDS: BLISTERS - ALLERGY TEGADERM: SKIN BECOMES RAW, REDNESS, HEAT - ALLERGY PEPTO BISMOL: VOMITING WHEAT: RASH - ALLERGY BELBUCA: VOMITING - SIDE EFFECTS BOTOX: LIPS PEELING - SIDE EFFECTS SURGICAL HISTORY WRIST SURGERY RIGHT.TORN LIGAMENT 2004 BILATERAL SALPINGO SURGERY DUE TO DEFECT 1989 SURGERY LEFT WRIST 2015 RIGHT HIP SURGERY X 3 2015, 04/2016,09/2016 RIGHT FOOT SURGERY- NERVE RELEASE 09/27/15 TOTAL RIGHT HIP 04/05/2016 FALLOPIAN TUBE RECONSTRUCTION 1994 CERVICAL DISCESTOMY WITH HARDWARE 11/06/17 COLONOSCOPY & EGD 04/2019 FAMILY HISTORY FATHER: , DIAGNOSED WITH DIABETES, UNSPECIFIED HEART DISEASE MOTHER: , DIABETES, UNSPECIFIED HEART DISEASE SOCIAL HISTORY GENERAL: TOBACCO USE ARE YOU A:FORMER SMOKER HOW LONG HAS IT BEEN SINCE YOU LAST SMOKED?6-12 MONTHS ADDITIONAL FINDINGS: TOBACCO NON-USERCURRENT NON-SMOKER SMOKING CESSATION INFORMATION GIVEN07/05/2018 LATEX QUESTIONNAIRE LATEX ALLERGY : HAVE YOU EVER DEVELOPED ANY TYPE OF REACTION AFTER HANDLING LATEX PRODUCTS SUCH RUBBER GLOVES, CONDOMS, DIAPHRAGMS, BALLOONS, SOCKS, OR UNDERWEAR?NO LATEX ALLERGY : HAVE YOU EVER DEVELOPED ANY TYPE OF REACTION DURING OR AFTER DENTAL APPOINTMENT, VAGINAL/RECTAL EXAMINATION, SURGICAL PROCEDURE, OR ANY OTHER EXPOSURE?NO LATEX RISK : HAVE YOU EVER HAD ANY DIFFICULTY BREATHING OR HIVES AFTER EATING OR HANDLING ANY FRUITS, OR VEGETABLES; SUCH KIWI, BANANAS, STONE FRUITS, OR CHESTNUTSNO LATEX RISK : DO YOU HAVE A PREVIOUS PERSONAL HISTORY OF MORE THAN NINE SURGERIES, SPINA BIFIDA, OR REPEATED CATHERIZATIONS? YES - PLEASE INDICATE : > 9 SURGERIES LATEX RISK : ARE YOU FREQUENTLY EXPOSED TO LATEX PRODUCTS IN YOUR OCCUPATION?NO DATE ASKED : 08/01/2019 LUNG CANCER SCREENING SMOKING STATUS:FORMER SMOKER ALCOHOL SCREENING DID YOU HAVE A DRINK CONTAINING ALCOHOL IN THE PAST YEAR?NO POINTS0 INTERPRETATIONNEGATIVE RECREATIONAL DRUG USE DRUG USE?NO CAFFEINE CAFFEINE USE?NO SABIANISM [id number] NONE NO VOODOO BELIEFS THAT WOULD IMPACT HEALTH CARE. LANGUAGE LANGUAGES SPOKEN:BELIZEAN LEARNING BARRIERS / SPECIAL NEEDS BARRIERS TO LEARNING?NO HEARING IMPAIRED?YES VISION IMPAIRED?YES COGNITIVELY IMPAIRED?NO :HEARING AIDES :CORRECTIVE LENSES READINESS TO LEARN?YES LEARNING PREFERENCES?NO LEARNING CAPABILITIES PRESENT?YES EMOTIONAL BARRIERS?NO SPECIAL DEVICES?YES :CANE, WALKER ELECTRONIC FIELD SERVICE ENGINEER NEEDED?NO DOMESTIC VIOLENCE DO YOU FEEL SAFE IN YOUR ENVIRONMENT?YES MARITAL STATUS: .. NEW PATIENT PAIN DIARY TODAY'S VISITNOTES PATIENT DESCRIBES PAIN :ACHING, HAVE IT ALL THE TIME, SHARP, SORE, SHOOTING FROM 0-10, WHAT LEVEL IS YOUR PAIN TODAY?6 PAIN CLINIC PFS, CLERGY, PUBLIC HEALTH REFERRALS PFS REFERRAL NEEDED?NO CLERGY REFERRAL NEEDED?NO PUBLIC HEALTH REFERRAL NEEDED?NO WAS THE PROVIDER NOTIFIED OF ANY PERTINENT INFO? N/A HAS THE PATIENT BEEN EDUCATED REGARDING HIS/HER PLAN OF CARE?YES HAS THE PATIENT BEEN EDUCATED REGARDING PAIN, THE RISK FOR PAIN, THE IMPORTANCE OF EFFECTIVE PAIN MANAGEMENT, AND THE PAIN ASSESSMENT PROCESS?YES ADVANCE DIRECTIVE ADVANCE DIRECTIVE DISCUSSED WITH PATIENT:YES PT DOES NOT HAVE ANY ADVANCED DIRECRTIVES AND SHE DECLINED INFORMATION ON HCP AT THIS TIME. HOSPITALIZATION/MAJOR DIAGNOSTIC PROCEDURE SURGERY RELATED VITAL SIGNS WT 159.2 LBS, HT 61 IN, BMI 30.08 INDEX, BP 114/63 MM HG, HR 65 /MIN, RR 16 /MIN, TEMP 98.7 F, OXYGEN SAT % 99%, SAFE IN ENV? (Y/N) Y, NA INITIALS TL 1038, REVIEWED BY: DS. EXAMINATION GENERAL EXAMINATION: THE PATIENT IS ALERT, ORIENTED TIMES THREE AND COOPERATIVE. HEART SHOWS REGULAR RHYTHM, NO MURMURS AND NO GALLOPS. LUNGS ARE CLEAR TO AUSCULTATION. ASSESSMENTS MYALGIA, OTHER SITE - M79.18 (PRIMARY) PROCEDURES PAIN NURSING RECORD PRE-PROCEDURE IV SITE N/A, PRE-PROCEDURE ORAL MEDICATIONS PT AMBULATED TO PROCEDURE ROOM AND POSITIONED SELF ON TABLE WITH MIN 1 ASSIST, GAIT STEADY. PT DECLINED COVID-19 TESTING PRIOR TO PROCEDURE, MD MINER DISCUSSED WITH PATIENT, PT UNDERSTANDS THAT SHE WILL NOT HAVE STEROIDS WITH INJECTION TODAY. PT ALSO ACKNOWLEDGES UNDERSTANDING FOR PRECAUTIONS FOR POST PROCEDURE AND SELF ISOLATING RECOMMNEDED BY MD MINER. PROCEDURE IN ROOM 1020, PHYSICIAN IN ROOM 1100, START 1103, FINISH 1107, PHYSICIAN OUT OF ROOM 1109, OUT OF ROOM 1115, STEROID N/A, O2 RA, ECG N/A, PATIENT SHIELDED NO, SAFETY STRAP NO, PREP ALCOHOL MD MINER, IV INFUSED N/A, DRESSING TEGADERM LOC: 1. ALERT, ORIENTED RESP: 1. REGULAR, NO DYSPNEA COLOR: 1. PINK SKIN: 1. WARM, DRY POSITION: 4. OTHER VITALS: 1115 148/75, 66, 16, 97% PT AMBULATED POST PROCEDURE, GAIT STEADY, PT TOLERATED PROCEDURE WELL. DISCHARGE: POST PAIN 6.5 LEFT SHOULDER, DRESSING SITE DRY AND INTACT, IV N/A, GAIT OTHER WALKER, TEACHING COMPLETED, PATIENT ACKNOWLEDGES UNDERSTANDING YES, PATIENT DISCHARGED AT 1115 PN TRIGGER POINT INJECTION NO STEROIDS PRE PROCEDURE DIAGNOSIS 1. MYALGIA 2. PAIN AT LEFT SHOULDER AREA POST PROCEDURE DIAGNOSIS 1. MYALGIA 2. PAIN AT LEFT SHOULDER AREA PROCEDURE TRIGGER POINT INJECTION AT LEFT SHOULDER AREA SURGEON DR. DAYLIN MINER ANIMAL STICKER NONE ANESTHESIA LOCAL PRE PROCEDURE NOTE THE PATIENT HAS A HISTORY OF CHRONIC PAIN AT LEFT SHOULDER AREA. I EVALUATED THE PATIENT AND REVIEWED THE CHART. THERE IS EVIDENCE OF BANDS OF TISSUE WITH RESTRICTION OF MOVEMENT AND PRESENCE OF TRIGGER POINT AT THE LEFT SHOULDER AREA. I WENT OVER THE RISKS, ALTERNATIVES, AND BENEFITS ASSOCIATED WITH THIS PROCEDURE. THE PATIENT WOULD LIKE TO PROCEED AND GAVE CONSENT TO PERFORM THE PROCEDURE. THE PATIENT DENIES UNEXPLAINABLE WEIGHT LOSS, FEVER, CHILLS, OR NEW CHANGES IN URINARY OR BOWEL CONTROL DESCRIPTION OF PROCEDURE THE PATIENT WAS BROUGHT TO THE PROCEDURE ROOM AND PLACED IN THE SITTING POSITION. THE AREA WAS CLEANED WITH ALCOHOL. THE PROCEDURE WAS DONE USING ASEPTIC STERILE TECHNIQUES. I CHECKED LATERALITY AND THE LEVEL WHERE THE PROCEDURE WAS GOING TO BE PERFORMED WITH THE PATIENT AND THE SUPPORTING STAFF AT THE MOMENT OF THE TIME OUT IN THE PROCEDURE ROOM. USING A 25-GAUGE NEEDLE, TRIGGER POINTS WERE INJECTED INTO THE LEFT SHOULDER AREA WITH A TOTAL OF 40 ML OF BUPIVACAINE 0.25%. AGREED WITH THE PATIENT THE PROCEDURE WAS DONE WITHOUT STEROIDS. THERE WAS NO EVIDENCE OF BLOOD, PARESTHESIA OR CEREBROSPINAL FLUID DURING THE PROCEDURE. THE PATIENT WAS SENT TO THE RECOVERY ROOM. THE PATIENT WAS MOVING THE EXTREMITIES AND DOING WELL. THERE WAS NO COMPLICATION DURING THE PROCEDURE POST PROCEDURE NOTE I DISCUSSED WITH THE PATIENT ABOUT PHARMALGICAL MANAGEMENT DUE TO NEUROPATHIC PAIN. THE PATIENT EXPERIENCES PAIN JUST BY TOUCHING HER SKIN. WE ALSO DISCUSSED DIFFERENT ALTERNATIVES, SUCH ACUPUNCTURE AND MEDITATION. THE PROCEDURE DONE WAS DISCUSSED WITH THE PATIENT. THE PATIENT WILL BE SEEN IN A FOLLOW UP IN THE NEXT FEW WEEKS. I AM LOOKING FOR LONG LASTING PAIN RELIEF FOR THE PATIENT WITH THIS INTERVENTION. INSTRUCTIONS WERE GIVEN, QUESTIONS WERE ANSWERED, AND THE PATIENT EXPRESSED UNDERSTANDING AND AGREES WITH THE PLAN. I, STAN WAHL, DOCUMENTED THE ABOVE INFORMATION ACTING A SCRIBE FOR DR. MINER. I HAVE REVIEWED THE ABOVE DOCUMENT, WRITTEN BY STAN WAHL, TUCK POINTER, AND I VERIFY THAT IT IS ACCURATE PROCEDURE CODES 07380 INJ TRIGGER POINT 03/06 [facility] [place] COMMUNICATION FOLLOW UP F/UP WITH GUIDE (REASON: POST TPI LEFT SHOULDER) ELECTRONICALLY SIGNED BY DAYLIN MINER MD, MD ON 08/05/2019 AT 10:01 AM EDT DISCLAIMER : THIS IS A VISIT SUMMARY EXTRACTED FROM THE [employer] CHART. IT IS NOT A COPY OF THE [employer] PROGRESS NOTE. MARIKA
== END ==
LOC: M PAIN 10:15
PROVIDERS: ATTEND Anesthesiology
DX: M79.18 Myalgia, other site (principal); K21.9 Gastro-esophageal reflux disease without esophagitis; Z96.641 Presence of right artificial hip joint; Z87.891 Personal history of nicotine dependence; Z88.5 Allergy status to narcotic agent; Z88.6 Allergy status to analgesic agent; Z88.8 Allergy status to other drugs, medicaments and biological substances; Z91.09 Other allergy status, other than to drugs and biological substances; Z79.891 Long term (current) use of opiate analgesic; Z79.899 Other long term (current) drug therapy

== ENCOUNTER → 2019-09-01 | Outpatient (CLI) | payer MEDICARE, MEDICAID ==
[~2019-09-01] MED LIST changes: -BUPIVACAINE HCL 0.25% 10ML VIAL As Ordered ONE; -BUPIVACAINE HCL 0.25% 30ML VIAL As Ordered ONE
--- NOTE | 2019-09-04 02:01 | ECWPNPC ---
PATIENT NAME: NNAMDI ANAND : 1965 GENDER: FEMALE VISIT DATE: 09/01/2019 DISCHARGE DATE: 09/01/19 1113 VISIT LOCKED DATE TIME: PHYSICIAN: NINA ESQUIVEL RESOURCE: NINA ESQUIVEL REASON FOR APPOINTMENT 1. POST LEFT SCAPULAR PAIN TPI HISTORY OF PRESENT ILLNESS GENERAL: HERE FOR POST PROCEDURE FOLLOW-UP. HAD TRIGGER POINT INJECTIONS TO HER LEFT SHOULDER ON 08/04/2019. THAT AREA IS DOING WELL. CHIEF AREA OF PAIN IS RIGHT HIP. HAS RESPONDED WELL TO RIGHT TROCHANTERIC BURSAL INJECTION IN THE PAST. PAIN IS AGGRAVATED IN THIS REGION BY WALKING. FINDS CURRENT CHRONIC PAIN MEDICATION SOMEWHAT EFFECTIVE AT REDUCING PAIN AND KEEPING HER FUNCTIONAL. DISCUSSED TREATMENT PLAN. -. FALL RISK SCREENING: SCREENING :TWO OR MORE FALLS WITHOUT INJURY IN THE PAST YEAR PAIN SCREENING: PATIENT HAS A COMPLAINT OF ACUTE OR CHRONIC PAIN :YES LOCATION OF PAIN:LEFT SHOULDER INTENSITY OF PAIN (SCALE OF 1 TO 10):5 WHAT DOES YOUR PAIN FEEL LIKE:ACHING, CONTINOUS DURATION:CONTINOUS PAIN IS INCREASED BY:ACTIVITIES PAIN IS DECREASED BY:OTHERS TRIGGER POINT INJECTIONS WORKED WELL NURSING NOTE: -. PAIN CENTER INTAKE QUESTIONS: DO YOU HAVE A HISTORY OF MRSA? :NO DO YOU TAKE A BLOOD THINNERS? :NO DO YOU HAVE ANY BLEEDING DISORDERS? :NO ANY NEW NUMBNESS OR WEAKNESS IN YOUR LEGS OR ARMS? :NO ANY PACEMAKER,DEFIBRILLATOR, OR DORSAL COLUMN STIMULATOR? :NO DO YOU HAVE ANY RASHES OR OPEN SORES? :NO ARE YOU ALLERGIC TO IV DYE? :NO ARE YOU DIABETIC? :NO ANY NEW PROBLEMS WITH YOUR MEDICATIONS? :NO HAVE YOU RECEIVED A VACCINE IN THE PAST 30 DAYS? :NO DO YOU PLAN TO RECEIVE A VACCINE IN THE NEXT 21 DAYS? :NO DO YOU NEED ANY PRESCRIPTION? :YES TIZANIDINE AND OXYCODONE DO YOU TAKE ANY IMMUNOSUPPRESSIVE MEDICATIONS? :NO ANY HISTORY OF SEIZURES? :NO ANY HISTORY OF CARDIAC ISSUES OR EVENTS? :YES HEAT MURMUR DO YOU HAVE SLEEP APNEA? :NO ANY RECENT HEAD INJURY? :NO DO YOU HAVE ANY NEW INFECTIONS? :NO IS THERE A CHANCE YOU COULD BE ? :NO ARE YOU BREAST FEEDING? :NO CURRENT MEDICATIONS TAKING ZOFRAN 4 MG TABLET 3 TABLETS ORALLY PRE MEDICATION TAKING ROPINIROLE HCL 1 MG TABLET ORALLY AT BEDTIME TAKING SUMATRIPTAN SUCCINATE 100 MG TABLET 1 TABLET NEEDED ONE TIME ORALLY DIRECTED TAKING DEXILANT 60 MG CAPSULE DELAYED RELEASE 1 CAPSULE ORALLY ONCE A DAY TAKING RALOXIFENE HCL 60 MG TABLET 1 TABLET ORALLY ONCE A DAY TAKING SIMVASTATIN 40 MG TABLET 1 TABLET IN THE EVENING ORALLY IN EVENING TAKING DIVALPROEX SODIUM 250 MG TABLET DELAYED RELEASE 1 TABLET ORALLY TWICE A DAY TAKING LINZESS 290 MCG CAPSULE 1 CAPSULE ORALLY ONCE A DAY TAKING VITAMIN D (ERGOCALCIFEROL) 1.25 MG (96672 UT) CAPSULE 1 CAPSULE ORALLY WEEKLY TAKING LYRICA 100 MG CAPSULE 1 CAPSULE ORALLY ONCE A DAY AT BEDTIME TAKING LYRICA 200 MG CAPSULE 1 CAPSULE ORALLY BID MDD2 TAKING TIZANIDINE HCL 4 MG TABLET 1 TABLET NEEDED ORALLY THREE TIMES A DAY TAKING OXYCODONE HCL 5 MG TABLET 2 ORALLY Q8H PRN MDD6 NOT-TAKING CARISOPRODOL 350 MG TABLET 1 TABLET NEEDED ORALLY EVERY 8 HOURS NEEDED FOR SPASMS AND PAIN MDD3 NOT-TAKING TOPIRAMATE 100 MG TABLET 1 TABLET ORALLY TWICE A DAY MEDICATION LIST REVIEWED AND RECONCILED WITH THE PATIENT PAST MEDICAL HISTORY ACID REFLUX IBS PINCHED NERVES IN BACK SCOLIOSIS ARTHRITIS DDD ENDOMETRIOSIS CONGENITAL RIGHT HIP ABNORMALITY GASTROPARESIS 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 PAIN LOW BACK PAIN HEART MURMUR DUE TO DEFECT COLON POLYPS ALLERGIES NAPROXEN SODIUM: TONGUE SWELLS/FACE SWELLING - ALLERGY ASPIRIN: SORES IN MOUTH - ALLERGY ADHESIVE TAPE/BANDAIDS: BLISTERS - ALLERGY TEGADERM: SKIN BECOMES RAW, REDNESS, HEAT - ALLERGY PEPTO BISMOL: VOMITING WHEAT: RASH - ALLERGY BELBUCA: VOMITING - SIDE EFFECTS BOTOX: LIPS PEELING - SIDE EFFECTS SURGICAL HISTORY WRIST SURGERY RIGHT.TORN LIGAMENT 2004 BILATERAL SALPINGO SURGERY DUE TO DEFECT 1989 SURGERY LEFT WRIST 2016 RIGHT HIP SURGERY X 3 2015, 04/2016,09/2016 RIGHT FOOT SURGERY- NERVE RELEASE 09/27/15 TOTAL RIGHT HIP 04/05/2016 FALLOPIAN TUBE RECONSTRUCTION 1994 CERVICAL DISCESTOMY WITH HARDWARE 11/06/17 COLONOSCOPY & EGD 04/2019 FAMILY HISTORY FATHER: , DIAGNOSED WITH DIABETES, UNSPECIFIED HEART DISEASE MOTHER: , DIABETES, UNSPECIFIED HEART DISEASE SOCIAL HISTORY GENERAL: TOBACCO USE ARE YOU A:FORMER SMOKER HOW LONG HAS IT BEEN SINCE YOU LAST SMOKED?6-12 MONTHS ADDITIONAL FINDINGS: TOBACCO NON-USERCURRENT NON-SMOKER SMOKING CESSATION INFORMATION GIVEN07/05/2018 LATEX QUESTIONNAIRE LATEX ALLERGY : HAVE YOU EVER DEVELOPED ANY TYPE OF REACTION AFTER HANDLING LATEX PRODUCTS SUCH RUBBER GLOVES, CONDOMS, DIAPHRAGMS, BALLOONS, SOCKS, OR UNDERWEAR?NO LATEX ALLERGY : HAVE YOU EVER DEVELOPED ANY TYPE OF REACTION DURING OR AFTER DENTAL APPOINTMENT, VAGINAL/RECTAL EXAMINATION, SURGICAL PROCEDURE, OR ANY OTHER EXPOSURE?NO LATEX RISK : HAVE YOU EVER HAD ANY DIFFICULTY BREATHING OR HIVES AFTER EATING OR HANDLING ANY FRUITS, OR VEGETABLES; SUCH KIWI, BANANAS, STONE FRUITS, OR CHESTNUTSNO LATEX RISK : DO YOU HAVE A PREVIOUS PERSONAL HISTORY OF MORE THAN NINE SURGERIES, SPINA BIFIDA, OR REPEATED CATHERIZATIONS? YES - PLEASE INDICATE : > 9 SURGERIES LATEX RISK : ARE YOU FREQUENTLY EXPOSED TO LATEX PRODUCTS IN YOUR OCCUPATION?NO DATE ASKED : 09/01/2019 LUNG CANCER SCREENING SMOKING STATUS:FORMER SMOKER ALCOHOL SCREENING DID YOU HAVE A DRINK CONTAINING ALCOHOL IN THE PAST YEAR?NO POINTS0 INTERPRETATIONNEGATIVE RECREATIONAL DRUG USE DRUG USE?NO CAFFEINE CAFFEINE USE?NO PENTECOSTAL [id number] NONE NO HOLINESS BELIEFS THAT WOULD IMPACT HEALTH CARE. LANGUAGE LANGUAGES SPOKEN:AUSTRIAN LEARNING BARRIERS / SPECIAL NEEDS BARRIERS TO LEARNING?NO HEARING IMPAIRED?YES VISION IMPAIRED?YES COGNITIVELY IMPAIRED?NO :HEARING AIDES :CORRECTIVE LENSES READINESS TO LEARN?YES LEARNING PREFERENCES?NO LEARNING CAPABILITIES PRESENT?YES EMOTIONAL BARRIERS?NO SPECIAL DEVICES?YES :CANE, WALKER POULTRY HUSBANDMAN NEEDED?NO DOMESTIC VIOLENCE DO YOU FEEL SAFE IN YOUR ENVIRONMENT?YES MARITAL STATUS: .. PAIN CLINIC PFS, CLERGY, PUBLIC HEALTH REFERRALS PFS REFERRAL NEEDED?NO CLERGY REFERRAL NEEDED?NO PUBLIC HEALTH REFERRAL NEEDED?NO WAS THE PROVIDER NOTIFIED OF ANY PERTINENT INFO? N/A HAS THE PATIENT BEEN EDUCATED REGARDING HIS/HER PLAN OF CARE?YES HAS THE PATIENT BEEN EDUCATED REGARDING PAIN, THE RISK FOR PAIN, THE IMPORTANCE OF EFFECTIVE PAIN MANAGEMENT, AND THE PAIN ASSESSMENT PROCESS?YES ADVANCE DIRECTIVE ADVANCE DIRECTIVE DISCUSSED WITH PATIENT:YES PT DOES NOT HAVE ANY ADVANCED DIRECRTIVES AND SHE DECLINED INFORMATION ON HCP AT THIS TIME. HOSPITALIZATION/MAJOR DIAGNOSTIC PROCEDURE SURGERY RELATED REVIEW OF SYSTEMS CONSTITUTIONAL: ANY RECENT FEVER NO . CHILLS NO . WEIGHT CHANGE OF UNKNOWN REASONS NO . GASTROENTEROLOGY: NEW UNEXPLAINABLE CHANGES IN BOWEL CONTROL NO . CONSTIPATION NO . GENITOURINARY: ANY NEW CHANGE IN BLADDER CONTROL? NO . NEUROLOGY: NEW ONSET DIZZINESS OR NEUROLOGICAL CHANGES NOT MENTIONED NO . NEW NUMBNESS OR PAIN PATTERNS NOT MENTIONED AND PERTINENT TO TODAY'S VISIT NO . CARDIOLOGY: NEW CHEST PRESSURE NO . NEW CHEST PAIN NO . RESPIRATORY: UNEXPLAINABLE COUGH NO . NEW SHORTNESS OF BREATH NO . VITAL SIGNS WT 157.2 LBS, HT 61 IN, BMI 29.70 INDEX, BP 115/68 MM HG, HR 67 /MIN, RR 18 /MIN, TEMP 97.9 F, OXYGEN SAT % 99%, SAFE IN ENV? (Y/N) YES, NA INITIALS AW 1021, REVIEWED BY: ROYER. EXAMINATION GENERAL EXAMINATION: GENERAL AWAKE,ALERT ,PLEAASANT . PSYCH AFFECT NORMAL . LUNGS: LUNG BETH ARE CLEAR TO AUSCULTATION BILATERALLY. GOOD MOVEMENT OF AIR . HEART: S1, S2 IN A REGULAR RATE AND RHYTHM. NO SIGNIFICANT MURMURS, RUBS OR GALLOPS NOTED . MUSCULOSKELETAL:TENDERNESS NOTED OVER RIGHT TROCHANTERIC BURSAL REGION. LUMBAR: PALPATION: + FOR PAIN OVER L/S SPINE. + FOR PAIN OVER L/S PARASPINALS .SPECIFIC POINT TENDERNESS OVER BILAT L4/5-L5/S1 LUMBAR FACETS WITH FACET LOADING. NEUROLOGIC EXAM: NORMAL SENSATION LIGHT TOUCH BILAT. LOWER EXTREMITIES . DIAGNOSTIC TESTS REVIEWEDMRI RIGHT HIP. ASSESSMENTS TROCHANTERIC BURSITIS, RIGHT HIP - M70.61 (PRIMARY) TREATMENT TROCHANTERIC BURSITIS, RIGHT HIP REFILL TIZANIDINE HCL TABLET, 4 MG, 1 TABLET NEEDED, ORALLY, THREE TIMES A DAY, 30 DAYS, 90 TABLET, REFILLS 5 REFILL OXYCODONE HCL TABLET, 5 MG, 2, ORALLY, Q8H PRN MDD6, 30 DAY(S), 180, REFILLS 0 NOTES: RIGHT TROCHANTERIC BURSAL INJECTION , ISTOP REGISTRY REVIEWED AND DEMONSTRATES COMPLLIANCE. BRINGS IN MEDICATIONS WHICH IS APPROPRIATE FOR WHAT WAS DISPENSED. RECENT URINE TOXICOLOGY REVIEWED. NO UNAUTHORIZED MEDICATIONS. NO ILLICIT SUBSTANCES AND PRESCRIBED MEDICATIONS WERE PRESENT. , RISKS OF NARCOTIC/OPIOD MEDICATIONS INCLUDES BUT IS NOT LIMITED TO RISK OF DEPENDANCE/DEVELOPMENT OF ADDICTION, MOOD DISTURBANCE AND DEPRESSION, OSTEOPOROSIS, HORMONAL AND LABIDAL CHANGES, RESPIRATORY DEPRESSION AND . PATIENT IS ADVISED NOT TO DRIVE OR DRINK ALCOHOL WHILE ON THESE MEDICATIONS. PREVENTIVE MEDICINE PAIN CLINIC TEACHING: PROCEDURE TEACHING WALDEMAR BARRAGAN 09/01/2019 11:05:34 AM > TRONCHANTERIC BURSA INJECTION INFORMATION PRINTED AND REVIEWED WITH PATIENT. PATIENT VERBLAIZES UNDERSATNDING OF PROCEDURE AND PRE PROCEDURE INSTRUCTIONS REVIEWED.. PROCEDURE CODES FA211 ESTABILISHED PATIENT [facility] CHARGE DISPOSITION & COMMUNICATION FOLLOW UP POST PROCEDURE (REASON: RIGHT TROCHANTERIC BURSAL INJECTION) ELECTRONICALLY SIGNED BY BASSAM DOMINGUEZ ON 09/03/2019 AT 09:17 AM EDT DISCLAIMER : THIS IS A VISIT SUMMARY EXTRACTED FROM THE [employer] CHART. IT IS NOT A COPY OF THE [employer] PROGRESS NOTE. MARIKA
== END ==
LOC: M PAIN 10:00
PROVIDERS: ATTEND Nurse Practitioner Family
DX: M70.61 Trochanteric bursitis, right hip (principal); Z79.891 Long term (current) use of opiate analgesic; Z79.899 Other long term (current) drug therapy; Z88.6 Allergy status to analgesic agent; Z88.8 Allergy status to other drugs, medicaments and biological substances; Z91.018 Allergy to other foods; Z91.048 Other nonmedicinal substance allergy status

== ENCOUNTER → 2019-09-25 | Outpatient (CLI) | payer MEDICARE, MEDICAID | LOC: M LABSMTC 09:27 | PROVIDERS: ATTEND Anesthesiology | DX: Z20.828 Contact with and (suspected) exposure to other viral communicable diseases (principal); Z11.59 Encounter for screening for other viral diseases | CPT/HCPCS: C9803; U0003 ==

== ENCOUNTER 2019-09-30 12:13 | Emergency (ER) | payer MEDICARE, MEDICAID ==
[~2019-09-30 12:13] MED LIST changes: +PANT40TA29 PO; -PANT40TA3 PO
== END 2019-09-30 16:22 | disposition home or self-care (01) ==
LOC: M ED 12:13
DX: S60.211A Contusion of right wrist, initial encounter (principal); W01.0XXA Fall on same level from slipping, tripping and stumbling without subsequent striking against object, initial encounter; Y92.89 Other specified places as the place of occurrence of the external cause; Z79.899 Other long term (current) drug therapy; Z79.891 Long term (current) use of opiate analgesic; Z88.8 Allergy status to other drugs, medicaments and biological substances

== ENCOUNTER → 2019-10-16 | Outpatient (POV) | payer MEDICARE, MEDICAID | LOC: M PAIN 09:00 | PROVIDERS: ATTEND Nurse Practitioner Family | DX: M70.61 Trochanteric bursitis, right hip (principal) ==

== ENCOUNTER → 2020-01-16 | Outpatient (CLI) | payer MEDICARE, MEDICAID ==
--- NOTE | 2020-01-21 07:10 | ECWPNPC ---
PATIENT NAME: NNAMDI ANAND : 1965 GENDER: FEMALE VISIT DATE: 01/16/2020 DISCHARGE DATE: 01/16/20 1000 VISIT LOCKED DATE TIME: PHYSICIAN: NINA ESQUIVEL RESOURCE: NINA ESQUIVEL REASON FOR APPOINTMENT 1. 3MOS FOLLOW UP HISTORY OF PRESENT ILLNESS GENERAL: HERE FOR FOLLOW-UP OF CHRONIC GENERALIZED PAIN. SHE IS VERY UNCOMFORTABLE TODAY. COMPLAINING OF HEADACHE. FOLLOWS WITH NEUROLOGY FOR CHRONIC HEADACHES. RECEIVING BOTOX EVERY 3 MONTHS AND OCCIPITAL BLOCKS IN BETWEEN. COMPLAINING OF BILATERAL FOOT PAIN LEFT GREATER THAN RIGHT. STATES LOW BACK PAIN HAS BEEN AGGRAVATED OVER THE PAST COUPLE OF WEEKS. PAIN IS WORSE ACROSS THE LOW BACK ON THE RIGHT SIDE. REVIEWED MRI OF THE LS-SPINE AND DISCUSSED TREATMENT OPTIONS. FINDS CURRENT MEDICATION SOMEWHAT EFFECTIVE. DENIES ADVERSE SIDE EFFECTS.-. FALL RISK SCREENING: SCREENING :TWO OR MORE FALLS WITH INJURY IN THE PAST YEAR RIGHT WRIST INJURY, XRAYS SHOWED SPRAIN PAIN SCREENING: PATIENT HAS A COMPLAINT OF ACUTE OR CHRONIC PAIN :YES LOCATION OF PAIN:OTHER: WHOLE BODY INTENSITY OF PAIN (SCALE OF 1 TO 10):9 WHAT DOES YOUR PAIN FEEL LIKE:ACHING, BURNING, SHARP, STABBING, THROBBING, SHOOTING DURATION:CONTINOUS, CONSTANT PAIN IS INCREASED BY:ACTIVITIES PAIN IS DECREASED BY:USE OF PAIN MEDICATIONS OXY LESS EFFECTIVE NOW TREATMENT/MEDICATIONS USED TO MANAGE PAIN:OTC PAIN RELIEVERS, OPIOIDS LEVEL OF RELIEF FROM PAIN TREATMENTS IN THE PAST:50% PAIN HAS INTERFERED WITH THE FOLLOWING:BATHING/DRESSING, WALKING ABILITY, HOUSEWORK, SLEEP, TRANSPORTATION, TOILETING NURSING NOTE: -. PAIN CENTER INTAKE QUESTIONS: DO YOU HAVE A HISTORY OF MRSA? :NO DO YOU TAKE A BLOOD THINNERS? :NO DO YOU HAVE ANY BLEEDING DISORDERS? :NO ANY NEW NUMBNESS OR WEAKNESS IN YOUR LEGS OR ARMS? :NO ANY PACEMAKER,DEFIBRILLATOR, OR DORSAL COLUMN STIMULATOR? :NO DO YOU HAVE ANY RASHES OR OPEN SORES? :NO ARE YOU ALLERGIC TO IV DYE? :NO ARE YOU DIABETIC? :NO ANY NEW PROBLEMS WITH YOUR MEDICATIONS? :YES PT STATES OXY IS LESS EFFECTIVE THAN IT USED TO BE AND SHE HAS RUN OUT OF LYRICA HAVE YOU RECEIVED A VACCINE IN THE PAST 30 DAYS? :NO DO YOU PLAN TO RECEIVE A VACCINE IN THE NEXT 21 DAYS? :NO DO YOU NEED ANY PRESCRIPTION? :YES LYRICA 100 AND 200MG AND OXY 5MG DO YOU TAKE ANY IMMUNOSUPPRESSIVE MEDICATIONS? :NO IS THERE A CHANCE YOU COULD BE ? :NO ARE YOU BREAST FEEDING? :NO CURRENT MEDICATIONS TAKING ZOFRAN 4 MG TABLET 3 TABLETS ORALLY PRE MEDICATION TAKING ROPINIROLE HCL 1 MG TABLET ORALLY AT BEDTIME TAKING SUMATRIPTAN SUCCINATE 100 MG TABLET 1 TABLET NEEDED ONE TIME ORALLY DIRECTED TAKING DEXILANT 60 MG CAPSULE DELAYED RELEASE 1 CAPSULE ORALLY ONCE A DAY TAKING RALOXIFENE HCL 60 MG TABLET 1 TABLET ORALLY ONCE A DAY TAKING SIMVASTATIN 40 MG TABLET 1 TABLET IN THE EVENING ORALLY IN EVENING TAKING DIVALPROEX SODIUM 250 MG TABLET DELAYED RELEASE 1 TABLET ORALLY TWICE A DAY TAKING LINZESS 290 MCG CAPSULE 1 CAPSULE ORALLY ONCE A DAY TAKING VITAMIN D (ERGOCALCIFEROL) 1.25 MG (76119 UT) CAPSULE 1 CAPSULE ORALLY WEEKLY TAKING LYRICA 100 MG CAPSULE 1 CAPSULE ORALLY ONCE A DAY AT BEDTIME TAKING LYRICA 200 MG CAPSULE 1 CAPSULE ORALLY BID MDD2 TAKING TIZANIDINE HCL 4 MG TABLET 1 TABLET NEEDED ORALLY THREE TIMES A DAY TAKING OXYCODONE HCL 5 MG TABLET 2 ORALLY Q8H PRN MDD6 NOT-TAKING CARISOPRODOL 350 MG TABLET 1 TABLET NEEDED ORALLY EVERY 8 HOURS NEEDED FOR SPASMS AND PAIN MDD3 NOT-TAKING TOPIRAMATE 100 MG TABLET 1 TABLET ORALLY TWICE A DAY PAST MEDICAL HISTORY ACID REFLUX IBS PINCHED NERVES IN BACK SCOLIOSIS ARTHRITIS DDD ENDOMETRIOSIS CONGENITAL RIGHT HIP ABNORMALITY GASTROPARESIS 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 PAIN LOW BACK PAIN HEART MURMUR DUE TO DEFECT COLON POLYPS STOMACH FATTY TUMORS ALLERGIES NAPROXEN SODIUM: TONGUE SWELLS/FACE SWELLING - ALLERGY ASPIRIN: SORES IN MOUTH - ALLERGY ADHESIVE TAPE/BANDAIDS: BLISTERS - ALLERGY TEGADERM: SKIN BECOMES RAW, REDNESS, HEAT - ALLERGY PEPTO BISMOL: VOMITING WHEAT: RASH - ALLERGY BELBUCA: VOMITING - SIDE EFFECTS BOTOX: LIPS PEELING - SIDE EFFECTS SURGICAL HISTORY WRIST SURGERY RIGHT.TORN LIGAMENT 2004 BILATERAL SALPINGO SURGERY DUE TO DEFECT 1989 SURGERY LEFT WRIST 2016 RIGHT HIP SURGERY X 3 2015, 04/2016,09/2016 RIGHT FOOT SURGERY- NERVE RELEASE 09/27/15 TOTAL RIGHT HIP 04/05/2016 FALLOPIAN TUBE RECONSTRUCTION 1994 CERVICAL DISCESTOMY WITH HARDWARE 11/06/17 COLONOSCOPY & EGD 04/2019 STOMACH TUMORS REMOVED 10/2019 FAMILY HISTORY FATHER: , DIAGNOSED WITH DIABETES, UNSPECIFIED HEART DISEASE MOTHER: , UNSPECIFIED HEART DISEASE, DIABETES SOCIAL HISTORY GENERAL: TOBACCO USE ARE YOU A:FORMER SMOKER HOW LONG HAS IT BEEN SINCE YOU LAST SMOKED?1-5 YEARS SMOKING CESSATION INFORMATION GIVEN01/16/2020 ADDITIONAL FINDINGS: TOBACCO NON-USERCURRENT NON-SMOKER LATEX QUESTIONNAIRE LATEX ALLERGY : HAVE YOU EVER DEVELOPED ANY TYPE OF REACTION AFTER HANDLING LATEX PRODUCTS SUCH RUBBER GLOVES, CONDOMS, DIAPHRAGMS, BALLOONS, SOCKS, OR UNDERWEAR?NO LATEX ALLERGY : HAVE YOU EVER DEVELOPED ANY TYPE OF REACTION DURING OR AFTER DENTAL APPOINTMENT, VAGINAL/RECTAL EXAMINATION, SURGICAL PROCEDURE, OR ANY OTHER EXPOSURE?NO LATEX RISK : HAVE YOU EVER HAD ANY DIFFICULTY BREATHING OR HIVES AFTER EATING OR HANDLING ANY FRUITS, OR VEGETABLES; SUCH KIWI, BANANAS, STONE FRUITS, OR CHESTNUTSNO LATEX RISK : DO YOU HAVE A PREVIOUS PERSONAL HISTORY OF MORE THAN NINE SURGERIES, SPINA BIFIDA, OR REPEATED CATHERIZATIONS? YES - PLEASE INDICATE : > 9 SURGERIES LATEX RISK : ARE YOU FREQUENTLY EXPOSED TO LATEX PRODUCTS IN YOUR OCCUPATION?NO DATE ASKED : 09/01/2019 LUNG CANCER SCREENING SMOKING STATUS:FORMER SMOKER ALCOHOL SCREENING DID YOU HAVE A DRINK CONTAINING ALCOHOL IN THE PAST YEAR?NO POINTS0 INTERPRETATIONNEGATIVE RECREATIONAL DRUG USE DRUG USE?NO CAFFEINE CAFFEINE USE?NO SAMARITAN [id number] NONE NO HOLINESS BELIEFS THAT WOULD IMPACT HEALTH CARE. LANGUAGE LANGUAGES SPOKEN:[place] LEARNING BARRIERS / SPECIAL NEEDS BARRIERS TO LEARNING?NO HEARING IMPAIRED?YES VISION IMPAIRED?YES COGNITIVELY IMPAIRED?NO :HEARING AIDES :CORRECTIVE LENSES READINESS TO LEARN?YES LEARNING PREFERENCES?NO LEARNING CAPABILITIES PRESENT?YES EMOTIONAL BARRIERS?NO SPECIAL DEVICES?YES :CANE, WALKER BARROW WORKER NEEDED?NO DOMESTIC VIOLENCE DO YOU FEEL SAFE IN YOUR ENVIRONMENT?YES MARITAL STATUS: .. PAIN CLINIC PFS, CLERGY, PUBLIC HEALTH REFERRALS PFS REFERRAL NEEDED?NO CLERGY REFERRAL NEEDED?NO PUBLIC HEALTH REFERRAL NEEDED?NO WAS THE PROVIDER NOTIFIED OF ANY PERTINENT INFO? N/A HAS THE PATIENT BEEN EDUCATED REGARDING HIS/HER PLAN OF CARE?YES HAS THE PATIENT BEEN EDUCATED REGARDING PAIN, THE RISK FOR PAIN, THE IMPORTANCE OF EFFECTIVE PAIN MANAGEMENT, AND THE PAIN ASSESSMENT PROCESS?YES ADVANCE DIRECTIVE ADVANCE DIRECTIVE DISCUSSED WITH PATIENT:YES PT DOES NOT HAVE ANY ADVANCED DIRECRTIVES AND SHE DECLINED INFORMATION ON HCP AT THIS TIME. HOSPITALIZATION/MAJOR DIAGNOSTIC PROCEDURE SURGERY RELATED REVIEW OF SYSTEMS CONSTITUTIONAL: ANY RECENT FEVER NO . CHILLS NO . WEIGHT CHANGE OF UNKNOWN REASONS NO . GASTROENTEROLOGY: GENERAL HAD ABDOMINAL SURGERY AND REMOVAL OF CYSTS IN OCTOBER. CONTINUES WITH COMPLAINTS OF ABDOMINAL PAIN. . NEW UNEXPLAINABLE CHANGES IN BOWEL CONTROL NO . CONSTIPATION NO . GENITOURINARY: ANY NEW CHANGE IN BLADDER CONTROL? NO . NEUROLOGY: NEW ONSET DIZZINESS OR NEUROLOGICAL CHANGES NOT MENTIONED NO . NEW NUMBNESS OR PAIN PATTERNS NOT MENTIONED AND PERTINENT TO TODAY'S VISIT NO . CARDIOLOGY: NEW CHEST PRESSURE NO . NEW CHEST PAIN NO . RESPIRATORY: UNEXPLAINABLE COUGH NO . NEW SHORTNESS OF BREATH NO . VITAL SIGNS WT 175.8 LBS, HT 61 IN, BMI 33.21 INDEX, BP 139/65 MM HG, HR 73 /MIN, RR 18 /MIN, TEMP 97.6 F, OXYGEN SAT % 99%, NA INITIALS AW 0914, REVIEWED BY: EM. EXAMINATION GENERAL EXAMINATION: GENERAL AWAKE,ALERT. WEEPY AND UNCOMFORTABLE.. PSYCH AFFECT NORMAL . LUNGS: LUNG BETH ARE CLEAR TO AUSCULTATION BILATERALLY. GOOD MOVEMENT OF AIR . HEART: S1, S2 IN A REGULAR RATE AND RHYTHM. NO SIGNIFICANT MURMURS, RUBS OR GALLOPS NOTED . MUSCULOSKELETAL:TENDERNESS NOTED OVER RIGHT TROCHANTERIC BURSAL REGION. LUMBAR: PALPATION: + FOR PAIN OVER L/S SPINE. + FOR PAIN OVER L/S PARASPINALS .SPECIFIC POINT TENDERNESS OVER BILAT L4/5-L5/S1 LUMBAR FACETS WITH FACET LOADING. NEUROLOGIC EXAM: NORMAL SENSATION LIGHT TOUCH BILAT. LOWER EXTREMITIES . DIAGNOSTIC TESTS REVIEWEDMRI RIGHT HIP. ASSESSMENTS SPONDYLOSIS OF LUMBAR REGION WITHOUT MYELOPATHY OR RADICULOPATHY - M47.816 (PRIMARY) CHRONIC PRESCRIPTION OPIATE USE - Z79.891 TREATMENT SPONDYLOSIS OF LUMBAR REGION WITHOUT MYELOPATHY OR RADICULOPATHY REFILL LYRICA CAPSULE, 100 MG, 1 CAPSULE, ORALLY, ONCE A DAY AT BEDTIME, 30 DAYS, 30, REFILLS 5 REFILL LYRICA CAPSULE, 200 MG, 1 CAPSULE, ORALLY, BID MDD2, 30 DAYS, 60, REFILLS 5 REFILL OXYCODONE HCL TABLET, 5 MG, 2, ORALLY, Q8H PRN MDD6, 30 DAY(S), 180, REFILLS 0 NOTES: BILATERAL L4-5, L5-S1 LUMBAR FACET BLOCK THERAPEUTIC , ISTOP REGISTRY REVIEWED AND DEMONSTRATES COMPLLIANCE. BRINGS IN MEDICATIONS WHICH IS APPROPRIATE FOR WHAT WAS DISPENSED. RECENT URINE TOXICOLOGY REVIEWED. NO UNAUTHORIZED MEDICATIONS. NO ILLICIT SUBSTANCES AND PRESCRIBED MEDICATIONS WERE PRESENT. URINE TOXICOLOGY AT FOLLOW-UP , RISKS OF NARCOTIC/OPIOD MEDICATIONS INCLUDES BUT IS NOT LIMITED TO RISK OF DEPENDANCE/DEVELOPMENT OF ADDICTION, MOOD DISTURBANCE AND DEPRESSION, OSTEOPOROSIS, HORMONAL AND LABIDAL CHANGES, RESPIRATORY DEPRESSION AND . PATIENT IS ADVISED NOT TO DRIVE OR DRINK ALCOHOL WHILE ON THESE MEDICATIONS. PROCEDURE CODES FA211 ESTABILISHED PATIENT [facility] CHARGE DISPOSITION & COMMUNICATION FOLLOW UP HOME ECONOMICS EXPERT POST PROCEDURES/U TOX (REASON: I LATERAL L4-5, L5-S1 LUMBAR FACET BLOCK THERAPEUTIC) ELECTRONICALLY SIGNED BY BASSAM DOMINGUEZ ON 01/20/2020 AT 01:24 PM EST DISCLAIMER : THIS IS A VISIT SUMMARY EXTRACTED FROM THE [employer] CHART. IT IS NOT A COPY OF THE [employer] PROGRESS NOTE. MARIKA
== END ==
LOC: M PAIN 09:00
PROVIDERS: ATTEND Nurse Practitioner Family
DX: M47.816 Spondylosis without myelopathy or radiculopathy, lumbar region (principal); K21.9 Gastro-esophageal reflux disease without esophagitis; K58.9 Irritable bowel syndrome, unspecified; Z87.891 Personal history of nicotine dependence; Z79.891 Long term (current) use of opiate analgesic; Z79.899 Other long term (current) drug therapy; Z88.6 Allergy status to analgesic agent; Z88.8 Allergy status to other drugs, medicaments and biological substances; Z91.048 Other nonmedicinal substance allergy status

== ENCOUNTER → 2020-01-21 | Outpatient (CLI) | payer MEDICARE, MEDICAID ==
--- NOTE | 2020-01-21 11:59 | DEXA ---
INDICATION: SCREENING FOR OSTEOPOROSIS. COMPARISON: 05/01/2017. TECHNIQUE: Bone density was measured using dual-energy x-ray absorptiometry (DEXA). FINDINGS: AP SPINE L1-L4 BMD 1.093 g/cm2 Young Adult T-Score -0.8 Age Matched Z-Score -0.1. LT FEMUR, TOTAL BMD 0.852 g/cm2 Young Adult T-Score -1.2 Age Matched Z-Score -0.6. LT NECK BMD 0.780 g/cm2 Young Adult T-Score -1.9 Age Matched Z-Score 9-0.9. IMPRESSION: There is normal bone density of the spine. There is low bone density of the left hip. The density of the spine has decreased 2.1% since the initial exam on 05/01/2017. The density of the left hip has decreased 0.9% since initial exam on 05/01/2017. FOLLOW-UP: Recommendation for the next bone density exam: 2 years. <Electronically signed by Eduar Estes > 01/21/20 [id number]
== END ==
LOC: M WHC 10:04
PROVIDERS: ATTEND Physician Assistant Medical
DX: Z13.820 Encounter for screening for osteoporosis (principal); M85.852 Other specified disorders of bone density and structure, left thigh

== ENCOUNTER → 2020-01-31 | Outpatient (CLI) | payer MEDICARE, MEDICAID | LOC: M LABSMTC 08:21 | PROVIDERS: ATTEND Anesthesiology | DX: Z20.828 Contact with and (suspected) exposure to other viral communicable diseases (principal) ==

== ENCOUNTER → 2020-02-03 | Outpatient (CLI) | payer MEDICARE, MEDICAID ==
[~2020-02-03] MED LIST changes: +BUPIVACAINE HCL 0.25% 30ML VIAL As Ordered ONE; +ISOVUE-M 300 61% 15ML VIAL As Ordered ONE; +LIDOCAINE 1% SDV 30ML VIAL As Ordered ONE; +TRIAMCINOLONE ACETONIDE SUSP 40 MG/ML VIAL (J3301) As Ordered ONE
--- NOTE | 2020-02-03 17:34 | REP ---
INDICATION: BILATERAL THERAPEUTIC LUMBAR FACET BLOCK L4-5, L5-S1. COMPARISON: None. TECHNIQUE: Six views. 54.1 seconds of fluoroscopy time is reported. FINDINGS: A series of 6 last image hold fluoroscopically obtained spot radiograph(s) of the lumbar spine document(s) needle position(s) and contrast injection associated with injection procedure. IMPRESSION: Procedural imaging. <Electronically signed by Isaiah Win > 02/03/20 1475
--- NOTE | 2020-02-11 04:16 | ECWPNPC ---
PATIENT NAME: NNAMDI ANAND : 1965 GENDER: FEMALE VISIT DATE: 02/03/2020 DISCHARGE DATE: 02/03/201809 VISIT LOCKED DATE TIME: PHYSICIAN: DAYLIN MINER MD RESOURCE: DAYLIN MINER MD REASON FOR APPOINTMENT 1. BILATERAL FACET BLOCK LUMBAR THERAPEUTIC L4-L5, L5-S1 HISTORY OF PRESENT ILLNESS GENERAL: -. FALL RISK SCREENING: SCREENING :TWO OR MORE FALLS WITH INJURY IN THE PAST YEAR PAIN SCREENING: PATIENT HAS A COMPLAINT OF ACUTE OR CHRONIC PAIN :YES LOCATION OF PAIN:UPPER BACK, MID BACK, LOW BACK, LEG(S) RIGHT LEG INTENSITY OF PAIN (SCALE OF 1 TO 10):10 WHAT DOES YOUR PAIN FEEL LIKE:ACHING, BURNING, CONTINOUS, SHARP, STABBING, TENDER, THROBBING, SORE, SHOOTING DURATION:CONTINOUS PAIN IS INCREASED BY:ACTIVITIES PAIN IS DECREASED BY:USE OF PAIN MEDICATIONS, OTHERS TENS UNIT NURSING NOTE: -. PAIN CENTER INTAKE QUESTIONS: DO YOU HAVE A HISTORY OF MRSA? :NO DO YOU TAKE A BLOOD THINNERS? :NO DO YOU HAVE ANY BLEEDING DISORDERS? :NO ANY NEW NUMBNESS OR WEAKNESS IN YOUR LEGS OR ARMS? :NO ANY PACEMAKER,DEFIBRILLATOR, OR DORSAL COLUMN STIMULATOR? :NO DO YOU HAVE ANY RASHES OR OPEN SORES? :YES PSORIASIS AREAS ARE YOU ALLERGIC TO IV DYE? :NO ARE YOU DIABETIC? :NO ANY NEW PROBLEMS WITH YOUR MEDICATIONS? :NO HAVE YOU RECEIVED A VACCINE IN THE PAST 30 DAYS? :NO DO YOU PLAN TO RECEIVE A VACCINE IN THE NEXT 21 DAYS? :NO DO YOU TAKE ANY IMMUNOSUPPRESSIVE MEDICATIONS? :NO ANY HISTORY OF SEIZURES? :NO ANY HISTORY OF CARDIAC ISSUES OR EVENTS? :YES HISTORY OF MURMUR DO YOU HAVE SLEEP APNEA? :NO ANY RECENT HEAD INJURY? :NO DO YOU HAVE ANY NEW INFECTIONS? :NO IS THERE A CHANCE YOU COULD BE ? :NO ARE YOU BREAST FEEDING? :NO WHEN DID YOU LAST EAT? : 02/01 2030 WHEN DID YOU LAST DRINK? : 02/01 2200 WHAT DID YOU LAST DRINK? : WATER NAME OF PERSON DRIVING YOU HOME? : -NIECE LINDA DO YOU HAVE ANY OTHER QUESTIONS OR CONCERNS? : - CURRENT MEDICATIONS TAKING ZOFRAN 4 MG TABLET 3 TABLETS ORALLY PRE MEDICATION, NOTES: 02/02 200 TAKING ROPINIROLE HCL 1 MG TABLET ORALLY AT BEDTIME, NOTES: 02/01 2200 TAKING SUMATRIPTAN SUCCINATE 100 MG TABLET 1 TABLET NEEDED ONE TIME ORALLY DIRECTED, NOTES: 02/01 1200 TAKING DEXILANT 60 MG CAPSULE DELAYED RELEASE 1 CAPSULE ORALLY ONCE A DAY, NOTES: 02/02 08 TAKING RALOXIFENE HCL 60 MG TABLET 1 TABLET ORALLY ONCE A DAY, NOTES: 02/01 2200 TAKING DIVALPROEX SODIUM 250 MG TABLET DELAYED RELEASE 1 TABLET ORALLY TWICE A DAY, NOTES: 02/01 2200 TAKING LINZESS 290 MCG CAPSULE 1 CAPSULE ORALLY ONCE A DAY, NOTES: 02/01 2030 TAKING VITAMIN D (ERGOCALCIFEROL) 1.25 MG (39921 UT) CAPSULE 1 CAPSULE ORALLY WEEKLY, NOTES: 01/31 TAKING TIZANIDINE HCL 4 MG TABLET 1 TABLET NEEDED ORALLY THREE TIMES A DAY, NOTES: 02/02 200 TAKING LYRICA 100 MG CAPSULE 1 CAPSULE ORALLY ONCE A DAY AT BEDTIME, NOTES: 02/01 2200 TAKING LYRICA 200 MG CAPSULE 1 CAPSULE ORALLY BID MDD2, NOTES: 02/01 1830 TAKING OXYCODONE HCL 5 MG TABLET 2 ORALLY Q8H PRN MDD6, NOTES: 02/02 200 NOT-TAKING SIMVASTATIN 40 MG TABLET 1 TABLET IN THE EVENING ORALLY IN EVENING NOT-TAKING CARISOPRODOL 350 MG TABLET 1 TABLET NEEDED ORALLY EVERY 8 HOURS NEEDED FOR SPASMS AND PAIN MDD3 NOT-TAKING TOPIRAMATE 100 MG TABLET 1 TABLET ORALLY TWICE A DAY MEDICATION LIST REVIEWED AND RECONCILED WITH THE PATIENT PAST MEDICAL HISTORY ACID REFLUX IBS PINCHED NERVES IN BACK SCOLIOSIS ARTHRITIS DDD ENDOMETRIOSIS CONGENITAL RIGHT HIP ABNORMALITY GASTROPARESIS 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 PAIN LOW BACK PAIN HEART MURMUR DUE TO DEFECT COLON POLYPS STOMACH FATTY TUMORS ALLERGIES NAPROXEN SODIUM: TONGUE SWELLS/FACE SWELLING - ALLERGY ASPIRIN: SORES IN MOUTH - ALLERGY ADHESIVE TAPE/BANDAIDS: BLISTERS - ALLERGY TEGADERM: SKIN BECOMES RAW, REDNESS, HEAT - ALLERGY PEPTO BISMOL: VOMITING WHEAT: RASH - ALLERGY BELBUCA: VOMITING - SIDE EFFECTS BOTOX: LIPS PEELING - SIDE EFFECTS SURGICAL HISTORY WRIST SURGERY RIGHT.TORN LIGAMENT 2005 BILATERAL SALPINGO SURGERY DUE TO DEFECT 1989 SURGERY LEFT WRIST 2016 RIGHT HIP SURGERY X 3 2015, 04/2016,09/2016 RIGHT FOOT SURGERY- NERVE RELEASE 09/27/15 TOTAL RIGHT HIP 04/05/2016 FALLOPIAN TUBE RECONSTRUCTION 1994 CERVICAL DISCESTOMY WITH HARDWARE 11/06/17 COLONOSCOPY & EGD 04/2019 STOMACH TUMORS REMOVED 10/2019 FAMILY HISTORY FATHER: , DIAGNOSED WITH UNSPECIFIED HEART DISEASE, DIABETES MOTHER: , UNSPECIFIED HEART DISEASE, DIABETES SOCIAL HISTORY GENERAL: TOBACCO USE ARE YOU A:FORMER SMOKER HOW LONG HAS IT BEEN SINCE YOU LAST SMOKED?1-5 YEARS SMOKING CESSATION INFORMATION GIVEN01/16/2020 ADDITIONAL FINDINGS: TOBACCO NON-USERCURRENT NON-SMOKER LATEX QUESTIONNAIRE LATEX ALLERGY : HAVE YOU EVER DEVELOPED ANY TYPE OF REACTION AFTER HANDLING LATEX PRODUCTS SUCH RUBBER GLOVES, CONDOMS, DIAPHRAGMS, BALLOONS, SOCKS, OR UNDERWEAR?NO LATEX ALLERGY : HAVE YOU EVER DEVELOPED ANY TYPE OF REACTION DURING OR AFTER DENTAL APPOINTMENT, VAGINAL/RECTAL EXAMINATION, SURGICAL PROCEDURE, OR ANY OTHER EXPOSURE?NO LATEX RISK : HAVE YOU EVER HAD ANY DIFFICULTY BREATHING OR HIVES AFTER EATING OR HANDLING ANY FRUITS, OR VEGETABLES; SUCH KIWI, BANANAS, STONE FRUITS, OR CHESTNUTSNO LATEX RISK : DO YOU HAVE A PREVIOUS PERSONAL HISTORY OF MORE THAN NINE SURGERIES, SPINA BIFIDA, OR REPEATED CATHERIZATIONS? YES - PLEASE INDICATE : > 9 SURGERIES LATEX RISK : ARE YOU FREQUENTLY EXPOSED TO LATEX PRODUCTS IN YOUR OCCUPATION?NO DATE ASKED : 02/02/2020 LUNG CANCER SCREENING SMOKING STATUS:FORMER SMOKER ALCOHOL SCREENING DID YOU HAVE A DRINK CONTAINING ALCOHOL IN THE PAST YEAR?NO POINTS0 INTERPRETATIONNEGATIVE RECREATIONAL DRUG USE DRUG USE?NO CAFFEINE CAFFEINE USE?NO CHRISTIAN [id number] NONE NO JEW BELIEFS THAT WOULD IMPACT HEALTH CARE. LANGUAGE LANGUAGES SPOKEN:[place] LEARNING BARRIERS / SPECIAL NEEDS CHANGE FROM LAST VISIT?NO BARRIERS TO LEARNING?NO HEARING IMPAIRED?YES :HEARING AIDES VISION IMPAIRED?YES :CORRECTIVE LENSES COGNITIVELY IMPAIRED?NO READINESS TO LEARN?YES LEARNING PREFERENCES?NO LEARNING CAPABILITIES PRESENT?YES EMOTIONAL BARRIERS?NO SPECIAL DEVICES?YES :CANE, WALKER CHANGE BOOTH ATTENDANT NEEDED?NO DOMESTIC VIOLENCE DO YOU FEEL SAFE IN YOUR ENVIRONMENT?YES MARITAL STATUS: .. PAIN CLINIC PFS, CLERGY, PUBLIC HEALTH REFERRALS PFS REFERRAL NEEDED?NO CLERGY REFERRAL NEEDED?NO PUBLIC HEALTH REFERRAL NEEDED?NO WAS THE PROVIDER NOTIFIED OF ANY PERTINENT INFO? N/A HAS THE PATIENT BEEN EDUCATED REGARDING HIS/HER PLAN OF CARE?YES HAS THE PATIENT BEEN EDUCATED REGARDING PAIN, THE RISK FOR PAIN, THE IMPORTANCE OF EFFECTIVE PAIN MANAGEMENT, AND THE PAIN ASSESSMENT PROCESS?YES ADVANCE DIRECTIVE ADVANCE DIRECTIVE DISCUSSED WITH PATIENT:YES 02/03/2020 PT DOES NOT HAVE ANY ADVANCED DIRECRTIVES AND SHE DECLINED INFORMATION ON HCP AT THIS TIME. HOSPITALIZATION/MAJOR DIAGNOSTIC PROCEDURE SURGERY RELATED VITAL SIGNS WT 173.2 LBS, HT 61 IN, BMI 32.72 INDEX, BP 130/71 MM HG, HR 75 /MIN, RR 20 /MIN, TEMP 97.5 F, OXYGEN SAT % 99%, SAFE IN ENV? (Y/N) Y, NA INITIALS SC 13:31, REVIEWED BY: ADELE RN 1432. ASSESSMENTS SPONDYLOSIS WITHOUT MYELOPATHY OR RADICULOPATHY, LUMBAR REGION - M47.816 (PRIMARY) SPONDYLOSIS WITHOUT MYELOPATHY OR RADICULOPATHY, LUMBOSACRAL REGION - M47.817 TREATMENT SPONDYLOSIS WITHOUT MYELOPATHY OR RADICULOPATHY, LUMBAR REGION SMC FACET BLOCK (PAIN)[id number] PROCEDURES PAIN NURSING RECORD PRE-PROCEDURE IV SITE N/A, PRE-PROCEDURE ORAL MEDICATIONS NONE PROCEDURE IN ROOM 1540, PHYSICIAN IN ROOM 1614, START 1621, FINISH 1627, PHYSICIAN OUT OF ROOM 1629, OUT OF ROOM 1637, STEROID KENALOG, O2 RA, ECG NORMAL SINUS, PATIENT SHIELDED YES, SAFETY STRAP YES, PREP CHLOROPREP, IV INFUSED N/A, DRESSING OTHER GUAZE AND PAPER TAPE LOC: DU[facility] ALEXANDER 02/03/2020 3:44:50 PM > 1. ALERT, ORIENTED RESP: [facility] ALEX[facility] 02/03/2020 3:45:02 PM > 1. REGULAR, NO DYSPNEA COLOR: [facility] ALEX[facility] 02/03/2020 3:45:05 PM > 1. PINK SKIN: [facility] ALEX[facility] 02/03/2020 3:45:11 PM > 1. WARM, DRY POSITION: [facility] 02/03/2020 3:45:15 PM > 1. PRONE VITALS: [facility] ALEX[facility] 02/03/2020 3:45:25 PM >140/93,74,16,99% [facility] 02/03/2020 3:55:27 PM > 128/81,65,16,100% [facility] 02/03/2020 4:10:05 PM > 133/81,64,14,99% [facility] 02/03/2020 4:34:46 PM >143/90, 66,16,98% [facility] ALEX[facility] 02/03/2020 4:46:07 PM > 165/89,63,16,100% DISCHARGE: POST PAIN 10, DRESSING SITE DRY AND INTACT, IV N/A, GAIT STEADY USES WHEELING WALKER, TEACHING COMPLETED, PATIENT ACKNOWLEDGES UNDERSTANDING YES, PATIENT DISCHARGED AT 1647 PN LUMBAR FACET BLOCK THERAPEUTIC PRE PROCEDURE DIAGNOSIS LUMBAR SPONDYLOSIS, LUMBOSACRAL SPONDYLOSIS POST PROCEDURE DIAGNOSIS LUMBAR SPONDYLOSIS, LUMBOSACRAL SPONDYLOSIS PROCEDURE BILATERAL L4-L5 AND BILATERAL L5-S1 LUMBAR FACET THERAPEUTIC BLOCK SURGEON DR. DAYLIN MINER ARMATURE INSPECTOR NONE ANESTHESIA LOCAL PRE PROCEDURE NOTE THE PATIENT HAS A HISTORY OF CHRONIC LOW BACK PAIN. I EVALUATED THE PATIENT AND REVIEWED THE CHART. I WENT OVER THE RISKS, ALTERNATIVES, AND BENEFITS ASSOCIATED WITH THIS PROCEDURE. THE PATIENT WOULD LIKE TO PROCEED AND GIVES CONSENT TO PERFORM THE PROCEDURE. I DISCUSSED THAT THE USE OF STEROIDS MAY CONTRIBUTE TO IMMUNOSUPPRESSION OF THE PATIENT'S BODY AGAINST INFECTIONS SUCH COVID-19. THE PATIENT IS AWARE OF THE POTENTIAL COMPLICATIONS ASSOCIATED WITH THIS VIRUS, INCLUDING, BUT NOT LIMITED TO, . THE PATIENT DENIES UNEXPLAINABLE WEIGHT LOSS, FEVER, CHILLS, OR NEW CHANGES IN URINARY OR BOWEL CONTROL. THE PATIENT IS COVID-19 NEGATIVE DESCRIPTION OF PROCEDURE THE PATIENT WAS BROUGHT TO THE PROCEDURE ROOM AND PLACED IN THE PRONE POSITION. THE LUMBOSACRAL AREA WAS CLEANED WITH CHLORAPREP SOLUTION AND DRAPED ASEPTICALLY. THE PROCEDURE WAS DONE UNDER STERILE CONDITIONS. A TIMEOUT WAS PERFORMED WHERE LATERALITY AND THE SITE OF THE PROCEDURE WERE CHECKED AND CONFIRMED WITH EVERYONE IN THE ROOM. UNDER FLUOROSCOPIC GUIDANCE, THE TARGET POINT WAS SELECTED AT THE RIGHT AND LEFT L4-L5 AND RIGHT AND LEFT L5-S1 FACET JOINTS. TARGET POINT WAS SELECTED AFTER LATERAL ROTATION AND TILT OF THE MAGNIFIER OF THE C-ARM. I CONFIRMED AGAIN WITH EVERYONE IN THE ROOM THE LATERALITY AND SITE OF THE TARGET AT 1621 ON THE LEFT AND 1625 ON THE RIGHT. LIDOCAINE 0.5% WAS USED TO NUMB THE SKIN AND THE SUBCUTANEOUS TISSUE BELOW IT. SPINAL NEEDLES, 22-GAUGE, WERE ADVANCED UNDER FLUOROSCOPIC GUIDANCE AND FOLLOWING PATIENT FEEDBACK UNTIL THE TARGETS WERE TOUCHED. THE POSITION OF THE NEEDLES WAS VERIFIED WITH AP AND LATERAL VIEWS. AFTER PROPER POSITION OF THE NEEDLES WAS ACHIEVED, ISOVUE-M DYE 30%, 0.1 ML, WAS INJECTED SHOWING ADEQUATE SPREAD OF THE DYE. KENALOG 20 MG WAS INJECTED AT EACH SITE. THEN, A SOLUTION OF 1.0 ML OF BUPIVACAINE 0.125% OF WAS USED TO FLUSH EACH SITE. THE MEDICATION WAS VERIFIED WITH THE NURSE. THERE WAS NO EVIDENCE OF BLOOD, PARESTHESIA OR CEREBROSPINAL FLUID DURING THE PROCEDURE. THE PATIENT WAS SENT TO THE RECOVERY ROOM. THE PATIENT WAS MOVING THE EXTREMITIES AND DOING WELL. THERE WERE NO COMPLICATIONS DURING THE PROCEDURE. ESTIMATED BLOOD LOSS WAS LESS THAN 5 ML. FLUOROSCOPY TIME WAS 54 SECONDS POST PROCEDURE NOTE THE PATIENT WILL BE SEEN IN A FOLLOW UP IN THE NEXT FEW WEEKS. I AM LOOKING FOR LONG LASTING RELIEF FOR THE PATIENT WITH THIS INTERVENTION. INSTRUCTIONS WERE GIVEN, QUESTIONS WERE ANSWERED, AND THE PATIENT EXPRESSED UNDERSTANDING AND AGREES WITH THE PLAN. I, STAN WAHL, DOCUMENTED THE ABOVE INFORMATION ACTING A SCRIBE FOR DR. MINER. I HAVE REVIEWED THE ABOVE DOCUMENT, WRITTEN BY STAN WAHL, DIRECT CARE COUNSELOR, AND I VERIFY THAT IT IS ACCURATE PROCEDURE CODES 24720 INJ PARAVERT F JNT L/S 1 LEV, MODIFIERS: [id number] INJ PARAVERT F JNT L/S 2 LEV, MODIFIERS: 50 DISPOSITION & COMMUNICATION FOLLOW UP FOLLOW UP WITH BUSINESS TAXES SPECIALIST (REASON: POST BILATERAL FACET BLOCK LUMBAR THERAPEUTIC L4-L5, L5-S1) ELECTRONICALLY SIGNED BY DAYLIN MINER MD, MD ON 02/10/2020 AT 12:12 PM EST DISCLAIMER : THIS IS A VISIT SUMMARY EXTRACTED FROM THE [employer] CHART. IT IS NOT A COPY OF THE [employer] PROGRESS NOTE. MTDD
== END ==
LOC: M PAIN 13:00
PROVIDERS: ATTEND Anesthesiology
DX: M47.816 Spondylosis without myelopathy or radiculopathy, lumbar region (principal); M47.817 Spondylosis without myelopathy or radiculopathy, lumbosacral region; K21.9 Gastro-esophageal reflux disease without esophagitis; K58.9 Irritable bowel syndrome, unspecified; Z87.891 Personal history of nicotine dependence; Z79.891 Long term (current) use of opiate analgesic; Z79.899 Other long term (current) drug therapy; Z88.6 Allergy status to analgesic agent; Z88.8 Allergy status to other drugs, medicaments and biological substances; Z91.018 Allergy to other foods; Z91.048 Other nonmedicinal substance allergy status
CPT/HCPCS: 64493; 64494; J3301; Q9967

== ENCOUNTER → 2020-02-05 | Outpatient (CLI) | payer MEDICARE, MEDICAID ==
[~2020-02-05] MED LIST changes: -BUPIVACAINE HCL 0.25% 30ML VIAL As Ordered ONE; -ISOVUE-M 300 61% 15ML VIAL As Ordered ONE; -LIDOCAINE 1% SDV 30ML VIAL As Ordered ONE; -TRIAMCINOLONE ACETONIDE SUSP 40 MG/ML VIAL (J3301) As Ordered ONE
--- NOTE | 2020-02-05 13:27 | REP ---
INDICATION: PAIN IN LEFT TOE. Pain after a fall. COMPARISON: None. TECHNIQUE: Five views of the left forefoot and toes. FINDINGS: Five views of the left forefoot demonstrate normal bones, joints, and soft tissues. No fracture or subluxation is seen. No opaque foreign body noted. IMPRESSION: Negative left forefoot radiographic series. No fracture is seen. <Electronically signed by Isaiah Win > 02/05/20 [id number]
== END ==
LOC: M ADAMS 10:38
PROVIDERS: ATTEND Physician Assistant
DX: M79.675 Pain in left toe(s) (principal)

== ENCOUNTER → 2020-03-13 | Outpatient (CLI) | payer MEDICARE, MEDICAID | LOC: M LABSMTC 08:28 | PROVIDERS: ATTEND Anesthesiology | DX: Z20.822 Contact with and (suspected) exposure to COVID-19 (principal) ==

== ENCOUNTER → 2020-03-18 | Outpatient (CLI) | payer MEDICARE, MEDICAID ==
[~2020-03-18] MED LIST changes: -AMIT25TA PO; +AMIT25TA17 PO; +BUPIVACAINE HCL 0.25% 30ML VIAL As Ordered ONE; +GABA-282 PO; -GABA-843 PO; +ISOVUE-M 300 61% 15ML VIAL As Ordered ONE; +LIDOCAINE 1% SDV 30ML VIAL As Ordered ONE; +TRIAMCINOLONE ACETONIDE SUSP 40 MG/ML VIAL (J3301) As Ordered ONE
--- NOTE | 2020-03-18 15:38 | REP ---
INDICATION: RT GREATER TROCHANTER BURSA INJECTION. COMPARISON: 09/30/2019. TECHNIQUE: Five C-arm views right hip region performed. FINDINGS: Total hip prosthesis is noted. A needle overlies the trochanteric region of the proximal right femur. IMPRESSION: 11 seconds fluoroscopy time utilized. <Electronically signed by Eduar Estes > 03/18/20 2043
--- NOTE | 2020-03-20 02:49 | ECWPNPC ---
PATIENT NAME: NNAMDI ANAND : 1965 GENDER: FEMALE VISIT DATE: 03/18/2020 DISCHARGE DATE: 03/18/20 1049 VISIT LOCKED DATE TIME: PHYSICIAN: DAYLIN MINER MD RESOURCE: DAYLIN MINER MD REASON FOR APPOINTMENT 1. RIGHT GREATER TROCHANTER OF THE FEMUR BURSAL INJECTION HISTORY OF PRESENT ILLNESS GENERAL: -. FALL RISK SCREENING: SCREENING :TWO OR MORE FALLS WITH INJURY IN THE PAST YEAR FALLS FREQUENTLY, RIGHT FOOT DRAGS AND SHE HAS A BALANCE DISORDER. JUST BRUISES AND INCREASE IN PAIN PAIN SCREENING: PATIENT HAS A COMPLAINT OF ACUTE OR CHRONIC PAIN :YES LOCATION OF PAIN:RIGHT HIP, OTHER: EVERYWHERE INTENSITY OF PAIN (SCALE OF 1 TO 10):9 AVERAGE 9-10 OVER THE PAST MONTH WHAT DOES YOUR PAIN FEEL LIKE:ACHING, BURNING, CONTINOUS, SHARP, STABBING, THROBBING, SORE, SHOOTING FEELS LIKE HER HIP IS POPPING OUT OF PLACE DURATION:CONTINOUS, CONSTANT, AWAKENS FROM SLEEP PAIN IS INCREASED BY: EVERYTHING PAIN IS DECREASED BY: NOTHING NURSING NOTE: -. PAIN CENTER INTAKE QUESTIONS: DO YOU HAVE A HISTORY OF MRSA? :NO DO YOU TAKE A BLOOD THINNERS? :NO DO YOU HAVE ANY BLEEDING DISORDERS? :NO ANY NEW NUMBNESS OR WEAKNESS IN YOUR LEGS OR ARMS? :NO ANY PACEMAKER,DEFIBRILLATOR, OR DORSAL COLUMN STIMULATOR? :NO DO YOU HAVE ANY RASHES OR OPEN SORES? :NO ARE YOU ALLERGIC TO IV DYE? :NO ARE YOU DIABETIC? :NO ANY NEW PROBLEMS WITH YOUR MEDICATIONS? :NO HAVE YOU RECEIVED A VACCINE IN THE PAST 30 DAYS? :NO DO YOU PLAN TO RECEIVE A VACCINE IN THE NEXT 21 DAYS? :NO DO YOU TAKE ANY IMMUNOSUPPRESSIVE MEDICATIONS? :NO ANY HISTORY OF SEIZURES? :NO ANY HISTORY OF CARDIAC ISSUES OR EVENTS? :YES HEART MURMUR DO YOU HAVE SLEEP APNEA? :NO ANY RECENT HEAD INJURY? :NO DO YOU HAVE ANY NEW INFECTIONS? :NO IS THERE A CHANCE YOU COULD BE ? :NO ARE YOU BREAST FEEDING? :NO WHEN DID YOU LAST EAT? : -03/17 1899 WHEN DID YOU LAST DRINK? : -03/17 2299 WHAT DID YOU LAST DRINK? : -WATER NAME OF PERSON DRIVING YOU HOME? : LINDA DO YOU HAVE ANY OTHER QUESTIONS OR CONCERNS? : NONE CURRENT MEDICATIONS TAKING ZOFRAN 4 MG TABLET 3 TABLETS ORALLY PRE MEDICATION TAKING ROPINIROLE HCL 1 MG TABLET ORALLY AT BEDTIME TAKING SUMATRIPTAN SUCCINATE 100 MG TABLET 1 TABLET NEEDED ONE TIME ORALLY DIRECTED TAKING DEXILANT 60 MG CAPSULE DELAYED RELEASE 1 CAPSULE ORALLY ONCE A DAY TAKING RALOXIFENE HCL 60 MG TABLET 1 TABLET ORALLY ONCE A DAY TAKING DIVALPROEX SODIUM 250 MG TABLET DELAYED RELEASE 1 TABLET ORALLY TWICE A DAY, NOTES: 03/17 1999 TAKING LINZESS 290 MCG CAPSULE 1 CAPSULE ORALLY ONCE A DAY TAKING VITAMIN D (ERGOCALCIFEROL) 1.25 MG (44576 UT) CAPSULE 1 CAPSULE ORALLY WEEKLY TAKING TIZANIDINE HCL 4 MG TABLET 1 TABLET NEEDED ORALLY THREE TIMES A DAY TAKING LYRICA 100 MG CAPSULE 1 CAPSULE ORALLY ONCE A DAY AT BEDTIME, NOTES: 03/17 1999 TAKING LYRICA 200 MG CAPSULE 1 CAPSULE ORALLY BID MDD2, NOTES: 03/17 1599 TAKING OXYCODONE HCL 5 MG TABLET 2 ORALLY Q8H PRN MDD6, NOTES: 03/17 2359 NOT-TAKING SIMVASTATIN 40 MG TABLET 1 TABLET IN THE EVENING ORALLY IN EVENING NOT-TAKING CARISOPRODOL 350 MG TABLET 1 TABLET NEEDED ORALLY EVERY 8 HOURS NEEDED FOR SPASMS AND PAIN MDD3 NOT-TAKING TOPIRAMATE 100 MG TABLET 1 TABLET ORALLY TWICE A DAY MEDICATION LIST REVIEWED AND RECONCILED WITH THE PATIENT PAST MEDICAL HISTORY ACID REFLUX IBS PINCHED NERVES IN BACK SCOLIOSIS ARTHRITIS DDD ENDOMETRIOSIS CONGENITAL RIGHT HIP ABNORMALITY GASTROPARESIS 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 PAIN LOW BACK PAIN HEART MURMUR DUE TO DEFECT COLON POLYPS STOMACH FATTY TUMORS ALLERGIES NAPROXEN SODIUM: TONGUE SWELLS/FACE SWELLING - ALLERGY ASPIRIN: SORES IN MOUTH - ALLERGY ADHESIVE TAPE/BANDAIDS: BLISTERS - ALLERGY TEGADERM: SKIN BECOMES RAW, REDNESS, HEAT - ALLERGY PEPTO BISMOL: VOMITING WHEAT: RASH - ALLERGY BELBUCA: VOMITING - SIDE EFFECTS SURGICAL HISTORY WRIST SURGERY RIGHT.TORN LIGAMENT 2004 BILATERAL SALPINGO SURGERY DUE TO DEFECT 1989 SURGERY LEFT WRIST 2015 RIGHT HIP SURGERY X 3 2015, 04/2016,09/2016 RIGHT FOOT SURGERY- NERVE RELEASE 09/27/15 TOTAL RIGHT HIP 04/05/2016 FALLOPIAN TUBE RECONSTRUCTION 1994 CERVICAL DISCESTOMY WITH HARDWARE 11/06/17 COLONOSCOPY & EGD 04/2019 STOMACH TUMORS REMOVED 10/2019 FAMILY HISTORY FATHER: , DIAGNOSED WITH UNSPECIFIED HEART DISEASE, DIABETES MOTHER: , UNSPECIFIED HEART DISEASE, DIABETES SOCIAL HISTORY GENERAL: TOBACCO USE ARE YOU A:FORMER SMOKER HOW LONG HAS IT BEEN SINCE YOU LAST SMOKED?1-5 YEARS ADDITIONAL FINDINGS: TOBACCO NON-USERCURRENT NON-SMOKER SMOKING CESSATION INFORMATION GIVEN01/16/2020 LATEX QUESTIONNAIRE LATEX ALLERGY : HAVE YOU EVER DEVELOPED ANY TYPE OF REACTION AFTER HANDLING LATEX PRODUCTS SUCH RUBBER GLOVES, CONDOMS, DIAPHRAGMS, BALLOONS, SOCKS, OR UNDERWEAR?NO LATEX ALLERGY : HAVE YOU EVER DEVELOPED ANY TYPE OF REACTION DURING OR AFTER DENTAL APPOINTMENT, VAGINAL/RECTAL EXAMINATION, SURGICAL PROCEDURE, OR ANY OTHER EXPOSURE?NO LATEX RISK : HAVE YOU EVER HAD ANY DIFFICULTY BREATHING OR HIVES AFTER EATING OR HANDLING ANY FRUITS, OR VEGETABLES; SUCH KIWI, BANANAS, STONE FRUITS, OR CHESTNUTSNO LATEX RISK : DO YOU HAVE A PREVIOUS PERSONAL HISTORY OF MORE THAN NINE SURGERIES, SPINA BIFIDA, OR REPEATED CATHERIZATIONS? YES - PLEASE INDICATE : > 9 SURGERIES LATEX RISK : ARE YOU FREQUENTLY EXPOSED TO LATEX PRODUCTS IN YOUR OCCUPATION?NO DATE ASKED : 03/17/2020 LUNG CANCER SCREENING SMOKING STATUS:FORMER SMOKER ALCOHOL SCREENING DID YOU HAVE A DRINK CONTAINING ALCOHOL IN THE PAST YEAR?NO POINTS0 INTERPRETATIONNEGATIVE RECREATIONAL DRUG USE DRUG USE?NO CAFFEINE CAFFEINE USE?NO TAOIST [id number] NONE NO ADVENTIST BELIEFS THAT WOULD IMPACT HEALTH CARE. LANGUAGE LANGUAGES SPOKEN:ROMANIAN LEARNING BARRIERS / SPECIAL NEEDS CHANGE FROM LAST VISIT?NO BARRIERS TO LEARNING?NO HEARING IMPAIRED?YES :HEARING AIDES VISION IMPAIRED?YES :CORRECTIVE LENSES COGNITIVELY IMPAIRED?NO READINESS TO LEARN?YES LEARNING PREFERENCES?NO LEARNING CAPABILITIES PRESENT?YES EMOTIONAL BARRIERS?NO SPECIAL DEVICES?YES :CANE, WALKER SHIP MATE NEEDED?NO DOMESTIC VIOLENCE DO YOU FEEL SAFE IN YOUR ENVIRONMENT?YES MARITAL STATUS: .. PAIN CLINIC PFS, CLERGY, PUBLIC HEALTH REFERRALS PFS REFERRAL NEEDED?NO CLERGY REFERRAL NEEDED?NO PUBLIC HEALTH REFERRAL NEEDED?NO HAS THE PATIENT BEEN EDUCATED REGARDING HIS/HER PLAN OF CARE?YES HAS THE PATIENT BEEN EDUCATED REGARDING PAIN, THE RISK FOR PAIN, THE IMPORTANCE OF EFFECTIVE PAIN MANAGEMENT, AND THE PAIN ASSESSMENT PROCESS?YES ADVANCE DIRECTIVE ADVANCE DIRECTIVE DISCUSSED WITH PATIENT:YES 03/17/2020 PT DOES NOT HAVE ANY ADVANCED DIRECRTIVES AND SHE DECLINED INFORMATION ON HCP AT THIS TIME. HOSPITALIZATION/MAJOR DIAGNOSTIC PROCEDURE SURGERY RELATED VITAL SIGNS WT 170.8 LBS, HT 61 IN, BMI 32.27 INDEX, BP 112/65 MM HG, HR 73 /MIN, RR 20 /MIN, TEMP 98 F, OXYGEN SAT % 98%, SAFE IN ENV? (Y/N) YES, NA INITIALS SC 09:14, REVIEWED BY: BENJI ARDON. EXAMINATION GENERAL EXAMINATION: THE PATIENT IS ALERT, ORIENTED TIMES THREE AND COOPERATIVE. LUNGS ARE CLEAR TO AUSCULTATION. HEART SHOWS REGULAR RHYTHM, NO MURMURS AND NO GALLOPS. ASSESSMENTS TROCHANTERIC BURSITIS, RIGHT HIP - M70.61 (PRIMARY), RISK: (NULL) TREATMENT TROCHANTERIC BURSITIS, RIGHT HIP [facility] FLUORO GUIDANCE (PAIN)[id number] NOTES: DISCHARGE INSTRUCTIONS REVIEWED WITH PATIENT AND SHE VERBALIZED UNDERSTANDING. OTHERS CLINICAL NOTES: 03/17/20 1752 PRE-PROCEDURE CALL COMPLETED. Sasha ALEXANDER RN. PROCEDURES PAIN NURSING RECORD PROCEDURE IN ROOM 0955 , PHYSICIAN IN ROOM 1013 , START 1017 , FINISH 1026 , PHYSICIAN OUT OF ROOM 1035 , OUT OF ROOM 1038 , ECG NORMAL SINUS , PATIENT SHIELDED YES , SAFETY STRAP N/A , PREP CHLOROPREP BY Irineo FRANCES RN, DRESSING OTHER GAUZE/PAPER TAPE LOC: LOPEZ FRANCES 03/18/2020 9:42:42 AM > , 1. ALERT, ORIENTED RESP: LOPEZ FRANCES 03/18/2020 9:43:08 AM > , 1. REGULAR, NO DYSPNEA COLOR: LOPEZ FRANCES 03/18/2020 9:43:12 AM > , 1. PINK SKIN: LOPEZ FRANCES 03/18/2020 9:43:17 AM > , 1. WARM, DRY POSITION: LOPEZ FRANCES 03/18/2020 9:43:24 AM > , 3. LATERAL RIGHT SIDE UP VITALS: LOPEZ FRANCES 03/18/2020 09:58:24 AM > 131/77, 65, SPO2: 99% RALOPEZ LAWRENCE 03/18/2020 10:00:20 AM > 133/88, 65, SPO2: 100% RA LOPEZ FRANCES 03/18/2020 10:15:19 AM > ,132/90 HR 66 16 100% R/A . , LOPEZ FRANCES 03/18/2020 10:30:51 AM > 126/82 HR66 16 99% R/A , LOPEZ FRANCES 03/18/2020 10:42:36 AM > 120/79 HR 67 16 100% R/A D/C V/S DISCHARGE: POST PAIN 9, DRESSING SITE DRY AND INTACT, IV N/A, GAIT OTHER WALKER, TEACHING COMPLETED, PATIENT ACKNOWLEDGES UNDERSTANDING YES, PATIENT DISCHARGED AT 1045 PRE PROCEDURE DIAGNOSIS BURSITIS AT THE RIGHT GREATER TROCHANTER OF THE FEMUR POST PROCEDURE DIAGNOSIS BURSITIS AT THE RIGHT GREATER TROCHANTER OF THE FEMUR PROCEDURE INJECTION AT THE BURSA OF THE RIGHT GREATER TROCHANTER OF THE FEMUR UNDER FLUOROSCOPIC GUIDANCE. SURGEON DR. DAYLIN MINER HOSTEL MANAGER NONE ANESTHESIA LOCAL PRE PROCEDURE NOTE THE PATIENT HAS A HISTORY OF RIGHT HIP PAIN. I EVALUATED THE PATIENT AND REVIEWED THE CHART. WE BOTH AGREE ON INJECTING OVER THE BURSA OF THE RIGHT GREATER TROCHANTER OF THE FEMUR. I DISCUSSED THE RISKS, BENEFITS AND ALTERNATIVES ASSOCIATED WITH THIS PROCEDURE. THE PATIENT WOULD LIKE TO PROCEED AND GAVE CONSENT TO PERFORM THE PROCEDURE. THE PATIENT DENIES UNEXPLAINABLE WEIGHT LOSS, FEVERS, CHILLS, OR CHANGES IN HIS URINARY OR BOWEL CONTROL. THE PATIENT IS COVID-19 NEGATIVE DESCRIPTION OF PROCEDURE AFTER CONSENT WAS TAKEN, THE PATIENT WAS BROUGHT TO THE PROCEDURE ROOM AND PLACED IN THE LEFT LATERAL DECUBITUS POSITION. THE RIGHT HIP AREA WAS CLEANED WITH CHLORAPREP SOLUTION AND DRAPED ASEPTICALLY. THE PROCEDURE WAS DONE UNDER STERILE CONDITIONS. A TIMEOUT WAS PERFORMED WHERE LATERALITY AND THE SITE OF THE PROCEDURE WERE CHECKED AND CONFIRMED WITH EVERYONE IN THE ROOM. UNDER FLUOROSCOPIC GUIDANCE, TARGET WAS SELECTED AT THE RIGHT GREATER TROCHANTER OF THE FEMUR. I CONFIRMED AGAIN WITH EVERYONE IN THE ROOM THE LATERALITY AND SITE OF THE TARGET AT 1017. LIDOCAINE WAS USED TO NUMB THE SKIN AND THE SUBCUTANEOUS TISSUE BELOW IT. SPINAL NEEDLE, 22-GAUGE, WAS ADVANCED UNDER FLUOROSCOPIC GUIDANCE AND FOLLOWING PATIENT FEEDBACK UNTIL THE TARGET WAS TOUCHED. POSITION OF THE NEEDLE WAS VERIFIED WITH AP AND LATERAL VIEWS. AFTER PROPER POSITION OF THE NEEDLE WAS ACHIEVED, ISOVUE-M 30%, 1.0 ML, WAS INJECTED SHOWING ADEQUATE SPREAD OF THE DYE. KENALOG 40 MG WAS INJECTED. THEN, A SOLUTION OF 30 ML OF BUPIVACAINE 0.125% WAS USED TO FLUSH THE SITE. THE MEDICATIONS WERE VERIFIED WITH THE NURSE. THERE WAS NO EVIDENCE OF BLOOD OR PARESTHESIA. THE PATIENT WAS SENT TO THE RECOVERY ROOM. THE PATIENT WAS MOVING THE EXTREMITIES AND DOING WELL. THERE WERE NO COMPLICATIONS DURING THE PROCEDURE. ESTIMATED BLOOD LOSS WAS LESS THAN 5 ML. FLUOROSCOPIC TIME WAS 10 SECONDS POST PROCEDURE NOTE I DISCUSSED THE PROCEDURE WITH THE PATIENT. WE WILL SEE THE PATIENT BACK IN SEVERAL WEEKS FOR FOLLOWUP. I AM LOOKING FOR LONG-LASTING PAIN RELIEF WITH THIS INTERVENTION. I, STAN WAHL, DOCUMENTED THE ABOVE INFORMATION ACTING A SCRIBE FOR DR. MINER. I HAVE REVIEWED THE ABOVE DOCUMENT, WRITTEN BY STAN WAHL, [employer], AND I VERIFY THAT IT IS ACCURATE PROCEDURE CODES 12326 DRAIN/INJ JOINT/BURSA W/O US, MODIFIERS: [place] [id number] NEEDLE LOCALIZATION BY XRAY, MODIFIERS: 26 DISPOSITION & COMMUNICATION FOLLOW UP FOLLOW UP WITH ORDER PULLER (REASON: POST RIGHT GREAT TROCHANTER OF THE FEMUR BURSAL INJECTION) ELECTRONICALLY SIGNED BY DAYLIN MINER MD, MD ON 03/19/2020 AT 01:21 PM EST DISCLAIMER : THIS IS A VISIT SUMMARY EXTRACTED FROM THE [employer] CHART. IT IS NOT A COPY OF THE [employer] PROGRESS NOTE. MTDMatteo
== END ==
LOC: M PAIN 09:00
PROVIDERS: ATTEND Anesthesiology
DX: M70.61 Trochanteric bursitis, right hip (principal); K21.9 Gastro-esophageal reflux disease without esophagitis; Z96.641 Presence of right artificial hip joint; Z87.891 Personal history of nicotine dependence; Z88.5 Allergy status to narcotic agent; Z88.6 Allergy status to analgesic agent; Z88.8 Allergy status to other drugs, medicaments and biological substances; Z91.018 Allergy to other foods; Z91.09 Other allergy status, other than to drugs and biological substances; Z79.891 Long term (current) use of opiate analgesic; Z79.899 Other long term (current) drug therapy
CPT/HCPCS: 20610; 77002; J3301; Q9967

== ENCOUNTER → 2020-04-01 | Outpatient (CLI) | payer MEDICARE, MEDICAID ==
[~2020-04-01] MED LIST changes: -BUPIVACAINE HCL 0.25% 30ML VIAL As Ordered ONE; -ISOVUE-M 300 61% 15ML VIAL As Ordered ONE; -LIDOCAINE 1% SDV 30ML VIAL As Ordered ONE; -TRIAMCINOLONE ACETONIDE SUSP 40 MG/ML VIAL (J3301) As Ordered ONE
--- NOTE | 2020-04-03 05:13 | ECWPNPC ---
PATIENT NAME: NNAMDI ANAND : 1965 GENDER: FEMALE VISIT DATE: 04/01/2020 DISCHARGE DATE: 04/01/20 0946 VISIT LOCKED DATE TIME: PHYSICIAN: NINA ESQUIVEL RESOURCE: NINA ESQUIVEL REASON FOR APPOINTMENT 1. POST RIGHT HIP TROCHANTERIC BURSAL STEROID INJECTION/REVIEW TOXICOLOGY HISTORY OF PRESENT ILLNESS DEPRESSION SCREENING: PHQ-2 (2015 EDITION) LITTLE INTEREST OR PLEASURE IN DOING THINGS?NOT AT ALL FEELING DOWN, DEPRESSED, OR HOPELESS?SEVERAL DAYS TOTAL SCORE1 GENERAL: HERE FOR POST PROCEDURE FOLLOW-UP. HAD RIGHT GREATER TROCHANTERIC BURSAL INJECTION ON 03/18/2020. REPORTING IMPROVEMENT IN RIGHT HIP PAIN. CONTINUES WITH SIGNIFICANT RIGHT LOW BACK PAIN THAT RADIATES INTO THE RIGHT GROIN. DR. MINER HAD MENTIONED A DORSAL COLUMN STIM TRIAL . DISCUSSED THIS WITH THE PATIENT. SHE IS ANXIOUS TO PURSUE THIS OPTION. AGAIN VERY UNCOMFORTABLE TODAY SITTING WITH HER RIGHT BUTTOCK AREA OFF THE SEAT OF THE CHAIR. FINDS CURRENT CHRONIC PAIN MEDICATION SOMEWHAT HELPFUL. BRINGS HER MEDICATION IN TO CLINIC WHICH IS APPROPRIATE FOR WHAT WAS DISPENSED. TODAY SHE IS TELLING ME THAT SHE IS TRYING TO TAKE OXYCODONE BUT SHE'S BEEN TAKING LARGE AMOUNTS OF IBUPROFEN. WE DISCUSSED THE DANGER OF TAKING IBUPROFEN HIGH DOSES IN REGARDS TO KIDNEY FUNCTION.-. FALL RISK SCREENING: SCREENING :NO FALLS REPORTED IN THE LAST YEAR PAIN SCREENING: PATIENT HAS A COMPLAINT OF ACUTE OR CHRONIC PAIN :YES LOCATION OF PAIN:RIGHT HIP INTENSITY OF PAIN (SCALE OF 1 TO 10):5 WHAT DOES YOUR PAIN FEEL LIKE:OTHER NAGGING DURATION:CONSTANT, STEADY PAIN IS INCREASED BY:ACTIVITIES BENDING, PROLONGED SITTING PAIN IS DECREASED BY: REPORTS INJECTIONS HAVE HELPED GREATLY NURSING NOTE: -. PAIN CENTER INTAKE QUESTIONS: DO YOU HAVE A HISTORY OF MRSA? :NO DO YOU TAKE A BLOOD THINNERS? :NO DO YOU HAVE ANY BLEEDING DISORDERS? :NO ANY NEW NUMBNESS OR WEAKNESS IN YOUR LEGS OR ARMS? :NO ANY PACEMAKER,DEFIBRILLATOR, OR DORSAL COLUMN STIMULATOR? :NO DO YOU HAVE ANY RASHES OR OPEN SORES? :NO ARE YOU ALLERGIC TO IV DYE? :NO ARE YOU DIABETIC? :NO ANY NEW PROBLEMS WITH YOUR MEDICATIONS? :NO HAVE YOU RECEIVED A VACCINE IN THE PAST 30 DAYS? :NO DO YOU PLAN TO RECEIVE A VACCINE IN THE NEXT 21 DAYS? :NO DO YOU NEED ANY PRESCRIPTION? :YES TIZANIDINE & OXYCODONE DO YOU TAKE ANY IMMUNOSUPPRESSIVE MEDICATIONS? :NO IS THERE A CHANCE YOU COULD BE ? :NO ARE YOU BREAST FEEDING? :NO CURRENT MEDICATIONS TAKING ZOFRAN 4 MG TABLET 3 TABLETS ORALLY PRE MEDICATION TAKING ROPINIROLE HCL 1 MG TABLET ORALLY AT BEDTIME TAKING SUMATRIPTAN SUCCINATE 100 MG TABLET 1 TABLET NEEDED ONE TIME ORALLY DIRECTED TAKING DEXILANT 60 MG CAPSULE DELAYED RELEASE 1 CAPSULE ORALLY ONCE A DAY TAKING RALOXIFENE HCL 60 MG TABLET 1 TABLET ORALLY ONCE A DAY TAKING DIVALPROEX SODIUM 250 MG TABLET DELAYED RELEASE 1 TABLET ORALLY TWICE A DAY, NOTES: 03/17 1999 TAKING LINZESS 290 MCG CAPSULE 1 CAPSULE ORALLY ONCE A DAY TAKING VITAMIN D (ERGOCALCIFEROL) 1.25 MG (62323 UT) CAPSULE 1 CAPSULE ORALLY WEEKLY TAKING LYRICA 100 MG CAPSULE 1 CAPSULE ORALLY ONCE A DAY AT BEDTIME, NOTES: 03/17 1999 TAKING LYRICA 200 MG CAPSULE 1 CAPSULE ORALLY BID MDD2, NOTES: 03/17 1599 TAKING TIZANIDINE HCL 4 MG TABLET 1 TABLET NEEDED ORALLY THREE TIMES A DAY TAKING OXYCODONE HCL 5 MG TABLET 2 ORALLY Q8H PRN MDD6, NOTES: 03/17 2359 NOT-TAKING SIMVASTATIN 40 MG TABLET 1 TABLET IN THE EVENING ORALLY IN EVENING NOT-TAKING CARISOPRODOL 350 MG TABLET 1 TABLET NEEDED ORALLY EVERY 8 HOURS NEEDED FOR SPASMS AND PAIN MDD3 NOT-TAKING TOPIRAMATE 100 MG TABLET 1 TABLET ORALLY TWICE A DAY MEDICATION LIST REVIEWED AND RECONCILED WITH THE PATIENT PAST MEDICAL HISTORY ACID REFLUX IBS PINCHED NERVES IN BACK SCOLIOSIS ARTHRITIS DDD ENDOMETRIOSIS CONGENITAL RIGHT HIP ABNORMALITY GASTROPARESIS 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 PAIN LOW BACK PAIN HEART MURMUR DUE TO DEFECT COLON POLYPS STOMACH FATTY TUMORS ALLERGIES NAPROXEN SODIUM: TONGUE SWELLS/FACE SWELLING - ALLERGY ASPIRIN: SORES IN MOUTH - ALLERGY ADHESIVE TAPE/BANDAIDS: BLISTERS - ALLERGY TEGADERM: SKIN BECOMES RAW, REDNESS, HEAT - ALLERGY PEPTO BISMOL: VOMITING WHEAT: RASH - ALLERGY BELBUCA: VOMITING - SIDE EFFECTS SOCIAL HISTORY GENERAL: TOBACCO USE ARE YOU A:FORMER SMOKER HOW LONG HAS IT BEEN SINCE YOU LAST SMOKED?1-5 YEARS ADDITIONAL FINDINGS: TOBACCO NON-USERCURRENT NON-SMOKER SMOKING CESSATION INFORMATION GIVEN01/16/2020 LATEX QUESTIONNAIRE LATEX ALLERGY : HAVE YOU EVER DEVELOPED ANY TYPE OF REACTION AFTER HANDLING LATEX PRODUCTS SUCH RUBBER GLOVES, CONDOMS, DIAPHRAGMS, BALLOONS, SOCKS, OR UNDERWEAR?NO LATEX ALLERGY : HAVE YOU EVER DEVELOPED ANY TYPE OF REACTION DURING OR AFTER DENTAL APPOINTMENT, VAGINAL/RECTAL EXAMINATION, SURGICAL PROCEDURE, OR ANY OTHER EXPOSURE?NO LATEX RISK : HAVE YOU EVER HAD ANY DIFFICULTY BREATHING OR HIVES AFTER EATING OR HANDLING ANY FRUITS, OR VEGETABLES; SUCH KIWI, BANANAS, STONE FRUITS, OR CHESTNUTSNO LATEX RISK : DO YOU HAVE A PREVIOUS PERSONAL HISTORY OF MORE THAN NINE SURGERIES, SPINA BIFIDA, OR REPEATED CATHERIZATIONS? YES - PLEASE INDICATE : > 9 SURGERIES LATEX RISK : ARE YOU FREQUENTLY EXPOSED TO LATEX PRODUCTS IN YOUR OCCUPATION?NO DATE ASKED : 04/01/2020 ALCOHOL USE: YES, OCCASIONALLY. LUNG CANCER SCREENING SMOKING STATUS:FORMER SMOKER ALCOHOL SCREENING DID YOU HAVE A DRINK CONTAINING ALCOHOL IN THE PAST YEAR?NO POINTS0 INTERPRETATIONNEGATIVE RECREATIONAL DRUG USE DRUG USE?NO CAFFEINE CAFFEINE USE?NO ROMAN CATHOLIC [id number] NONE NO JUDAISM BELIEFS THAT WOULD IMPACT HEALTH CARE. LANGUAGE LANGUAGES SPOKEN:OCCITAN LEARNING BARRIERS / SPECIAL NEEDS CHANGE FROM LAST VISIT?NO BARRIERS TO LEARNING?NO HEARING IMPAIRED?YES :HEARING AIDES VISION IMPAIRED?YES :CORRECTIVE LENSES COGNITIVELY IMPAIRED?NO READINESS TO LEARN?YES LEARNING PREFERENCES?NO LEARNING CAPABILITIES PRESENT?YES EMOTIONAL BARRIERS?NO SPECIAL DEVICES?YES :CANE, WALKER SIGNAL AND COMMUNICATIONS MAINTAINER NEEDED?NO MARITAL STATUS: .. REVIEW OF SYSTEMS CONSTITUTIONAL: ANY RECENT FEVER NO . CHILLS NO . WEIGHT CHANGE OF UNKNOWN REASONS NO . GASTROENTEROLOGY: NEW UNEXPLAINABLE CHANGES IN BOWEL CONTROL NO . CONSTIPATION NO . GENITOURINARY: ANY NEW CHANGE IN BLADDER CONTROL? NO . NEUROLOGY: NEW ONSET DIZZINESS OR NEUROLOGICAL CHANGES NOT MENTIONED NO . NEW NUMBNESS OR PAIN PATTERNS NOT MENTIONED AND PERTINENT TO TODAY'S VISIT NO . CARDIOLOGY: NEW CHEST PRESSURE NO . NEW CHEST PAIN NO . RESPIRATORY: UNEXPLAINABLE COUGH NO . NEW SHORTNESS OF BREATH NO . VITAL SIGNS WT 174.6 LBS, HT 61 IN, BMI 32.99 INDEX, BP 148/63 MM HG, HR 71 /MIN, RR 18 /MIN, TEMP 96.7 F, OXYGEN SAT % 98, SAFE IN ENV? (Y/N) YES, REVIEWED BY: [facility]. SAMUEL RN. EXAMINATION GENERAL EXAMINATION: GENERAL AWAKE,ALERT. WEEPY AND UNCOMFORTABLE.. PSYCH AFFECT NORMAL . LUNGS: LUNG BETH ARE CLEAR TO AUSCULTATION BILATERALLY. GOOD MOVEMENT OF AIR . HEART: S1, S2 IN A REGULAR RATE AND RHYTHM. NO SIGNIFICANT MURMURS, RUBS OR GALLOPS NOTED . MUSCULOSKELETAL:TENDERNESS NOTED OVER RIGHT TROCHANTERIC BURSAL REGION. LUMBAR:PALPATION: + FOR PAIN OVER L/S SPINE. + FOR PAIN OVER L/S PARASPINALS , TRIGGER POINTS: NOTED OVER RIGHT LUMBAR PARASPINAL REGION. PAIN IN THIS AREA IS AGGRAVATED WITH RANGE OF JOINT MOTION OF THE SPINE.. NEUROLOGIC EXAM: NORMAL SENSATION LIGHT TOUCH BILAT. LOWER EXTREMITIES . DIAGNOSTIC TESTS REVIEWEDMRI RIGHT HIP. ASSESSMENTS OTHER CHRONIC PAIN - G89.29 (PRIMARY) MYALGIA, OTHER SITE - M79.18 TROCHANTERIC BURSITIS, RIGHT HIP - M70.61 TREATMENT OTHER CHRONIC PAIN REFILL TIZANIDINE HCL TABLET, 4 MG, 1 TABLET NEEDED, ORALLY, THREE TIMES A DAY, 90 DAY(S), 270 TABLET, REFILLS 1 MRI : THORACIC [id number] [facility] MRI LS SPINE W/O AND WITH [id number] PAIN PROCEDURE LOGDATE OF PROCEDURE1PROCEDURE:RIGHT GREATER TROCHANTER OF THE FEMUR BURSAL INJECTIONAMOUNT OF PRE SEDATENO PRE-SEDATERESULT:IMPROVEMENT CONTINUES TODAY NOTES: TRIGGER POINT INJECTIONS RIGHT LOW BACK WE WILL MOVE FORWARD WITH SECURING DIAGNOSTIC IMAGING TO PURSUE DORSAL COLUMN STIM TRIAL FOR LOW BACK PAIN AND RIGHT HIP PAIN. MRI OF THE THORACIC SPINE IS ORDERED TODAY WELL MRI OF THE LUMBAR SPINE. WE WILL REQUEST PSYCHOLOGICAL EVALUATION. [facility] REASON:PRE-DORSAL COLUMN STIMULATOR EVALUATION PROCEDURE CODES FA211 ESTABILISHED PATIENT [facility] CHARGE DISPOSITION & COMMUNICATION FOLLOW UP NURSE VISIT TOMORROW FOR U TOX/POST PROCEDURE FOLLOW-UP (REASON: TRIGGER POINT INJECTIONS RIGHT LOW BACK) ELECTRONICALLY SIGNED BY BASSAM DOMINGUEZ ON 04/02/2020 AT 01:27 PM EST DISCLAIMER : THIS IS A VISIT SUMMARY EXTRACTED FROM THE [employer] CHART. IT IS NOT A COPY OF THE [employer] PROGRESS NOTE. MARIKA
== END ==
LOC: M PAIN 09:15
PROVIDERS: ATTEND Nurse Practitioner Family
DX: G89.29 Other chronic pain (principal); M79.18 Myalgia, other site; M70.61 Trochanteric bursitis, right hip; K21.9 Gastro-esophageal reflux disease without esophagitis; K58.9 Irritable bowel syndrome, unspecified; Z87.891 Personal history of nicotine dependence; Z79.891 Long term (current) use of opiate analgesic; Z79.899 Other long term (current) drug therapy; Z88.6 Allergy status to analgesic agent; Z88.8 Allergy status to other drugs, medicaments and biological substances; Z91.018 Allergy to other foods; Z91.048 Other nonmedicinal substance allergy status

== ENCOUNTER → 2020-04-02 | Outpatient (CLI) | payer MEDICARE, MEDICAID ==
--- NOTE | 2020-04-06 23:40 | ECWPNPC ---
PATIENT NAME: NNAMDI ANAND : 1965 GENDER: FEMALE VISIT DATE: 04/02/2020 DISCHARGE DATE: 04/02/20 1127 VISIT LOCKED DATE TIME: PHYSICIAN: NINA ESQUIVEL RESOURCE: NINA ESQUIVEL REASON FOR APPOINTMENT 1. UTOX HISTORY OF PRESENT ILLNESS GENERAL: -. FALL RISK SCREENING: SCREENING :NO FALLS REPORTED IN THE LAST YEAR PAIN SCREENING: PATIENT HAS A COMPLAINT OF ACUTE OR CHRONIC PAIN :NO NURSING NOTE: -. PAIN CENTER INTAKE QUESTIONS: DO YOU HAVE A HISTORY OF MRSA? :NO DO YOU TAKE A BLOOD THINNERS? :NO DO YOU HAVE ANY BLEEDING DISORDERS? :NO ANY NEW NUMBNESS OR WEAKNESS IN YOUR LEGS OR ARMS? :NO ANY PACEMAKER,DEFIBRILLATOR, OR DORSAL COLUMN STIMULATOR? :NO DO YOU HAVE ANY RASHES OR OPEN SORES? :NO ARE YOU ALLERGIC TO IV DYE? :NO ARE YOU DIABETIC? :NO ANY NEW PROBLEMS WITH YOUR MEDICATIONS? :NO HAVE YOU RECEIVED A VACCINE IN THE PAST 30 DAYS? :NO DO YOU PLAN TO RECEIVE A VACCINE IN THE NEXT 21 DAYS? :NO DO YOU NEED ANY PRESCRIPTION? :NO DO YOU TAKE ANY IMMUNOSUPPRESSIVE MEDICATIONS? :NO IS THERE A CHANCE YOU COULD BE ? :NO ARE YOU BREAST FEEDING? :NO ALLERGIES NO[ALLERGIES VERIFIED] TREATMENT OTHERS NOTES: PT HERE TODAY NURSE VISIT FOR UTOX ONLY. EM. DISPOSITION & COMMUNICATION ELECTRONICALLY SIGNED BY BASSAM DOMINGUEZ ON 04/06/2020 AT 01:01 PM EST DISCLAIMER : THIS IS A VISIT SUMMARY EXTRACTED FROM THE [employer] CHART. IT IS NOT A COPY OF THE [employer] PROGRESS NOTE. MARIKA
== END ==
LOC: M PAIN 11:00
PROVIDERS: ATTEND Nurse Practitioner Family
DX: Z79.899 Other long term (current) drug therapy (principal)

== ENCOUNTER → 2020-04-11 | Outpatient (CLI) | payer MEDICARE, MEDICAID | LOC: M LABSMTC 08:29 | PROVIDERS: ATTEND Anesthesiology | DX: Z20.822 Contact with and (suspected) exposure to COVID-19 (principal) ==

== ENCOUNTER → 2020-04-16 | Outpatient (CLI) | payer MEDICARE, MEDICAID ==
[~2020-04-16] MED LIST changes: +BUPIVACAINE HCL 0.25% 10ML VIAL As Ordered ONE; +BUPIVACAINE HCL 0.25% 30ML VIAL As Ordered ONE; +TRIAMCINOLONE ACETONIDE SUSP 40 MG/ML VIAL (J3301) As Ordered ONE
--- NOTE | 2020-04-17 00:53 | ECWPNPC ---
PATIENT NAME: NNAMDI ANAND : 1965 GENDER: FEMALE VISIT DATE: 04/16/2020 DISCHARGE DATE: 04/16/20 1030 VISIT LOCKED DATE TIME: PHYSICIAN: DAYLIN MINER MD RESOURCE: DAYLIN MINER MD REASON FOR APPOINTMENT 1. TRIGGER POINT INJECTIONS BILATERAL LOW BACK HISTORY OF PRESENT ILLNESS GENERAL: 55-YEAR-OLD FEMALE PATIENT WITH A HISTORY OF CHRONIC LOW BACK PAIN. THE PATIENT DESCRIBES THE PAIN ACHING AND SEVERE WITH A PAIN SCORE RANGING FROM 6-9/10. SHE HAS TRIED MEDICATIONS MANAGEMENT AND THE PAIN PERSISTS. SHE HAS HAD TRIGGER POINT INJECTIONS IN THE PAST THAT HAVE HELPED. FALL RISK SCREENING: SCREENING :TWO OR MORE FALLS WITHOUT INJURY IN THE PAST YEAR RECENT FALL ON 04/10/20 WITHOUT INJURY PAIN SCREENING: PATIENT HAS A COMPLAINT OF ACUTE OR CHRONIC PAIN :YES LOCATION OF PAIN:LOW BACK INTENSITY OF PAIN (SCALE OF 1 TO 10):10 WHAT DOES YOUR PAIN FEEL LIKE:ACHING, STABBING, THROBBING DURATION:CONSTANT PAIN IS INCREASED BY:ACTIVITIES PAIN IS DECREASED BY:USE OF PAIN MEDICATIONS REST, ICE/HEAT NURSING NOTE: -. PAIN CENTER INTAKE QUESTIONS: DO YOU HAVE A HISTORY OF MRSA? :NO DO YOU TAKE A BLOOD THINNERS? :NO DO YOU HAVE ANY BLEEDING DISORDERS? :NO ANY NEW NUMBNESS OR WEAKNESS IN YOUR LEGS OR ARMS? :NO ANY PACEMAKER,DEFIBRILLATOR, OR DORSAL COLUMN STIMULATOR? :NO DO YOU HAVE ANY RASHES OR OPEN SORES? :NO ARE YOU ALLERGIC TO IV DYE? :NO ARE YOU DIABETIC? :NO ANY NEW PROBLEMS WITH YOUR MEDICATIONS? :NO HAVE YOU RECEIVED A VACCINE IN THE PAST 30 DAYS? :NO DO YOU PLAN TO RECEIVE A VACCINE IN THE NEXT 21 DAYS? :NO DO YOU TAKE ANY IMMUNOSUPPRESSIVE MEDICATIONS? :NO ANY HISTORY OF SEIZURES? :NO ANY HISTORY OF CARDIAC ISSUES OR EVENTS? :YES HX OF HEART MURMUR DO YOU HAVE SLEEP APNEA? :NO ANY RECENT HEAD INJURY? :NO DO YOU HAVE ANY NEW INFECTIONS? :NO IS THERE A CHANCE YOU COULD BE ? :NO ARE YOU BREAST FEEDING? :NO WHEN DID YOU LAST EAT? : - WHEN DID YOU LAST DRINK? : - WHAT DID YOU LAST DRINK? : - NAME OF PERSON DRIVING YOU HOME? : LINDA DO YOU HAVE ANY OTHER QUESTIONS OR CONCERNS? : -DENIED CURRENT MEDICATIONS TAKING ZOFRAN 4 MG TABLET 3 TABLETS ORALLY PRE MEDICATION TAKING ROPINIROLE HCL 1 MG TABLET ORALLY AT BEDTIME TAKING SUMATRIPTAN SUCCINATE 100 MG TABLET 1 TABLET NEEDED ONE TIME ORALLY DIRECTED TAKING DEXILANT 60 MG CAPSULE DELAYED RELEASE 1 CAPSULE ORALLY ONCE A DAY TAKING RALOXIFENE HCL 60 MG TABLET 1 TABLET ORALLY ONCE A DAY TAKING DIVALPROEX SODIUM 250 MG TABLET DELAYED RELEASE 1 TABLET ORALLY TWICE A DAY TAKING LINZESS 290 MCG CAPSULE 1 CAPSULE ORALLY ONCE A DAY TAKING VITAMIN D (ERGOCALCIFEROL) 1.25 MG (86462 UT) CAPSULE 1 CAPSULE ORALLY WEEKLY TAKING LYRICA 100 MG CAPSULE 1 CAPSULE ORALLY ONCE A DAY AT BEDTIME TAKING LYRICA 200 MG CAPSULE 1 CAPSULE ORALLY BID MDD2 TAKING OXYCODONE HCL 5 MG TABLET 2 ORALLY Q8H PRN MDD6 TAKING TIZANIDINE HCL 4 MG TABLET 1 TABLET NEEDED ORALLY THREE TIMES A DAY NOT-TAKING SIMVASTATIN 40 MG TABLET 1 TABLET IN THE EVENING ORALLY IN EVENING NOT-TAKING CARISOPRODOL 350 MG TABLET 1 TABLET NEEDED ORALLY EVERY 8 HOURS NEEDED FOR SPASMS AND PAIN MDD3 NOT-TAKING TOPIRAMATE 100 MG TABLET 1 TABLET ORALLY TWICE A DAY MEDICATION LIST REVIEWED AND RECONCILED WITH THE PATIENT PAST MEDICAL HISTORY ACID REFLUX IBS PINCHED NERVES IN BACK SCOLIOSIS ARTHRITIS DDD ENDOMETRIOSIS CONGENITAL RIGHT HIP ABNORMALITY GASTROPARESIS 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 PAIN LOW BACK PAIN HEART MURMUR DUE TO DEFECT COLON POLYPS STOMACH FATTY TUMORS ALLERGIES NAPROXEN SODIUM: TONGUE SWELLS/FACE SWELLING - ALLERGY ASPIRIN: SORES IN MOUTH - ALLERGY ADHESIVE TAPE/BANDAIDS: BLISTERS - ALLERGY TEGADERM: SKIN BECOMES RAW, REDNESS, HEAT - ALLERGY PEPTO BISMOL: VOMITING WHEAT: RASH - ALLERGY BELBUCA: VOMITING - SIDE EFFECTS SOCIAL HISTORY GENERAL: TOBACCO USE ARE YOU A:FORMER SMOKER HOW LONG HAS IT BEEN SINCE YOU LAST SMOKED?1-5 YEARS SMOKING CESSATION INFORMATION GIVEN01/16/2020 ADDITIONAL FINDINGS: TOBACCO NON-USERCURRENT NON-SMOKER LATEX QUESTIONNAIRE LATEX ALLERGY : HAVE YOU EVER DEVELOPED ANY TYPE OF REACTION AFTER HANDLING LATEX PRODUCTS SUCH RUBBER GLOVES, CONDOMS, DIAPHRAGMS, BALLOONS, SOCKS, OR UNDERWEAR?NO LATEX ALLERGY : HAVE YOU EVER DEVELOPED ANY TYPE OF REACTION DURING OR AFTER DENTAL APPOINTMENT, VAGINAL/RECTAL EXAMINATION, SURGICAL PROCEDURE, OR ANY OTHER EXPOSURE?NO LATEX RISK : HAVE YOU EVER HAD ANY DIFFICULTY BREATHING OR HIVES AFTER EATING OR HANDLING ANY FRUITS, OR VEGETABLES; SUCH KIWI, BANANAS, STONE FRUITS, OR CHESTNUTSNO LATEX RISK : DO YOU HAVE A PREVIOUS PERSONAL HISTORY OF MORE THAN NINE SURGERIES, SPINA BIFIDA, OR REPEATED CATHERIZATIONS? YES - PLEASE INDICATE : > 9 SURGERIES LATEX RISK : ARE YOU FREQUENTLY EXPOSED TO LATEX PRODUCTS IN YOUR OCCUPATION?NO DATE ASKED : 04/15/2020 ALCOHOL USE: NO. LUNG CANCER SCREENING SMOKING STATUS:FORMER SMOKER ALCOHOL SCREENING DID YOU HAVE A DRINK CONTAINING ALCOHOL IN THE PAST YEAR?NO POINTS0 INTERPRETATIONNEGATIVE RECREATIONAL DRUG USE DRUG USE?NO CAFFEINE CAFFEINE USE?NO CHRISTIAN [id number] NONE NO SCIENTOLOGIST BELIEFS THAT WOULD IMPACT HEALTH CARE. LANGUAGE LANGUAGES SPOKEN:AMHARIC LEARNING BARRIERS / SPECIAL NEEDS CHANGE FROM LAST VISIT?NO BARRIERS TO LEARNING?NO HEARING IMPAIRED?YES :HEARING AIDES VISION IMPAIRED?YES :CORRECTIVE LENSES COGNITIVELY IMPAIRED?NO READINESS TO LEARN?YES LEARNING PREFERENCES?NO LEARNING CAPABILITIES PRESENT?YES EMOTIONAL BARRIERS?NO SPECIAL DEVICES?YES :CANE, WALKER BRANCH EXAMINER NEEDED?NO MARITAL STATUS: .. VITAL SIGNS WT 171.2 LBS, HT 61 IN, BMI 32.34 INDEX, BP 131/61 MM HG, HR 72 /MIN, RR 18 /MIN, TEMP 96.0 F, OXYGEN SAT % 99%, SAFE IN ENV? (Y/N) Y, NA INITIALS AW 0934, REVIEWED BY: ROSAS. EXAMINATION GENERAL EXAMINATION: THE PATIENT IS ALERT, ORIENTED TIMES THREE AND COOPERATIVE. LUNGS ARE CLEAR TO AUSCULTATION. HEART SHOWS REGULAR RHYTHM, NO MURMURS AND NO GALLOPS. THERE WAS TENDERNESS OF THE PARASPINOUS MUSCLE AND THERE WERE BANDS OF TISSUE WITH RESTRICTION OF MOVEMENT PRESENT IN THE TRIGGER POINTS IN THE RIGHT AND LEFT LOWER BACK AREA. ASSESSMENTS MYALGIA - M79.1 (PRIMARY) TREATMENT MYALGIA COMPLETION OF PROCEDURAL VISIT WHEN MEETS CRITERIASHAHLANIK 04/16/2020 11:53:01 AM > CRITERIA MET CLINICAL NOTES: I DISCUSSED ALTERNATIVES WITH MS. ANAND. WE AGREE ON DOING TRIGGER POINT INJECTIONS BILATERAL LOW BACK. THE PATIENT REPORTS UNDERSTANDING AND AGREES WITH THE PLAN. I, STAN WAHL, DOCUMENTED THE ABOVE INFORMATION ACTING A SCRIBE FOR DR. MINER. I HAVE REVIEWED THE ABOVE DOCUMENT, WRITTEN BY STAN WAHL, ART TEACHER, AND I VERIFY THAT IT IS ACCURATE. OTHERS NOTES: PAT COMPLETED 04/15/20 @ 1613 BY Sasha BAKER RN. PROCEDURES PAIN NURSING RECORD PROCEDURE IN ROOM 0927, PHYSICIAN IN ROOM 1013, START 1016, FINISH 1018, PHYSICIAN OUT OF ROOM 1018, OUT OF ROOM 1027, ECG N/A, PATIENT SHIELDED N/A, SAFETY STRAP N/A, PREP ALCOHOL BY DR MINER, DRESSING OTHER GAUZE AND PAPER TAPE BY YESIKA ARDON LOC: 1. ALERT, ORIENTED, [facility] 04/16/2020 1015AM > RESP: 1. REGULAR, NO DYSPNEA, [facility] 04/16/2020 1015 AM > COLOR: 1. PINK, [facility] 04/16/2020 1015 AM > SKIN: 1. WARM, DRY, [facility] 04/16/2020 1015 AM > POSITION: 5. SITTING, [facility] 04/16/2020 1015 AM > VITALS: EXIT VITALS 69 HR, 113/68, 99% NOTES Betzy GALE RN COMPLETION OF PROCEDURE APPOINTMENT: POST PAIN 8, DRESSING SITE DRY AND INTACT, IV N/A, GAIT STEADY, TEACHING COMPLETED, PATIENT ACKNOWLEDGES UNDERSTANDING YES, PROCEDURE APPOINTMENT COMPLETED AT 1027 PN TRIGGER POINT INJECTION WITH STEROIDS PRE PROCEDURE DIAGNOSIS 1. MYALGIA 2. PAIN AT BILATERAL LOW BACK AREA POST PROCEDURE DIAGNOSIS 1. MYALGIA 2. PAIN AT BILATERAL LOW BACK AREA PROCEDURE TRIGGER POINT INJECTION AT BILATERAL LOW BACK AREA SURGEON DR. DAYLIN MINER PAPER BAG INSPECTOR NONE ANESTHESIA LOCAL PRE PROCEDURE NOTE THE PATIENT HAS A HISTORY OF CHRONIC PAIN AT THE RIGHT AND LEFT LOW BACK AREA. I EVALUATED THE PATIENT AND REVIEWED THE CHART. THERE IS EVIDENCE OF BANDS OF TISSUE WITH RESTRICTION OF MOVEMENT AND PRESENCE OF TRIGGER POINT AT THE RIGHT AND LEFT LOW BACK AREA. I WENT OVER THE RISKS, ALTERNATIVES, AND BENEFITS ASSOCIATED WITH THIS PROCEDURE. THE PATIENT WOULD LIKE TO PROCEED AND GIVE CONSENT TO PERFORMED THE PROCEDURE. THE PATIENT DENIES UNEXPLAINABLE WEIGHT LOSS, FEVER, CHILLS, OR NEW CHANGES IN URINARY OR BOWEL CONTROL. THE PATIENT IS COVID-19 NEGATIVE DESCRIPTION OF PROCEDURE THE PATIENT WAS BROUGHT TO THE PROCEDURE ROOM AND PLACED IN THE SITTING POSITION. THE AREA WAS CLEANED WITH ALCOHOL. THE PROCEDURE WAS DONE USING ASEPTIC STERILE TECHNIQUE. A TIMEOUT WAS PERFORMED WHERE THE CONSENTED SITE WAS VERIFIED WITH EVERYONE IN THE ROOM. USING A 25-GAUGE NEEDLE, TRIGGER POINTS WERE INJECTED AT THE RIGHT AND LEFT LOW BACK AREA WITH A TOTAL OF 40 ML OF BUPIVACAINE 0.25% AND KENALOG 40 MG. THE MEDICATIONS WERE VERIFIED WITH THE NURSE. THERE WAS NO EVIDENCE OF BLOOD OR PARESTHESIA DURING THE PROCEDURE. THE PATIENT WAS SENT TO THE RECOVERY ROOM. THE PATIENT WAS MOVING THE EXTREMITIES AND DOING WELL. THERE WERE NO COMPLICATIONS DURING THE PROCEDURE. ESTIMATED BLOOD LOSS WAS LESS THAN 5 ML POST PROCEDURE NOTE THE PROCEDURE DONE WAS DISCUSSED WITH THE PATIENT. THE PATIENT WILL BE SEEN IN A FOLLOW UP IN THE NEXT FEW WEEKS. I AM LOOKING FOR LONG LASTING PAIN RELIEF FOR THE PATIENT WITH THIS INTERVENTION. INSTRUCTIONS WERE GIVEN, QUESTIONS WERE ANSWERED, AND THE PATIENT EXPRESSED UNDERSTANDING AND AGREES WITH THE PLAN. I, STAN WAHL, DOCUMENTED THE ABOVE INFORMATION ACTING A SCRIBE FOR DR. MINER. I HAVE REVIEWED THE ABOVE DOCUMENT, WRITTEN BY STAN WAHL, ART TEACHER, AND I VERIFY THAT IT IS ACCURATE PROCEDURE CODES 68025 INJ TRIGGER POINT 03/06 [facility] DISPOSITION & COMMUNICATION FOLLOW UP FOLLOW UP WITH BOBBIN DISKER (REASON: POST TRIGGER POINT INJECTIONS BILATERAL LOW BACK) ELECTRONICALLY SIGNED BY DAYLIN MINER MD, MD ON 04/16/2020 AT 04:32 PM EST DISCLAIMER : THIS IS A VISIT SUMMARY EXTRACTED FROM THE [employer] CHART. IT IS NOT A COPY OF THE [employer] PROGRESS NOTE. MARIKA
== END ==
LOC: M PAIN 09:30
PROVIDERS: ATTEND Anesthesiology
DX: M79.18 Myalgia, other site (principal); K21.9 Gastro-esophageal reflux disease without esophagitis; K58.9 Irritable bowel syndrome, unspecified; K31.84 Gastroparesis; M47.12 Other spondylosis with myelopathy, cervical region; M47.22 Other spondylosis with radiculopathy, cervical region; Z87.891 Personal history of nicotine dependence; Z79.891 Long term (current) use of opiate analgesic; Z79.899 Other long term (current) drug therapy; Z88.6 Allergy status to analgesic agent; Z88.8 Allergy status to other drugs, medicaments and biological substances; Z91.018 Allergy to other foods; Z91.048 Other nonmedicinal substance allergy status
CPT/HCPCS: 20552; J3301

== ENCOUNTER → 2020-05-19 | Outpatient (CLI) | payer MEDICARE, MEDICAID ==
[~2020-05-19] MED LIST changes: -BUPIVACAINE HCL 0.25% 10ML VIAL As Ordered ONE; -BUPIVACAINE HCL 0.25% 30ML VIAL As Ordered ONE; -TRIAMCINOLONE ACETONIDE SUSP 40 MG/ML VIAL (J3301) As Ordered ONE
--- NOTE | 2020-05-25 07:15 | ECWPNPC ---
PATIENT NAME: NNAMDI ANAND : 1965 GENDER: FEMALE VISIT DATE: 05/19/2020 DISCHARGE DATE: 05/19/20 1043 VISIT LOCKED DATE TIME: PHYSICIAN: NINA ESQUIVEL RESOURCE: NINA ESQUIVEL REASON FOR APPOINTMENT 1. POST TRIGGER POINT INJECTIONS RIGHT LOW BACK/MRI REVIEW HISTORY OF PRESENT ILLNESS GENERAL: PATIENT IS HERE TODAY FOR POST PROCEDURE FOLLOW-UP AND TO REVIEW MRI OF THE THORACIC AND LUMBAR SPINE. I DID REVIEW MRIS WITH DR. MINER WHO IS RECOMMENDING NEUROSURGICAL OPINION REGARDING ABNORMAL THORACIC SPINE. THIS IS SHOWING SEVERE LEFT T9-10 FORAMINAL STENOSIS. 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 CONTINUES TO HAVE SEVERE LOW BACK PAIN AND LOWER THORACIC PARASPINAL PAIN. STATES TRIGGER POINT INJECTIONS CONTINUE TO BE SOMEWHAT HELPFUL FOR THE LOWER BACK AREA. DR. MINER WOULD ALSO LIKE TO SEE THE ACTUAL DISC IN REGARDS TO THORACIC MRI. THEY WERE DISCUSSING DORSAL COLUMN STIMULATOR TRIAL. -. FALL RISK SCREENING: SCREENING : NO FALLS REPORTED IN THE LAST YEAR. PAIN SCREENING: PATIENT HAS A COMPLAINT OF ACUTE OR CHRONIC PAIN :YES LOCATION OF PAIN:LOW BACK INTENSITY OF PAIN (SCALE OF 1 TO 10):5 WHAT DOES YOUR PAIN FEEL LIKE:CONTINOUS, TENDER, SHOOTING DURATION:CONTINOUS, CONSTANT, ALL DAY PAIN IS INCREASED BY:ACTIVITIES " BREATHING MAKE IT WOSRE" PAIN IS DECREASED BY:USE OF PAIN MEDICATIONS NURSING NOTE: -. PAIN CENTER INTAKE QUESTIONS: DO YOU HAVE A HISTORY OF MRSA? :NO DO YOU TAKE A BLOOD THINNERS? :NO DO YOU HAVE ANY BLEEDING DISORDERS? :NO ANY NEW NUMBNESS OR WEAKNESS IN YOUR LEGS OR ARMS? :NO ANY PACEMAKER,DEFIBRILLATOR, OR DORSAL COLUMN STIMULATOR? :NO DO YOU HAVE ANY RASHES OR OPEN SORES? :NO ARE YOU ALLERGIC TO IV DYE? :NO ARE YOU DIABETIC? :NO ANY NEW PROBLEMS WITH YOUR MEDICATIONS? :NO HAVE YOU RECEIVED A VACCINE IN THE PAST 30 DAYS? :NO DO YOU PLAN TO RECEIVE A VACCINE IN THE NEXT 21 DAYS? :NO DO YOU NEED ANY PRESCRIPTION? :YES OXYCODONE DO YOU TAKE ANY IMMUNOSUPPRESSIVE MEDICATIONS? :NO IS THERE A CHANCE YOU COULD BE ? :NO ARE YOU BREAST FEEDING? :NO CURRENT MEDICATIONS TAKING ZOFRAN 4 MG TABLET 3 TABLETS ORALLY PRE MEDICATION TAKING ROPINIROLE HCL 1 MG TABLET ORALLY AT BEDTIME TAKING SUMATRIPTAN SUCCINATE 100 MG TABLET 1 TABLET NEEDED ONE TIME ORALLY DIRECTED TAKING DEXILANT 60 MG CAPSULE DELAYED RELEASE 1 CAPSULE ORALLY ONCE A DAY TAKING RALOXIFENE HCL 60 MG TABLET 1 TABLET ORALLY ONCE A DAY TAKING DIVALPROEX SODIUM 250 MG TABLET DELAYED RELEASE 1 TABLET ORALLY TWICE A DAY TAKING LINZESS 290 MCG CAPSULE 1 CAPSULE ORALLY ONCE A DAY TAKING VITAMIN D (ERGOCALCIFEROL) 1.25 MG (37705 UT) CAPSULE 1 CAPSULE ORALLY WEEKLY TAKING LYRICA 100 MG CAPSULE 1 CAPSULE ORALLY ONCE A DAY AT BEDTIME TAKING LYRICA 200 MG CAPSULE 1 CAPSULE ORALLY BID MDD2 TAKING TIZANIDINE HCL 4 MG TABLET 1 TABLET NEEDED ORALLY THREE TIMES A DAY TAKING OXYCODONE HCL 5 MG TABLET 2 ORALLY Q8H PRN MDD6 NOT-TAKING SIMVASTATIN 40 MG TABLET 1 TABLET IN THE EVENING ORALLY IN EVENING NOT-TAKING CARISOPRODOL 350 MG TABLET 1 TABLET NEEDED ORALLY EVERY 8 HOURS NEEDED FOR SPASMS AND PAIN MDD3 NOT-TAKING TOPIRAMATE 100 MG TABLET 1 TABLET ORALLY TWICE A DAY MEDICATION LIST REVIEWED AND RECONCILED WITH THE PATIENT PAST MEDICAL HISTORY ACID REFLUX IBS PINCHED NERVES IN BACK SCOLIOSIS ARTHRITIS DDD ENDOMETRIOSIS CONGENITAL RIGHT HIP ABNORMALITY GASTROPARESIS 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 PAIN LOW BACK PAIN HEART MURMUR DUE TO DEFECT COLON POLYPS STOMACH FATTY TUMORS PAIN IN RIGHT FEET ALLERGIES NAPROXEN SODIUM: TONGUE SWELLS/FACE SWELLING - ALLERGY ASPIRIN: SORES IN MOUTH - ALLERGY ADHESIVE TAPE/BANDAIDS: BLISTERS - ALLERGY TEGADERM: SKIN BECOMES RAW, REDNESS, HEAT - ALLERGY PEPTO BISMOL: VOMITING WHEAT: RASH - ALLERGY BELBUCA: VOMITING - SIDE EFFECTS SOCIAL HISTORY GENERAL: TOBACCO USE ARE YOU A:FORMER SMOKER HOW LONG HAS IT BEEN SINCE YOU LAST SMOKED?1-5 YEARS SMOKING CESSATION INFORMATION GIVEN01/16/2020 ADDITIONAL FINDINGS: TOBACCO NON-USERCURRENT NON-SMOKER LATEX QUESTIONNAIRE LATEX ALLERGY : HAVE YOU EVER DEVELOPED ANY TYPE OF REACTION AFTER HANDLING LATEX PRODUCTS SUCH RUBBER GLOVES, CONDOMS, DIAPHRAGMS, BALLOONS, SOCKS, OR UNDERWEAR?NO LATEX ALLERGY : HAVE YOU EVER DEVELOPED ANY TYPE OF REACTION DURING OR AFTER DENTAL APPOINTMENT, VAGINAL/RECTAL EXAMINATION, SURGICAL PROCEDURE, OR ANY OTHER EXPOSURE?NO LATEX RISK : HAVE YOU EVER HAD ANY DIFFICULTY BREATHING OR HIVES AFTER EATING OR HANDLING ANY FRUITS, OR VEGETABLES; SUCH KIWI, BANANAS, STONE FRUITS, OR CHESTNUTSNO LATEX RISK : DO YOU HAVE A PREVIOUS PERSONAL HISTORY OF MORE THAN NINE SURGERIES, SPINA BIFIDA, OR REPEATED CATHERIZATIONS? YES - PLEASE INDICATE : > 9 SURGERIES LATEX RISK : ARE YOU FREQUENTLY EXPOSED TO LATEX PRODUCTS IN YOUR OCCUPATION?NO DATE ASKED : 05/19/2020 ALCOHOL USE: NO. LUNG CANCER SCREENING SMOKING STATUS:FORMER SMOKER ALCOHOL SCREENING DID YOU HAVE A DRINK CONTAINING ALCOHOL IN THE PAST YEAR?NO POINTS0 INTERPRETATIONNEGATIVE RECREATIONAL DRUG USE DRUG USE?NO CAFFEINE CAFFEINE USE?NO SCIENTOLOGIST [id number] NONE NO ANGLICAN BELIEFS THAT WOULD IMPACT HEALTH CARE. LANGUAGE LANGUAGES SPOKEN:ITALIAN LEARNING BARRIERS / SPECIAL NEEDS CHANGE FROM LAST VISIT?NO BARRIERS TO LEARNING?NO HEARING IMPAIRED?YES :HEARING AIDES VISION IMPAIRED?YES :CORRECTIVE LENSES COGNITIVELY IMPAIRED?NO READINESS TO LEARN?YES LEARNING PREFERENCES?NO LEARNING CAPABILITIES PRESENT?YES EMOTIONAL BARRIERS?NO SPECIAL DEVICES?YES :CANE, WALKER POLICE STENOGRAPHER NEEDED?NO MARITAL STATUS: .. REVIEW OF SYSTEMS CONSTITUTIONAL: ANY RECENT FEVER NO . CHILLS NO . WEIGHT CHANGE OF UNKNOWN REASONS NO . GASTROENTEROLOGY: NEW UNEXPLAINABLE CHANGES IN BOWEL CONTROL NO . CONSTIPATION NO . GENITOURINARY: ANY NEW CHANGE IN BLADDER CONTROL? NO . NEUROLOGY: NEW ONSET DIZZINESS OR NEUROLOGICAL CHANGES NOT MENTIONED NO . NEW NUMBNESS OR PAIN PATTERNS NOT MENTIONED AND PERTINENT TO TODAY'S VISIT NO . CARDIOLOGY: NEW CHEST PRESSURE NO . PATIENT DENIES NO . RESPIRATORY: UNEXPLAINABLE COUGH NO . NEW SHORTNESS OF BREATH NO . VITAL SIGNS WT 168 LBS, HT 61 IN, BMI 31.74 INDEX, BP 116/60 MM HG, HR 70 /MIN, RR 18 /MIN, TEMP 97.5 F, OXYGEN SAT % 99%, SAFE IN ENV? (Y/N) YES, NA INITIALS SC 10:02T.OSCAR RUBIO. EXAMINATION GENERAL EXAMINATION: GENERAL AWAKE,ALERT.APPEARS UNCOMFORTABLE. PSYCH AFFECT NORMAL . LUNGS: LUNG BETH ARE CLEAR TO AUSCULTATION BILATERALLY. GOOD MOVEMENT OF AIR . HEART: S1, S2 IN A REGULAR RATE AND RHYTHM. NO SIGNIFICANT MURMURS, RUBS OR GALLOPS NOTED . LUMBAR:PALPATION: + FOR PAIN OVER L/S SPINE. + FOR PAIN OVER L/S PARASPINALS , TRIGGER POINTS: NOTED OVER RIGHT LUMBAR PARASPINAL REGION. PAIN IN THIS AREA IS AGGRAVATED WITH RANGE OF JOINT MOTION OF THE SPINE.. THORACIC SPINE: TRIGGER POINTS: ELICITED WITH PALPATION OVER MID TO LOWER THORACIC PARASPINALS. PAIN IN THIS REGION IS AGGRAVATED WITH RANGE OF JOINT MOTION OF SPINE.. NEUROLOGIC EXAM: NORMAL SENSATION LIGHT TOUCH BILAT. LOWER EXTREMITIES . DIAGNOSTIC TESTS REVIEWEDMRI L/S AND THORACIC SPINE-05/2020. 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 TREATMENT OTHER CHRONIC PAIN REFILL OXYCODONE HCL TABLET, 5 MG, 2, ORALLY, Q8H PRN MDD6, 30 DAY(S), 180, REFILLS 0 PAIN PROCEDURE LOGDATE OF PROCEDURE1PROCEDURE:TRIGGER POINT INJECTION BILATERAL LOW BACKAMOUNT OF PRE SEDATE0/0RESULT:REPORTING IMPROVEMENT THAT CONTINUES TODAY REFERRAL [facility] REASON:REVIEW ABNORMAL THORACIC MRI 05/11/20-DR DSOUZA REQUEST PROCEDURE CODES FA211 ESTABILISHED PATIENT [facility] CHARGE DISPOSITION & COMMUNICATION FOLLOW UP 6 WEEKS (REASON: REVIEW THORACIC MRI DISC, FOLLOW-UP ON HAILEY ALFORD REFERRAL, REVIEW PSYCHOLOGICAL EXAM, DISCUSSED DORSAL COLUMN STIMULATOR PROGRESS) ELECTRONICALLY SIGNED BY BASSAM DOMINGUEZ ON 05/24/2020 AT 03:16 PM EDT DISCLAIMER : THIS IS A VISIT SUMMARY EXTRACTED FROM THE [employer] CHART. IT IS NOT A COPY OF THE [employer] PROGRESS NOTE. MARIKA
== END ==
LOC: M PAIN 09:45
PROVIDERS: ATTEND Nurse Practitioner Family
DX: G89.29 Other chronic pain (principal); M79.18 Myalgia, other site; M47.814 Spondylosis without myelopathy or radiculopathy, thoracic region; K21.9 Gastro-esophageal reflux disease without esophagitis; K58.9 Irritable bowel syndrome, unspecified; Z87.891 Personal history of nicotine dependence; Z79.891 Long term (current) use of opiate analgesic; Z79.899 Other long term (current) drug therapy; Z88.6 Allergy status to analgesic agent; Z88.8 Allergy status to other drugs, medicaments and biological substances; Z91.018 Allergy to other foods; Z91.048 Other nonmedicinal substance allergy status

== ENCOUNTER → 2020-06-18 | Outpatient (CLI) | payer MEDICARE, MEDICAID ==
--- NOTE | 2020-06-18 18:59 | REP ---
INDICATION: SPONDYLOLYSIS. COMPARISON: Comparison lumbar spine CT study is from September 25, 2014.. TECHNIQUE: Helical scanning is acquired and 4 mm axial images are re-formatted. Coronal and sagittal MPR images are included. FINDINGS: Lumbar vertebral body heights are preserved. There is a moderate levoconvex lumbar scoliotic curve with its apex at L1-2. There are advanced degenerative disc disease changes at L1-2 associated with this especially on the right side of the L1-2 disc. Vacuum phenomena are seen at T12-L1 and L1-L2. There is vacuum phenomena in the degenerated L2-3 disc as well. L3-4 disc space narrowing is seen mild in degree. The degenerative disc changes appear to have progressed slightly as specially at T12-L1 and L1-L2 in the interval since the 2014 study. No fracture or collapse is seen. Alignment is unchanged. There is a unilateral left-sided pars a defect at L5 as seen previously. There is moderate osteoarthritic facet hypertrophy associated with this left greater than right. This is essentially unchanged. No disc protrusion is seen at L5-S1. There is mild neural foraminal encroachment on the right associated with facet hypertrophy at L5-S1. At L4-5, there is mild diffuse disc bulging. At L3-4, there is mild diffuse disc bulging. Borderline canal size. There is mild neural foraminal narrowing on the left at L3-4. At L2-3, there is borderline canal size due to diffuse disc bulging and developmentally short pedicles. There is some foraminal narrowing on the left at L2-3 due to facet hypertrophy and disc bulging. At L1-L2, there is diffuse disc bulging with posterior osteophytic ridging. No spinal stenosis is seen. There is right-sided foraminal narrowing due to discogenic spurring. IMPRESSION: Degenerative spondylosis associated with scoliosis. Changes at T12-L1 and L1-L2 have progressed since the 2014 study. Multilevel neural foraminal narrowing as above. No fracture, collapse, or other acute abnormality. Unilateral left L5 spondylolysis without evidence of spondylolisthesis. <Electronically signed by Isaiah Win > 06/18/20 [id number]
--- NOTE | 2020-06-18 19:07 | REP ---
INDICATION: SPONDYLOLYSIS. COMPARISON: Comparison MRI study thoracic spine May 11, 2020.. TECHNIQUE: Helical scanning is acquired and 4 mm axial images are generated. Coronal and sagittal MPR images are included. FINDINGS: Patient is status post ventral discectomy and fusion plating across the C 6 7 disc level. Thoracic vertebral body heights are preserved. There is a fairly large Schmorl's node at the superior endplate of T5. There is a dextroconvex scoliotic curve in the thoracic spine broad-based with its apex at T10. Degenerative disc disease is noted most pronounced at T9-10 where there is fairly large left paravertebral spur. There is a vacuum phenomena at T9-10 and another at T11-12 and T12-L1. No bony destructive lesion is seen. Pedicles and posterior elements are intact. There is straightening of the thoracic spine distally on sagittal recon images. At the T12-L1 level, there is a calcified left posterior disc protrusion. This indents the thecal sac. Posterior osteophytic ridging is seen at this disc margin. There is left-sided neural foraminal narrowing moderate in degree at the T11-12 level due to disc bulging, discogenic spurring, and facet hypertrophy. No other focal thoracic disc protrusion is appreciated. IMPRESSION: Scoliosis and degenerative spondylosis changes. Left posterior disc protrusion at T12-L1 and left-sided T11-12 neural foraminal narrowing due to facet hypertrophy, discogenic spurring, and left foraminal disc bulging. <Electronically signed by Isaiah Win > 06/18/20 [id number]
--- NOTE | 2020-06-18 19:11 | REP ---
INDICATION: SPONDYLOLYSIS. COMPARISON: None. TECHNIQUE: Upright AP views of the thoracolumbar spine are obtained. FINDINGS: Thoracic and lumbar vertebral body heights are preserved. There is an S-shaped thoracolumbar curvature. A broad-based 21 degree curvature is seen in the lower thoracic spine measured from T5-T12. There is a slight rotational component. There is a more acute levoconvex curvature in the upper lumbar spine with its apex at L1. This measures 20 degrees from T11 through L3. This curvature has a slightly more prominent rotational component. There are cervical spine ventral discectomy and fusion plate changes. IMPRESSION: S-shaped thoracolumbar curvature as above. <Electronically signed by Isaiah Win > 06/18/20 [id number]
== END ==
LOC: M RAD 17:37
PROVIDERS: ATTEND Physician Assistant
DX: M47.814 Spondylosis without myelopathy or radiculopathy, thoracic region (principal); M41.84 Other forms of scoliosis, thoracic region; M41.85 Other forms of scoliosis, thoracolumbar region; M43.04 Spondylolysis, thoracic region; M43.06 Spondylolysis, lumbar region

== ENCOUNTER → 2020-06-28 | Outpatient (CLI) | payer MEDICARE, MEDICAID ==
--- NOTE | 2020-06-30 01:23 | ECWPNPC ---
PATIENT NAME: NNAMDI ANAND : 1965 GENDER: FEMALE VISIT DATE: 06/28/2020 DISCHARGE DATE: 06/28/20 1420 VISIT LOCKED DATE TIME: PHYSICIAN: DAYLIN MINER MD RESOURCE: DAYLIN MINER MD REASON FOR APPOINTMENT 1. REVIEW THORACIC MRI DISC, FOLLOW-UP ON [facility] REFERRAL, REVIEW PSYCHOLOGICAL EXAM, DISCUSSED DORSAL COLUMN STIMULATOR PROGRESS HISTORY OF PRESENT ILLNESS GENERAL: 55-YEAR-OLD FEMALE PATIENT WITH A HISTORY OF CHRONIC RIGHT THORACIC, RIGHT LOWER BACK AND BILATERAL HIP PAIN. THE PATIENT HAS BEEN SUFFERING FROM THIS CONDITION FOR A LONG TIME AND WE HAVE PERFORMED DIFFERENT INJECTIONS AND PROCEDURES. FINALLY, WE AGREED WITH THE PATIENT TO TRY A SPINAL COLUMN STIMULATER TRIAL. THORACIC AND LUMBAR MRI WERE ORDERED. THE THORACIC MRI WAS SHOWING SOME STENOSIS. SHE WAS EVALUATED BY HAILEY ALFORD WHO REFERRED HER TO A SURGEON IN [place] TO CONSIDER OPTIONS FOR HER. THE PATIENT IS GOING TO SEE DR. HARMON ON JULY 20. THE PATIENT DESCRIBES THE PAIN ACHING AND CONTINUOUS WITH A PAIN SCORE RANGING FROM 7-10/10 IN HER RIGHT THORACIC, LOWER BACK AND BILATERAL LEGS. THIS IS AFFECTING HER ABILITY TO DO ACTIVITIES SUCH CLEANING HER HOUSE AND GROCERY SHOPPING. THE PATIENT NEEDS A WALKER TO MOVE. NNAMDI IS ALSO EXPLAINING FEELING THIS SENSATION OF PRESSURE AND PAIN AND NERVE PAIN TOWARDS THE RIB CAGE THAT GOES TOWARDS THE FRONT. FALL RISK SCREENING: SCREENING : MULTIPLE FALLS IS LAST YEAR, NONE SINCE LAST VISIT WITH US. PAIN SCREENING: PATIENT HAS A COMPLAINT OF ACUTE OR CHRONIC PAIN :YES LOCATION OF PAIN:NECK, UPPER BACK, MID BACK, LOW BACK, RIGHT HIP, LEG(S) RIGHT LEG INTENSITY OF PAIN (SCALE OF 1 TO 10):8 WHAT DOES YOUR PAIN FEEL LIKE:ACHING, CONTINOUS DURATION:CONTINOUS, CONSTANT, ALL DAY PAIN IS INCREASED BY:ACTIVITIES, PROLONGED STANDING, OTHERS WALKING PAIN IS DECREASED BY:OTHERS TENS UNIT, ICE NURSING NOTE: -. PAIN CENTER INTAKE QUESTIONS: DO YOU HAVE A HISTORY OF MRSA? :NO DO YOU TAKE A BLOOD THINNERS? :NO DO YOU HAVE ANY BLEEDING DISORDERS? :NO ANY NEW NUMBNESS OR WEAKNESS IN YOUR LEGS OR ARMS? :NO ANY PACEMAKER,DEFIBRILLATOR, OR DORSAL COLUMN STIMULATOR? :NO DO YOU HAVE ANY RASHES OR OPEN SORES? :NO ARE YOU ALLERGIC TO IV DYE? :NO ARE YOU DIABETIC? :NO ANY NEW PROBLEMS WITH YOUR MEDICATIONS? :NO HAVE YOU RECEIVED A VACCINE IN THE PAST 30 DAYS? :NO DO YOU PLAN TO RECEIVE A VACCINE IN THE NEXT 21 DAYS? :NO DO YOU NEED ANY PRESCRIPTION? :NO DO YOU TAKE ANY IMMUNOSUPPRESSIVE MEDICATIONS? :NO DO YOU HAVE ANY KIDNEY OR LIVER DISEASE? :NO IS THERE A CHANCE YOU COULD BE ? :NO ARE YOU BREAST FEEDING? :NO CURRENT MEDICATIONS TAKING ZOFRAN 4 MG TABLET 3 TABLETS ORALLY PRE MEDICATION TAKING ROPINIROLE HCL 1 MG TABLET ORALLY AT BEDTIME TAKING SUMATRIPTAN SUCCINATE 100 MG TABLET 1 TABLET NEEDED ONE TIME ORALLY DIRECTED TAKING DEXILANT 60 MG CAPSULE DELAYED RELEASE 1 CAPSULE ORALLY ONCE A DAY TAKING RALOXIFENE HCL 60 MG TABLET 1 TABLET ORALLY ONCE A DAY TAKING DIVALPROEX SODIUM 250 MG TABLET DELAYED RELEASE 1 TABLET ORALLY TWICE A DAY TAKING LINZESS 290 MCG CAPSULE 1 CAPSULE ORALLY ONCE A DAY TAKING VITAMIN D (ERGOCALCIFEROL) 1.25 MG (96063 UT) CAPSULE 1 CAPSULE ORALLY WEEKLY TAKING LYRICA 100 MG CAPSULE 1 CAPSULE ORALLY ONCE A DAY AT BEDTIME TAKING LYRICA 200 MG CAPSULE 1 CAPSULE ORALLY BID MDD2 TAKING TIZANIDINE HCL 4 MG TABLET 1 TABLET NEEDED ORALLY THREE TIMES A DAY TAKING OXYCODONE HCL 5 MG TABLET 2 ORALLY Q8H PRN MDD6 NOT-TAKING SIMVASTATIN 40 MG TABLET 1 TABLET IN THE EVENING ORALLY IN EVENING NOT-TAKING CARISOPRODOL 350 MG TABLET 1 TABLET NEEDED ORALLY EVERY 8 HOURS NEEDED FOR SPASMS AND PAIN MDD3 NOT-TAKING TOPIRAMATE 100 MG TABLET 1 TABLET ORALLY TWICE A DAY MEDICATION LIST REVIEWED AND RECONCILED WITH THE PATIENT PAST MEDICAL HISTORY ACID REFLUX IBS PINCHED NERVES IN BACK SCOLIOSIS ARTHRITIS DDD ENDOMETRIOSIS CONGENITAL RIGHT HIP ABNORMALITY GASTROPARESIS 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 PAIN LOW BACK PAIN HEART MURMUR DUE TO DEFECT COLON POLYPS STOMACH FATTY TUMORS PAIN IN BOTH FEET HEEL SPUR ALLERGIES NAPROXEN SODIUM: TONGUE SWELLS/FACE SWELLING - ALLERGY ASPIRIN: SORES IN MOUTH - ALLERGY ADHESIVE TAPE/BANDAIDS: BLISTERS - ALLERGY TEGADERM: SKIN BECOMES RAW, REDNESS, HEAT - ALLERGY PEPTO BISMOL: VOMITING WHEAT: RASH - ALLERGY BELBUCA: VOMITING - SIDE EFFECTS SOCIAL HISTORY GENERAL: TOBACCO USE ARE YOU A:FORMER SMOKER HOW LONG HAS IT BEEN SINCE YOU LAST SMOKED?1-5 YEARS SMOKING CESSATION INFORMATION GIVEN01/16/2020 ADDITIONAL FINDINGS: TOBACCO NON-USERCURRENT NON-SMOKER LATEX QUESTIONNAIRE LATEX ALLERGY : HAVE YOU EVER DEVELOPED ANY TYPE OF REACTION AFTER HANDLING LATEX PRODUCTS SUCH RUBBER GLOVES, CONDOMS, DIAPHRAGMS, BALLOONS, SOCKS, OR UNDERWEAR?NO LATEX ALLERGY : HAVE YOU EVER DEVELOPED ANY TYPE OF REACTION DURING OR AFTER DENTAL APPOINTMENT, VAGINAL/RECTAL EXAMINATION, SURGICAL PROCEDURE, OR ANY OTHER EXPOSURE?NO LATEX RISK : HAVE YOU EVER HAD ANY DIFFICULTY BREATHING OR HIVES AFTER EATING OR HANDLING ANY FRUITS, OR VEGETABLES; SUCH KIWI, BANANAS, STONE FRUITS, OR CHESTNUTSNO LATEX RISK : DO YOU HAVE A PREVIOUS PERSONAL HISTORY OF MORE THAN NINE SURGERIES, SPINA BIFIDA, OR REPEATED CATHERIZATIONS? YES - PLEASE INDICATE : > 9 SURGERIES LATEX RISK : ARE YOU FREQUENTLY EXPOSED TO LATEX PRODUCTS IN YOUR OCCUPATION?NO DATE ASKED : 05/19/2020 ALCOHOL USE: NO. LUNG CANCER SCREENING SMOKING STATUS:FORMER SMOKER ALCOHOL SCREENING DID YOU HAVE A DRINK CONTAINING ALCOHOL IN THE PAST YEAR?NO POINTS0 INTERPRETATIONNEGATIVE RECREATIONAL DRUG USE DRUG USE?NO CAFFEINE CAFFEINE USE?NO UATSDIN [id number] NONE NO FAITH BELIEFS THAT WOULD IMPACT HEALTH CARE. LANGUAGE LANGUAGES SPOKEN:WELSH LEARNING BARRIERS / SPECIAL NEEDS CHANGE FROM LAST VISIT?NO BARRIERS TO LEARNING?NO HEARING IMPAIRED?YES :HEARING AIDES VISION IMPAIRED?YES :CORRECTIVE LENSES COGNITIVELY IMPAIRED?NO READINESS TO LEARN?YES LEARNING PREFERENCES?NO LEARNING CAPABILITIES PRESENT?YES EMOTIONAL BARRIERS?NO SPECIAL DEVICES?YES :CANE, WALKER COMPUTER NUMERICAL CONTROL PROGRAMMER NEEDED?NO MARITAL STATUS: .. REVIEW OF SYSTEMS CONSTITUTIONAL: ANY RECENT FEVER NO . CHILLS NO . WEIGHT CHANGE OF UNKNOWN REASONS NO . GASTROENTEROLOGY: NEW UNEXPLAINABLE CHANGES IN BOWEL CONTROL NO . CONSTIPATION NO . GENITOURINARY: ANY NEW CHANGE IN BLADDER CONTROL? NO . NEUROLOGY: NEW ONSET DIZZINESS OR NEUROLOGICAL CHANGES NOT MENTIONED NO . NEW NUMBNESS OR PAIN PATTERNS NOT MENTIONED AND PERTINENT TO TODAY'S VISIT NO . CARDIOLOGY: NEW CHEST PRESSURE NO . PATIENT DENIES NO . RESPIRATORY: UNEXPLAINABLE COUGH NO . NEW SHORTNESS OF BREATH NO . VITAL SIGNS WT 170.0 LBS, HT 61 IN, BMI 32.12 INDEX, BP 140/63 MM HG, HR 77 /MIN, RR 18 /MIN, TEMP 97.5 F, OXYGEN SAT % 100%, SAFE IN ENV? (Y/N) YES, NA INITIALS AW 1316, REVIEWED BY: Crow YU RN. EXAMINATION GENERAL: THE PATIENT IS ALERT, ORIENTED TIMES THREE AND COOPERATIVE. LUNGS ARE CLEAR TO AUSCULTATION. HEART SHOWS REGULAR RHYTHM, NO MURMURS AND NO GALLOPS. SHE IS USING THE WALKER TO AMBULATE. SHE SEEMS TO BE LIMPING FROM HER RIGHT LEG, LEANING FORWARD TO MOVE. SHE REPORTS TENDERNESS OVER THE RIGHT AND LEFT SACROILIAC JOINT AREAS. THERE IS TENDERNESS IN THE RIGHT THORACIC AREA WITH SOME TRIGGER POINTS OVER THE AREA. TENDERNESS IN THE RIGHT AND LEFT LOWER BACK AREA. RIGHT LEG IS WEAKER THAN THE LEFT LEG ON FLEXION AND EXTENSION. MRI OF THE THORACIC SPINE DATED 05/11/2020 SHOWS SEVERE FACET ARTHROPATHY CHANGES AND THERE IS SOME FORAMINAL STENOSIS AT T12-T11 AND T9-T10 ON THE LEFT SIDE. LUMBAR MRI DATED 05/11/2020 SHOWS SOME BULGING DISC, SOME FACET ARTHROPATHY CHANGES AND SOME SPINAL STENOSIS. PSYCHOLOGICAL EVALUATION DATED 05/06/[address] MONAHAN EXPRESSED THAT THE PATIENT HAS PSYCHOLOGICAL FITNESS, BUT THE SPECIFIC NARRATIVE THAT WE NEED IS NOT IN THE REPORT. 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 ANAND. THE PSYCHOLOGICAL REPORT NEEDS A NARRATIVE THAT EXPLAINS BETTER IF THE PATIENT IS A GOOD CANDIDATE FOR THE TRIAL SO WE WILL REACH OUT TO DR. MONAHAN SO HE UNDERSTANDS OUR NARRATIVE TO SEE IF HE FEELS COMFORTABLE ESTABLISHING THOSE PARAMETERS. THE REPORTS OF THE THORACIC AND LUMBAR MRI ARE IN THE PATIENT'S CHART. WE GAVE NNAMDI BACK HER DISC TODAY. I WILL REQUEST AN OFFICIAL READING OF THE LUMBAR AND THORACIC MRI BY THE [facility] RADIOLOGIST AND I WANT TO DISCUSS THESE WITH HIM IN PREPARATION OF A POTENTIAL TRIAL BUT WE HAVE TO WAIT FOR THE OPINION OF THE SURGEON. REGARDLESS, I WOULD STILL LIKE TO TALK TO THE RADIOLOGIST ABOUT THE FINDINGS. THE PATIENT ALSO HAS A CT OF THE THORACIC AND LUMBAR SPINE. THORACIC X-RAY 06/18/2020 SHOWS AN S-SHAPED THORACOLUMBAR CURVATURE WHICH IS AFFECTING THE REGION FROM T5 TO T12 AND THAT CONTINUES TO L3. CT DATED 06/18/2020 SHOWS ALSO THE SCOLIOSIS FROM T12 TO L2, SOME FACET ARTHROPATHY CHANGES AND IT HAS PROGRESSED SINCE 2014. THE PATIENT WILL FOLLOW UP WITH ME IN 1 MONTH. THE PATIENT REPORTS UNDERSTANDING AND AGREES WITH THE PLAN. I, STAN WAHL, DOCUMENTED THE ABOVE INFORMATION ACTING A SCRIBE FOR DR. MINER. I HAVE REVIEWED THE ABOVE DOCUMENT, WRITTEN BY STAN WAHL, IRRIGATOR, AND I VERIFY THAT IT IS ACCURATE. . PROCEDURE CODES FA211 ESTABILISHED PATIENT [facility] CHARGE [id number] OFFICE/OUTPATIENT VISIT EST DISPOSITION & COMMUNICATION FOLLOW UP FOLLOW UP WITH DR. Cabello IN 1 MONTH (REASON: DISCUSS DCS/SURGEON OPINION) ELECTRONICALLY SIGNED BY DAYLIN MINER MD, MD ON 06/29/2020 AT 01:18 PM EDT DISCLAIMER : THIS IS A VISIT SUMMARY EXTRACTED FROM THE [employer] CHART. IT IS NOT A COPY OF THE [employer] PROGRESS NOTE. MTDD
== END ==
LOC: M PAIN 13:00
PROVIDERS: ATTEND Anesthesiology
DX: M51.16 Intervertebral disc disorders with radiculopathy, lumbar region (principal); M48.061 Spinal stenosis, lumbar region without neurogenic claudication; M48.04 Spinal stenosis, thoracic region; K21.9 Gastro-esophageal reflux disease without esophagitis; K58.9 Irritable bowel syndrome, unspecified; K31.84 Gastroparesis; Z87.891 Personal history of nicotine dependence; Z79.891 Long term (current) use of opiate analgesic; Z79.899 Other long term (current) drug therapy; Z88.6 Allergy status to analgesic agent; Z88.8 Allergy status to other drugs, medicaments and biological substances; Z91.048 Other nonmedicinal substance allergy status; Z91.018 Allergy to other foods

== ENCOUNTER → 2020-08-06 | Outpatient (CLI) | payer MEDICARE, MEDICAID ==
[~2020-08-06] MED LIST changes: +GABA-283 PO; -GABA-845 PO
--- NOTE | 2020-08-12 03:31 | ECWPNPC ---
PATIENT NAME: NNAMDI ANAND : 1965 GENDER: FEMALE VISIT DATE: 08/06/2020 DISCHARGE DATE: 08/06/20 1116 VISIT LOCKED DATE TIME: PHYSICIAN: DAYLIN MINER MD RESOURCE: DAYLIN MINER MD REASON FOR APPOINTMENT 1. DISCUSS DCS/SURGEON OPINION HISTORY OF PRESENT ILLNESS GENERAL: 55-YEAR-OLD FEMALE PATIENT WITH A HISTORY OF BACK PAIN. THE PATIENT DESCRIBES THE PAIN ACHING, BURNING AND SEVERE WITH A PAIN SCORE RANGING FROM 6-10/10. THE PAIN IS AT THE BACK, THE LEG AND THE HIP. WE EVALUATE THE PATIENT AND SEND HER FOR A SURGICAL CONSULT. SHE SAW DR. HARMON AT [facility] AND THE DECISION WAS MADE TO PERFORM SURGICAL INTERVENTION. FALL RISK SCREENING: SCREENING : NO FALLS REPORTED IN THE LAST YEAR. PAIN SCREENING: PATIENT HAS A COMPLAINT OF ACUTE OR CHRONIC PAIN :YES LOCATION OF PAIN:LOW BACK, MID BACK INTENSITY OF PAIN (SCALE OF 1 TO 10):7 WHAT DOES YOUR PAIN FEEL LIKE:CONTINOUS, TENDER, ACHING, BURNING GROIN AREA WELL DURATION:CONTINOUS NURSING NOTE: -. PAIN CENTER INTAKE QUESTIONS: DO YOU HAVE A HISTORY OF MRSA? :NO DO YOU TAKE A BLOOD THINNERS? :NO DO YOU HAVE ANY BLEEDING DISORDERS? :NO ANY NEW NUMBNESS OR WEAKNESS IN YOUR LEGS OR ARMS? :NO ANY PACEMAKER,DEFIBRILLATOR, OR DORSAL COLUMN STIMULATOR? :NO DO YOU HAVE ANY RASHES OR OPEN SORES? :NO ARE YOU ALLERGIC TO IV DYE? :NO ARE YOU DIABETIC? :NO ANY NEW PROBLEMS WITH YOUR MEDICATIONS? :NO HAVE YOU RECEIVED A VACCINE IN THE PAST 30 DAYS? :NO DO YOU PLAN TO RECEIVE A VACCINE IN THE NEXT 21 DAYS? :NO DO YOU NEED ANY PRESCRIPTION? :NO DO YOU TAKE ANY IMMUNOSUPPRESSIVE MEDICATIONS? :NO DO YOU HAVE ANY KIDNEY OR LIVER DISEASE? :NO IS THERE A CHANCE YOU COULD BE ? :NO ARE YOU BREAST FEEDING? :NO CURRENT MEDICATIONS TAKING ZOFRAN 4 MG TABLET 3 TABLETS ORALLY PRE MEDICATION TAKING ROPINIROLE HCL 1 MG TABLET ORALLY AT BEDTIME TAKING SUMATRIPTAN SUCCINATE 100 MG TABLET 1 TABLET NEEDED ONE TIME ORALLY DIRECTED TAKING DEXILANT 60 MG CAPSULE DELAYED RELEASE 1 CAPSULE ORALLY ONCE A DAY TAKING RALOXIFENE HCL 60 MG TABLET 1 TABLET ORALLY ONCE A DAY TAKING DIVALPROEX SODIUM 250 MG TABLET DELAYED RELEASE 1 TABLET ORALLY TWICE A DAY TAKING LINZESS 290 MCG CAPSULE 1 CAPSULE ORALLY ONCE A DAY TAKING VITAMIN D (ERGOCALCIFEROL) 1.25 MG (63375 UT) CAPSULE 1 CAPSULE ORALLY WEEKLY TAKING TIZANIDINE HCL 4 MG TABLET 1 TABLET NEEDED ORALLY THREE TIMES A DAY TAKING LYRICA 100 MG CAPSULE 1 CAPSULE ORALLY ONCE A DAY AT BEDTIME TAKING LYRICA 200 MG CAPSULE 1 CAPSULE ORALLY BID MDD2 TAKING OXYCODONE HCL 5 MG TABLET 2 ORALLY Q8H PRN MDD6 NOT-TAKING SIMVASTATIN 40 MG TABLET 1 TABLET IN THE EVENING ORALLY IN EVENING NOT-TAKING CARISOPRODOL 350 MG TABLET 1 TABLET NEEDED ORALLY EVERY 8 HOURS NEEDED FOR SPASMS AND PAIN MDD3 NOT-TAKING TOPIRAMATE 100 MG TABLET 1 TABLET ORALLY TWICE A DAY MEDICATION LIST REVIEWED AND RECONCILED WITH THE PATIENT PAST MEDICAL HISTORY ACID REFLUX IBS PINCHED NERVES IN BACK SCOLIOSIS ARTHRITIS DDD ENDOMETRIOSIS CONGENITAL RIGHT HIP ABNORMALITY GASTROPARESIS 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 PAIN LOW BACK PAIN HEART MURMUR DUE TO DEFECT COLON POLYPS STOMACH FATTY TUMORS PAIN IN BOTH FEET HEEL SPUR ALLERGIES NAPROXEN SODIUM: TONGUE SWELLS/FACE SWELLING - ALLERGY ASPIRIN: SORES IN MOUTH - ALLERGY ADHESIVE TAPE/BANDAIDS: BLISTERS - ALLERGY TEGADERM: SKIN BECOMES RAW, REDNESS, HEAT - ALLERGY PEPTO BISMOL: VOMITING WHEAT: RASH - ALLERGY BELBUCA: VOMITING - SIDE EFFECTS SURGICAL HISTORY WRIST SURGERY RIGHT.TORN LIGAMENT 2004 BILATERAL SALPINGO SURGERY DUE TO DEFECT 1989 SURGERY LEFT WRIST 2016 RIGHT HIP SURGERY X 3 2015, 04/2016,09/2016 RIGHT FOOT SURGERY- NERVE RELEASE 09/27/15 TOTAL RIGHT HIP 04/05/2016 FALLOPIAN TUBE RECONSTRUCTION 1994 CERVICAL DISCESTOMY WITH HARDWARE 11/06/17 COLONOSCOPY & EGD 04/2019 STOMACH TUMORS REMOVED 10/2019 HOSPITALIZATION/MAJOR DIAGNOSTIC PROCEDURE SURGERY RELATED REVIEW OF SYSTEMS CONSTITUTIONAL: ANY RECENT FEVER NO . CHILLS NO . WEIGHT CHANGE OF UNKNOWN REASONS NO . GASTROENTEROLOGY: NEW UNEXPLAINABLE CHANGES IN BOWEL CONTROL NO . CONSTIPATION NO . GENITOURINARY: ANY NEW CHANGE IN BLADDER CONTROL? NO . NEUROLOGY: NEW ONSET DIZZINESS OR NEUROLOGICAL CHANGES NOT MENTIONED NO . NEW NUMBNESS OR PAIN PATTERNS NOT MENTIONED AND PERTINENT TO TODAY'S VISIT NO . CARDIOLOGY: NEW CHEST PRESSURE NO . PATIENT DENIES NO . RESPIRATORY: UNEXPLAINABLE COUGH NO . NEW SHORTNESS OF BREATH NO . VITAL SIGNS WT 167.2 LBS, HT 61 IN, BMI 31.59 INDEX, BP 120/63 MM HG, HR 66 /MIN, RR 18 /MIN, TEMP 98.3 F, OXYGEN SAT % 99%, NA INITIALS AW 1024. EXAMINATION GENERAL EXAMINATION: THE PATIENT IS ALERT, ORIENTED TIMES THREE AND COOPERATIVE. LUNGS ARE CLEAR TO AUSCULTATION. HEART SHOWS REGULAR RHYTHM, NO MURMURS AND NO GALLOPS. SHE IS USING A WEAKER TO AMBULATED. WHEN THE PATIENT STANDS, SHE IS LEANING TO THE LEFT. ASSESSMENTS SCOLIOSIS - M41.9 (PRIMARY) LOW BACK PAIN - M54.5 TREATMENT SCOLIOSIS CLINICAL NOTES: I DISCUSSED ALTERNATIVES WITH MS. ANAND. I AGREE AT THIS STAGE TO PERFORM THE SURGICAL INTERVENTION FOR HER SCOLIOSIS. WE WILL CONTINUE SEEING HER FOR MEDICATION MANAGEMENT. SHE WILL FOLLOW UP WITH THE NURSE PRACTITIONER. THE PATIENT REPORTS UNDERSTANDING AND AGREES WITH THE PLAN. I, STAN WAHL, DOCUMENTED THE ABOVE INFORMATION ACTING A SCRIBE FOR DR. MINER. I HAVE REVIEWED THE ABOVE DOCUMENT, WRITTEN BY STAN WAHL, EDUCATIONAL TECHNOLOGY SPECIALIST, AND I VERIFY THAT IT IS ACCURATE. . PROCEDURE CODES FA211 ESTABILISHED PATIENT [facility] CHARGE [id number] OFFICE/OUTPATIENT VISIT EST DISPOSITION & COMMUNICATION FOLLOW UP FOLLOW UP WITH WEATHERIZATION FIELD TECHNICIAN (REASON: MEDICATION MANAGEMENT ) ELECTRONICALLY SIGNED BY DAYLIN MINER MD, MD ON 08/11/2020 AT 09:09 AM EDT DISCLAIMER : THIS IS A VISIT SUMMARY EXTRACTED FROM THE [employer] CHART. IT IS NOT A COPY OF THE [employer] PROGRESS NOTE. MARIKA
== END ==
LOC: M PAIN 10:15
PROVIDERS: ATTEND Anesthesiology
DX: M41.9 Scoliosis, unspecified (principal); M54.5 Low back pain; K21.9 Gastro-esophageal reflux disease without esophagitis; K58.9 Irritable bowel syndrome, unspecified; M47.22 Other spondylosis with radiculopathy, cervical region; Z79.891 Long term (current) use of opiate analgesic; Z79.899 Other long term (current) drug therapy; Z88.6 Allergy status to analgesic agent; Z88.8 Allergy status to other drugs, medicaments and biological substances; Z91.018 Allergy to other foods

== ENCOUNTER → 2021-01-21 | Outpatient (CLI) | payer MEDICARE, MEDICAID ==
[~2021-01-21] MED LIST changes: +OMEP40CA4 PO; -OMEP40CA97 PO; -OXYC1TAB15 PO; +OXYC7.5T3 PO; -TERB250T12 PO; +TERB250T91 PO
== END ==
LOC: M PAIN 10:30
PROVIDERS: ATTEND Anesthesiology
DX: M96.1 Postlaminectomy syndrome, not elsewhere classified (principal); M53.3 Sacrococcygeal disorders, not elsewhere classified; K21.9 Gastro-esophageal reflux disease without esophagitis; K58.9 Irritable bowel syndrome, unspecified; M41.9 Scoliosis, unspecified; K31.84 Gastroparesis; M47.12 Other spondylosis with myelopathy, cervical region; M47.22 Other spondylosis with radiculopathy, cervical region; Z79.891 Long term (current) use of opiate analgesic; Z79.899 Other long term (current) drug therapy; Z87.891 Personal history of nicotine dependence; Z88.6 Allergy status to analgesic agent; Z88.8 Allergy status to other drugs, medicaments and biological substances; Z91.018 Allergy to other foods

== ENCOUNTER → 2021-01-24 | Outpatient (CLI) | payer MEDICARE, MEDICAID | LOC: M PAIN 10:00 | PROVIDERS: ATTEND Nurse Practitioner Family | DX: Z79.891 Long term (current) use of opiate analgesic (principal) ==

== ENCOUNTER → 2021-02-16 | Outpatient (CLI) | payer MEDICARE, MEDICAID | LOC: M PAIN 15:00 | PROVIDERS: ATTEND Anesthesiology | DX: M54.50 Low back pain, unspecified (principal); M53.3 Sacrococcygeal disorders, not elsewhere classified; K21.9 Gastro-esophageal reflux disease without esophagitis; K58.9 Irritable bowel syndrome, unspecified; M41.9 Scoliosis, unspecified; K31.84 Gastroparesis; M47.22 Other spondylosis with radiculopathy, cervical region; Z86.010 Personal history of colon polyps; Z87.891 Personal history of nicotine dependence; Z79.891 Long term (current) use of opiate analgesic; Z79.899 Other long term (current) drug therapy; Z88.6 Allergy status to analgesic agent; Z88.8 Allergy status to other drugs, medicaments and biological substances; Z91.018 Allergy to other foods; Z91.048 Other nonmedicinal substance allergy status ==

== ENCOUNTER → 2021-03-09 | Outpatient (CLI) | payer MEDICARE, MEDICAID | LOC: M LABSMTC 11:23 | PROVIDERS: ATTEND Anesthesiology | DX: Z20.822 Contact with and (suspected) exposure to COVID-19 (principal) ==

== ENCOUNTER → 2021-03-23 | Outpatient (CLI) | payer MEDICARE, MEDICAID ==
[~2021-03-23] MED LIST changes: +TIZA10TA PO; -TIZA4TAB4 PO
== END ==
LOC: M ADAMS 09:43
PROVIDERS: ATTEND Physician Assistant
DX: M41.9 Scoliosis, unspecified (principal); M43.25 Fusion of spine, thoracolumbar region

== ENCOUNTER → 2021-04-06 | Outpatient (CLI) | payer MEDICARE, MEDICAID | LOC: M PAIN 11:15 | PROVIDERS: ATTEND Nurse Practitioner Family | DX: G89.29 Other chronic pain (principal); M79.10 Myalgia, unspecified site; M46.1 Sacroiliitis, not elsewhere classified; K21.9 Gastro-esophageal reflux disease without esophagitis; K58.9 Irritable bowel syndrome, unspecified; M54.50 Low back pain, unspecified; M47.22 Other spondylosis with radiculopathy, cervical region; M47.12 Other spondylosis with myelopathy, cervical region; M41.9 Scoliosis, unspecified; Z87.891 Personal history of nicotine dependence; M25.551 Pain in right hip; R01.1 Cardiac murmur, unspecified; Z79.891 Long term (current) use of opiate analgesic; Z79.899 Other long term (current) drug therapy; Z88.6 Allergy status to analgesic agent; Z88.8 Allergy status to other drugs, medicaments and biological substances; Z91.018 Allergy to other foods ==

== ENCOUNTER → 2021-10-09 | Outpatient (CLI) | payer MEDICARE, MEDICAID | LOC: M LABSMTC 10:06 | PROVIDERS: ATTEND Anesthesiology | DX: Z01.812 Encounter for preprocedural laboratory examination (principal); Z20.822 Contact with and (suspected) exposure to COVID-19 ==

== ENCOUNTER → 2021-10-11 | Outpatient (CLI) | payer MEDICARE, MEDICAID ==
[~2021-10-11] MED LIST changes: +BUPIVACAINE HCL 0.25% 10ML VIAL As Ordered ONE; +BUPIVACAINE HCL 0.25% 30ML VIAL As Ordered ONE; +TRIAMCINOLONE ACETONIDE SUSP 40 MG/ML VIAL (J3301) As Ordered ONE
== END ==
LOC: M PAIN 10:00
PROVIDERS: ATTEND Anesthesiology
DX: M79.18 Myalgia, other site (principal); K21.9 Gastro-esophageal reflux disease without esophagitis; K58.9 Irritable bowel syndrome, unspecified; M41.9 Scoliosis, unspecified; M19.90 Unspecified osteoarthritis, unspecified site; N80.9 Endometriosis, unspecified; K31.84 Gastroparesis; M47.22 Other spondylosis with radiculopathy, cervical region; M25.551 Pain in right hip; M54.50 Low back pain, unspecified; R01.1 Cardiac murmur, unspecified; Z86.010 Personal history of colon polyps; Z87.891 Personal history of nicotine dependence; Z79.891 Long term (current) use of opiate analgesic; Z79.899 Other long term (current) drug therapy; Z88.6 Allergy status to analgesic agent; Z88.8 Allergy status to other drugs, medicaments and biological substances; Z91.018 Allergy to other foods; Z91.048 Other nonmedicinal substance allergy status
CPT/HCPCS: 20553; J3301

== ENCOUNTER → 2021-11-17 | Outpatient (CLI) | payer MEDICARE, MEDICAID ==
[~2021-11-17] MED LIST changes: -BUPIVACAINE HCL 0.25% 10ML VIAL As Ordered ONE; -BUPIVACAINE HCL 0.25% 30ML VIAL As Ordered ONE; -TRIAMCINOLONE ACETONIDE SUSP 40 MG/ML VIAL (J3301) As Ordered ONE
== END ==
LOC: M PAIN 09:45
PROVIDERS: ATTEND Nurse Practitioner Family
DX: M79.18 Myalgia, other site (principal); G89.29 Other chronic pain; M96.1 Postlaminectomy syndrome, not elsewhere classified; K21.9 Gastro-esophageal reflux disease without esophagitis; K58.9 Irritable bowel syndrome, unspecified; M19.90 Unspecified osteoarthritis, unspecified site; M25.551 Pain in right hip; K31.84 Gastroparesis; M47.22 Other spondylosis with radiculopathy, cervical region; M47.12 Other spondylosis with myelopathy, cervical region; Z79.891 Long term (current) use of opiate analgesic; M54.50 Low back pain, unspecified; Z86.010 Personal history of colon polyps; Z87.891 Personal history of nicotine dependence; Z96.641 Presence of right artificial hip joint; Z79.899 Other long term (current) drug therapy; Z88.6 Allergy status to analgesic agent; Z88.8 Allergy status to other drugs, medicaments and biological substances; Z91.018 Allergy to other foods; Z91.048 Other nonmedicinal substance allergy status

== ENCOUNTER → 2021-11-29 | Outpatient (CLI) | payer MEDICARE, MEDICAID ==
[2021-11-29 16:26] LABS: BASO # 0.1 10^3/uL (0.0-0.2); BASO % 1.2 % (0.0-1.0); EOS # 0.1 10^3/uL (0.0-0.5); EOS % 2.4 % (0.0-3.0); HEMATOCRIT 40.2 % (36.0-47.0); HEMOGLOBIN 13.2 g/dl (12.0-15.5); LYMPH # 1.3 10^3/uL (1.5-5.0); LYMPH % 30.5 % (24.0-44.0); MEAN CORPUSCULAR HEMOGLOBIN 31.2 pg (27.0-33.0); MEAN CORPUSCULAR HGB CONC 32.8 g/dl (32.0-36.5); MONO # 0.4 10^3/uL (0.0-0.8); MONO % 9.3 % (2.0-8.0); NEUTROPHILS # 2.3 10^3/uL (1.5-8.5); NEUTROPHILS % 56.4 % (36.0-66.0); PLATELET COUNT, AUTOMATED 207 10^3/uL (150-450); RED BLOOD COUNT 4.23 10^6/uL (4.00-5.40); WHITE BLOOD COUNT 4.1 10^3/uL (4.0-10.0)
[2021-11-29 16:59] LABS: ALT/SGPT 19 U/L (12-78); BILIRUBIN,TOTAL 0.7 MG/DL (0.2-1.0); BLOOD UREA NITROGEN 7 MG/DL (7-18); CALCIUM LEVEL 9.3 MG/DL (8.5-10.1); CARBON DIOXIDE LEVEL 29 MEQ/L (21-32); CHLORIDE LEVEL 105 MEQ/L (98-107); CHOLESTEROL LEVEL 223 MG/DL (<200); CHOLESTEROL RISK RATIO 2.822 (<5); CREATININE FOR GFR 0.79 MG/DL (0.55-1.30); GLOMERULAR FILTRATION RATE > 60.0 (>51); GLUCOSE, FASTING 83 MG/DL (70-100); HDL CHOLESTEROL 79 MG/DL (>40); LDL CHOLESTEROL 131 MG/DL (<100); NON-HDL-C 144 MG/DL; POTASSIUM SERUM 4.2 MEQ/L (3.5-5.1); SODIUM LEVEL 139 MEQ/L (136-145); TRIGLYCERIDES LEVEL 64 MG/DL (<150)
== END ==
LOC: M LABDRWAD 11:27
PROVIDERS: ATTEND Physician Assistant
DX: I10 Essential (primary) hypertension (principal); E78.5 Hyperlipidemia, unspecified; E55.9 Vitamin D deficiency, unspecified

== ENCOUNTER → 2021-11-30 | Outpatient (CLI) | payer MEDICARE, MEDICAID | LOC: M PAIN 15:00 | PROVIDERS: ATTEND Nurse Practitioner Family | DX: M79.18 Myalgia, other site (principal); M96.1 Postlaminectomy syndrome, not elsewhere classified; K21.9 Gastro-esophageal reflux disease without esophagitis; M79.7 Fibromyalgia; K58.9 Irritable bowel syndrome, unspecified; M41.9 Scoliosis, unspecified; M19.90 Unspecified osteoarthritis, unspecified site; N80.9 Endometriosis, unspecified; K31.84 Gastroparesis; M79.672 Pain in left foot; M77.30 Calcaneal spur, unspecified foot; M47.812 Spondylosis without myelopathy or radiculopathy, cervical region; M25.551 Pain in right hip; M79.671 Pain in right foot; M54.50 Low back pain, unspecified; R01.1 Cardiac murmur, unspecified; Z86.010 Personal history of colon polyps; Q74.2 Other congenital malformations of lower limb(s), including pelvic girdle; Z87.891 Personal history of nicotine dependence; Z88.6 Allergy status to analgesic agent; Z88.8 Allergy status to other drugs, medicaments and biological substances; Z91.018 Allergy to other foods; Z91.048 Other nonmedicinal substance allergy status; Z79.891 Long term (current) use of opiate analgesic; Z79.899 Other long term (current) drug therapy ==

== ENCOUNTER → 2022-01-03 | Outpatient (CLI) | payer MEDICARE, MEDICAID | LOC: M PAIN 08:45 | PROVIDERS: ATTEND Nurse Practitioner Family | DX: M79.10 Myalgia, unspecified site (principal); M96.1 Postlaminectomy syndrome, not elsewhere classified; K21.9 Gastro-esophageal reflux disease without esophagitis; K58.9 Irritable bowel syndrome, unspecified; M41.9 Scoliosis, unspecified; M19.90 Unspecified osteoarthritis, unspecified site; N80.9 Endometriosis, unspecified; K31.84 Gastroparesis; M47.22 Other spondylosis with radiculopathy, cervical region; M47.12 Other spondylosis with myelopathy, cervical region; M25.551 Pain in right hip; M54.50 Low back pain, unspecified; R01.1 Cardiac murmur, unspecified; Z86.010 Personal history of colon polyps; M77.30 Calcaneal spur, unspecified foot; M79.671 Pain in right foot; M79.672 Pain in left foot; Z87.891 Personal history of nicotine dependence; Z79.891 Long term (current) use of opiate analgesic; Z79.899 Other long term (current) drug therapy; Z88.6 Allergy status to analgesic agent; Z88.8 Allergy status to other drugs, medicaments and biological substances; Z91.018 Allergy to other foods; Z91.048 Other nonmedicinal substance allergy status ==

== ENCOUNTER → 2022-01-10 | Outpatient (CLI) | payer MEDICARE, MEDICAID | LOC: M WHC 08:44 | PROVIDERS: ATTEND Physician Assistant | DX: Z12.31 Encounter for screening mammogram for malignant neoplasm of breast (principal); R92.8 Other abnormal and inconclusive findings on diagnostic imaging of breast | CPT/HCPCS: 77066; G0279 ==

== ENCOUNTER → 2022-05-08 | Outpatient (CLI) | payer MEDICARE, MEDICAID ==
[~2022-05-08] MED LIST changes: +**SFHN** LIDOCAINE 1% MDV 20ML VIAL ONE; +**SFHN** methylPREDNISolone 40MG 1ML VIAL ONE; +ISOVUE-300 61% 100ML VIAL ONE
== END ==
LOC: M PLAIMG 15:05
PROVIDERS: ATTEND Physician Assistant Surgical
DX: M70.62 Trochanteric bursitis, left hip (principal)
CPT/HCPCS: 20610; 76000; J2920; Q9967

== ENCOUNTER → 2022-05-10 | Outpatient (CLI) | payer MEDICARE, MEDICAID ==
[~2022-05-10] MED LIST changes: -**SFHN** LIDOCAINE 1% MDV 20ML VIAL ONE; -**SFHN** methylPREDNISolone 40MG 1ML VIAL ONE; -ISOVUE-300 61% 100ML VIAL ONE
== END ==
LOC: M PAIN 08:45
PROVIDERS: ATTEND Anesthesiology
DX: M79.10 Myalgia, unspecified site (principal); R10.2 Pelvic and perineal pain; M53.3 Sacrococcygeal disorders, not elsewhere classified; K21.9 Gastro-esophageal reflux disease without esophagitis; Z96.641 Presence of right artificial hip joint; Z87.891 Personal history of nicotine dependence; Z88.5 Allergy status to narcotic agent; Z88.6 Allergy status to analgesic agent; Z88.8 Allergy status to other drugs, medicaments and biological substances; Z91.09 Other allergy status, other than to drugs and biological substances; Z79.899 Other long term (current) drug therapy
CPT/HCPCS: 76000; G0463

== ENCOUNTER → 2022-05-22 | Outpatient (CLI) | payer MEDICARE, MEDICAID ==
[2022-05-22 16:59] LABS: FOLATE 19.8 NG/ML (>5.4); TOTAL 25(OH) VITAMIN D 74.7 NG/ML (20.0-100.0)
[2022-06-05 14:08] LABS: VITAMIN B1 LEVEL WHOLE BLOOD 120.6 nmol/L (66.5-200.0); VITAMIN E(ALPHA TOCOPHEROL) 24.5 mg/L (7.0-25.1); VITAMIN E(GAMMA TOCOPHEROL) 0.5 mg/L (0.5-5.5)
== END ==
LOC: M LABDRWAD 12:56
PROVIDERS: ATTEND Psychiatry & Neurology Neurology
DX: R51.9 Headache, unspecified (principal); E53.8 Deficiency of other specified B group vitamins; E51.9 Thiamine deficiency, unspecified; E78.5 Hyperlipidemia, unspecified; I10 Essential (primary) hypertension; E55.9 Vitamin D deficiency, unspecified; Z79.899 Other long term (current) drug therapy

== ENCOUNTER → 2022-05-22 | Outpatient (CLI) | payer MEDICARE, MEDICAID ==
[2022-05-22 16:59] LABS: ALBUMIN 3.9 G/DL (3.2-5.2); ALKALINE PHOSPHATASE 86 U/L (46-116); ALT/SGPT 15 U/L (7.0-40); AST/SGOT 18 U/L (<34); BILIRUBIN,TOTAL 0.7 MG/DL (0.3-1.2); BLOOD UREA NITROGEN 13 MG/DL (9-23); CALCIUM LEVEL 8.8 MG/DL (8.5-10.1); CARBON DIOXIDE LEVEL 29 MMOL/L (20-31); CHLORIDE LEVEL 105 MMOL/L (98-107); CHOLESTEROL LEVEL 235 MG/DL (<200); CHOLESTEROL RISK RATIO 3.17 (<5); CREATININE FOR GFR 0.81 MG/DL (0.55-1.30); GLOMERULAR FILTRATION RATE > 60.0 (>51); GLUCOSE, FASTING 81 MG/DL (60-100); LDL CHOLESTEROL 148.8 MG/DL (<100); POTASSIUM SERUM 4.1 MMOL/L (3.5-5.1); SODIUM LEVEL 139 MMOL/L (136-145); TOTAL PROTEIN 6.3 G/DL (5.7-8.2); TRIGLYCERIDES LEVEL 61 MG/DL (<150)
[2022-05-22 17:04] LABS: BASO % 0.6 % (0.0-1.0); EOS # 0.1 10^3/uL (0.0-0.5); EOS % 1.4 % (0.0-3.0); HEMATOCRIT 40.3 % (36.0-47.0); LYMPH # 1.3 10^3/uL (1.5-5.0); LYMPH % 25.4 % (24.0-44.0); MEAN CORPUSCULAR HEMOGLOBIN 30.7 pg (27.0-33.0); MEAN CORPUSCULAR HGB CONC 32.3 g/dl (32.0-36.5); MEAN CORPUSCULAR VOLUME 95.3 fl (80.0-96.0); MONO # 0.4 10^3/uL (0.0-0.8); MONO % 7.9 % (2.0-8.0); NEUTROPHILS # 3.3 10^3/uL (1.5-8.5); NEUTROPHILS % 64.5 % (36.0-66.0); PLATELET COUNT, AUTOMATED 241 10^3/uL (150-450); RED BLOOD COUNT 4.23 10^6/uL (4.00-5.40)
== END ==
LOC: M LABDRWAD 13:01
PROVIDERS: ATTEND Physician Assistant
DX: E78.5 Hyperlipidemia, unspecified (principal); I10 Essential (primary) hypertension; E55.9 Vitamin D deficiency, unspecified

== ENCOUNTER → 2022-06-03 | Outpatient (CLI) | payer MEDICARE, MEDICAID | LOC: M RAD 12:38 | PROVIDERS: ATTEND Anesthesiology | DX: R10.2 Pelvic and perineal pain (principal) ==

== ENCOUNTER → 2022-06-07 | Outpatient (REF) | payer MEDICARE, MEDICAID | LOC: M LAB REF 12:13 | PROVIDERS: ATTEND Psychiatry & Neurology Neurology | DX: R51.9 Headache, unspecified (principal); E53.9 Vitamin B deficiency, unspecified; E55.9 Vitamin D deficiency, unspecified ==

== ENCOUNTER → 2022-06-28 | Outpatient (CLI) | payer MEDICARE, MEDICAID | LOC: M PAIN 11:30 | PROVIDERS: ATTEND Anesthesiology | DX: M79.10 Myalgia, unspecified site (principal); M79.18 Myalgia, other site; M96.1 Postlaminectomy syndrome, not elsewhere classified; R10.2 Pelvic and perineal pain; K21.9 Gastro-esophageal reflux disease without esophagitis; K58.9 Irritable bowel syndrome, unspecified; M41.9 Scoliosis, unspecified; Z79.891 Long term (current) use of opiate analgesic; Z79.899 Other long term (current) drug therapy; Z87.891 Personal history of nicotine dependence; Z88.6 Allergy status to analgesic agent; Z88.8 Allergy status to other drugs, medicaments and biological substances; Z91.048 Other nonmedicinal substance allergy status; Z91.018 Allergy to other foods ==

== ENCOUNTER → 2022-06-29 | Outpatient (CLI) | payer MEDICARE, MEDICAID | LOC: M PAIN 09:30 | PROVIDERS: ATTEND Nurse Practitioner Family | DX: Z79.891 Long term (current) use of opiate analgesic (principal) ==

== ENCOUNTER → 2022-07-28 | Outpatient (CLI) | payer MEDICARE, MEDICAID | LOC: M PLARAD 09:46 | PROVIDERS: ATTEND Anesthesiology | DX: M96.1 Postlaminectomy syndrome, not elsewhere classified (principal) ==

== ENCOUNTER → 2022-08-14 | Outpatient (CLI) | payer MEDICARE, MEDICAID ==
[~2022-08-14] MED LIST changes: +TRIAMCINOLONE ACETONIDE SUSP 40MG/ML 1ML VIAL As Ordered ONE
== END ==
LOC: M PAIN 09:00
PROVIDERS: ATTEND Anesthesiology
DX: M79.18 Myalgia, other site (principal); G89.29 Other chronic pain; Z87.891 Personal history of nicotine dependence; Z88.5 Allergy status to narcotic agent; Z88.6 Allergy status to analgesic agent; Z88.8 Allergy status to other drugs, medicaments and biological substances; Z91.018 Allergy to other foods; Z91.09 Other allergy status, other than to drugs and biological substances; Z79.899 Other long term (current) drug therapy
CPT/HCPCS: 20553; J3301

== ENCOUNTER → 2022-08-28 | Outpatient (CLI) | payer MEDICARE, MEDICAID ==
[~2022-08-28] MED LIST changes: -TRIAMCINOLONE ACETONIDE SUSP 40MG/ML 1ML VIAL As Ordered ONE
== END ==
LOC: M PAIN 09:30
PROVIDERS: ATTEND Nurse Practitioner Family
DX: M79.18 Myalgia, other site (principal); K21.9 Gastro-esophageal reflux disease without esophagitis; K58.9 Irritable bowel syndrome, unspecified; M41.9 Scoliosis, unspecified; M19.90 Unspecified osteoarthritis, unspecified site; M47.12 Other spondylosis with myelopathy, cervical region; M47.22 Other spondylosis with radiculopathy, cervical region; M54.50 Low back pain, unspecified; Z87.891 Personal history of nicotine dependence; Z79.891 Long term (current) use of opiate analgesic; Z79.899 Other long term (current) drug therapy; Z88.6 Allergy status to analgesic agent; Z88.8 Allergy status to other drugs, medicaments and biological substances; Z91.048 Other nonmedicinal substance allergy status; Z91.018 Allergy to other foods

== ENCOUNTER → 2022-10-03 | Outpatient (CLI) | payer MEDICARE, MEDICAID ==
[~2022-10-03] MED LIST changes: -AMIT25TA17 PO; +AMIT25TA19 PO; -GABA-283 PO; +GABA-284 PO; -ROPI0.253 PO; -ROPI1TAB3 PO; +ROPI1TAB73 PO; +ROPI5TAB19 PO
== END ==
LOC: M PAIN 14:45
PROVIDERS: ATTEND Nurse Practitioner Family
DX: M79.18 Myalgia, other site (principal); M96.1 Postlaminectomy syndrome, not elsewhere classified; G89.29 Other chronic pain; K21.9 Gastro-esophageal reflux disease without esophagitis; K58.9 Irritable bowel syndrome, unspecified; M47.22 Other spondylosis with radiculopathy, cervical region; M47.12 Other spondylosis with myelopathy, cervical region; M54.50 Low back pain, unspecified; M25.551 Pain in right hip; Z87.891 Personal history of nicotine dependence; Z79.891 Long term (current) use of opiate analgesic; Z79.899 Other long term (current) drug therapy; Z88.6 Allergy status to analgesic agent; Z88.8 Allergy status to other drugs, medicaments and biological substances; Z91.018 Allergy to other foods; Z91.048 Other nonmedicinal substance allergy status

== ENCOUNTER → 2022-10-06 | Outpatient (CLI) | payer MEDICARE, MEDICAID | LOC: M RAD 08:44 | PROVIDERS: ATTEND Nurse Practitioner Family | DX: M47.814 Spondylosis without myelopathy or radiculopathy, thoracic region (principal); M43.24 Fusion of spine, thoracic region ==

== ENCOUNTER → 2022-10-06 | Outpatient (CLI) | payer MEDICARE, MEDICAID | LOC: M RAD 07:38 | PROVIDERS: ATTEND Surgery Vascular Surgery | DX: I83.811 Varicose veins of right lower extremity with pain (principal); I87.2 Venous insufficiency (chronic) (peripheral); M47.814 Spondylosis without myelopathy or radiculopathy, thoracic region; M43.24 Fusion of spine, thoracic region ==

== ENCOUNTER → 2022-11-14 | Outpatient (CLI) | payer MEDICARE, MEDICAID ==
[~2022-11-14] MED LIST changes: +TRIAMCINOLONE ACETONIDE SUSP 40MG/ML 1ML VIAL As Ordered ONE
== END ==
LOC: M PAIN 08:30
PROVIDERS: ATTEND Anesthesiology
DX: M79.18 Myalgia, other site (principal); K21.9 Gastro-esophageal reflux disease without esophagitis; M47.22 Other spondylosis with radiculopathy, cervical region; M47.12 Other spondylosis with myelopathy, cervical region; Z87.891 Personal history of nicotine dependence
CPT/HCPCS: 20552; J0665; J3301

== ENCOUNTER → 2022-12-12 | Outpatient (CLI) | payer MEDICARE, MEDICAID ==
[~2022-12-12] MED LIST changes: -TRIAMCINOLONE ACETONIDE SUSP 40MG/ML 1ML VIAL As Ordered ONE
== END ==
LOC: M PAIN 09:45
PROVIDERS: ATTEND Nurse Practitioner Family
DX: M79.18 Myalgia, other site (principal); Z79.891 Long term (current) use of opiate analgesic; M96.1 Postlaminectomy syndrome, not elsewhere classified; G89.29 Other chronic pain; K21.9 Gastro-esophageal reflux disease without esophagitis; K58.9 Irritable bowel syndrome, unspecified; M19.90 Unspecified osteoarthritis, unspecified site; M47.22 Other spondylosis with radiculopathy, cervical region; M47.12 Other spondylosis with myelopathy, cervical region; M25.551 Pain in right hip; M54.50 Low back pain, unspecified; Z87.891 Personal history of nicotine dependence; Z79.899 Other long term (current) drug therapy; Z88.6 Allergy status to analgesic agent; Z88.8 Allergy status to other drugs, medicaments and biological substances; Z91.048 Other nonmedicinal substance allergy status

== ENCOUNTER → 2023-01-30 | Outpatient (CLI) | payer MEDICARE, MEDICAID ==
[~2023-01-30] MED LIST changes: +ISOVUE-300 61% 100ML VIAL As Ordered ONE; +LIDOCAINE 1% MDV 20ML VIAL As Ordered ONE; +methylPREDNISolone SUSP 40MG/ML 1ML VIAL (DEPO MEDROL) As Ordered ONE
== END ==
LOC: M RAD 11:41
PROVIDERS: ATTEND Physician Assistant Surgical
DX: M19.012 Primary osteoarthritis, left shoulder (principal)
CPT/HCPCS: 20610; 77002; J1030; Q9967

== ENCOUNTER → 2023-02-15 | Outpatient (CLI) | payer MEDICARE, MEDICAID ==
[~2023-02-15] MED LIST changes: -ISOVUE-300 61% 100ML VIAL As Ordered ONE; -LIDOCAINE 1% MDV 20ML VIAL As Ordered ONE; -methylPREDNISolone SUSP 40MG/ML 1ML VIAL (DEPO MEDROL) As Ordered ONE
[2023-02-15 14:08] LABS: BASO # 0.1 10^3/uL (0.0-0.2); BASO % 1.3 % (0.0-1.0); EOS # 0.1 10^3/uL (0.0-0.5); LYMPH # 1.3 10^3/uL (1.5-5.0); LYMPH % 32.9 % (24.0-44.0); MEAN CORPUSCULAR HEMOGLOBIN 31.5 pg (27.0-33.0); MEAN CORPUSCULAR HGB CONC 33.3 g/dl (32.0-36.5); MEAN CORPUSCULAR VOLUME 94.4 fl (80.0-96.0); MONO # 0.3 10^3/uL (0.0-0.8); MONO % 8.1 % (2.0-8.0); NEUTROPHILS # 2.2 10^3/uL (1.5-8.5); NEUTROPHILS % 55.4 % (36.0-66.0); PLATELET COUNT, AUTOMATED 218 10^3/uL (150-450); RED BLOOD COUNT 4.13 10^6/uL (4.00-5.40)
[2023-02-15 14:21] LABS: ERYTHROCYTE SEDIMENTATION RATE 22 mm/hr (0-30)
[2023-02-15 14:38] LABS: URIC ACID 3.7 MG/DL (3.1-7.8)
[2023-02-15 14:39] LABS: C REACTIVE PROTEIN QUANTITATIV < 0.40 MG/DL (<1.0)
[2023-02-15 15:09] LABS: RHEUMATOID FACTOR QUANT < 3.5 IU/ML (<14)
[2023-02-16 12:08] LABS: ANTINUCLEAR ANTIBODIES DIRECT Negative (Negative)
== END ==
LOC: M LAB 13:23
PROVIDERS: ATTEND Physician Assistant Surgical
DX: M19.012 Primary osteoarthritis, left shoulder (principal); M79.18 Myalgia, other site; K21.9 Gastro-esophageal reflux disease without esophagitis; K58.9 Irritable bowel syndrome, unspecified; M41.9 Scoliosis, unspecified; K31.84 Gastroparesis; M47.812 Spondylosis without myelopathy or radiculopathy, cervical region; M25.551 Pain in right hip; G89.29 Other chronic pain; M54.50 Low back pain, unspecified; Z87.891 Personal history of nicotine dependence; Z79.891 Long term (current) use of opiate analgesic; Z79.899 Other long term (current) drug therapy; Z88.6 Allergy status to analgesic agent; Z88.8 Allergy status to other drugs, medicaments and biological substances; Z91.018 Allergy to other foods; Z91.048 Other nonmedicinal substance allergy status
CPT/HCPCS: 20552; 36415; 84550; 85025; 85652; 86038; 86140; 86431; 86618; J0665; J3301

== ENCOUNTER → 2023-02-15 | Outpatient (CLI) | payer MEDICARE, MEDICAID ==
[~2023-02-15] MED LIST changes: +TRIAMCINOLONE ACETONIDE SUSP 40MG/ML 1ML VIAL As Ordered ONE
== END ==
LOC: M PAIN 14:15
PROVIDERS: ATTEND Anesthesiology
DX: M79.18 Myalgia, other site (principal); K21.9 Gastro-esophageal reflux disease without esophagitis; K58.9 Irritable bowel syndrome, unspecified; M41.9 Scoliosis, unspecified; K31.84 Gastroparesis; M47.812 Spondylosis without myelopathy or radiculopathy, cervical region; M25.551 Pain in right hip; G89.29 Other chronic pain; M54.50 Low back pain, unspecified; Z87.891 Personal history of nicotine dependence; Z79.891 Long term (current) use of opiate analgesic; Z79.899 Other long term (current) drug therapy; Z88.6 Allergy status to analgesic agent; Z88.8 Allergy status to other drugs, medicaments and biological substances; Z91.018 Allergy to other foods; Z91.048 Other nonmedicinal substance allergy status

== ENCOUNTER → 2023-03-19 | Outpatient (CLI) | payer MEDICARE, MEDICAID ==
[~2023-03-19] MED LIST changes: -TRIAMCINOLONE ACETONIDE SUSP 40MG/ML 1ML VIAL As Ordered ONE
== END ==
LOC: M PAIN 11:15
PROVIDERS: ATTEND Nurse Practitioner Family
DX: M46.1 Sacroiliitis, not elsewhere classified (principal); M54.6 Pain in thoracic spine; M96.1 Postlaminectomy syndrome, not elsewhere classified; G89.29 Other chronic pain; K21.9 Gastro-esophageal reflux disease without esophagitis; K58.9 Irritable bowel syndrome, unspecified; M54.50 Low back pain, unspecified; Z87.891 Personal history of nicotine dependence; Z79.891 Long term (current) use of opiate analgesic; Z79.899 Other long term (current) drug therapy; Z88.6 Allergy status to analgesic agent; Z88.8 Allergy status to other drugs, medicaments and biological substances; Z91.048 Other nonmedicinal substance allergy status

== ENCOUNTER → 2023-04-03 | Outpatient (CLI) | payer MEDICARE, MEDICAID ==
[~2023-04-03] MED LIST changes: +PROHANCE 279.3MG/ML 15ML VIAL ONE
== END ==
LOC: M PLAIMG 10:11
PROVIDERS: ATTEND Nurse Practitioner Family
DX: M54.6 Pain in thoracic spine (principal); M96.1 Postlaminectomy syndrome, not elsewhere classified
CPT/HCPCS: 72157; A9576

== ENCOUNTER → 2023-04-05 | Outpatient (CLI) | payer MEDICARE, MEDICAID ==
[~2023-04-05] MED LIST changes: -PROHANCE 279.3MG/ML 15ML VIAL ONE
== END ==
LOC: M PAIN 11:15
PROVIDERS: ATTEND Anesthesiology
DX: M96.1 Postlaminectomy syndrome, not elsewhere classified (principal); M54.6 Pain in thoracic spine; M79.10 Myalgia, unspecified site; M54.14 Radiculopathy, thoracic region; Z87.891 Personal history of nicotine dependence; Z88.5 Allergy status to narcotic agent; Z88.6 Allergy status to analgesic agent; Z88.8 Allergy status to other drugs, medicaments and biological substances; Z91.018 Allergy to other foods; Z79.899 Other long term (current) drug therapy

== ENCOUNTER → 2023-04-20 | Outpatient (REF) | payer MEDICARE, MEDICAID ==
[2023-04-20 16:33] LABS: BASO # 0.1 10^3/uL (0.0-0.2); BASO % 1.2 % (0.0-1.0); EOS # 0.2 10^3/uL (0.0-0.5); EOS % 3.7 % (0.0-3.0); HEMATOCRIT 38.3 % (36.0-47.0); HEMOGLOBIN 12.9 g/dl (12.0-15.5); LYMPH # 1.4 10^3/uL (1.5-5.0); LYMPH % 32.9 % (24.0-44.0); MEAN CORPUSCULAR HEMOGLOBIN 32.1 pg (27.0-33.0); MEAN CORPUSCULAR HGB CONC 33.7 g/dl (32.0-36.5); MEAN CORPUSCULAR VOLUME 95.3 fl (80.0-96.0); MONO # 0.4 10^3/uL (0.0-0.8); MONO % 10.3 % (2.0-8.0); NEUTROPHILS # 2.2 10^3/uL (1.5-8.5); NEUTROPHILS % 51.7 % (36.0-66.0); PLATELET COUNT, AUTOMATED 258 10^3/uL (150-450); RED BLOOD COUNT 4.02 10^6/uL (4.00-5.40); WHITE BLOOD COUNT 4.3 10^3/uL (4.0-10.0)
[2023-04-20 17:00] LABS: ALBUMIN 3.8 G/DL (3.2-5.2); ALKALINE PHOSPHATASE 79 U/L (46-116); ALT/SGPT 21 U/L (7.0-40); AST/SGOT 17 U/L (<34); BILIRUBIN,TOTAL 0.5 MG/DL (0.3-1.2); BLOOD UREA NITROGEN 11 MG/DL (9-23); CALCIUM LEVEL 9.2 MG/DL (8.5-10.1); CARBON DIOXIDE LEVEL 29 MMOL/L (20-31); CHLORIDE LEVEL 107 MMOL/L (98-107); CREATININE FOR GFR 0.78 MG/DL (0.55-1.30); GLOMERULAR FILTRATION RATE > 60.0 (>51); GLUCOSE, FASTING 88 MG/DL (60-100); POTASSIUM SERUM 4.4 MMOL/L (3.5-5.1); SODIUM LEVEL 141 MMOL/L (136-145); TOTAL PROTEIN 6.3 G/DL (5.7-8.2)
[2023-04-20 17:01] LABS: THYROID STIMULATING HORMONE 1.007 uIU/ML (0.55-4.78)
[2023-04-20 17:33] LABS: HEPATITIS C VIRUS ABY INDEX < 0.02 INDEX (<0.8)
[2023-04-20 17:34] LABS: HEPATITIS B CORE ANTIBODY IGM NEGATIVE (NEGATIVE)
== END ==
LOC: M SFHCADAM 13:21
PROVIDERS: ATTEND Nurse Practitioner Family
DX: L30.8 Other specified dermatitis (principal); Z79.899 Other long term (current) drug therapy; Z01.89 Encounter for other specified special examinations

== ENCOUNTER → 2023-06-29 | Outpatient (CLI) | payer MEDICARE, MEDICAID ==
[~2023-06-29] MED LIST changes: +TRIAMCINOLONE ACETONIDE SUSP 40MG/ML 1ML VIAL As Ordered ONE
== END ==
LOC: M PAIN 08:30
PROVIDERS: ATTEND Anesthesiology
DX: M79.18 Myalgia, other site (principal); G89.29 Other chronic pain; K21.9 Gastro-esophageal reflux disease without esophagitis; K58.9 Irritable bowel syndrome, unspecified; M47.812 Spondylosis without myelopathy or radiculopathy, cervical region; M54.50 Low back pain, unspecified; M25.551 Pain in right hip; Z87.891 Personal history of nicotine dependence; Z88.6 Allergy status to analgesic agent; Z88.8 Allergy status to other drugs, medicaments and biological substances; Z91.018 Allergy to other foods; Z79.891 Long term (current) use of opiate analgesic; Z79.899 Other long term (current) drug therapy
CPT/HCPCS: 20552; 76000; J0665; J3301

== ENCOUNTER → 2023-07-31 | Outpatient (CLI) | payer MEDICARE, MEDICAID ==
[~2023-07-31] MED LIST changes: -TRIAMCINOLONE ACETONIDE SUSP 40MG/ML 1ML VIAL As Ordered ONE
== END ==
LOC: M PAIN 10:45
PROVIDERS: ATTEND Nurse Practitioner Family
DX: M79.18 Myalgia, other site (principal); Z79.891 Long term (current) use of opiate analgesic; M47.816 Spondylosis without myelopathy or radiculopathy, lumbar region; M46.1 Sacroiliitis, not elsewhere classified; G89.29 Other chronic pain; K21.9 Gastro-esophageal reflux disease without esophagitis; K58.9 Irritable bowel syndrome, unspecified; M47.812 Spondylosis without myelopathy or radiculopathy, cervical region; M54.50 Low back pain, unspecified; Z87.891 Personal history of nicotine dependence; Z79.899 Other long term (current) drug therapy; Z88.6 Allergy status to analgesic agent; Z88.8 Allergy status to other drugs, medicaments and biological substances

== ENCOUNTER → 2023-08-31 | Outpatient (CLI) | payer MEDICARE, MEDICAID | LOC: M PAIN 14:00 | PROVIDERS: ATTEND Nurse Practitioner Family | DX: M46.1 Sacroiliitis, not elsewhere classified (principal); M47.816 Spondylosis without myelopathy or radiculopathy, lumbar region; Z87.891 Personal history of nicotine dependence; Z79.891 Long term (current) use of opiate analgesic; Z79.899 Other long term (current) drug therapy; Z88.5 Allergy status to narcotic agent; Z88.6 Allergy status to analgesic agent; Z91.011 Allergy to milk products; Z91.048 Other nonmedicinal substance allergy status ==

== ENCOUNTER → 2023-10-23 | Outpatient (CLI) | payer MEDICARE, MEDICAID | LOC: M PAIN 14:00 | PROVIDERS: ATTEND Nurse Practitioner Family | DX: M79.18 Myalgia, other site (principal); M46.1 Sacroiliitis, not elsewhere classified; G89.29 Other chronic pain; K21.9 Gastro-esophageal reflux disease without esophagitis; K58.9 Irritable bowel syndrome, unspecified; M47.22 Other spondylosis with radiculopathy, cervical region; M47.12 Other spondylosis with myelopathy, cervical region; Z87.891 Personal history of nicotine dependence; Z79.899 Other long term (current) drug therapy; Z79.891 Long term (current) use of opiate analgesic; Z88.6 Allergy status to analgesic agent; Z88.8 Allergy status to other drugs, medicaments and biological substances; Z91.018 Allergy to other foods ==

== ENCOUNTER → 2023-12-04 | Outpatient (CLI) | payer MEDICARE, MEDICAID ==
[~2023-12-04] MED LIST changes: +GABA-1172 PO; -GABA-282 PO; +ISOVUE-M 300 61% 15ML VIAL As Ordered ONE; +LIDOCAINE 1% SDV 30ML VIAL As Ordered ONE; +TRIAMCINOLONE ACETONIDE SUSP 40MG/ML 1ML VIAL As Ordered ONE
== END ==
LOC: M PAIN 11:00
PROVIDERS: ATTEND Anesthesiology
DX: M46.1 Sacroiliitis, not elsewhere classified (principal); K21.9 Gastro-esophageal reflux disease without esophagitis; K58.9 Irritable bowel syndrome, unspecified; M41.9 Scoliosis, unspecified; K31.84 Gastroparesis; M47.22 Other spondylosis with radiculopathy, cervical region; M47.12 Other spondylosis with myelopathy, cervical region; M54.50 Low back pain, unspecified; M25.551 Pain in right hip; Z87.891 Personal history of nicotine dependence; Z79.891 Long term (current) use of opiate analgesic; Z79.899 Other long term (current) drug therapy; Z88.6 Allergy status to analgesic agent; Z88.8 Allergy status to other drugs, medicaments and biological substances; Z91.048 Other nonmedicinal substance allergy status
CPT/HCPCS: G0260; J0665; J3301; Q9967

== ENCOUNTER → 2023-12-31 | Outpatient (CLI) | payer MEDICARE, MEDICAID ==
[~2023-12-31] MED LIST changes: -ISOVUE-M 300 61% 15ML VIAL As Ordered ONE; -LIDOCAINE 1% SDV 30ML VIAL As Ordered ONE; -TRIAMCINOLONE ACETONIDE SUSP 40MG/ML 1ML VIAL As Ordered ONE
== END ==
LOC: M PAIN 11:00
PROVIDERS: ATTEND Nurse Practitioner Family
DX: M46.1 Sacroiliitis, not elsewhere classified (principal); Z79.891 Long term (current) use of opiate analgesic; G89.29 Other chronic pain; K21.9 Gastro-esophageal reflux disease without esophagitis; K58.9 Irritable bowel syndrome, unspecified; M47.22 Other spondylosis with radiculopathy, cervical region; M47.12 Other spondylosis with myelopathy, cervical region; M25.551 Pain in right hip; M54.50 Low back pain, unspecified; Z87.891 Personal history of nicotine dependence; Z79.899 Other long term (current) drug therapy; Z88.6 Allergy status to analgesic agent; Z88.8 Allergy status to other drugs, medicaments and biological substances; Z91.018 Allergy to other foods

== ENCOUNTER → 2024-01-08 | Outpatient (CLI) | payer MEDICARE, MEDICAID ==
[~2024-01-08] MED LIST changes: +TRIAMCINOLONE ACETONIDE SUSP 40MG/ML 1ML VIAL As Ordered ONE
== END ==
LOC: M PAIN 08:15
PROVIDERS: ATTEND Anesthesiology
DX: M79.18 Myalgia, other site (principal); G89.29 Other chronic pain; K21.9 Gastro-esophageal reflux disease without esophagitis; K58.9 Irritable bowel syndrome, unspecified; M41.9 Scoliosis, unspecified; M47.22 Other spondylosis with radiculopathy, cervical region; M54.50 Low back pain, unspecified; Z87.891 Personal history of nicotine dependence; Z79.891 Long term (current) use of opiate analgesic; Z79.899 Other long term (current) drug therapy; Z88.6 Allergy status to analgesic agent; Z88.8 Allergy status to other drugs, medicaments and biological substances; Z91.018 Allergy to other foods
CPT/HCPCS: 20552; J0665; J3301

== ENCOUNTER → 2024-03-10 | Outpatient (CLI) | payer MEDICARE, MEDICAID ==
[~2024-03-10] MED LIST changes: -TRIAMCINOLONE ACETONIDE SUSP 40MG/ML 1ML VIAL As Ordered ONE
== END ==
LOC: M PAIN 10:00
PROVIDERS: ATTEND Nurse Practitioner Family
DX: M79.18 Myalgia, other site (principal); M46.1 Sacroiliitis, not elsewhere classified; G89.29 Other chronic pain; K21.9 Gastro-esophageal reflux disease without esophagitis; K58.9 Irritable bowel syndrome, unspecified; M41.9 Scoliosis, unspecified; M19.90 Unspecified osteoarthritis, unspecified site; M47.22 Other spondylosis with radiculopathy, cervical region; M47.12 Other spondylosis with myelopathy, cervical region; M25.551 Pain in right hip; M54.50 Low back pain, unspecified; Z87.891 Personal history of nicotine dependence; Z79.891 Long term (current) use of opiate analgesic; Z79.899 Other long term (current) drug therapy; Z88.6 Allergy status to analgesic agent; Z88.8 Allergy status to other drugs, medicaments and biological substances

== ENCOUNTER → 2024-04-10 | Outpatient (CLI) | payer MEDICARE, MEDICAID | LOC: M PAIN 10:00 | PROVIDERS: ATTEND Anesthesiology | DX: M51.16 Intervertebral disc disorders with radiculopathy, lumbar region (principal); M46.1 Sacroiliitis, not elsewhere classified; M96.1 Postlaminectomy syndrome, not elsewhere classified; K21.9 Gastro-esophageal reflux disease without esophagitis; Z87.891 Personal history of nicotine dependence; Z79.891 Long term (current) use of opiate analgesic; Z79.899 Other long term (current) drug therapy; Z88.6 Allergy status to analgesic agent; Z88.8 Allergy status to other drugs, medicaments and biological substances; Z91.018 Allergy to other foods ==

== ENCOUNTER → 2024-05-26 | Outpatient (REF) | payer MEDICARE, MEDICAID ==
[2024-05-26 18:23] LABS: ALBUMIN 3.9 G/DL (3.2-5.2); ALKALINE PHOSPHATASE 78 U/L (35-104); ALT/SGPT 18 U/L (7.0-40); AST/SGOT 21 U/L (<34); BILIRUBIN,TOTAL 0.5 MG/DL (0.3-1.2); BLOOD UREA NITROGEN 13 MG/DL (9-23); CALCIUM LEVEL 9.4 MG/DL (8.5-10.1); CARBON DIOXIDE LEVEL 31 MMOL/L (20-31); CHLORIDE LEVEL 103 MMOL/L (98-107); CREATININE FOR GFR 0.76 MG/DL (0.55-1.30); GLOMERULAR FILTRATION RATE > 60.0 (>51); GLUCOSE, FASTING 89 MG/DL (60-100); POTASSIUM SERUM 3.8 MMOL/L (3.5-5.1); SODIUM LEVEL 141 MMOL/L (136-145); TOTAL PROTEIN 6.6 G/DL (5.7-8.2)
[2024-05-26 18:26] LABS: BASO % 0.8 % (0.0-1.0); EOS # 0.1 10^3/uL (0.0-0.5); EOS % 3.1 % (0.0-3.0); HEMATOCRIT 40.5 % (36.0-47.0); HEMOGLOBIN 13.5 g/dl (12.0-15.5); LYMPH # 1.3 10^3/uL (1.5-5.0); LYMPH % 33.7 % (24.0-44.0); MEAN CORPUSCULAR HGB CONC 33.3 g/dl (32.0-36.5); MEAN CORPUSCULAR VOLUME 93.1 fl (80.0-96.0); MONO # 0.4 10^3/uL (0.0-0.8); MONO % 9.2 % (2.0-8.0); NEUTROPHILS # 2.1 10^3/uL (1.5-8.5); NEUTROPHILS % 52.9 % (36.0-66.0); PLATELET COUNT, AUTOMATED 230 10^3/uL (150-450); RED BLOOD COUNT 4.35 10^6/uL (4.00-5.40); WHITE BLOOD COUNT 3.9 10^3/uL (4.0-10.0)
== END ==
LOC: M LABDRWAD 17:15
PROVIDERS: ATTEND Psychiatry & Neurology Neurology
DX: R51.9 Headache, unspecified (principal)

== ENCOUNTER → 2024-05-26 | Outpatient (REF) | payer MEDICARE, MEDICAID ==
[2024-05-26 18:24] LABS: ALBUMIN 3.8 G/DL (3.2-5.2); ALKALINE PHOSPHATASE 77 U/L (35-104); ALT/SGPT 20 U/L (7.0-40); AST/SGOT 16 U/L (<34); BILIRUBIN,TOTAL 0.5 MG/DL (0.3-1.2); BLOOD UREA NITROGEN 13 MG/DL (9-23); CALCIUM LEVEL 9.4 MG/DL (8.5-10.1); CARBON DIOXIDE LEVEL 30 MMOL/L (20-31); CHLORIDE LEVEL 103 MMOL/L (98-107); CHOLESTEROL LEVEL 228 MG/DL (<200); CHOLESTEROL RISK RATIO 3.18 (<5); CREATININE FOR GFR 0.78 MG/DL (0.55-1.30); EOS # 0.1 10^3/uL (0.0-0.5); EOS % 2.9 % (0.0-3.0); GLOMERULAR FILTRATION RATE > 60.0 (>51); GLUCOSE, FASTING 90 MG/DL (60-100); HDL CHOLESTEROL 71.6 MG/DL (>40); HEMATOCRIT 40.5 % (36.0-47.0); HEMOGLOBIN 13.6 g/dl (12.0-15.5); IRON (FE) 106 UG/DL (50-170); LDL CHOLESTEROL 143.4 MG/DL (<100); LYMPH # 1.4 10^3/uL (1.5-5.0); LYMPH % 35.1 % (24.0-44.0); MEAN CORPUSCULAR HEMOGLOBIN 31.3 pg (27.0-33.0); MEAN CORPUSCULAR HGB CONC 33.6 g/dl (32.0-36.5); MEAN CORPUSCULAR VOLUME 93.1 fl (80.0-96.0); MONO # 0.4 10^3/uL (0.0-0.8); NEUTROPHILS # 2.1 10^3/uL (1.5-8.5); NON-HDL-C 156.4 MG/DL; PLATELET COUNT, AUTOMATED 219 10^3/uL (150-450); POTASSIUM SERUM 3.9 MMOL/L (3.5-5.1); RED BLOOD COUNT 4.35 10^6/uL (4.00-5.40); SODIUM LEVEL 142 MMOL/L (136-145); TOTAL IRON BINDING CAPACITY 279 UG/DL (250-425); TOTAL PROTEIN 6.5 G/DL (5.7-8.2); TRIGLYCERIDES LEVEL 65 MG/DL (<150); WHITE BLOOD COUNT 4.1 10^3/uL (4.0-10.0)
[2024-05-26 18:33] LABS: FREE T4 0.95 NG/DL (0.89-1.76); THYROID STIMULATING HORMONE 0.658 uIU/ML (0.55-4.78)
[2024-05-26 18:34] LABS: FERRITIN 44.2 NG/ML (7.3-270.7)
[2024-05-26 18:35] LABS: TOTAL 25(OH) VITAMIN D 77.6 NG/ML (20.0-100.0)
[2024-05-26 19:08] LABS: HEMOGLOBIN A1c 4.7 % (4.0-6.0)
== END ==
LOC: M LAB REF 17:13 → M LABDRWAD 17:13
PROVIDERS: ATTEND Nurse Practitioner Adult Health
DX: K21.9 Gastro-esophageal reflux disease without esophagitis (principal); I10 Essential (primary) hypertension; E78.5 Hyperlipidemia, unspecified; E55.9 Vitamin D deficiency, unspecified; F41.9 Anxiety disorder, unspecified; M54.50 Low back pain, unspecified; Z79.899 Other long term (current) drug therapy; R51.9 Headache, unspecified; R53.83 Other fatigue

== ENCOUNTER → 2024-11-25 | Outpatient (CLI) | payer MEDICARE, MEDICAID ==
[2024-11-25 19:18] LABS: BASO # 0.0 10^3/uL (0.0-0.2); BASO % 1.0 % (0.0-1.0); EOS # 0.1 10^3/uL (0.0-0.5); EOS % 2.5 % (0.0-3.0); IRON (FE) 114.0 UG/DL (50-170); LYMPH # 1.5 10^3/uL (1.5-5.0); LYMPH % 36.3 % (24.0-44.0); MONO # 0.4 10^3/uL (0.0-0.8); MONO % 10.3 % (2.0-8.0); NEUTROPHILS # 2.0 10^3/uL (1.5-8.5); NEUTROPHILS % 49.6 % (36.0-66.0); PERCENT SATURATION 41.5 % (13.2-45.0); PLATELET COUNT, AUTOMATED 225 10^3/uL (150-450)
[2024-11-25 19:19] LABS: ALT/SGPT 22.0 U/L (7.0-40); AST/SGOT 21.0 U/L (<34); CALCIUM LEVEL 9.0 MG/DL (8.5-10.1); CARBON DIOXIDE LEVEL 31.0 MMOL/L (20-31); CHLORIDE LEVEL 105.0 MMOL/L (98-107); CHOLESTEROL LEVEL 217.0 MG/DL (<200); CHOLESTEROL RISK RATIO 3.22 (<5); CREATININE FOR GFR 0.83 MG/DL (0.55-1.30); FREE T4 0.84 NG/DL (0.89-1.76); GLOMERULAR FILTRATION RATE 81.7 (>51); LDL CHOLESTEROL 119.3 MG/DL (<100); NON-HDL-C 149.7 MG/DL; POTASSIUM SERUM 4.0 MMOL/L (3.5-5.1); SODIUM LEVEL 141.0 MMOL/L (136-145); TRIGLYCERIDES LEVEL 152.0 MG/DL (<150)
[2024-11-25 19:20] LABS: TOTAL 25(OH) VITAMIN D 71.4 NG/ML (20.0-100.0)
== END ==
LOC: M LABDRWAD 13:35
DX: K21.9 Gastro-esophageal reflux disease without esophagitis (principal); I10 Essential (primary) hypertension; E78.5 Hyperlipidemia, unspecified; F41.9 Anxiety disorder, unspecified; E55.9 Vitamin D deficiency, unspecified; Z79.899 Other long term (current) drug therapy; M54.50 Low back pain, unspecified; R79.0 Abnormal level of blood mineral